=== PATIENT | female | born 1950 | race Caucasian/White ===

== ENCOUNTER 2023-10-25 20:12 | Inpatient (IN) | payer MEDICARE, OTHER ==
[2023-10-25 21:14] LABS: Basophils % (A) 1 %; Eosinophils # (A) 0.1 k/uL (0-0.7); Eosinophils % (A) 2 %; HCT 35.3 % (34.0-46.0); HGB 11.1 gm/dL (11.4-16.0); Hypochromasia Moderate; Lymphocytes # (A) 1.2 k/uL (1.0-4.8); Lymphocytes % (A) 17 %; MCH 28.4 pg (25.0-35.0); MCHC 31.5 g/dL (31.0-37.0); MCV 90.2 fL (80.0-100.0); Mean Platelet Volume 11.3; Monocytes # (A) 0.2 k/uL (0-1.0); Monocytes % (A) 3 %; Neutrophils # (A) 5.3 k/uL (1.3-7.7); Neutrophils % (A) 76 %; Platelet Count 153 k/uL (150-450); RBC 3.92 m/uL (3.80-5.40); RDW 15.1 % (11.5-15.5)
--- NOTE | 2023-10-25 21:14 | ED ---
Fall HPI - General Chief Complaint: Fall Stated Complaint: AMS, fall Time Seen by Provider: 10/25/23 20:18 Source: patient, EMS Mode of arrival: EMS - History of Present Illness Initial Comments: This patient is 73-year-old woman who is here to have evaluation after she had parent fall at home. The patient then reportedly disoriented. She is brought by ambulance to have evaluation. When I evaluate the patient, she initially is sleeping but after tactile stimulation she is awake and she is able to answer questions appropriately, though she is not able to elaborate on answers. MD Complaint: fall -: hour(s) When Fall Occurred: unsure Fall Witnessed: no Place Fall Occurred: home Loss of Consciousness: unsure - Related Data Home Medications Medication Instructions Recorded Confirmed Albuterol Sulfate [Albuterol 2 puff PO RT-Q4H PRN 10/26/23 10/26/23 Sulfate Hfa] Ergocalciferol (Vitamin D2) 1,250 mcg PO Q7D 10/26/23 10/26/23 [Drisdol (50,000 Iu)] Fluticasone/Umeclidin/Vilanter 1 puff INHALATION RT-DAILY 10/26/23 10/26/23 [Trelegy Ellipta 100-62.5-25] Metoprolol Succinate (ER) [Toprol 25 mg PO DAILY 10/26/23 10/26/23 XL] Montelukast [Singulair] 10 mg PO DAILY 10/26/23 10/26/23 Potassium Chloride ER [K-Dur 10] 10 meq PO DAILY 10/26/23 10/26/23 Pregabalin [Lyrica] 150 mg PO TID 10/26/23 10/26/23 oxyBUTYnin chloride [Ditropan] 5 mg PO BID 10/26/23 10/26/23 oxyCODONE-APAP 10-325MG [Percocet 1 tab PO Q6H PRN 10/26/23 10/26/23 10-325 mg] Previous Rx's Medication Instructions Recorded Aspirin 81 mg PO DAILY tab 10/29/23 Atorvastatin [Lipitor] 40 mg PO HS tab 10/29/23 Dapagliflozin Propanediol [Farxiga] 5 mg PO DAILY tab 10/29/23 Ipratropium-Albuterol Nebulize 3 ml INHALATION QID PRN each 10/29/23 [Duoneb 0.5 mg-3 mg/3 ml Soln] Sacubitril/Valsartan [Entresto 24 1 each PO BID tab 10/29/23 mg-26 mg Tablet] Ticagrelor [Brilinta] 90 mg PO BID #0 tab 10/29/23 cefUROXime axetiL [Ceftin] 500 mg PO BID 3 Days #6 tab 10/29/23 predniSONE 50 mg PO DAILY 5 Days #5 tablet 10/29/23 Allergies Allergy/AdvReac Type Severity Reaction Status Date / Time No Known Allergies Allergy Verified 10/26/23 10:57 Review of Systems ROS Statement: Those systems with pertinent positive or pertinent negative responses have been documented in the HPI. ROS Other: All systems not noted in ROS Statement are negative. Constitutional: Reports: weakness. Denies: fever Eyes: Denies: vision change Respiratory: Denies: cough, dyspnea Cardiovascular: Denies: chest pain, palpitations, edema, syncope Gastrointestinal: Denies: abdominal pain, vomiting Genitourinary: Denies: dysuria, hematuria Musculoskeletal: Denies: back pain Skin: Denies: rash Neurological: Reports: weakness. Denies: headache, numbness Past Medical History Past Medical History: Unable to Obtain History of Any Multi-Drug Resistant Organisms: None Reported Past Surgical History: Unable to Obtain Past Psychological History: Unable to Obtain Smoking Status: Unknown if ever smoked Past Alcohol Use History: Unable to Obtain Past Drug Use History: Unable to Obtain General Exam Limitations: altered mental status General appearance: other (Somnolent but aroused to tactile stimulus) Head exam: Present: atraumatic, normocephalic Eye exam: Present: normal appearance, PERRL, EOMI. Absent: scleral icterus, conjunctival injection Pupils: Present: miosis ENT exam: Present: normal oropharynx Neck exam: Present: normal inspection, full ROM. Absent: tenderness Respiratory exam: Present: normal lung sounds bilaterally. Absent: respiratory distress, wheezes, rales, rhonchi, stridor, accessory muscle use Cardiovascular Exam: Present: regular rate, normal rhythm, normal heart sounds. Absent: systolic murmur, diastolic murmur, rubs, gallop GI/Abdominal exam: Present: soft. Absent: distended, tenderness, guarding, rebound, rigid, mass Extremities exam: Present: normal inspection, normal capillary refill. Absent: pedal edema, calf tenderness Back exam: Present: normal inspection. Absent: CVA tenderness (R), CVA tenderness (L) Neurological exam: Present: oriented X3. Absent: CN II-XII intact, motor sensory deficit Skin exam: Present: warm, dry, intact, normal color. Absent: rash Course Vital Signs 10/25/23 10/25/23 10/25/23 20:14 21:26 22:26 Temperature 99.2 F Pulse Rate 90 83 84 Respiratory 20 20 20 Rate Blood Pressure 124/84 126/87 128/80 O2 Sat by Pulse 94 L 94 L 93 L Oximetry 10/26/23 00:58 Temperature Pulse Rate 86 Respiratory 18 Rate Blood Pressure 121/86 O2 Sat by Pulse 94 L Oximetry Medical Decision Making - Medical Decision Making Patient is 73-year-old woman here with altered mental status and fall yesterday. The patient's workup does reveal an ECG that is concerning for myocardial ischemia. The case discussed with Dr. Funes, covering cardiology. The patient is started on heparin. In addition the patient appears to have probably aspirated and will be started on antibiotics and admitted. The patient had CT scan of the brain that I interpreted as negative for acute bony injury, negative for acute intracranial hemorrhage, negative for mass effect The patient had chest x-ray that I interpreted as showing right lower lobe density consistent with pneumonia Was pt. sent in by a medical professional or institution ([facility], [employer] SUPERVIS[employer], urgent care, hospital, or longterm...) When possible be specific @ -[No] Did you speak to anyone other than the patient for history (EMS, parent, family, police, friend...)? What history was obtained from this source @ -[No] Did you review nursing and triage notes (agree or disagree)? Why? @ -[I reviewed and agree with nursing and triage notes] Were old charts reviewed (outside hosp., previous admission, EMS record, old EKG, old radiological studies, urgent care reports/EKG's, longterm records)? Report findings @ -[No old charts were reviewed] Differential Diagnosis (chest pain, altered mental status, abdominal pain women, abdominal pain men, vaginal bleeding, weakness, fever, dyspnea, syncope, headache, dizziness, GI bleed, back pain, seizure, CVA, palpatations, mental health, musculoskeletal)? @ -[Differential Altered Mental Status: Hypoglycemia, DKA, hypercapnia, ETOH, overdose, CO poisoning, trauma, myxedema coma, HTN encephalopathy, infection, encephalitis, psychosis, intercranial hemorrhage, hepatic encephalopathy, meningitis, CVA, this is not meant to be an all-inclusive list EKG interpreted by me (3pts min.). @ -[I interpreted as above] X-rays interpreted by me (1pt min.). @ -[I interpreted as above CT interpreted by me (1pt min.). @ -[I interpreted as above U/S interpreted by me (1pt. min.). @ -[None done] What testing was considered but not performed or refused? (CT, X-rays, U/S, labs)? Why? @ -[None] What meds were considered but not given or refused? Why? @ -[None] Did you discuss the management of the patient with other professionals (professionals i.e. , PA, [employer] YE[employer] SUPERVISOR, lab, RT, psych nurse, medical social worker, drag seiner, teacher, chief business development officer, bottle caser)? Give summary @ -[Case discussed with admitting physician and also with cardiology on-call and treatment recommendations are incorporated Was smoking cessation discussed for >3mins.? @ -[No] Was critical care preformed (if so, how long)? @ -[Yes, 35 minutes Were there social determinants of health that impacted care today? How? (Homelessness, low income, unemployed, alcoholism, drug addiction, transportatio n, low edu. Level, literacy, decrease access to med. care, detention, rehab)? @ -[No] Was there de-escalation of care discussed even if they declined (Discuss DNR or withdrawal of care, Hospice)? DNR status @ -[No] What co-morbidities impacted this encounter? (DM, HTN, Smoking, COPD, CAD, Cancer, CVA, ARF, Chemo, Hep., AIDS, mental health diagnosis, sleep apnea, morbid obesity)? @ -[None] Was patient admitted / discharged? Hospital course, mention meds given and route, prescriptions, significant lab abnormalities, going to OR and other pertinent info. @ -[Admitted, see above Undiagnosed new problem with uncertain prognosis? @ -[No] Drug Therapy requiring intensive monitoring for toxicity (Heparin, Nitro, Insulin, Cardizem)? @ -[Heparin Were any procedures done? @ -[No] Diagnosis/symptom? @ -[Acute altered mental status Recent fall Acute pneumonia NSTEMI Acute, or Chronic, or Acute on Chronic? @ -[Acute Uncomplicated (without systemic symptoms) or Complicated (systemic symptoms)? @ -Complicated by mental status change Side effects of treatment? @ -[No] Exacerbation, Progression, or Severe Exacerbation? @ -[No] Poses a threat to life or bodily function? How? (Chest pain, [place], GA, pneumonia, PE, COPD, DKA, ARF, appy, cholecystitis, CVA, Diverticulitis, Homicidal, Suicidal, threat to staff... and all critical care pts) @ -[Yes - Lab Data Result diagrams: 10/29/23 07:36 10/29/23 07:36 Lab Results 10/25/23 10/25/23 10/25/23 Range/Units 21:03 21:03 21:50 WBC 7.0 (3.8-10.6) k/uL RBC 3.92 (3.80-5.40) m/uL Hgb 11.1 L (11.4-16.0) gm/dL Hct 35.3 (34.0-46.0) % MCV 90.2 (80.0-100.0) fL MCH 28.4 (25.0-35.0) pg MCHC 31.5 (31.0-37.0) g/dL RDW 15.1 (11.5-15.5) % Plt Count 153 (150-450) k/uL MPV 11.3 Neutrophils % 76 % Lymphocytes % 17 % Monocytes % 3 % Eosinophils % 2 % Basophils % 1 % Neutrophils # 5.3 (1.3-7.7) k/uL Lymphocytes # 1.2 (1.0-4.8) k/uL Monocytes # 0.2 (0-1.0) k/uL Eosinophils # 0.1 (0-0.7) k/uL Basophils # 0.0 (0-0.2) k/uL Hypochromasia Moderate Sodium 141 (137-145) mmol/L Potassium 4.9 (3.5-5.1) mmol/L Chloride 113 H (98-107) mmol/L Carbon Dioxide 22 (22-30) mmol/L Anion Gap 6 mmol/L BUN 20 H (7-17) mg/dL Creatinine 0.90 (0.52-1.04) mg/dL Est GFR (CKD-EPI)AfAm 75 (>60 ml/min/1.73 sqM) Est GFR (CKD-EPI)NonAf 65 (>60 ml/min/1.73 sqM) Glucose 89 (74-99) mg/dL Plasma Lactic Acid Timur (0.7-2.0) mmol/L Calcium 8.2 L (8.4-10.2) mg/dL Magnesium 2.0 (1.6-2.3) mg/dL Total Bilirubin 0.7 (0.2-1.3) mg/dL AST 44 H (14-36) U/L ALT 15 (4-34) U/L Alkaline Phosphatase 61 (38-126) U/L Troponin I 0.370 H* (0.000-0.034) ng/mL Total Protein 6.3 (6.3-8.2) g/dL Albumin 3.3 L (3.5-5.0) g/dL Serum Alcohol <10 mg/dL 10/25/23 Range/Units 21:50 WBC (3.8-10.6) k/uL RBC (3.80-5.40) m/uL Hgb (11.4-16.0) gm/dL Hct (34.0-46.0) % MCV (80.0-100.0) fL MCH (25.0-35.0) pg MCHC (31.0-37.0) g/dL RDW (11.5-15.5) % Plt Count (150-450) k/uL MPV Neutrophils % % Lymphocytes % % Monocytes % % Eosinophils % % Basophils % % Neutrophils # (1.3-7.7) k/uL Lymphocytes # (1.0-4.8) k/uL Monocytes # (0-1.0) k/uL Eosinophils # (0-0.7) k/uL Basophils # (0-0.2) k/uL Hypochromasia Sodium (137-145) mmol/L Potassium (3.5-5.1) mmol/L Chloride (98-107) mmol/L Carbon Dioxide (22-30) mmol/L Anion Gap mmol/L BUN (7-17) mg/dL Creatinine (0.52-1.04) mg/dL Est GFR (CKD-EPI)AfAm (>60 ml/min/1.73 sqM) Est GFR (CKD-EPI)NonAf (>60 ml/min/1.73 sqM) Glucose (74-99) mg/dL Plasma Lactic Acid Timur 1.3 (0.7-2.0) mmol/L Calcium (8.4-10.2) mg/dL Magnesium (1.6-2.3) mg/dL Total Bilirubin (0.2-1.3) mg/dL AST (14-36) U/L ALT (4-34) U/L Alkaline Phosphatase (38-126) U/L Troponin I (0.000-0.034) ng/mL Total Protein (6.3-8.2) g/dL Albumin (3.5-5.0) g/dL Serum Alcohol mg/dL - EKG Data -: EKG Interpreted by [facility] EKG shows normal: sinus rhythm, axis (Normal), intervals (Normal), QRS complexes (Inferior Q waves), ST-T waves (The patient does appear to have less than [address] elevations in leads III and aVF as well as Q waves in these leads.) Rate: normal (Rate 87 bpm) Disposition Clinical Impression: Fall, NSTEMI (non-ST elevated myocardial infarction), Pneumonia Disposition: ADMITTED IP TO THIS HOSP Condition: Fair Is patient prescribed a controlled substance at d/c from ED?: No
--- NOTE | 2023-10-25 21:30 | CT ---
EXAMINATION TYPE: CT brain wo con CT DLP: 1070.7 mGycm, Automated exposure control for dose reduction was used. DATE OF EXAM: 10/25/2023 9:22 PM COMPARISON: None. CLINICAL INDICATION: Female, 73 years old with history of altered mental status. fall injury, Patient in by EMS. Patient brought from home after a fall yesterday, does not take anti-coagulant medicatio ns, patient slept until 1300 today, found with vomit near her, lives at home with daughter, baseline LOC is x4 per EMS. At time of arrival to ER, patient is lethargic, alert to person, able to answer so me yes/no questions, denies complaints of pain, falls asleep quickly and wakes to mild tactile stimul ation. TECHNIQUE: Brain: Axial CT images of the brain were obtained with coronal and sagittal reformats created and rev iewed. Contrast used: None. Oral contrast used: None. FINDINGS: Brain: Extra-axial spaces: No abnormal extra-axial fluid collections. Ventricular system: Within normal limits Cerebral parenchyma: No acute intraparenchymal hemorrhage or mass effect. The villalta-white junction is well differentiated. Cerebellum: Unremarkable. Mass effect: No evidence of midline shift. Intracranial vasculature: unremarkable Soft tissues: Normal. Calvarium/osseous structures: No depressed skull fracture. Paranasal sinuses and mastoid air cells: Mild scattered paranasal sinus disease. Visualized orbits: Orbital contents are intact. IMPRESSION: No acute intracranial process. [facility], , 10/25/2023 9:27 PM
[2023-10-25 22:21] LABS: ALT 15 U/L (4-34); African American GFR (CKD) 75 (>60 ml/min/1.73 sqM); Albumin 3.3 g/dL (3.5-5.0); Alcohol <10 mg/dL; Anion Gap 6 mmol/L; Blood Urea Nitrogen 20 mg/dL (7-17); Calcium 8.2 mg/dL (8.4-10.2); Carbon Dioxide 22 mmol/L (22-30); Chloride 113 mmol/L (98-107); Glucose 89 mg/dL (74-99); Non-African American GFR(CKD) 65 (>60 ml/min/1.73 sqM); Sodium 141 mmol/L (137-145); Total Bilirubin 0.7 mg/dL (0.2-1.3); Total Protein 6.3 g/dL (6.3-8.2)
[2023-10-25 22:31] LABS: Potassium 4.9 mmol/L (3.5-5.1)
[2023-10-25 22:32] LABS: AST 44 U/L (14-36); Alkaline Phosphatase 61 U/L (38-126)
[2023-10-25] MEDS: HEPARIN SODIUM 1,000 UN/ML (10ML VL) IV ONE (23:01)
[2023-10-25] MEDS: HEPARIN SOD,PORK IN 0.45% NACL 25,000 UNIT in 0.45% NACL 1 250ML.BAG IV SCH (23:08)
[2023-10-25] MEDS: ASPIRIN 81 MG PO STA (23:11)
[2023-10-25] MEDS ORDERED: ONDANSETRON 4 MG/2 ML VIAL IVP PRN (23:42)
[2023-10-25] MEDS ORDERED: NALOXONE 0.4 MG/ML 1 ML VIAL IV PRN (23:42)
[2023-10-26] MEDS: AZITHROMYCIN 500 MG in SODIUM CHLORIDE 0.9% 250 ML IVPB STA ×2 (00:36→00:39)
[2023-10-26] MEDS: SODIUM CHLORIDE 0.9% 1,000 ML IV SCH (00:38)
--- NOTE | 2023-10-26 01:01 | XR ---
EXAM: XR Chest, 1 View CLINICAL HISTORY: ITS.REASON XR Reason: Altered mental status TECHNIQUE: Frontal view of the chest. COMPARISON: No relevant prior studies available. FINDINGS: Lungs: Airspace consolidation in the RIGHT lower lobe, consistent with pneumonia. Pleural space: Unremarkable. No pneumothorax. Heart: Cardiomegaly. Mediastinum: Unremarkable. Normal mediastinal contour. Bones/joints: Unremarkable. No acute fracture. IMPRESSION: Airspace consolidation in the RIGHT lower lobe, consistent with pneumonia.
--- NOTE | 2023-10-26 01:03 | P.HPIM ---
History of Present Illness H&P Date: 10/26/23 Chief Complaint: AMS Patient is a 73-year-old female with an unknown medical history presents to the ED with apparent fall at home. When evaluated patient somnolent, limited h istory was obtained. Was informed by ED that she fell at home 1 day ago. The family noticed that she was not acting like her usual self, so they decided to bring her to the emergency department. When I saw her, she was arousable with tactile stimuli and was barely able to follow vocal commands. Review of systems: Pertinent positives and negatives as discussed in HPI, a complete review of systems was performed and all other systems are negative. Physical examination: Vitals: T 99.2 F, [place] 84, RR 20, BP 128/80, O2 sat 93% on room air General: Somnolentaroused by tactile and vocal stimuli, non toxic, no distress, appears at stated age, normal weight Derm: no unusual rashes/lesions, warm Head: atraumatic, normocephalic, symmetric Eyes: EOMI, anicteric sclera, pupils equal round reactive to light ENT: Nose and ears atraumatic Mouth: no lip lesion, mucus membranes moist Cardiovascular: S1S2 reg, no murmur, positive dorsalis pedis pulse bilateral, no edema Lungs: CTA bilateral, no rhonchi, no rales, no accessory muscle use Abdominal: soft, nontender to palpation, no guarding Ext: no gross muscle atrophy Neuro: CN II-XI not intact, no gross focal neuro deficits Psych: sleepy arousable Assessment/Plan: Patient is a 73-year-old female with an unknown medical history presents to the ED with altered mental status. ED documentation reviewed and case discussed with ED provider. The patient is admitted with an anticipated greater than 2 midnight stay for evaluation of altered mental status. #. NSTEMI Ischemic versus nonischemic Troponin elevated at 0.370 => 0.383, continue to trend Lactic acid 1.3 wnl EKG independently interpreted shows abnormal EKG, sinus rhythm, with ST abnormality in lead II, III, aVF, rate 87 bpm, QTc 408 ms Repeat EKG independent interpreted shows sinus rhythm with no ST elevations or depressions present, rate 78 bpm, QTc 420 ms Keep patient NPO Order coagulation panel Order lipid profile and TSH Aspirin 81 mg p.o. daily Atorvastatin Cardiac monitoring Cardiology consulted heparin gtt per ACS protocol #. Acute encephalopathy #. Community-acquired pneumonia Patient afebrile, WBC within normal limits, [place] wnl, elevated RR of 20 Altered mental status could possibly be due to pneumonia, rule out other etiology CXR independently interpreted shows consolidation in the right lower lobe Patient on ceftriaxone 2 g IVPB Patient on azithromycin 500 mg IVPB Ordered blood cultures urine legionella antigen WBC 7 check blood culture #. Fall secondary to debility/failure to thrive vs. mechanical fall vs. AMS Patient currently unable to give full detail history of fall Brain CT showed no acute intracranial process Serum alcohol <10 Order UA Monitor glucose levels for hypoglycemia Fall precautions #. Normocytic anemia Hgb 11.1, MCV 90.2 No active bleeding seen Order iron profile Order B12, folate F: NS @ 130 cc/hr E: Replete as needed N: NPO A: Fall precaution DVT prophylaxis: SCDs, IV heparin GI prophylaxis: Protonix 40 mg IV daily CODE STATUS: Full code Past Medical History Past Medical History: Unable to Obtain History of Any Multi-Drug Resistant Organisms: None Reported Past Surgical History: Unable to Obtain Past Psychological History: Unable to Obtain Smoking Status: Unknown if ever smoked Past Alcohol Use History: Unable to Obtain Past Drug Use History: Unable to Obtain Medications and Allergies Allergies Allergy/AdvReac Type Severity Reaction Status Date / Time No Known Allergies Allergy Verified 10/25/23 21:04 Physical Exam Vitals: Vital Signs Temp Pulse Resp BP Pulse Ox 10/25/23 22:26 84 20 128/80 93 L 10/25/23 21:26 83 20 126/87 94 L 10/25/23 20:14 99.2 F 90 20 124/84 94 L Intake and Output 10/25/23 10/25/23 10/26/23 14:59 22:59 06:59 Other: Weight 68.492 kg Results CBC & Chem 7: 10/26/23 04:05 10/26/23 04:05 Labs: Abnormal Lab Results - Last 24 Hours (Table) 10/25/23 10/25/23 10/25/23 Range/Units 21:03 21:03 21:50 Hgb 11.1 L (11.4-16.0) gm/dL Chloride 113 H (98-107) mmol/L BUN 20 H (7-17) mg/dL Calcium 8.2 L (8.4-10.2) mg/dL AST 44 H (14-36) U/L Troponin I 0.370 H* (0.000-0.034) ng/mL Albumin 3.3 L (3.5-5.0) g/dL Assessment and Plan Assessment: I have seen and evaluated the patient today. I Discussed the case with the resident and agree with the resident's findings I edited the assessment and plan as necessary as documented in the resident's note.
[2023-10-26 02:58] LABS: Appearance,Urine Cloudy (Clear); Bacteria,Urine Moderate /hpf; Bilirubin,Urine Negative (Negative); Blood,Urine Small (Negative); Budding Yeast,Urine Rare /hpf; Color,Urine Light Yellow; Glucose,Urine (UA) Negative (Negative); Ketones,Urine Trace (Negative); Leukocyte Esterase,Urine Trace (Negative); Nitrite,Urine Positive (Negative); Protein,Urine Negative (Negative); RBC,Urine 1 /hpf (0-5); Specific Gravity,Urine 1.017 (1.001-1.035); Squamous Epithelial Cell,Urine 2 /hpf (0-4); Urobilinogen,Urine <2.0 mg/dL (<2.0); WBC,Urine 12 /hpf (0-5)
[2023-10-26 04:48] LABS: Partial Thromboplastin Time 34.2 sec (22.0-30.0); Prothrombin Time 10.8 sec (10.0-12.5)
[2023-10-26 04:51] LABS: ALT 15 U/L (4-34); AST 52 U/L (14-36); African American GFR (CKD) >90 (>60 ml/min/1.73 sqM); Albumin 3.2 g/dL (3.5-5.0); Alkaline Phosphatase 75 U/L (38-126); Anion Gap 8 mmol/L; Blood Urea Nitrogen 18 mg/dL (7-17); Calcium 8.4 mg/dL (8.4-10.2); Carbon Dioxide 19 mmol/L (22-30); Chloride 114 mmol/L (98-107); Glucose 91 mg/dL (74-99); Non-African American GFR(CKD) 87 (>60 ml/min/1.73 sqM); Potassium 4.1 mmol/L (3.5-5.1); Sodium 141 mmol/L (137-145); Total Bilirubin 0.7 mg/dL (0.2-1.3); Total Protein 5.9 g/dL (6.3-8.2)
[2023-10-26 04:57] LABS: Basophils % (A) 0 %; Eosinophils # (A) 0.1 k/uL (0-0.7); Eosinophils % (A) 2 %; HCT 35.4 % (34.0-46.0); HGB 11.6 gm/dL (11.4-16.0); Lymphocytes # (A) 1.5 k/uL (1.0-4.8); Lymphocytes % (A) 20 %; MCH 29.4 pg (25.0-35.0); MCHC 32.8 g/dL (31.0-37.0); MCV 89.5 fL (80.0-100.0); Mean Platelet Volume 11.4; Monocytes # (A) 0.3 k/uL (0-1.0); Monocytes % (A) 4 %; Neutrophils # (A) 5.4 k/uL (1.3-7.7); Neutrophils % (A) 72 %; Platelet Count 153 k/uL (150-450); RBC 3.95 m/uL (3.80-5.40); RDW 15.3 % (11.5-15.5); WBC 7.4 k/uL (3.8-10.6)
[2023-10-26] MEDS: ASPIRIN 81 MG PO SCH (08:37)
[2023-10-26] MEDS: PANTOPRAZOLE 40 MG/10 ML VIAL IV SCH (08:37)
[2023-10-26 09:16] LABS: % Iron Saturation 13.93 (12.00-45.00); Chol/HDL Ratio 4.17 Ratio; Ferritin 67.3 ng/mL (10.0-291.0); Iron 34 UG/DL (50-170); LDL Cholesterol,Calculated 76.4 mg/dL (0.0-131.0); Total Iron Binding Capacity 244 UG/DL (228-460)
--- NOTE | 2023-10-26 10:50 | P.PN ---
Progress Note - Text Progress Note Date: 10/26/23 Hospital course Patient is a 73-year-old female with past medical history of tobacco use and COPD who presents to the ED after a fall. Per family patient was not acting like her usual self. So they have brought her in. In the ED patient was found to have right lower lobe pneumonia on the chest x-ray. UA was also consistent with UTI. Patient's troponins were elevated. Patient was started on IV Rocephin and azithromycin and then referred for admission. Patient's mental status has not improved. Patient was seen this morning. She was AOx3. She was somnolent however easily arousable. Her main complaint is her chronic back pain. 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 Patient's troponin peaked at 0.383. Check echocardiogram Cardiology consult Heparin drip Patient started on aspirin and statin DVT prophylaxis: Heparin drip non-ST elevation DC
[2023-10-26] MEDS ORDERED: IPRATROPIUM-ALBUTEROL 3 ML NEB INHALATION PRN (10:54)
[2023-10-26] MEDS: IPRATROPIUM-ALBUTEROL 3 ML NEB INHALATION SCH (11:59)
[2023-10-26] MEDS: methylPREDNISolone SOD SUCCI 40 MG/ML 1 ML VIAL IV SCH (12:19)
[2023-10-26] MEDS: ACETAMINOPHEN TAB 325 MG TAB PO PRN (12:20)
[2023-10-26] MEDS: HEPARIN SODIUM 1,000 UN/ML (10ML VL) IV PRN (12:25)
--- NOTE | 2023-10-26 13:12 | P.CRDCN ---
History of Present Illness History of present illness: HISTORY OF PRESENT ILLNESS: This is a 73-year-old female with a past medical history significant for hypertension. Patient does not follow with a ip architect. We have been asked to see the patient in consultation for non-STEMI. Patient examined at the bedside. Patient is confused at the time of examination. Apparently, the patient was at home when she used the restroom and her family came to check on her afterwards and she was laying on the ground. It is unknown for how long the patient was laying on the ground. The patient denies any chest pain or pressure. She denies shortness of breath. She does report having a cough. She does report generalized discomfort. DIAGNOSTICS: - EKG reveals sinus mechanism with Q waves inferiorly - Chest xray airspace consolidation in right lower lobe. Consistent with pneumonia. - Laboratory data: WBC 7.4. Hemoglobin 11.6. Platelet count 153. Sodium 141. Potassium 4.1. BUN 18. Creatinine 0.70. Troponin 0.370. 0.383. 0.304. - Current home cardiac medications include metoprolol succinate 25 mg daily - No previous echocardiogram, cardiac catheterization or stress test available in EMR for review REVIEW OF SYSTEMS: At the time of my exam: CONSTITUTIONAL: Denies fever or chills. HEENT: Denies blurred vision, vision changes, or eye pain. Denies hemoptysis CARDIOVASCULAR: Denies chest pain. Denies orthopnea. Denies PND. Denies palpitations RESPIRATORY: Denies shortness of breath. GASTROINTESTINAL: Denies abdominal pain. Denies nausea or vomiting. HEMATOLOGIC: Denies bleeding disorders. GENITOURINARY: Denies any blood in urine. SKIN: Denies pruitis. Denies rash. PHYSICAL EXAM: VITAL SIGNS: Reviewed. GENERAL: Well-developed in no acute distress. HEENT: Head is normocephalic. Pupils are equal, round. Sclerae anicteric. Mucous membranes of the mouth are moist. Neck supple. No JVD or thyromegaly LUNGS: Respirations even and unlabored. Lungs essentially clear to auscultation bilaterally. HEART: Regular rate and rhythm. S1 and S2 heard. ABDOMEN: Soft. Nondistended. Nontender. EXTREMITIES: Normal range of motion. No clubbing or cyanosis. Peripheral pulses intact. No lower extremity edema NEUROLOGIC: Awake and alert. Oriented x 2 ASSESSMENT: Unresponsive episode after using bathroom, etiology unknown Urinary tract infection Right lower lobe pneumonia Elevated troponins, flat, suspect type II [place], cannot rule out underlying CAD Abnormal EKG with Q waves inferiorly History of hypertension PLAN: Continue aspirin and atorvastatin Resume home dose of metoprolol Continue IV heparin for an additional 24 hours Check creatinine kinase Obtain 2D echo to assess cardiac structure and function Continue with conservative management at this time. No plans for cardiac catheterization. Consult neurology for evaluation Further recommendations pending patient course Nurse practitioner note has been reviewed by physician. Signing provider agrees with the documented findings, assessment, and plan of care documented by CUTTER OPERATOR HELPER as a scribe. Past Medical History Past Medical History: Unable to Obtain History of Any Multi-Drug Resistant Organisms: None Reported Past Surgical History: Unable to Obtain Past Psychological History: Unable to Obtain Smoking Status: Unknown if ever smoked Past Alcohol Use History: Unable to Obtain Past Drug Use History: Unable to Obtain Medications and Allergies Home Medications Medication Instructions Recorded Confirmed Type Albuterol Sulfate [Albuterol 2 puff PO RT-Q4H PRN 10/26/23 10/26/23 History Sulfate Hfa] Bacitracin 500 Unit/Gram Topical 1 applic TOPICAL BID 10/26/23 10/26/23 History Ointment Ergocalciferol (Vitamin D2) 1,250 mcg PO Q7D 10/26/23 10/26/23 History [Drisdol (50,000 Iu)] Fluticasone/Umeclidin/Vilanter 1 puff INHALATION RT-DAILY 10/26/23 10/26/23 History [Trelegy Ellipta 100-62.5-25] Ibuprofen [Motrin] 800 mg PO TID 10/26/23 10/26/23 History Metoprolol Succinate (ER) [Toprol 25 mg PO DAILY 10/26/23 10/26/23 History Xl] Montelukast [Singulair] 10 mg PO DAILY 10/26/23 10/26/23 History Ondansetron [Zofran] 8 mg PO Q12HR PRN 10/26/23 10/26/23 History Potassium Chloride ER [K-Dur 10] 10 meq PO DAILY 10/26/23 10/26/23 History Pregabalin [Lyrica] 150 mg PO TID 10/26/23 10/26/23 History oxyBUTYnin chloride [Ditropan] 5 mg PO BID 10/26/23 10/26/23 History oxyCODONE-APAP 10-325MG [Percocet 1 tab PO Q6H PRN 10/26/23 10/26/23 History 10-325 mg] Allergies Allergy/AdvReac Type Severity Reaction Status Date / Time No Known Allergies Allergy Verified 10/26/23 10:57 Physical Exam Vitals: Vital Signs Temp Pulse Pulse Resp BP BP Pulse Ox 10/26/23 08:00 99.2 F 98 18 170/98 96 10/26/23 04:00 98.7 F 89 18 143/84 95 10/26/23 01:51 98.7 F 83 18 118/79 94 L 10/26/23 00:58 86 18 121/86 94 L 10/25/23 22:26 84 20 128/80 93 L 10/25/23 21:26 83 20 126/87 94 L 10/25/23 20:14 99.2 F 90 20 124/84 94 L Intake and Output 10/25/23 10/26/23 10/26/23 22:59 06:59 14:59 Intake Total 47.396 Balance 47.396 Intake: Intake, IV Titration 47.396 Amount Heparin Sod,Pork in 0.45% 47.396 NaCl 25,000 unit In 0.45 % NaCl 1 250ml.bag @ 12 UNITS/KG/HR 8.219 mls/hr IV .Q24H [facility] Rx#: [id number] Other: Voiding Method External Catheter # Voids 2 Weight 68.492 kg 57 kg Results 10/26/23 04:05 10/26/23 04:05 Cardiac Enzymes 10/25/23 10/25/23 10/26/23 Range/Units 21:03 21:50 00:06 AST 44 H (14-36) U/L Troponin I 0.370 H* 0.383 H* (0.000-0.034) ng/mL 10/26/23 10/26/23 Range/Units 04:05 04:05 AST 52 H (14-36) U/L Troponin I 0.304 H* (0.000-0.034) ng/mL Coagulation 10/26/23 Range/Units 04:05 PT 10.8 (10.0-12.5) sec APTT 34.2 H (22.0-30.0) sec Lipids 10/26/23 Range/Units 04:05 Triglycerides 112.00 (0.00-149.00) mg/dL Cholesterol 130.00 (0.00-200.00) mg/dL HDL Cholesterol 31.20 L (40.00-60.00) mg/dL Cholesterol/HDL Ratio 4.17 Ratio CBC 10/25/23 10/26/23 Range/Units 21:03 04:05 WBC 7.0 7.4 (3.8-10.6) k/uL RBC 3.92 3.95 (3.80-5.40) m/uL Hgb 11.1 L 11.6 (11.4-16.0) gm/dL Hct 35.3 35.4 (34.0-46.0) % Plt Count 153 153 (150-450) k/uL Comprehensive Metabolic Panel 10/25/23 10/26/23 Range/Units 21:50 04:05 Sodium 141 141 (137-145) mmol/L Potassium 4.9 4.1 (3.5-5.1) mmol/L Chloride 113 H 114 H (98-107) mmol/L Carbon Dioxide 22 19 L (22-30) mmol/L BUN 20 H 18 H (7-17) mg/dL Creatinine 0.90 0.70 (0.52-1.04) mg/dL Glucose 89 91 (74-99) mg/dL Calcium 8.2 L 8.4 (8.4-10.2) mg/dL AST 44 H 52 H (14-36) U/L ALT 15 15 (4-34) U/L Alkaline Phosphatase 61 75 (38-126) U/L Total Protein 6.3 5.9 L (6.3-8.2) g/dL Albumin 3.3 L 3.2 L (3.5-5.0) g/dL Current Medications Generic Name Dose Route Start Last Admin Trade Name Freq PRN Reason Stop Dose Admin Acetaminophen 650 mg 10/25/23 23:42 Acetaminophen Tab 325 Mg Tab PO Q6HR PRN Mild Pain or Fever > 100.5 Aspirin 81 mg 10/26/23 09:00 10/26/23 08:37 Aspirin 81 Mg PO 81 mg DAILY [facility] Administration Atorvastatin Calcium 40 mg 10/26/23 21:00 Atorvastatin 40 Mg Tab PO HS [facility] Heparin Sodium (Porcine) 0 unit 10/25/23 22:37 Heparin Sodium 1,000 Un/Ml (10ml Vl) IV PER PROTOCOL PRN Low PTT Protocol Heparin Sodium/Sodium Chloride 250 mls @ 8.219 mls/hr 10/25/23 22:45 10/26/23 04:54 25,000 unit/ Sodium Chloride IV 15 units/kg/hr .Q24H [facility] 10.274 mls/hr Titration Protocol 12 UNITS/KG/HR Sodium Chloride 1,000 mls @ 130 mls/hr 10/25/23 23:45 10/26/23 05:54 Saline 0.9% IV Not Given .Q7H42M [facility] Ceftriaxone Sodium 2 gm/ 50 mls @ 100 mls/hr 10/26/23 09:00 10/26/23 08:37 Sodium Chloride IVPB 100 mls/hr DAILY [facility] Administration Protocol Azithromycin 500 mg/ Sodium 250 mls @ 250 mls/hr 10/26/23 21:00 Chloride IVPB 10/28/23 21:59 HS [facility] Protocol Naloxone HCl 0.2 mg 10/25/23 23:42 Naloxone 0.4 Mg/Ml 1 Ml Vial IV Q2M PRN Opioid Reversal Ondansetron HCl 4 mg 10/25/23 23:42 Ondansetron 4 Mg/2 Ml Vial IVP Q8HR PRN Nausea And Vomiting Pantoprazole Sodium 40 mg 10/26/23 09:00 10/26/23 08:37 Pantoprazole 40 Mg/10 Ml Vial IV 40 mg DAILY [facility] Administration Intake and Output 10/25/23 10/26/23 10/26/23 22:59 06:59 14:59 Intake Total 47.396 Balance 47.396 Intake: Intake, IV Titration 47.396 Amount Heparin Sod,Pork in 0.45% 47.396 NaCl 25,000 unit In 0.45 % NaCl 1 250ml.bag @ 12 UNITS/KG/HR 8.219 mls/hr IV .Q24H [facility] Rx#: [id number] Other: Voiding Method External Catheter # Voids 2 Weight 68.492 kg 57 kg 10/26/23 04:05 10/26/23 04:05
[2023-10-26] MEDS: PREGABALIN 75 MG CAP PO SCH (15:48)
[2023-10-26] MEDS: IBUPROFEN 800 MG TAB PO SCH (15:56)
[2023-10-26 16:32] LABS: Glucose,Whole Blood 144 mg/dL (70-110)
--- NOTE | 2023-10-26 17:42 | CA ---
Transthoracic Echo Report Name: Cary Poole Age: 73 Gender: F : 1950 Exam Date: 10/26/2023 10:42 Exam Location: [facility] Ht (in): 64 Wt (lb): 125 Ordering Physician: Tata Theodore Attending/Referring Phys: [id number], Ewelina Sexologist Karyn Dyer RDCS Procedure CPT: Indications: LV function Cardiac Hx: Technical Quality: Good Contrast 1: Total Dose (mL): Contrast 2: Total Dose (mL): MEASUREMENTS (Male / Female) Normal Values 2D ECHO LV Diastolic Diameter PLAX 5.1 cm 4.2 - 5.9 / 3.9 - 5.3 cm LV Systolic Diameter PLAX 4.4 cm IVS Diastolic Thickness 1.1 cm 0.6 - 1.0 / 0.6 - 0.9 cm LVPW Diastolic Thickness 1.2 cm 0.6 - 1.0 / 0.6 - 0.9 cm LV Relative Wall Thickness 0.5 RV Internal Dim ED PLAX 2.4 cm LV Diastolic Volume MOD BP 118.4 cm??? 67 - 155 / 56 - 104 cm??? LV Systolic Volume MOD BP 75.7 cm??? 22 - 58 / 19 - 49 cm??? LV Ejection Fraction MOD BP 36.1 % >= 55 % LV Cardiac Index MOD BP 2242.2 cm???/min???m??? LV Diastolic Volume MOD 4C 109.4 cm??? LV Systolic Volume MOD 4C 70.1 cm??? LV Ejection Fraction MOD 4C 35.9 % LV Cardiac Index MOD 4C 2062.9 cm???/min???m??? LV Diastolic Length 4C 7.7 cm LV Systolic Length 4C 7.0 cm LV Diastolic Volume MOD 2C 121.4 cm??? LV Systolic Volume MOD 2C 84.5 cm??? LV Ejection Fraction MOD 2C 30.4 % LV Cardiac Index MOD 2C 1937.4 cm???/min???m??? LV Diastolic Length 2C 8.2 cm LV Systolic Length 2C 7.5 cm M-MODE Aortic Root Diameter MM 3.4 cm LA Systolic Diameter MM 3.1 cm LA Ao Ratio MM 0.9 AV Cusp Separation MM 2.2 cm DOPPLER AV Peak Velocity 121.7 cm/s AV Peak Gradient 5.9 mmHg MV E' Velocity 3.5 cm/s TR Peak Velocity 248.9 cm/s TR Peak Gradient 24.8 mmHg Right Ventricular Systolic Press 30.0 mmHg FINDINGS Left Ventricle Left ventricular ejection fraction is estimated at 25-30%. Mildly increased septal wall thickness. Mildly increased posterior wall thickness. Moderately increased left ventricular diastolic volume. Severely increased left ventricular systolic volume. Moderately decreased left ventricular ejection fraction. Right Ventricle Normal right ventricular size and function. Right ventricular systolic pressure within normal limits. Right Atrium Mild right atrial dilatation. Left Atrium Moderate left atrial dilatation. Mitral Valve Structurally normal mitral valve. Mitral valve thickened. Mild mitral regurgitation. Aortic Valve Trileaflet aortic valve. Thickened aortic valve without stenosis. No aortic regurgitation. Tricuspid Valve Structurally normal tricuspid valve. Trace to mild tricuspid regurgitation. No tricuspid stenosis. Pulmonic Valve Structurally normal pulmonic valve. Mild pulmonic regurgitation. No pulmonic stenosis. Pericardium No pericardial effusion. No pleural effusion. Aorta Normal size aortic root and proximal ascending aorta. CONCLUSIONS Diagnosis Shortness of breath, congestive heart failure Dilated LV with reduced LV systolic function ejection fraction less than 30% Previewed by: Dr. Henrik Conway MD (Electronically Signed) Final Date: 26 October 2023 17:41
[2023-10-26] MEDS: oxyCODONE-APAP 10-325MG 1 EACH TAB PO PRN (17:49)
[2023-10-26] MEDS: AZITHROMYCIN 500 MG in SODIUM CHLORIDE 0.9% 250 ML IVPB SCH (20:06)
[2023-10-26] MEDS: ATORVASTATIN 40 MG TAB PO SCH (20:06)
[2023-10-26] MEDS: oxyBUTYnin chloride 5 MG TAB PO SCH (20:06)
[2023-10-26 20:12] LABS: Glucose,Whole Blood 152 mg/dL (70-110)
[2023-10-27 06:04] LABS: Glucose,Whole Blood 105 mg/dL (70-110)
[2023-10-27] MEDS: METOPROLOL SUCCINATE (ER) 25 MG TAB.ER.24H PO SCH (07:52)
[2023-10-27] MEDS: MONTELUKAST 10 MG TAB PO SCH (07:52)
--- NOTE | 2023-10-27 10:28 | P.PN ---
Subjective Progress Note Date: 10/27/23 Hospital course Patient is a 73-year-old female with past medical history of tobacco use and COPD who presents to the ED after a fall. Per family patient was not acting like her usual self. So they have brought her in. In the ED patient was found to have right lower lobe pneumonia on the chest x-ray. UA was also consistent with UTI. Patient's troponins were elevated. Patient was started on IV Rocephin and azithromycin and then referred for admission. Patient's mental st atus has now improved. Patient seen this morning. She is more awake and alert than yesterday. She is AOx3. Patient denies overdosing on her pain medications. I discussed with the nurse who said that patient yells out for her pain meds. Patient denies knowing about any history of heart failure. 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 I discussed with the nurse to avoid pain meds if patient is somnolent Cardiology service consulted neurology COPD exacerbation Will start the patient on IV Solu-Medrol and DuoNeb Improving Patient on room air Fall PT OT consult Rhabdomyolysis secondary to trauma from fall CK trending down Will avoid IV fluids due to heart failure Newly diagnosed cardiomyopathy Echocardiogram shows an EF of 30% Continue beta-scott Defer medication optimization to cardiology Defer LifeVest to cardiology. Doubt patient will be amenable to a LifeVest Awaiting further recommendations from cardiology Non-ST elevation DC could be due to rhabdomyolysis and demand ischemia Patient is denying any chest pain. Patient's troponin peaked at 0.383. Reviewed cardiology note who is recommending another 24 hours of heparin drip Cardiology following Patient started on aspirin and statin DVT prophylaxis: Heparin drip for non-ST elevation DC Objective - Vital Signs Vital signs: Vital Signs Temp 98.0 F 10/27/23 07:50 Pulse 96 10/27/23 09:07 Resp 18 10/27/23 07:50 BP 145/83 10/27/23 07:50 Pulse Ox 95 10/27/23 07:50 FiO2 Intake & Output 10/26/23 10/27/23 10/27/23 18:59 06:59 18:59 Intake Total 77.397 94.522 148.77 Output Total 1050 300 Balance -972.603 -205.478 148.77 Weight 49.5 kg Intake: Intake, IV Titration 77.397 94.522 148.77 Amount Heparin Sod,Pork in 0.45% 77.397 94.522 148.77 NaCl 25,000 unit In 0.45 % NaCl 1 250ml.bag @ 12 UNITS/KG/HR 8.219 mls/hr IV .Q24H [facility] Rx#: [id number] Output: Urine 1050 300 Other: Voiding Method External Catheter External Catheter External Catheter - Labs CBC & Chem 7: 10/26/23 04:05 10/26/23 04:05 Labs: Abnormal Lab Results - Last 24 Hours (Table) 10/26/23 10/26/23 10/26/23 Range/Units 10:39 16:28 19:10 APTT 43.4 H (22.0-30.0) sec POC Glucose (mg/dL) 144 H (70-110) mg/dL Creatine Kinase 2186 H* (30-135) U/L 10/26/23 10/27/23 10/27/23 Range/Units 20:11 06:24 06:44 APTT 36.9 H (22.0-30.0) sec POC Glucose (mg/dL) 152 H (70-110) mg/dL Creatine Kinase 1251 H* (30-135) U/L
[2023-10-27 11:35] LABS: Glucose,Whole Blood 103 mg/dL (70-110)
[2023-10-27] MEDS ORDERED: NITROGLYCERIN SL TABS 0.4 MG TAB SUBLINGUAL PRN (12:29)
[2023-10-27] MEDS ORDERED: ALPRAZolam 0.25 MG TAB PO PRN (12:29)
--- NOTE | 2023-10-27 12:53 | P.CNNES ---
History of Present Illness Consult date: 10/26/23 Requesting physician: Tata Theodore Reason for Consult: episode of unresponsiveness History of Present Illness: Patient is a 73-year-old female came to the hospital by ambulance yesterday at 8:12 PM for a possible fall, altered mental status. Patient at present is laying in the bed, not very cooperative with the history taking and examination. Patient states that she is not feeling good, she is hurting all over, admits to having a headache, but could not tell me how bad it is on a scale of 1-10. Pat rox would cooperate for a few minutes and then would get frustrated and stops cooperating. Patient states "I cannot see because of cataracts" she denies diabetes.. She admits to smoking 1 pack/day, but does not know for how long. Patient states that she has been smoking since her 50s. Patient could not tell me if she fell, or lost consciousness the other day. Patient very not cooperating with a history or examination. However as per nursing report, she is cooperating better now as compared to how she was earlier with the nurse. Patient denies any focal symptoms. As per EMS flowsheet, when they arrived, patient was in the bathroom. Patient was alert but slow to respond and answer to questions. Patient was oriented to person and time. Family mentioned that patient had a fall yesterday and unknown if she lost consciousness. Denies any blood thinners. Patient also slept until 1 PM and had vomit on her pillow. Patient was somnolent and hard to keep awake. Patient had audible wheezing and febrile. Patient has tenderness to the right foot. Vitals at the scene was blood pressure 136/86, pulse rate 97, respiration 22 saturation 90%. Blood test shows normal CBC, basic metabolic panel. AST is 44 but normal ALT 15. Troponins are elevated 0.370. B12 257, folate 7.9. UA shows positive nitrite and trace leukocyte esterase. Blood alcohol level is less than 10. TSH is low 0.444. CT head showed no acute intracranial process. I personally reviewed CT head, agree with the findings. EKG shows sinus rhythm. Chest x-ray showed airspace consolidation in the right lower lobe. Consistent with pneumonia. Home medications include potassium, oxycodone, Lyrica 150 mg 3 times daily, metoprolol, oxybutynin, vitamin D 2. Review of Systems As per HPI. Patient did not cooperate with review of systems. ROS unobtainable: due to mental status Past Medical History Past Medical History: Unable to Obtain History of Any Multi-Drug Resistant Organisms: None Reported Past Surgical History: Unable to Obtain Past Psychological History: Unable to Obtain Smoking Status: Unknown if ever smoked Past Alcohol Use History: Unable to Obtain Past Drug Use History: Unable to Obtain Medications and Allergies Home Medications Medication Instructions Recorded Confirmed Type Albuterol Sulfate [Albuterol 2 puff PO RT-Q4H PRN 10/26/23 10/26/23 History Sulfate Hfa] Bacitracin 500 Unit/Gram Topical 1 applic TOPICAL BID 10/26/23 10/26/23 History Ointment Ergocalciferol (Vitamin D2) 1,250 mcg PO Q7D 10/26/23 10/26/23 History [Drisdol (50,000 Iu)] Fluticasone/Umeclidin/Vilanter 1 puff INHALATION RT-DAILY 10/26/23 10/26/23 History [Trelegy Ellipta 100-62.5-25] Ibuprofen [Motrin] 800 mg PO TID 10/26/23 10/26/23 History Metoprolol Succinate (ER) [Toprol 25 mg PO DAILY 10/26/23 10/26/23 History Xl] Montelukast [Singulair] 10 mg PO DAILY 10/26/23 10/26/23 History Ondansetron [Zofran] 8 mg PO Q12HR PRN 10/26/23 10/26/23 History Potassium Chloride ER [K-Dur 10] 10 meq PO DAILY 10/26/23 10/26/23 History Pregabalin [Lyrica] 150 mg PO TID 10/26/23 10/26/23 History oxyBUTYnin chloride [Ditropan] 5 mg PO BID 10/26/23 10/26/23 History oxyCODONE-APAP 10-325MG [Percocet 1 tab PO Q6H PRN 10/26/23 10/26/23 History 10-325 mg] Allergies Allergy/AdvReac Type Severity Reaction Status Date / Time No Known Allergies Allergy Verified 10/26/23 10:57 Physical Examination - Vital Signs Vital Signs: Vital Signs Temp Pulse Pulse Resp BP BP Pulse Ox 10/26/23 15:50 108 H 10/26/23 15:42 80 16 140/93 97 10/26/23 15:39 112 H 10/26/23 12:09 88 10/26/23 12:00 98.3 F 87 16 155/84 96 10/26/23 11:59 84 10/26/23 08:00 99.2 F 98 18 170/98 96 10/26/23 04:00 98.7 F 89 18 143/84 95 10/26/23 01:51 98.7 F 83 18 118/79 94 L 10/26/23 00:58 86 18 121/86 94 L 10/25/23 22:26 84 20 128/80 93 L 10/25/23 21:26 83 20 126/87 94 L 10/25/23 20:14 99.2 F 90 20 124/84 94 L Intake and Output 10/26/23 10/26/23 10/26/23 06:59 14:59 22:59 Intake Total 47.396 77.397 Output Total 400 650 Balance 47.396 -322.603 -650 Intake: Intake, IV Titration 47.396 77.397 Amount Heparin Sod,Pork in 0.45% 47.396 77.397 NaCl 25,000 unit In 0.45 % NaCl 1 250ml.bag @ 12 UNITS/KG/HR 8.219 mls/hr IV .Q24H [facility] Rx#: [id number] Output: Urine 400 650 Other: Voiding Method External Catheter External Catheter # Voids 2 Weight 57 kg Patient is an elderly female, in no acute distress, but she does appears frustrated. Patient is not cooperating with examination. Patient is alert awake. Patient states it is the month of October and the year is 2023. She knows that she is in the hospital in [place] in [place]. She could not tell name of the current president. Speech and language functions are normal. Patient can name and repeat very well. No aphasia or dysarthria. Attention, concentration is diminished and fund of knowledge is difficult to assess because of noncooperation. On cranial nerve examination, pupils are equal, round and reacting to light, visual enrique are full on confrontation, with no neglect on double simultaneous stimulation. Extraocular muscles are intact with no nystagmus. Face is symmetric, tongue protrudes to the midline. Palatal elevation and sensation normal, hearing and shoulder shrug normal, facial sensation normal. On muscle strength testing, there is no pronator drift and the strength is normal in keypunch operator, biceps and triceps. She did not cooperate for testing of the deltoid. While checking for the legs, patient complains of severe pain in the left foot because of previous foot surgery. Patient states that she has broken multiple metatarsal bones of the left foot and has "rods" in it. It hurts a lot. She did not cooperate for testing for the hips. Deep tendon reflexes are symmetric 1+ and plantars downgoing. Sensory to touch is equal with no neglect on double simultaneous stimulation. Cerebellar function showed no ataxia for rjlhnb-[id number]-blil testing. Patient did not cooperate for testing in the lower limbs. Tone and bulk of muscles normal. Gait deferred.. On general examination, there is no carotid bruit or murmur, S1-S2 audible. Chest is clear on consultation. Abdomen is soft nontender. No organomegaly, bowel sounds present. Peripheral pulses are present. No peripheral edema. Results - Laboratory Findings CBC and BMP: 10/26/23 04:05 10/26/23 04:05 Abnormal Lab Findings: Abnormal Labs 10/25/23 10/25/23 10/25/23 21:03 21:03 21:50 Hgb 11.1 L APTT Chloride 113 H Carbon Dioxide BUN 20 H POC Glucose (mg/dL) Calcium 8.2 L Iron Transferrin AST 44 H Creatine Kinase Troponin I 0.370 H* Total Protein Albumin 3.3 L HDL Cholesterol TSH Urine Appearance Urine Ketones Urine Blood Urine Nitrite Ur Leukocyte Esterase Urine WBC Urine Bacteria Urine Yeast (Budding) 10/26/23 10/26/23 10/26/23 00:06 02:30 04:05 Hgb APTT 34.2 H Chloride Carbon Dioxide BUN POC Glucose (mg/dL) Calcium Iron Transferrin AST Creatine Kinase Troponin I 0.383 H* Total Protein Albumin HDL Cholesterol TSH Urine Appearance Cloudy H Urine Ketones Trace H Urine Blood Small H Urine Nitrite Positive H Ur Leukocyte Esterase Trace H Urine WBC 12 H Urine Bacteria Moderate H Urine Yeast (Budding) Rare H 10/26/23 10/26/23 10/26/23 04:05 04:05 04:05 Hgb APTT Chloride 114 H Carbon Dioxide 19 L BUN 18 H POC Glucose (mg/dL) Calcium Iron 34 L Transferrin 174.0 L 175.0 L AST 52 H Creatine Kinase Troponin I 0.304 H* Total Protein 5.9 L Albumin 3.2 L HDL Cholesterol 31.20 L TSH 0.444 L Urine Appearance Urine Ketones Urine Blood Urine Nitrite Ur Leukocyte Esterase Urine WBC Urine Bacteria Urine Yeast (Budding) 10/26/23 10/26/23 10:39 16:28 Hgb APTT Chloride Carbon Dioxide BUN POC Glucose (mg/dL) 144 H Calcium Iron Transferrin AST Creatine Kinase 2186 H* Troponin I Total Protein Albumin HDL Cholesterol TSH Urine Appearance Urine Ketones Urine Blood Urine Nitrite Ur Leukocyte Esterase Urine WBC Urine Bacteria Urine Yeast (Budding) Assessment and Plan Assessment: * 73-year-old female with fibromyalgia, admitted with questionable fall, generalized body pains and some altered mental status. Patient's examination is nonfocal. Patient's mentation appears normal, but patient is quite irritable/frustrated because of diffuse pain. * Acute UTI * Elevated cardiac enzymes, on heparin * Rhabdomyolysis * Tobacco use * Fibromyalgia Plan: * Patient has questionable syncopal spell, which could be related to arrhythmia related to elevated cardiac enzymes. Patient is on heparin drip. Cardiology on board. Also questionable syncope may be related to an acute UTI. Patient currently on azithromycin and ceftriaxone. * Check carotid Doppler, rule out stenosis. * 2D echo revealed LVEF 25 to 30%. Mildly increased septal wall thickness. Mildly increased posterior wall thickness. Severely increased left ventricular systolic volume. Mild right atrial dilation. Moderate left atrial dilation. * Telemetry monitoring, rule out arrhythmia. * Recommend complete tobacco cessation * Treatment of other medical conditions as per IM. * Neurology will follow clinically. Thank you for the consult.
--- NOTE | 2023-10-27 13:17 | P.PN ---
Subjective HISTORY OF PRESENT ILLNESS: This is a 73-year-old female with a past medical history significant for hypertension. Patient does not follow with a instrument calibrator. We have been asked to see the patient in consultation for non-STEMI. Patient examined at the bedside. Patient is confused at the time of examination. Apparently, the patient was at home when she used the restroom and her family came to check on her afterwards and she was laying on the ground. It is unknown for how long the patient was laying on the ground. The patient denies any chest pain or pressure. She denies shortness of breath. She does report having a cough. She does report generalized discomfort. DIAGNOSTICS: - EKG reveals sinus mechanism with Q waves inferiorly - Chest xray airspace consolidation in right lower lobe. Consistent with pneumonia. - Laboratory data: WBC 7.4. Hemoglobin 11.6. Platelet count 153. Sodium 141. Potassium 4.1. BUN 18. Creatinine 0.70. Troponin 0.370. 0.383. 0.304. - Current home cardiac medications include metoprolol succinate 25 mg daily - No previous echocardiogram, cardiac catheterization or stress test available in EMR for review 10/27/2023 Patient examined this morning. She is sitting up in the chair. Patient cu rrently denies chest pain or pressure. She denies shortness of breath. Patient's mentation appears to be improving although since she is still somewhat altered at the time of examination. Echocardiogram completed revealing ejection fraction 25 to 30% and mild mitral regurgitation. PHYSICAL EXAM: VITAL SIGNS: Reviewed. GENERAL: Well-developed in no acute distress. HEENT: Head is normocephalic. Pupils are equal, round. Sclerae anicteric. Mucous membranes of the mouth are moist. Neck supple. No JVD or thyromegaly LUNGS: Respirations even and unlabored. Lungs essentially clear to auscultation bilaterally. HEART: Regular rate and rhythm. S1 and S2 heard. ABDOMEN: Soft. Nondistended. Nontender. EXTREMITIES: Normal range of motion. No clubbing or cyanosis. Peripheral pulses intact. No lower extremity edema NEUROLOGIC: Awake and alert. Oriented x 2 ASSESSMENT: Unresponsive episode after using bathroom, etiology unknown Urinary tract infection Right lower lobe pneumonia Rhabdomyolysis Elevated troponins, flat, suspect type II WI, secondary to rhabdomyolysis Abnormal EKG with Q waves inferiorly History of hypertension New onset cardiomyopathy, 25 to 30%, ischemic versus nonischemic PLAN: Continue current cardiac medications Continue IV heparin Recommend cardiac catheterization to further evaluate cardiomyopathy. Patient is agreeable. Attempted to call patient's daughter, Juliet, to discuss procedure. However there was no answer. N.p.o. at midnight Patient to undergo cardiac catheterization tomorrow with Dr. Funes at noon Further recommendations pending patient course Nurse practitioner note has been reviewed by physician. Signing provider agrees with the documented findings, assessment, and plan of care documented by AUTO CLAIM REPRESENTATIVE as a scribe. Objective - Vital Signs Vital signs: Vital Signs Temp 98.0 F 10/27/23 07:50 Pulse 76 10/27/23 12:07 Resp 16 10/27/23 11:28 BP 125/82 10/27/23 11:28 Pulse Ox 94 L 10/27/23 11:28 FiO2 Intake & Output 10/26/23 10/27/23 10/27/23 18:59 06:59 18:59 Intake Total 77.397 94.522 148.77 Output Total 1050 300 Balance -972.603 -205.478 148.77 Weight 49.5 kg 49.5 kg Intake: Intake, IV Titration 77.397 94.522 148.77 Amount Heparin Sod,Pork in 0.45% 77.397 94.522 148.77 NaCl 25,000 unit In 0.45 % NaCl 1 250ml.bag @ 12 UNITS/KG/HR 8.219 mls/hr IV .Q24H [facility] Rx#: [id number] Output: Urine 1050 300 Other: Voiding Method External Catheter External Catheter External Catheter - Labs CBC & Chem 7: 10/26/23 04:05 10/26/23 04:05 Labs: Abnormal Lab Results - Last 24 Hours (Table) 10/26/23 10/26/23 10/26/23 Range/Units 16:28 19:10 20:11 APTT 43.4 H (22.0-30.0) sec POC Glucose (mg/dL) 144 H 152 H (70-110) mg/dL Creatine Kinase (30-135) U/L 10/27/23 10/27/23 Range/Units 06:24 06:44 APTT 36.9 H (22.0-30.0) sec POC Glucose (mg/dL) (70-110) mg/dL Creatine Kinase 1251 H* (30-135) U/L Microbiology - Last 24 Hours (Table) 10/26/23 00:35 Blood Culture - Preliminary Blood
--- NOTE | 2023-10-27 13:49 | US ---
EXAMINATION TYPE: US carotid duplex BILAT DATE OF EXAM: 10/27/2023 COMPARISON: NONE CLINICAL INDICATION: Female, 73 years old with history of Possible syncope; Possible syncope. TECHNIQUE: Carotid duplex ultrasound examination. Indirect Doppler criteria was utilized. FINDINGS: EXAM MEASUREMENTS: RIGHT: Peak Systolic Velocity (PSV) cm/sec ----- Right CCA: 68.0 ----- Right ICA: 82.0 ----- Right ECA: 87.8 ICA/CCA ratio: 1.2 RIGHT: End Diastole cm/sec ----- Right CCA: 17.5 ----- Right ICA: 14.9 ----- Right ECA: 9.8 LEFT: Peak Systolic Velocity (PSV) cm/sec ----- Left CCA: 63.6 ----- Left ICA: 82.3 ----- Left ECA: 62.5 ICA/CCA ratio: 1.3 LEFT: End Diastole cm/sec ----- Left CCA: 16.5 ----- Left ICA: 26.3 ----- Left ECA: 9.8 VERTEBRALS (direction of flow): Right Vertebral: Antegrade Left Vertebral: Antegrade Rhythm: Normal PHYSICAL THERAPY PROFESSOR NOTES: No elevated velocities. Plaque seen within bilateral bulbs. Some mild narrowing se en within right bulb. *Left ICA appears tortuous. IMPRESSION: Mild to moderate atherosclerotic change at the right carotid bulb. No hemodynamically significant int ernal carotid artery stenosis on either side. Criteria for Assigning % of Stenosis / Diameter reduction (Estimation based on the indirect measurements of the internal carotid artery velocities (ICA PSV). 1. Normal (no stenosis)=ICA PSV < 125 cm/s: ratio < 2.0: ICA EDV<40 cm/s. 2. Less than 50% stenosis=ICA PSV < 125 cm/s: ratio < 2.0: ICA EDV<40 cm/s. 3. 50 to 69% stenosis=ICA PSV of 125 to 230 cm/s: ration 2.0 ? 4.0: ICA EDV 40-100 cm/s. 4. Greater than 70% stenosis to near occlusion= ICA PSV > 230 cm/s: ratio > 4.0: ICA EDV > 100 cm/s. 5. Near occlusion= ICA PSV velocities may be low or undetectable: variable ratio and ICA EDV. 6. Total occlusion=unable to detect flow. [facility], , 10/27/2023 1:47 PM
[2023-10-27 17:02] LABS: Glucose,Whole Blood 151 mg/dL (70-110)
[2023-10-27 20:29] LABS: Glucose,Whole Blood 189 mg/dL (70-110)
[2023-10-28] MEDS: ATORVASTATIN 80 MG TAB PO ONE (05:49)
[2023-10-28] MEDS: ASPIRIN 325 MG TAB PO ONE (05:49)
[2023-10-28] MEDS: SODIUM CHLORIDE 0.9% 1,000 ML in EMPTY BAG 1 BAG IV SCH (05:50)
[2023-10-28 06:34] LABS: Glucose,Whole Blood 143 mg/dL (70-110)
[2023-10-28 07:06] LABS: Basophils % (A) 0 %; Eosinophils # (A) 0.1 k/uL (0-0.7); Eosinophils % (A) 1 %; HCT 34.8 % (34.0-46.0); Hypochromasia Moderate; Lymphocytes # (A) 0.6 k/uL (1.0-4.8); Lymphocytes % (A) 10 %; MCH 28.6 pg (25.0-35.0); MCHC 31.8 g/dL (31.0-37.0); Mean Platelet Volume 10.7; Monocytes # (A) 0.1 k/uL (0-1.0); Monocytes % (A) 2 %; Neutrophils # (A) 5.3 k/uL (1.3-7.7); Neutrophils % (A) 86 %; Platelet Count 161 k/uL (150-450); RBC 3.86 m/uL (3.80-5.40); WBC 6.2 k/uL (3.8-10.6)
[2023-10-28 07:45] LABS: African American GFR (CKD) >90 (>60 ml/min/1.73 sqM); Anion Gap 6 mmol/L; Blood Urea Nitrogen 21 mg/dL (7-17); Calcium 8.5 mg/dL (8.4-10.2); Carbon Dioxide 21 mmol/L (22-30); Chloride 112 mmol/L (98-107); Glucose 129 mg/dL (74-99); Non-African American GFR(CKD) 88 (>60 ml/min/1.73 sqM); Sodium 139 mmol/L (137-145)
--- NOTE | 2023-10-28 10:31 | P.PN ---
Subjective Progress Note Date: 10/28/23 Hospital course Patient is a 73-year-old female with past medical history of tobacco use and COPD who presents to the ED after a fall. Per family patient was not acting like her usual self. So they have brought her in. In the ED patient was found to have right lower lobe pneumonia on the chest x-ray. UA was also consistent with UTI. Patient's troponins were elevated. Patient was started on IV Rocephin and azithromycin and then referred for admission. Patient's mental st atus has now improved. Echocardiogram showed EF of 30%. Cardiology plans to do heart catheterization. Patient was seen this morning. She is answering questions appropriately. She is AO x 3. Patient is amenable for heart catheterization. Physical exam General examination - Alert and Oriented 3 in NAD Heart - + S1S2 no murmurs Lungs -bilateral wheezing Abdomen soft NT ND +ve BS Extremities - No edema SHELLFISH GROWER - Moving all 4 extremities spontaneously Psych - Calm and cooperative, somnolent Assessment and plan Acute toxic encephalopathy Community-acquired pneumonia UTI Suspect possible pain medication overdose Patient does not meet sepsis criteria Continue with IV Rocephin 2 g daily and azithromycin 5 mg IV daily Blood cultures negative to date Mentation has improved We will continue patient's Percocet and gabapentin. I discussed with the nurse to avoid pain meds if patient is somnolent Cardiology service consulted neurology who ordered carotid ultrasound which is negative for any significant stenosis COPD exacerbation Will start the patient on IV Solu-Medrol and DuoNeb Improving Patient on room air Fall PT OT consult -> recommending [facility] facility Rhabdomyolysis secondary to trauma from fall CK trending down. CK is pending from this morning Will avoid IV fluids due to heart failure Newly diagnosed cardiomyopathy Echocardiogram shows an EF of 30% Continue beta-scott Defer medication optimization to cardiology I discussed with cardiology about LifeVest. Cardiology will discuss with the patient however believe that she would not be a good candidate Non-ST elevation GA could be due to rhabdomyolysis and demand ischemia Patient is denying any chest pain. Patient's troponin peaked at 0.383. Patient currently on heparin drip Plan is for heart catheterization today Cardiology following Patient started on aspirin and statin Tobacco abuse Patient has no desire to quit smoking DVT prophylaxis: Heparin drip for non-ST elevation GA Objective - Vital Signs Vital signs: Vital Signs Temp 98.6 F 10/28/23 08:26 Pulse 84 10/28/23 08:32 Resp 16 10/28/23 08:26 BP 134/74 10/28/23 08:26 Pulse Ox 99 10/28/23 08:26 FiO2 Intake & Output 10/27/23 10/28/23 10/28/23 18:59 06:59 18:59 Intake Total 350.00 690 Output Total 500 1050 Balance -150.00 -360 Weight 49.5 kg 49.5 kg Intake: IV 100 30 Invasive Line 1 20 Invasive Line 3 10 cefTRIAXone 2 gm In 100 Sodium Chloride 0.9% 50 ml @ 100 mls/hr IVPB DAILY [facility] Rx#:[id number] Intake, IV Titration 250.00 Amount Heparin Sod,Pork in 0.45% 250.00 NaCl 25,000 unit In 0.45 % NaCl 1 250ml.bag @ 12 UNITS/KG/HR 8.219 mls/hr IV .Q24H [facility] Rx#: [id number] Oral 660 Output: Urine 500 1050 Straight 1050 Other: Voiding Method External Catheter External Catheter External Catheter - Labs CBC & Chem 7: 10/28/23 06:51 10/28/23 06:51 Labs: Abnormal Lab Results - Last 24 Hours (Table) 10/27/23 10/27/23 10/27/23 Range/Units 14:26 16:55 20:27 Hgb (11.4-16.0) gm/dL Lymphocytes # (1.0-4.8) k/uL APTT 70.4 H (22.0-30.0) sec Chloride (98-107) mmol/L Carbon Dioxide (22-30) mmol/L BUN (7-17) mg/dL Glucose (74-99) mg/dL POC Glucose (mg/dL) 151 H 189 H (70-110) mg/dL 10/28/23 10/28/23 10/28/23 Range/Units 06:33 06:51 06:51 Hgb 11.0 L (11.4-16.0) gm/dL Lymphocytes # 0.6 L (1.0-4.8) k/uL APTT 72.4 H (22.0-30.0) sec Chloride (98-107) mmol/L Carbon Dioxide (22-30) mmol/L BUN (7-17) mg/dL Glucose (74-99) mg/dL POC Glucose (mg/dL) 143 H (70-110) mg/dL 10/28/23 Range/Units 06:51 Hgb (11.4-16.0) gm/dL Lymphocytes # (1.0-4.8) k/uL APTT (22.0-30.0) sec Chloride 112 H (98-107) mmol/L Carbon Dioxide 21 L (22-30) mmol/L BUN 21 H (7-17) mg/dL Glucose 129 H (74-99) mg/dL POC Glucose (mg/dL) (70-110) mg/dL Microbiology - Last 24 Hours (Table) 10/26/23 00:35 Blood Culture - Preliminary Blood
[2023-10-28 11:48] LABS: Glucose,Whole Blood 129 mg/dL (70-110)
[2023-10-28] MEDS: HEPARIN SODIUM,PORCINE 10,000 UNIT in SODIUM CHLORIDE 0.9% 1,000 ML IRRIGATION PRN (12:10)
[2023-10-28] MEDS: IV FLUID CONTINUATION 1,000 ML IV ONE (12:10)
[2023-10-28] MEDS: HEPARIN SODIUM,PORCINE (1 ML) 2,500 UNIT in SODIUM CHLORIDE 0.9% 250 ML IRRIGATION PRN (12:10)
[2023-10-28] MEDS: fentaNYL (PF) 50 MCG/ML 2 ML AMP IVP ONE (12:21)
[2023-10-28] MEDS: MIDAZOLAM 2 MG/2 ML VIAL IVP ONE (12:21)
[2023-10-28] MEDS: LIDOCAINE 1% INJ 10MG/ML (20 ML MDV) SQ ONE (12:23)
[2023-10-28] MEDS: VERAPAMIL 2.5 MG/ML 2 ML AMP INTRAARTER ONE (12:26)
[2023-10-28] MEDS: HEPARIN SODIUM 1,000 UN/ML (10ML VL) IV ONE (12:34)
[2023-10-28] MEDS: IOPAMIDOL-370 100ML BTL INJ ONE ×2 (12:48→13:45)
[2023-10-28] MEDS: TICAGRELOR 90 MG TAB PO ONE (13:02)
[2023-10-28] MEDS: NITROGLYCERIN 1000MCG/10ML SYRINGE INTRACORON ONE (13:38)
[2023-10-28] MEDS ORDERED: ZOLPIDEM 5 MG TAB PO PRN (13:51)
[2023-10-28] MEDS ORDERED: ATROPINE SULFATE 0.1 MG/ML 10ML SYRINGE IV PRN (13:51)
[2023-10-28] MEDS ORDERED: RX INFO: IV CONTRAST WAS GIVEN 1 EACH MISC MISCELLANE PRN (13:51)
[2023-10-28] MEDS ORDERED: MAG HYDROX/AL HYDROX/SIMETH 30 ML CUP PO PRN (13:51)
[2023-10-28] MEDS: ALPRAZolam 0.5 MG TAB PO PRN (14:35)
[2023-10-28] MEDS: ERGOCALCIFEROL 1,250 MCG (50,000 IU) CAPSULE PO SCH (14:53)
--- NOTE | 2023-10-28 14:57 | P.PN ---
Subjective Progress Note Date: 10/27/23 Patient was seen for follow-up. Patient is sitting comfortably in the bed. Offers no complaints. Patient is more cooperative today. Objective - Vital Signs Vital signs: Vital Signs Temp 98.0 F 10/27/23 07:50 Pulse 74 10/27/23 16:14 Resp 16 10/27/23 16:00 BP 115/66 10/27/23 16:00 Pulse Ox 94 L 10/27/23 16:00 FiO2 Intake & Output 10/26/23 10/27/23 10/27/23 18:59 06:59 18:59 Intake Total 77.397 94.522 248.77 Output Total 1050 300 Balance -972.603 -205.478 248.77 Weight 49.5 kg 49.5 kg Intake: IV 100 cefTRIAXone 2 gm In 100 Sodium Chloride 0.9% 50 ml @ 100 mls/hr IVPB DAILY [facility] Rx#:[id number] Intake, IV Titration 77.397 94.522 148.77 Amount Heparin Sod,Pork in 0.45% 77.397 94.522 148.77 NaCl 25,000 unit In 0.45 % NaCl 1 250ml.bag @ 12 UNITS/KG/HR 8.219 mls/hr IV .Q24H [facility] Rx#: [id number] Output: Urine 1050 300 Other: Voiding Method External Catheter External Catheter External Catheter - Exam Patient is alert and awake, fully oriented. Speech and language functions are normal. Patient is in no distress. Strength appears normal. - Labs CBC & Chem 7: 10/28/23 06:51 10/28/23 06:51 Labs: Abnormal Lab Results - Last 24 Hours (Table) 10/26/23 10/26/23 10/27/23 Range/Units 19:10 20:11 06:24 APTT 43.4 H (22.0-30.0) sec POC Glucose (mg/dL) 152 H (70-110) mg/dL Creatine Kinase 1251 H* (30-135) U/L 10/27/23 10/27/23 10/27/23 Range/Units 06:44 14:26 16:55 APTT 36.9 H 70.4 H (22.0-30.0) sec POC Glucose (mg/dL) 151 H (70-110) mg/dL Creatine Kinase (30-135) U/L Microbiology - Last 24 Hours (Table) 10/26/23 00:35 Blood Culture - Preliminary Blood Assessment and Plan Assessment: * 73-year-old female with fibromyalgia, admitted with questionable fall, generalized body pains and some altered mental status. Patient's examination is nonfocal. Patient's mentation appears normal, but patient is quite irritable/frustrated because of diffuse pain. * Acute UTI * Elevated cardiac enzymes, on heparin * Rhabdomyolysis * Tobacco use * Fibromyalgia Plan: * Patient has questionable syncopal spell, which could be related to arrhythmia related to elevated cardiac enzymes. Patient is on heparin drip. Cardiology considering cardiac catheterization. Also questionable syncope may be related to an acute UTI. Patient currently on azithromycin and ceftriaxone. * Carotid Doppler revealed mild to moderate atherosclerotic change at the right carotid bulb. No hemodynamically significant stenosis of either internal carotid arteries. Antegrade flow in both vertebral arteries. * 2D echo revealed LVEF 25 to 30%. Mildly increased septal wall thickness. Mildly increased posterior wall thickness. Severely increased left ventricular systolic volume. Mild right atrial dilation. Moderate left atrial dilation. * Telemetry monitoring, rule out arrhythmia. * Recommend complete tobacco cessation * Treatment of other medical conditions as per IM. * Neurologically clear. No other neurological workup indicated. Further management as per cardiology.
--- NOTE | 2023-10-28 16:56 | P.CARDCATH ---
Date of Procedure: 10/28/23 Description of Procedure: DIAGNOSTIC CORONARY ANGIOGRAPHY and LEFT HEART CATH REPORT PROCEDURES PERFORMED: Left heart catheterization Selective coronary angiography Moderate conscious sedation 28 mins [Ultrasound assisted] Right radial access INDICATION: Generalized weakness, NSTEMI with elevated troponins, new worsening cardiomyopathy with EF of 20 to 25%. 73-year-old female got admitted with generalized weakness and a fall. On admission she had elevated troponins with a troponin of 0.3. Her ECG showed Q waves in inferior leads. Her echocardiogram showed an EF of 20 to 25%. Due to information, we will plan for a cardiac either transition procedure. CONSENT: I have explained the procedural steps of above-mentioned procedures in layman's terms to the patient. I discussed the risks (including but not limited to stroke, emergent vascular or cardiac surgery or ), benefits and alternative therapies for the above-mentioned procedure. I discussed the risks of sedation/analgesia and blood product administration (if indicated). The patient has indicated understanding and acceptance of these risks. Conscious Sedation: Patient's ECG, heart rate, blood pressure, pulse oximetry were monitored throughout the duration of procedure under my direct supervision. 1 mg Versed and 50 mcg Fentanyl were used for induction of moderate conscious sedation. Total duration of moderate concious sedation 28 minutes. PROCEDURE: After explaining the risks, benefits and alternatives of the above mentioned procedures in detail to the patient, informed consent was obtained. Patient was taken to the catheterization lab, prepped and draped in usual sterile fashion using universal precuations. Ultrasound was used to identify the radial artery. 1% lidocaine was infiltrated over the right radial artery. A 6-Tristanian sheath was placed and secured in the right radial artery using modified Seldinger technique. The sheath was flushed and 5 mg verapamil was administered intra-arterially. J tipped wire was advanced under fluoroscopic guidance. Once the wire tip reached aortic root 3000 units of IV heparin was given. Over the wire JR4 diagnostic catheter was advanced. The wire in place the catheter was manipulated to cross the aortic valve and entered into LV under fluoroscopy guidance. The wire was removed and the catheter was flushed. LV pressures were obtained and pullback was performed under fluoroscopy. Catheter was manipulated to selectively engage the right coronary ostium. Right coronary angiography was performed in different angiographic projections. The JR4 diagnostic catheter was exchanged for a JL 3.5 diagnostic catheter over the J-wire. The wire was removed, catheter was flushed and manipulated under fluoroscopy to selectively engaged the left coronary ostium. Left coronary angioplasty was performed in different angiographic projections. Catheter was removed over the wire. Radial sheath was flushed. The patient tolerated the procedure well. No complications encountered during her diagnostic cardiac cath procedure. HEMODYNAMICS: Aortic Pressure: 124/74 mmHg. LV pressure: 127/15 mmHg. LVEDP 27 mmHg. There was no significant gradient across the aortic valve. SELECTIVE CORONARY ARTERIOGRAPHY: LEFT MAIN: The left main is large caliber. It has 20 to 30% disease in mid segment. Distal left main has 30 to 40% disease. LEFT ANTERIOR DESCENDING CORONARY ARTERY: Large-caliber wraps around the apex. Proximal LAD has mild luminal irregularities. Mid LAD is short. It has a focal 90% stenosis at the bifurcation site of diagonal 2 branch involving the ostium of diagonal 2 and Mills 1, 1, 1 fashion. Ostium of diagonal 2 has 70% stenosis. Proximal portion of diagonal 2 has 60 to 70% diffuse disease. His primary to his overall 2.5 mm vessel. Diagonal 1 is a small caliber vessel. Distal LAD is patent with mild luminal irregularities. LEFT CIRCUMFLEX CORONARY ARTERY: It is nondominant vessel. This is patent. Gives rise to a small OM1 branch which is patent. Mid LCx gives a medium size OM 2 branch which has a 30% disease in mid segment. Distal LAD is patent. After giving OM 2 branch LCx becomes AV groove branch which is small and is patent. RIGHT CORONARY ARTERY: Dominant vessel. RCA is 100% occluded in the midsegment. There are no bleeding right to right collaterals. There are robust [id number] collaterals filling PDA and PL branches. PDA and PL branches are medium size vessels. IMPRESSION: 90% mid LAD stenosis with 70% ostial diagonal, bifurcation disease. LETTY-3 flow distally 100% occluded C.O.D. CLERK mid RCA, with [id number] collaterals filling robust PDA and PL branches Mild LCx CAD Elevated LVEDP PLAN: Plan for PCI of mid LAD with Dr. Amezquita. Performing Physician Khoa Funes MD, [facility], [place] Thank you for allowing [facility] to participate in this patient's care. Feel free to reach out in case of any followup questions.
[2023-10-28 17:03] LABS: Glucose,Whole Blood 292 mg/dL (70-110)
[2023-10-28] MEDS: DAPAGLIFLOZIN PROPANEDIOL 5 MG TABLET PO SCH (17:05)
[2023-10-28 20:52] LABS: Glucose,Whole Blood 163 mg/dL (70-110)
--- NOTE | 2023-10-28 21:36 | P.PCN ---
Date of Procedure: 10/28/23 Operative Findings: Percutaneous coronary intervention Performing physician Jimy Lewis MD Procedure performed 1. Successful stenting of the proximal to mid LAD using 3.5 x 15 mm Xience MELCHOR with an excellent angiographic results and reduction of stenosis from 90% to 0% 2. Successful balloon angioplasty of the first diagonal branch of the LAD 3. Adjunctive use of IVUS Indication Acute non-ST elevation myocardial infarction. Please refer to diagnostic heart catheterization was performed by Dr. Funes earlier today Complications None Level of sedation Moderate with sedation length of 45 minutes Procedure description Please refer to diagnostic heart catheterization was performed earlier by Dr. Turner frazier. Anticoagulation was initiated using heparin with continuous ACT monitoring. Subsequently I did engage the left main using JL 3.5 guiding catheter. Subsequently I wired the LAD and first diagonal branch of the LAD using a run- through wire and whisper wire. After that intravascular ultrasound was performed of the LAD and showed a diameter around 3.5 mm. I did initially balloon angioplasty of the first diagonal branch using 2.5 mm noncompliant balloon and he used the same balloon to do balloon angioplasty of the LAD and subsequently I did stent the LAD using 3.5 x 15 mm stent where the stent was positioned under fluoroscopy guidance and deployed under fluoroscopy guidance. Subsequently I rewired the diagonal branch after I trapped the initial wire in place. Then the trapped wire was pulled out. Then I did an angiogram which showed some pinching on the first diagonal branch which I decided to balloon angioplasty again using 2.5 mm noncompliant balloon then finally I did balloon angioplasty and postdilatation of the LAD using 4 mm noncompliant balloon was final angiogram showing excellent angiographic results and the procedure was completed with no complication Postprocedure management Aggressive cholesterol control Dual antiplatelet therapy Follow-up with the patient
[2023-10-28] MEDS: methylPREDNISolone SOD SUCCI 40 MG/ML 1 ML VIAL IV SCH (21:38)
[2023-10-28] MEDS: SACUBITRIL/VALSARTAN 24 MG-26 MG TABLET PO SCH (21:38)
[2023-10-28] MEDS: BACITRACIN ZINC 500 UNIT/GM OINT 28.4 GM TUBE TOPICAL SCH (21:38)
[2023-10-28] MEDS: TICAGRELOR 90 MG TAB PO SCH (21:40)
[2023-10-29 06:33] LABS: Glucose,Whole Blood 167 mg/dL (70-110)
[2023-10-29 08:09] LABS: Basophils % (A) 0 %; Eosinophils % (A) 0 %; HCT 33.4 % (34.0-46.0); HGB 10.6 gm/dL (11.4-16.0); Hypochromasia Moderate; Lymphocytes # (A) 0.6 k/uL (1.0-4.8); Lymphocytes % (A) 10 %; MCH 28.4 pg (25.0-35.0); MCHC 31.6 g/dL (31.0-37.0); Mean Platelet Volume 9.9; Monocytes # (A) 0.2 k/uL (0-1.0); Monocytes % (A) 3 %; Neutrophils # (A) 5.4 k/uL (1.3-7.7); Neutrophils % (A) 86 %; Platelet Count 146 k/uL (150-450); RBC 3.71 m/uL (3.80-5.40); RDW 15.4 % (11.5-15.5); WBC 6.3 k/uL (3.8-10.6)
[2023-10-29] MEDS: POTASSIUM CHLORIDE ER 10 MEQ TAB.ER.PRT PO SCH (08:25)
[2023-10-29 08:26] LABS: African American GFR (CKD) 77 (>60 ml/min/1.73 sqM); Anion Gap 6 mmol/L; Blood Urea Nitrogen 21 mg/dL (7-17); Calcium 8.2 mg/dL (8.4-10.2); Carbon Dioxide 19 mmol/L (22-30); Chloride 113 mmol/L (98-107); Glucose 131 mg/dL (74-99); Non-African American GFR(CKD) 67 (>60 ml/min/1.73 sqM); Potassium 4.1 mmol/L (3.5-5.1); Sodium 138 mmol/L (137-145)
[2023-10-29] MEDS: SACUBITRIL/VALSARTAN 24 MG-26 MG TABLET PO SCH (10:26)
[2023-10-29] MEDS: LIDOCAINE 4% PATCH TOPICAL SCH (10:27)
[2023-10-29] MEDS: SACUBITRIL/VALSARTAN 24 MG-26 MG TABLET PO STA (10:37)
--- NOTE | 2023-10-29 11:31 | P.PN ---
Subjective Progress Note Date: 10/28/23 Patient was seen for follow-up. Patient is sitting comfortably in the bed. Patient had undergone cardiac catheterization, underwent cardiac stenting. Patient states that she has been under a lot of stress, as she has been evicted out of her rental house, as the landlord was planning to sell the house. She therefore has been living in a motel with her daughter for the past 2 months. There is only 1 bed, and patient is staying in that motel with her daughter. She has been sleeping often in the chair, and is losing a lot of sleep. She feels that now she is catching up with her sleep and is feeling much better. Objective - Vital Signs Vital signs: Vital Signs Temp 98.4 F 10/28/23 11:23 Pulse 81 10/28/23 16:36 Resp 16 10/28/23 16:36 BP 115/65 10/28/23 16:36 Pulse Ox 97 10/28/23 16:36 FiO2 Intake & Output 10/27/23 10/28/23 10/28/23 18:59 06:59 18:59 Intake Total 350.00 690 751.5 Output Total 500 1050 Balance -150.00 -360 751.5 Weight 49.5 kg 49.5 kg Intake: IV 100 30 751.5 Invasive Line 1 20 Invasive Line 3 10 cefTRIAXone 2 gm In 100 Sodium Chloride 0.9% 50 ml @ 100 mls/hr IVPB DAILY [facility] Rx#:[id number] Intake, IV Titration 250.00 Amount Heparin Sod,Pork in 0.45% 250.00 NaCl 25,000 unit In 0.45 % NaCl 1 250ml.bag @ 12 UNITS/KG/HR 8.219 mls/hr IV .Q24H [facility], [facility] Rx#: [id number] Oral 660 Output: Urine 500 1050 Straight 1050 Other: Voiding Method External Catheter External Catheter External Catheter - Exam Patient is alert and awake, fully oriented. Speech and language functions are normal. Patient is in no distress. Strength appears normal. Patient is very hard of hearing. - Labs CBC & Chem 7: 10/29/23 07:36 10/29/23 07:36 Labs: Abnormal Lab Results - Last 24 Hours (Table) 10/27/23 10/28/23 10/28/23 Range/Units 20:27 06:33 06:51 Hgb (11.4-16.0) gm/dL Lymphocytes # (1.0-4.8) k/uL APTT 72.4 H (22.0-30.0) sec Chloride (98-107) mmol/L Carbon Dioxide (22-30) mmol/L BUN (7-17) mg/dL Glucose (74-99) mg/dL POC Glucose (mg/dL) 189 H 143 H (70-110) mg/dL 10/28/23 10/28/23 10/28/23 Range/Units 06:51 06:51 11:47 Hgb 11.0 L (11.4-16.0) gm/dL Lymphocytes # 0.6 L (1.0-4.8) k/uL APTT (22.0-30.0) sec Chloride 112 H (98-107) mmol/L Carbon Dioxide 21 L (22-30) mmol/L BUN 21 H (7-17) mg/dL Glucose 129 H (74-99) mg/dL POC Glucose (mg/dL) 129 H (70-110) mg/dL 10/28/23 Range/Units 17:02 Hgb (11.4-16.0) gm/dL Lymphocytes # (1.0-4.8) k/uL APTT (22.0-30.0) sec Chloride (98-107) mmol/L Carbon Dioxide (22-30) mmol/L BUN (7-17) mg/dL Glucose (74-99) mg/dL POC Glucose (mg/dL) 292 H (70-110) mg/dL Microbiology - Last 24 Hours (Table) 10/26/23 00:35 Blood Culture - Preliminary Blood Assessment and Plan Assessment: * 73-year-old female with fibromyalgia, admitted with questionable fall, generalized body pains and some altered mental status. Patient had also ques tionable syncopal spell. Syncope possibly from cardiac cause. Patient is status post cardiac stenting this morning. * Acute UTI * Elevated cardiac enzymes, on heparin * Status post successful stenting of the proximal to mid LAD. * Rhabdomyolysis * Tobacco use * Hard of hearing * Fibromyalgia Plan: * Patient has questionable syncopal spell, which could be related to arrhythmia related to elevated cardiac enzymes. Patient underwent cardiac catheterization and successful stenting of the LAD. Patient is off heparin. Now started on Brilinta and aspirin. * Carotid Doppler revealed mild to moderate atherosclerotic change at the right carotid bulb. No hemodynamically significant stenosis of either internal carotid arteries. Antegrade flow in both vertebral arteries. * 2D echo revealed LVEF 25 to 30%. Mildly increased septal wall thickness. Mildly increased posterior wall thickness. Severely increased left ventricular systolic volume. Mild right atrial dilation. Moderate left atrial dilation. * Telemetry monitoring, rule out arrhythmia. * Recommend complete tobacco cessation * Treatment of other medical conditions as per IM. * Neurologically clear. No other neurological workup indicated. Further management as per cardiology.
[2023-10-29 11:45] LABS: Glucose,Whole Blood 123 mg/dL (70-110)
[2023-10-29 12:12] VITALS: BMI 18.9
--- NOTE | 2023-10-29 13:00 | P.PN ---
Subjective HISTORY OF PRESENT ILLNESS: This is a 73-year-old female with a past medical history significant for hypertension. 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 We have been asked to see the patient in consultation for non-STEMI. Patient examined at the bedside. Patient is confused at the time of examination. Apparently, the patient was at home when she used the restroom and her family came to check on her afterwards and she was laying on the ground. It is unknown for how long the patient was laying on the ground. The patient denies any chest pain or pressure. She denies shortness of breath. She does report having a cough. She does report generalized discomfort. DIAGNOSTICS: - EKG reveals sinus mechanism with Q waves inferiorly - Chest xray airspace consolidation in right lower lobe. Consistent with pneumonia. - Laboratory data: WBC 7.4. Hemoglobin 11.6. Platelet count 153. Sodium 141. Potassium 4.1. BUN 18. Creatinine 0.70. Troponin 0.370. 0.383. 0.304. - Current home cardiac medications include metoprolol succinate 25 mg daily - No previous echocardiogram, cardiac catheterization or stress test available in EMR for review 10/27/2023 Patient examined this morning. She is sitting up in the chair. Patient cu rrently denies chest pain or pressure. She denies shortness of breath. Patient's mentation appears to be improving although since she is still somewhat altered at the time of examination. Echocardiogram completed revealing ejection fraction 25 to 30% and mild mitral regurgitation. 10/29/2023 Patient is status post cardiac catheterization yesterday with Dr. Funes revealing 90% mid LAD stenosis with 70% ostial diagonal, 100% occluded RN LIAISON mid RCA with [id number] collaterals, mild disease in the circumflex and elevated LVEDP. Patient underwent stenting of the proximal to mid LAD. Patient currently denies chest pain or pressure. She denies shortness of breath. Vital signs are stable. PHYSICAL EXAM: VITAL SIGNS: Reviewed. GENERAL: Well-developed in no acute distress. HEENT: Head is normocephalic. Pupils are equal, round. Sclerae anicteric. Mucous membranes of the mouth are moist. Neck supple. No JVD or thyromegaly LUNGS: Respirations even and unlabored. Lungs essentially clear to auscultation bilaterally. HEART: Regular rate and rhythm. S1 and S2 heard. ABDOMEN: Soft. Nondistended. Nontender. EXTREMITIES: Normal range of motion. No clubbing or cyanosis. Peripheral pulses intact. No lower extremity edema NEUROLOGIC: Awake and alert. ASSESSMENT: Unresponsive episode after using bathroom, etiology unknown Urinary tract infection Right lower lobe pneumonia Rhabdomyolysis Elevated troponins, flat, suspect type II OR, secondary to rhabdomyolysis Abnormal EKG with Q waves inferiorly History of hypertension New onset cardiomyopathy, 25 to 30%, ischemic Status post cardiac catheterization with stenting to the proximal to mid LAD PLAN: Continue dual antiplatelet therapy with aspirin and Brilinta for 12 months Continue statin therapy. Goal LDL less than 70. Continue additional cardiac medications Add lidocaine patch for back pain Increase Entresto to 24-24 mg twice a day No plans for lifevest at discharge. Due to patients mentation and difficulty hearing, not ideal candidate for comprehension and compliance Further recommendations pending patient course Nurse practitioner note has been reviewed by physician. Signing provider agrees with the documented findings, assessment, and plan of care documented by HEAD PUMPER as a scribe. Objective - Vital Signs Vital signs: Vital Signs Temp 97.6 F 10/29/23 04:08 Pulse 70 10/29/23 04:08 Resp 22 10/29/23 04:08 BP 124/74 10/29/23 04:08 Pulse Ox 97 10/29/23 04:08 FiO2 Intake & Output 10/28/23 10/29/23 10/29/23 18:59 06:59 18:59 Intake Total 1111.5 500 Output Total 925 Balance 1111.5 -425 Weight 50 kg Intake: IV 751.5 20 Invasive Line 3 20 Oral 360 480 Output: Urine 925 Straight 925 Other: Voiding Method External Catheter External Catheter # Voids 0 # Bowel Movements 1 - Labs CBC & Chem 7: 10/29/23 07:36 10/29/23 07:36 Labs: Abnormal Lab Results - Last 24 Hours (Table) 10/28/23 10/28/23 10/28/23 Range/Units 06:51 11:47 17:02 RBC (3.80-5.40) m/uL Hgb (11.4-16.0) gm/dL Hct (34.0-46.0) % Plt Count (150-450) k/uL Lymphocytes # 0.6 L (1.0-4.8) k/uL POC Glucose (mg/dL) 129 H 292 H (70-110) mg/dL 10/28/23 10/29/23 10/29/23 Range/Units 20:48 06:31 07:36 RBC 3.71 L (3.80-5.40) m/uL Hgb 10.6 L (11.4-16.0) gm/dL Hct 33.4 L (34.0-46.0) % Plt Count 146 L (150-450) k/uL Lymphocytes # 0.6 L (1.0-4.8) k/uL POC Glucose (mg/dL) 163 H 167 H (70-110) mg/dL Microbiology - Last 24 Hours (Table) 10/26/23 00:35 Blood Culture - Preliminary Blood
--- NOTE | 2023-10-29 13:15 | P.DS ---
Providers Date of admission: 10/25/23 23:44 Attending physician: Nixon Lewis MD Consults: 10/25/23 23:42 Consult Physician Routine Consulting Provider: Khoa Funes Consult Reason/Comments: NSTEMI Do you want consulting provider notified?: Already Contacted 10/26/23 09:59 Consult Physician Routine Consulting Provider: Hebert Gonzales Consult Reason/Comments: episode of unresponsiveness Do you want consulting provider notified?: Yes 10/28/23 13:51 Consult Physician Routine Consulting Provider: [facility] Consult Reason/Comments: Post Interventional patient Do you want consulting provider notified?: Already Contacted Primary care physician: Stated None Hospital Course: Discharge Diagnosis: Acute toxic encephalopathy: Resolved Community-acquired pneumonia UTI Suspect possible pain medication overdose COPD exacerbation Fall Rhabdomyolysis secondary to trauma from fall Newly diagnosed cardiomyopathy Non-ST elevation MS Coronary disease status post stent to mid LAD on this admission Tobacco use Hospital Course: Patient is a 73-year-old female with past medical history of tobacco use and COPD who presents to the ED after a fall. Per family patient was not acting like her usual self. So they brought her in. In the ED patient was found to have right lower lobe pneumonia on the chest x-ray. UA was also consistent with UTI. Patient's troponins were elevated. Patient was started on IV Rocephin and azithromycin and then referred for admission. Patient's mental status did improve. Patient was taking pain medications [id number]-gnv-[id number] while in the hospital. I suspect patient may have overdosed on pain meds at home that may have contributed to her altered mental status. Patient adamantly is denying overdosing on pain medications. Patient was seen by cardiology for the elevated troponin. Patient was started on heparin drip. Patient's echocardiogram showed EF of 30%. Patient then had a heart catheterization done and stent was placed in the mid LAD. Cardiology started the patient on Entresto, aspirin and Brilinta and Farxiga. Patient is already on a beta-scott. No diuretic was started as patient is euvolemic. Per cardiology patient is not a candidate for LifeVest. Patient was also treated for COPD exacerbation with steroids and breathing treatment. At the time of discharge patient was awake and alert and was on room air. Patient was cleared for discharge by cardiology. Patient will be discharged to a fdc facility. She was instructed to follow-up with cardiology. I also counseled the patient on smoking cessation. Patient at this time is not ready to quit smoking. Patient gets upset when you on awake counselor her on smoking. Patient will be discharged on 2 more days of Ceftin to complete her antibiotic course for UTI and pneumonia. 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 Patient Condition at Discharge: Fair Plan - Discharge Summary Discharge Rx Participant: No New Discharge Prescriptions: New Ticagrelor [Brilinta] 90 mg PO BID #0 tab Dapagliflozin Propanediol [Farxiga] 5 mg PO DAILY tab Atorvastatin [Lipitor] 40 mg PO HS tab Aspirin 81 mg PO DAILY tab Ipratropium-Albuterol Nebulize [Duoneb 0.5 mg-3 mg/3 ml Soln] 3 ml INHALATION QID PRN each PRN Reason: Shortness Of Breath Or Wheezing Sacubitril/Valsartan [Entresto 24 mg-26 mg Tablet] 1 each PO BID tab predniSONE 50 mg PO DAILY 5 Days #5 tablet cefUROXime axetiL [Ceftin] 500 mg PO BID 3 Days #6 tab Continue Potassium Chloride ER [K-Dur 10] 10 meq PO DAILY oxyCODONE-APAP 10-325MG [Percocet 10-325 mg] 1 tab PO Q6H PRN PRN Reason: Pain Pregabalin [Lyrica] 150 mg PO TID Montelukast [Singulair] 10 mg PO DAILY Metoprolol Succinate (ER) [Toprol XL] 25 mg PO DAILY Albuterol Sulfate [Albuterol Sulfate Hfa] 2 puff PO RT-Q4H PRN PRN Reason: Shortness Of Breath oxyBUTYnin chloride [Ditropan] 5 mg PO BID Ergocalciferol (Vitamin D2) [Drisdol (50,000 Iu)] 1,250 mcg PO Q7D Fluticasone/Umeclidin/Vilanter [Trelegy Ellipta 100-62.5-25] 1 puff INHALATION RT-DAILY Discontinued Bacitracin 500 Unit/Gram Topical Ointment 1 applic TOPICAL BID Ondansetron [Zofran] 8 mg PO Q12HR PRN PRN Reason: Nausea And Vomiting Ibuprofen [Motrin] 800 mg PO TID Discharge Medication List Albuterol Sulfate [Albuterol Sulfate Hfa] 2 puff PO RT-Q4H PRN 10/26/23 [History] Ergocalciferol (Vitamin D2) [Drisdol (50,000 Iu)] 1,250 mcg PO Q7D 10/26/23 [History] Fluticasone/Umeclidin/Vilanter [Trelegy Ellipta 100-62.5-25] 1 puff INHALATION RT-DAILY 10/26/23 [History] Metoprolol Succinate (ER) [Toprol XL] 25 mg PO DAILY 10/26/23 [History] Montelukast [Singulair] 10 mg PO DAILY 10/26/23 [History] Potassium Chloride ER [K-Dur 10] 10 meq PO DAILY 10/26/23 [History] Pregabalin [Lyrica] 150 mg PO TID 10/26/23 [History] oxyBUTYnin chloride [Ditropan] 5 mg PO BID 10/26/23 [History] oxyCODONE-APAP 10-325MG [Percocet 10-325 mg] 1 tab PO Q6H PRN 10/26/23 [History] Aspirin 81 mg PO DAILY tab 10/29/23 [Rx] Atorvastatin [Lipitor] 40 mg PO HS tab 10/29/23 [Rx] Dapagliflozin Propanediol [Farxiga] 5 mg PO DAILY tab 10/29/23 [Rx] Ipratropium-Albuterol Nebulize [Duoneb 0.5 mg-3 mg/3 ml Soln] 3 ml INHALATION QID PRN each 10/29/23 [Rx] Sacubitril/Valsartan [Entresto 24 mg-26 mg Tablet] 1 each PO BID tab 10/29/23 [Rx] Ticagrelor [Brilinta] 90 mg PO BID #0 tab 10/29/23 [Rx] cefUROXime axetiL [Ceftin] 500 mg PO BID 3 Days #6 tab 10/29/23 [Rx] predniSONE 50 mg PO DAILY 5 Days #5 tablet 10/29/23 [Rx] Follow up Appointment(s)/Referral(s): Tete Figueroa FNPBC [REFERRING] - 1-2 Days Jimy Lewis MD [STAFF PHYSICIAN] - 1 Week Discharge Disposition: TRANSFER TO SNF/ECF
[2023-10-29 15:20] VITALS: BP 111/64; PULSE 77; RESP 16; TEMP 97.8
[2023-10-29] MEDS ORDERED: SACUBITRIL/VALSARTAN 24 MG-26 MG TABLET PO SCH (21:00)
--- NOTE | 2023-11-13 17:02 | CDI ---
Documentation Clarification Form Date: 11/13/2023 04:48:18 PM From: Radha Anthony Phone: Admit Date: 10/25/2023 11:44:00 PM Patient Name: Cary Poole Visit Number: [id number] Discharge Date: 10/29/2023 04:23:00 PM ATTENTION: The Clinical Documentation Specialists (CDI) and [facility] Coding Staff appreciate your assistance in clarifying documentation. Please respond to the clarification below the line at the bottom and electronically sign. The CDI & [facility] Coding staff will review the response and follow-up if needed. Please note: Queries are made part of the Legal Health Record. If you have any questions, please contact the author of this message via ITS. Doctor/Provider: Nixon Lewis Non-ST elevated myocardial infarction (NSTEMI) is documented: Non-ST elevation NE could be due torhabdoanddemand ischemia per Progress Note 10/26 and 10/27 NSTEMIwithelevated troponins per Cath Note and Progress Notes Clarification regarding the etiology of the NSTEMI is requested. Patient History/Risk Factors: 73yo F, Acutetoxic encephalopathy, AECOPD, CAP, ICM, toxic enceph, FTT, UTI, fall Clinical Indicators: Troponin: 0.370 troponin peaked at 0.383 EKG Results: EKG shows normal: sinusrhythm, axis (Normal), intervals (Normal), QRS complexes (Inferior Q waves), ST-T waves (The patient does appear to have less than [address] elevations in leads III and aVF as well as Q waves in these leads.) Rate: normal (Rate 87 bpm) Treatment: [facility] w PCI to LAD and first diagonal branch Please clarify the etiology of the NSTEMI, if known: [ ] Type 2 NE due to rhabdoanddemand ischemia [ ] NSTEMI Type 1 [ ] Unable to determine [ ] Other Condition, please specify (Template Last Revised: April 2020) [ ] Unable to determine MTDD
--- NOTE | 2023-11-13 17:21 | CDI ---
Documentation Clarification Form Date: 11/13/2023 05:06:29 PM From: Radha Anthony Phone: Admit Date: 10/25/2023 11:44:00 PM Patient Name: Cary Poole Visit Number: [id number] Discharge Date: 10/29/2023 04:23:00 PM ATTENTION: The Clinical Documentation Specialists (CDI) and [facility] Coding Staff appreciate your assistance in clarifying documentation. Please respond to the clarification below the line at the bottom and electronically sign. The CDI & [facility] Coding staff will review the response and follow-up if needed. Please note: Queries are made part of the Legal Health Record. If you have any questions, please contact the author of this message via ITS. Doctor/Provider: Nixon Lewis Your patient has the documented diagnosis of unspecified CHF per Progress Note 10/26. Additional information regarding the type of CHF is requested. History/Risk Factors: 73yo F, Acute toxic encephalopathy, AECOPD, CAP, ICM, toxic enceph, FTT, UTI, fall, NSTEMI, HTN, suspect possiblepainmedicationoverdose Clinical Indicators: VS/Pulse OX: 93-94 Echo Results: LV EF is estimated at 25-30%. Mildly increased septal wall thickness. Mildly increased posterior wall thickness. Moderately increased LV diastolic volume. Severely increased LV systolic volume. Moderately decreased LV ejection fraction. Normal RV size and function. RV systolicpressure wnl. Mild right atrialdilatation. Moderate left atrialdilatation. Structurally normal MV, thickened. MildMR. Trileaflet aortic valve. Thickened AVwithoutstenosis. NoAR. Structurally normal tricuspid valve. Trace to mildTR. No TS. Structurally normal pulmonic valve. Mildpulmonic regurgitation. Nopulmonic stenosis. Nopericardial effusion. Nopleural effusion. Normal size aortic root and proximal ascending aorta. Chest X Ray: Pleural space: Unremarkable. Nopneumothorax. Heart:Cardiomegaly. Mediastinum: Unremarkable. Normal mediastinal contour. Treatment: CK trending down. Avoid IV fluids In your professional opinion, can you please clarify the type of CHF if known? [ ] Chronic Systolic Heart Failure (reduced EF) [ ] Chronic Diastolic Heart Failure (preserved EF) [ ] Chronic Systolic & Diastolic Heart Failure [ ] Other, please specify [ ] Unable to determine (Template Last Revised: March 2020) [ ] Chronic Systolic Heart Failure (reduced EF) MTDD
--- NOTE | 2023-11-13 17:54 | CDI ---
Documentation Clarification Form Date: 11/13/2023 05:06:29 PM From: Radha Anthony Phone: Admit Date: 10/25/2023 11:44:00 PM Patient Name: Cary Poole Visit Number: [id number] Discharge Date: 10/29/2023 04:23:00 PM ATTENTION: The Clinical Documentation Specialists (CDI) and [facility] Coding Staff appreciate your assistance in clarifying documentation. Please respond to the clarification below the line at the bottom and electronically sign. The CDI & [facility] Coding staff will review the response and follow-up if needed. Please note: Queries are made part of the Legal Health Record. If you have any questions, please contact the author of this message via ITS. Doctor/Provider: Nixon Lewis Acute TME is documented per Progress Note 10/25. Additional clarification regarding the cause of toxic encephalopathy is requested. History/Risk Factors: 73yo F, Acute toxic encephalopathy, AECOPD, CAP, ICM, toxic enceph, FTT, UTI, fall, NSTEMI, HTN w CHF, suspect possible pain medication overdose; Home Rx oxycodone-APAP 10-325MG [Percocet 1 tab PO Q6H 10- 325 mg] Clinical Indicators: Labs: glucose 89-131 NA 138-139 Potassium 4-4. 1 BUN 18-20 CO2 19-22 CT/MRI Brain: Extra-axial spaces:Noabnormalextra-axial fluid collections. Ventricular system: WNL. Cerebral parenchyma:No acuteIPHormasseffect. The villalta-white junction is well differentiated. Cerebellum: Unremarkable. Masseffect: No evidence of midline shift. Intracranial vasculature: unremarkable Soft tissues: Normal. Calvarium/osseous structures:Nodepressed skull fracture. Paranasal sinuses and mastoid air cells: Mild scattered paranasal sinus disease. Visualized orbits: Orbital contents are intact. Treatment: Continue with IV Rocephin 2 g daily and azithromycin 5 mg IV daily. Follow-upon blood culture. Mentation has improved. We will continue patient's Percocet and gabapentin. I discussed with the nurse to avoidpainmeds if patient is somnolent. Please clarify the type of encephalopathy, if known: [ ] Acute toxic encephalopathy due to medication overdose: (please specify the medication) [ ] Acute toxic encephalopathy due to UTI [ ] Other, please specify [ ] Unable to determine (Template Last Revised: April 2020) [ ] Unable to determine MTDD
== END 2023-10-29 16:23 | DRG 321 ==
LOC: EC 20:12 → 3SCARD 23:44
PROVIDERS: ADMIT Internal Medicine; ATTEND Internal Medicine
PROC: 027135Z Dilation of Coronary Artery, Two Arteries with Two Drug-eluting Intraluminal Devices, Percutaneous Approach (ICD-10-PCS; principal; 2023-10-28 12:00)
PROC: B240ZZ3 Ultrasonography of Single Coronary Artery, Intravascular (ICD-10-PCS; 2023-10-28 12:00)
PROC: 4A023N7 Measurement of Cardiac Sampling and Pressure, Left Heart, Percutaneous Approach (ICD-10-PCS; 2023-10-28 12:00)
PROC: B2111ZZ Fluoroscopy of Multiple Coronary Arteries using Low Osmolar Contrast (ICD-10-PCS; 2023-10-28 12:00)
DX: I21.4 Non-ST elevation (NSTEMI) myocardial infarction (principal); G92.9 Unspecified toxic encephalopathy; J18.9 Pneumonia, unspecified organism; J44.0 Chronic obstructive pulmonary disease with (acute) lower respiratory infection; J44.1 Chronic obstructive pulmonary disease with (acute) exacerbation; I50.22 Chronic systolic (congestive) heart failure; Z68.1 Body mass index [BMI] 19.9 or less, adult; N39.0 Urinary tract infection, site not specified; R62.7 Adult failure to thrive; I25.82 Chronic total occlusion of coronary artery; I11.0 Hypertensive heart disease with heart failure; T79.6XXA Traumatic ischemia of muscle, initial encounter; D64.9 Anemia, unspecified; I25.10 Atherosclerotic heart disease of native coronary artery without angina pectoris; F17.210 Nicotine dependence, cigarettes, uncomplicated; I25.5 Ischemic cardiomyopathy; G89.29 Other chronic pain; M54.9 Dorsalgia, unspecified; H91.90 Unspecified hearing loss, unspecified ear; M79.7 Fibromyalgia; T50.991A Poisoning by other drugs, medicaments and biological substances, accidental (unintentional), initial encounter; W19.XXXA Unspecified fall, initial encounter; Z79.02 Long term (current) use of antithrombotics/antiplatelets; Z79.1 Long term (current) use of non-steroidal anti-inflammatories (NSAID); Z79.51 Long term (current) use of inhaled steroids; Z79.82 Long term (current) use of aspirin; Z79.84 Long term (current) use of oral hypoglycemic drugs; Z79.899 Other long term (current) drug therapy; Y92.009 Unspecified place in unspecified non-institutional (private) residence as the place of occurrence of the external cause
CPT/HCPCS: 36415; 70450; 71045; 80048; 80053; 80061; 80320; 81001; 82550; 82552; 82607; 82728; 82746; 83036; 83540; 83550; 83605; 83735; 84443; 84466; 84484; 85025; 85610; 85730; 87040; 87449; 92921; 92978; 93005; 93306; 93458; 93880; 94640; 96365; 96368; 99291

== ENCOUNTER 2023-11-02 22:04 | Inpatient (IN) | payer MEDICARE, OTHER ==
[2023-11-02] MEDS ORDERED: HEPARIN SODIUM 1,000 UN/ML (10ML VL) IV PRN (22:19)
[2023-11-02] MEDS: HEPARIN SOD,PORK IN 0.45% NACL 25,000 UNIT in 0.45% NACL 1 250ML.BAG IV SCH (22:33)
[2023-11-02 22:45] LABS: Basophils % (A) 0 %; Eosinophils # (A) 0.1 k/uL (0-0.7); Eosinophils % (A) 1 %; HCT 37.3 % (34.0-46.0); HGB 11.7 gm/dL (11.4-16.0); Hypochromasia Slight; Lymphocytes # (A) 0.9 k/uL (1.0-4.8); Lymphocytes % (A) 9 %; MCH 28.3 pg (25.0-35.0); MCHC 31.4 g/dL (31.0-37.0); MCV 90.2 fL (80.0-100.0); Mean Platelet Volume 12.2; Monocytes # (A) 0.3 k/uL (0-1.0); Monocytes % (A) 3 %; Neutrophils # (A) 7.8 k/uL (1.3-7.7); Neutrophils % (A) 86 %; Platelet Count 128 k/uL (150-450); RBC 4.13 m/uL (3.80-5.40); RDW 15.5 % (11.5-15.5)
[2023-11-02] MEDS ORDERED: ACETAMINOPHEN TAB 325 MG TAB PO PRN (22:49)
[2023-11-02] MEDS ORDERED: NALOXONE 0.4 MG/ML 1 ML VIAL IV PRN (22:49)
[2023-11-02] MEDS ORDERED: ONDANSETRON 4 MG/2 ML VIAL IVP PRN (22:49)
--- NOTE | 2023-11-02 22:56 | ED ---
General Adult HPI - General Chief complaint: Extremity Injury, Lower Stated complaint: Right foot pain Time Seen by Provider: 11/02/23 22:06 Source: patient, EMS, RN notes reviewed, old records reviewed Mode of arrival: EMS - History of Present Illness Initial comments: 73 yo female presenting following for evaluation of right suspected arterial occlusion of the right lower extremity. Patient was sent from [facility] for vascular surgery consult. Patient had developed pain in the right foot over the past 24 hours. No specific injury. Patient had recent heart cathete rization through right radial artery approach with stenting in the LAD. Patient was started on heparin prior to transfer. Patient reports minimal pain at the time my evaluation. - Related Data Home Medications Medication Instructions Recorded Confirmed Albuterol Sulfate [Albuterol 2 puff PO RT-Q4H PRN 10/26/23 10/26/23 Sulfate Hfa] Ergocalciferol (Vitamin D2) 1,250 mcg PO Q7D 10/26/23 10/26/23 [Drisdol (50,000 Iu)] Fluticasone/Umeclidin/Vilanter 1 puff INHALATION RT-DAILY 10/26/23 10/26/23 [Trelegy Ellipta 100-62.5-25] Metoprolol Succinate (ER) [Toprol 25 mg PO DAILY 10/26/23 10/26/23 XL] Montelukast [Singulair] 10 mg PO DAILY 10/26/23 10/26/23 Potassium Chloride ER [K-Dur 10] 10 meq PO DAILY 10/26/23 10/26/23 Pregabalin [Lyrica] 150 mg PO TID 10/26/23 10/26/23 oxyBUTYnin chloride [Ditropan] 5 mg PO BID 10/26/23 10/26/23 oxyCODONE-APAP 10-325MG [Percocet 1 tab PO Q6H PRN 10/26/23 10/26/23 10-325 mg] Previous Rx's Medication Instructions Recorded Aspirin 81 mg PO DAILY tab 10/29/23 Atorvastatin [Lipitor] 40 mg PO HS tab 10/29/23 Dapagliflozin Propanediol [Farxiga] 5 mg PO DAILY tab 10/29/23 Ipratropium-Albuterol Nebulize 3 ml INHALATION QID PRN each 10/29/23 [Duoneb 0.5 mg-3 mg/3 ml Soln] Sacubitril/Valsartan [Entresto 24 1 each PO BID tab 10/29/23 mg-26 mg Tablet] Ticagrelor [Brilinta] 90 mg PO BID #0 tab 10/29/23 cefUROXime axetiL [Ceftin] 500 mg PO BID 3 Days #6 tab 10/29/23 predniSONE 50 mg PO DAILY 5 Days #5 tablet 10/29/23 Allergies Allergy/AdvReac Type Severity Reaction Status Date / Time No Known Allergies Allergy Verified 10/26/23 10:57 Review of Systems ROS Statement: Those systems with pertinent positive or pertinent negative responses have been documented in the HPI. ROS Other: All systems not noted in ROS Statement are negative. Past Medical History Past Medical History: Unable to Obtain, Asthma, COPD History of Any Multi-Drug Resistant Organisms: None Reported Past Surgical History: Heart Catheterization With Stent Past Psychological History: No Psychological Hx Reported Smoking Status: Current every day smoker Past Alcohol Use History: None Reported Past Drug Use History: None Reported General Exam General appearance: alert, in no apparent distress Head exam: Present: atraumatic, normocephalic Eye exam: Present: normal appearance, PERRL Respiratory exam: Present: normal lung sounds bilaterally. Absent: respiratory distress Cardiovascular Exam: Present: regular rate, normal rhythm GI/Abdominal exam: Present: soft. Absent: distended, tenderness, guarding Extremities exam: Present: other (Right lower extremity is cold from the mid calf down. There is no palpable pulses DP or PT in the right foot. Femoral pulses 2+.) Neurological exam: Present: alert, oriented X3 Psychiatric exam: Present: normal affect, normal mood Course Vital Signs 11/02/23 11/02/23 22:07 22:38 Temperature 97.6 F Pulse Rate 67 65 Respiratory 18 18 Rate Blood Pressure 137/77 137/77 O2 Sat by Pulse 91 L 98 Oximetry Medical Decision Making - Medical Decision Making Was pt. sent in by a medical professional or institution (LOLITA Moncada, OVEREDGE MACHINE OPERATOR, urgent care, hospital, or custodial...) When possible be specific @ -Sent from [facility] for vascular surgery evaluation Did you speak to anyone other than the patient for history (EMS, parent, family, police, friend...)? What history was obtained from this source @ -No Did you review nursing and triage notes (agree or disagree)? Why? @ -I reviewed and agree with nursing and triage notes Were old charts reviewed (outside hosp., previous admission, EMS record, old EKG, old radiological studies, urgent care reports/EKG's, custodial records)? Report findings @ -No old charts were reviewed Differential Diagnosis peripheral vascular disease, arterial occlusion EKG interpreted by me (3pts min.). @ -As above X-rays interpreted by me (1pt min.). @ -None done CT interpreted by me (1pt min.). @ -None done U/S interpreted by me (1pt. min.). @ -None done What testing was considered but not performed or refused? (CT, X-rays, U/S, labs)? Why? @ -None What meds were considered but not given or refused? Why? @ -None Did you discuss the management of the patient with other professionals (professionals i.e. , PA, OVEREDGE MACHINE OPERATOR, lab, RT, psych nurse, mental health social worker, urban planning professor, teacher, electrical engineering drafting officer, window caser)? Give summary @ -No Was smoking cessation discussed for >3mins.? @ -No Was critical care preformed (if so, how long)? @ -Yes 35 minutes arterial occlusion Were there social determinants of health that impacted care today? How? (Homelessness, low income, unemployed, alcoholism, drug addiction, transport ation, low edu. Level, literacy, decrease access to med. care, long-term, rehab)? @ -No Was there de-escalation of care discussed even if they declined (Discuss DNR or withdrawal of care, Hospice)? DNR status @ -No What co-morbidities impacted this encounter? (DM, HTN, Smoking, COPD, CAD, Cancer, CVA, ARF, Chemo, Hep., AIDS, mental health diagnosis, sleep apnea, morbid obesity)? @ -Hypertension, coronary artery disease, tobacco use Was patient admitted / discharged? Hospital course, mention meds given and route, prescriptions, significant lab abnormalities, going to OR and other pertinent info. @73-year-old female with suspected arterial occlusion in the right lower extremity. Patient has absent DP and PT pulses. The foot is cold. There is cap refill but it is delayed. I did continue heparin, repeat laboratory testing, I discussed case with Dr. Chowdhury who does recommend CT angiography this is pending. Patient is admitted to [facility], Dr. [place]. Undiagnosed new problem with uncertain prognosis? @ -No Drug Therapy requiring intensive monitoring for toxicity (Heparin, Nitro, Insulin, Cardizem)? @ -No Were any procedures done? @ -No Diagnosis/symptom? @ -Pulseless right foot, suspected arterial occlusion Acute, or Chronic, or Acute on Chronic? @Acute Uncomplicated (without systemic symptoms) or Complicated (systemic symptoms)? @ -Complicated Side effects of treatment? @ -No Exacerbation, Progression, or Severe Exacerbation? @ -No Poses a threat to life or bodily function? How? (Chest pain, USA, CA, pneumonia, PE, COPD, DKA, ARF, appy, cholecystitis, CVA, Diverticulitis, Homicidal, Suicidal, threat to staff... and all critical care pts) @Yes, risk of limb ischemia - Lab Data Lab Results 11/02/23 Range/Units 22:32 Plasma Lactic Acid Timur 0.9 (0.7-2.0) mmol/L Critical Care Time Critical Care Time: Yes Total Critical Care Time: 35 Disposition Clinical Impression: Arterial occlusion, Cold right foot Disposition: ADMITTED IP TO THIS HOSP Condition: Stable Is patient prescribed a controlled substance at d/c from ED?: No Time of Disposition: 23:03
[2023-11-02 23:03] LABS: ALT 21 U/L (4-34); AST 19 U/L (14-36); African American GFR (CKD) 77 (>60 ml/min/1.73 sqM); Albumin 2.9 g/dL (3.5-5.0); Alkaline Phosphatase 46 U/L (38-126); Anion Gap 5 mmol/L; Blood Urea Nitrogen 38 mg/dL (7-17); Calcium 8.1 mg/dL (8.4-10.2); Carbon Dioxide 20 mmol/L (22-30); Chloride 112 mmol/L (98-107); Glucose 109 mg/dL (74-99); Non-African American GFR(CKD) 67 (>60 ml/min/1.73 sqM); Potassium 4.4 mmol/L (3.5-5.1); Sodium 137 mmol/L (137-145); Total Bilirubin 0.3 mg/dL (0.2-1.3); Total Protein 5.6 g/dL (6.3-8.2)
[2023-11-02 23:13] LABS: INR 1.1 (<1.2)
[2023-11-02 23:26] LABS: Partial Thromboplastin Time >200.0 sec (22.0-30.0)
[2023-11-02] MEDS: SODIUM CHLORIDE 0.9% 1,000 ML IV SCH (23:49)
[2023-11-02] MEDS: HYDROmorphone 0.5 MG/0.5 ML SYRINGE IVP PRN (23:50)
[2023-11-03 00:25] LABS: Large Platelets Present
--- NOTE | 2023-11-03 00:50 | CT ---
EXAM: CT Angiography Abdomen and Pelvis With Runoff to the Lower Extremities Without and With Intravenous Contrast CLINICAL HISTORY: CT Reason: cold right foot TECHNIQUE: Axial computed tomographic angiography images of the abdomen, pelvis and lower extremities without and with intravenous contrast. CTDI is 64. 4 mGy and DLP is 3927.5 mGy-cm. This CT exam was performed using one or more of the following dose reduction techniques: automated exposure control, adjustment of the mA and/or kV according to patient size, and/or use of iterative reconstruction technique. MIP reconstructed images were created and reviewed. COMPARISON: No relevant prior studies available. FINDINGS: VASCULATURE: Aorta: Moderate atherosclerotic changes involving infrarenal abdominal aorta without aneurysm or dissection. Celiac trunk and mesenteric arteries: Severe stenosis of the origin of the inferior mesenteric artery which is patent. 30% stenosis of the origin of the celiac artery. There is 40% stenosis of the proximal superior mesenteric artery. Renal arteries: Severe, 90% stenosis of the proximal right renal artery. Right iliac arteries: 30% stenosis of the common iliac arteries bilaterally. Right femoral/popliteal arteries: The right superficial femoral artery is occluded at its origin. The right popliteal artery is also occluded throughout its length. 20% stenosis of the right common femoral artery. The right deep femoral artery is widely patent. Right calf/foot arteries: There is reconstitution of the distal anterior tibial, peroneal, and posterior tibial arteries in the right mid to distal calf. The proximal dorsalis pedis is small but patent. No occlusion or significant stenosis. Left iliac arteries: See above. Left femoral/popliteal arteries: 20% stenosis of the left common femoral artery. 40-50% stenosis of the distal left superficial femoral artery in the adductor canal. The left deep femoral artery is widely patent. Left calf/foot arteries: There is 2 vessel runoff in the left calf by way of the peroneal and posterior tibial arteries. The anterior tibial artery tapers to occlusion the mid calf. Lung bases: Unremarkable. No mass. No consolidation. ABDOMEN: Liver: Unremarkable. No mass. Gallbladder and bile ducts: Biliary duct prominence postcholecystectomy. No choledocholithiasis is identified. Pancreas: Unremarkable. No ductal dilation. No mass. Spleen: Unremarkable. No splenomegaly. Adrenals: Unremarkable. No mass. Kidneys and ureters: Small amount of scarring in the left kidney. There is a 3.6 cm simple cyst in the right kidney. No follow-up is required. No obstructing stones. No hydronephrosis. Stomach and bowel: Bowel loops are nondilated. The sigmoid colon demonstrates diverticulosis and mild wall thickening. No signs of acute diverticulitis or acute colitis. PELVIS: Appendix: No findings to suggest acute appendicitis. Bladder: The urinary bladder is decompressed by a Chowdhury catheter. No stones. Reproductive: Unremarkable as visualized. ABDOMEN, PELVIS and LOWER EXTREMITIES: Intraperitoneal space: Unremarkable. No significant fluid collection. No free air. Bones/joints: Moderate osteoarthritic changes in the right knee with small knee joint effusion. Mild osteoarthritic changes in the left knee. Moderate multilevel degenerative changes throughout the lumbar spine. No acute fracture or subluxation is seen. Metallic artifact from plate and screw fixation of old trimalleolar fracture of the left ankle. There are mild degenerative changes throughout the left mid foot. No acute fracture or dislocation is seen. Soft tissues: Unremarkable. Lymph nodes: Unremarkable. No enlarged lymph nodes. IMPRESSION: 1. Severe, 90% stenosis of the proximal right renal artery. 2. The right superficial femoral artery is occluded at its origin. The right popliteal artery is also occluded throughout its length. 3. There is reconstitution of the distal anterior tibial, peroneal, and posterior tibial arteries in the right mid to distal calf. The proximal dorsalis pedis is small but patent. 4. 40-50% stenosis of the distal left superficial femoral artery in the adductor canal. 5. There is 2 vessel runoff in the left calf by way of the peroneal and posterior tibial arteries. The anterior tibial artery tapers to occlusion the mid calf. EXAM: CT Angiography Chest Without and With Intravenous Contrast CLINICAL HISTORY: CT Reason: cold right foot TECHNIQUE: Axial computed tomographic angiography images of the chest without and with intravenous contrast. CTDI is 64.4 mGy and DLP is 3927.5 mGy-cm. This CT exam was performed using one or more of the following dose reduction techniques: automated exposure control, adjustment of the mA and/or kV according to patient size, and/or use of iterative reconstruction technique. MIP reconstructed images were created and reviewed. COMPARISON: No relevant prior studies available. FINDINGS: Pulmonary arteries: The pulmonary arterial tree is adequately opacified with contrast. No pulmonary embolism is identified. Aorta: The thoracic aorta is mildly calcified but nondilated. There is no aneurysm or dissection. Great vessels of aortic arch: 25% stenosis of the origin of the left subclavian artery. Lungs: Scattered linear scarring and/or subsegmental atelectasis in both lung bases. There is mild bronchiectasis in a small amount of bronchial plugging in the lower lobes suggesting emphysema. No mass. Pleural space: Unremarkable. No significant effusion. No pneumothorax. Heart: The heart is mildly enlarged. Moderate coronary calcification is present involving the LAD and right coronary artery. No pericardial effusion. Bones/joints: Mild multilevel degenerative changes throughout the thoracic spine. No acute fracture or destructive bone lesion is identified. There are several old healed left lower rib fractures. No acute rib fracture is identified. No dislocation. Soft tissues: Unremarkable. Lymph nodes: Unremarkable. No enlarged lymph nodes. IMPRESSION: 1. The thoracic aorta is mildly calcified but nondilated. There is no aneurysm or dissection. 2. Scattered linear scarring and/or subsegmental atelectasis in both lung bases. There is mild bronchiectasis in a small amount of bronchial plugging in the lower lobes suggesting emphysema. 3. The heart is mildly enlarged. Moderate coronary calcification is present involving the LAD and right coronary artery. No pericardial effusion.
--- NOTE | 2023-11-03 02:31 | P.HPIM ---
History of Present Illness H&P Date: 11/03/23 Chief Complaint: Cold right foot Patient is a 73-year-old female with past medical history of CAD s/p stent in the mid LAD 6 days ago, tobacco dependence presenting to the ED with cold right foot. She was evaluated at the [facility] and was then sent here for vascular surgery consult. States that pain in her right foot began yesterday which was a 15/10 severity, and Percocet didn't help with the pain. She mentions the foot and lower leg being ice cold and was unable to move it. Although right now the pain seems to have subsided and is able to make some movements. She was recently in the hospital after having a fall a week ago possibly secondary to pain med overdose and was admitted for UTI as well as NSTEMI secondary to rhabdomyolysis and subsequently underwent stenting of the LAD, but didn't have any pain on the foot at that time. She was found to have 25-30% EF and 100% RCA occlusion, 90% mid LAD stenosis and 70% ostial diagonal stenosis. Upon workup in the ED, CT angiogram showed occlusion of right superficial femoral and right popliteal artery. In the ED she was treated with Tylenol 650 mg, ondansetron 4 mg, Dilaudid 0.5 mg and placed on 0.9 normal saline at 75 mL/h along with heparin drip (heparin started at [facility]). Vitals: T 97.6F, P 70 bpm, RR 18, BP 148/85, O2 sat at 91% on room air CBC: WBC 9, hemoglobin 11.7, platelet 128 Coag: APTT more than 200 CMP: Chloride 112, bicarb 20, BUN 38, calcium 8.1, total protein 5.6, albumin 2.9 ED documentation reviewed. Review of systems: Pertinent positives and negatives as discussed in HPI, a complete review of systems was performed and all other systems are negative. PMH: CAD, COPD, UTI, pneumonia, scoliosis PSH: Heart catheterization with stent FMH: CAD Social history: Tobacco: Current smoker Alcohol: Denies use Recreational drugs: Denies use Travel: No recent travel history Sick contacts: None Occupation: Not obtained Physical examination: Vital signs reviewed General: non toxic, no distress, appears at stated age, obese Derm: no unusual rashes/lesions Head: atraumatic, normocephalic, symmetric Eyes: EOMI, no lid lag, anicteric sclera, pupils equal round reactive to light ENT: Nose and ears atraumatic Neck: No cervical lymphadenopathy, supple Mouth: no lip lesion, mucus membranes moist Cardiovascular: S1S2 reg, no murmur,positive dorsalis pedis pulse on the left, absent dorsalis pedis pulse on right, absent popliteal pulse on the right Lungs: wheezing, no rhonchi, no rales, no accessory muscle use Abdominal: soft, nontender to palpation, no guarding Ext: cold right foot and right lower leg, absent capillary refill on right foot, 1+ pitting edema b/l, no gross muscle atrophy, no contractures Neuro: tender right foot and distal 1/2 right lower leg, absent sensation to dull touch on right foot, decreased active range of motion of right ankle, passive ROM intact Psych: Alert, oriented, appropriate affect Assessment/Plan: Patient is a 73-year-old female with past medical history of CAD, tobacco dependence who presented to the ED with cold right foot and is admitted with telemetry for evaluation of suspected arterial occlusion of the right lower extremity. #. Acute RLE ischemia secondary to occlusion at the level of the superficial femoral artery - C/w pain control Dilaudid 0.5mg IVP Q3HR PRN - Vascular surgery consulted for right lower extremity arterial occlusion. Vascular surgery attending applications analyst recommended continuing with Heparin infusion. They will take the patient for emergent catheterisation. #. CAD s/p mid LAD stenting on 10/28/2023 - C/w home med aspirin 81 mg PO daily, atorvastatin 40 mg HS, and ticagrelor 90 mg PO BID #. Congestive Heart Failure, last known EF 25-30% - C/w home med Metoprolol succinate 20 mg p.o. daily, Entresto p.o. twice daily, Farxiga 5 mg p.o. daily #. COPD Initiate DuoNebs nebulized 4 times daily scheduled and as needed, C/w Singulair 10 mg p.o. daily #. Thrombocytopenia - Monitor CBC F: 0.9 normal saline at 75 mL/h E: Replete as required N: NPO diet A: Ambulatory DVT prophylaxis: IV Heparin The patient is admitted with an anticipated more than 2 midnight stay for evaluation of cold right foot CODE STATUS: Full Code Discussed with: Patient Anticipated discharge place: Home Past Medical History Past Medical History: Unable to Obtain, Asthma, COPD History of Any Multi-Drug Resistant Organisms: None Reported Past Surgical History: Heart Catheterization With Stent Past Psychological History: No Psychological Hx Reported Smoking Status: Current every day smoker Past Alcohol Use History: None Reported Past Drug Use History: None Reported Medications and Allergies Home Medications Medication Instructions Recorded Confirmed Type Albuterol Sulfate [Albuterol 2 puff PO RT-Q4H PRN 10/26/23 10/26/23 History Sulfate Hfa] Ergocalciferol (Vitamin D2) 1,250 mcg PO Q7D 10/26/23 10/26/23 History [Drisdol (50,000 Iu)] Fluticasone/Umeclidin/Vilanter 1 puff INHALATION RT-DAILY 10/26/23 10/26/23 History [Trelegy Ellipta 100-62.5-25] Metoprolol Succinate (ER) [Toprol 25 mg PO DAILY 10/26/23 10/26/23 History XL] Montelukast [Singulair] 10 mg PO DAILY 10/26/23 10/26/23 History Potassium Chloride ER [K-Dur 10] 10 meq PO DAILY 10/26/23 10/26/23 History Pregabalin [Lyrica] 150 mg PO TID 10/26/23 10/26/23 History oxyBUTYnin chloride [Ditropan] 5 mg PO BID 10/26/23 10/26/23 History oxyCODONE-APAP 10-325MG [Percocet 1 tab PO Q6H PRN 10/26/23 10/26/23 History 10-325 mg] Aspirin 81 mg PO DAILY tab 10/29/23 Rx Atorvastatin [Lipitor] 40 mg PO HS tab 10/29/23 Rx Dapagliflozin Propanediol [Farxiga] 5 mg PO DAILY tab 10/29/23 Rx Ipratropium-Albuterol Nebulize 3 ml INHALATION QID PRN each 10/29/23 Rx [Duoneb 0.5 mg-3 mg/3 ml Soln] Sacubitril/Valsartan [Entresto 24 1 each PO BID tab 10/29/23 Rx mg-26 mg Tablet] Ticagrelor [Brilinta] 90 mg PO BID #0 tab 10/29/23 Rx cefUROXime axetiL [Ceftin] 500 mg PO BID 3 Days #6 tab 10/29/23 Rx predniSONE 50 mg PO DAILY 5 Days #5 tablet 10/29/23 Rx Allergies Allergy/AdvReac Type Severity Reaction Status Date / Time No Known Allergies Allergy Verified 10/26/23 10:57 Physical Exam Vitals: Vital Signs Temp Pulse Resp BP Pulse Ox 11/03/23 00:15 70 18 148/85 91 L 11/02/23 23:24 61 18 108/81 97 11/02/23 22:38 65 18 137/77 98 11/02/23 22:07 97.6 F 67 18 137/77 91 L Intake and Output 11/02/23 11/02/23 11/03/23 14:59 22:59 06:59 Intake Total 15.291 Balance 15.291 Intake: Intake, IV Titration 15.291 Amount Heparin Sod,Pork in 0.45% 15.291 NaCl 25,000 unit In 0.45 % NaCl 1 250ml.bag @ 12 UNITS/KG/HR 8.655 mls/hr IV .Q24H [facility] Rx#: [id number] Other: Weight 72.121 kg Results CBC & Chem 7: 11/02/23 22:32 11/02/23 22:32 Labs: Abnormal Lab Results - Last 24 Hours (Table) 11/02/23 11/02/23 11/02/23 Range/Units 22:32 22:32 22:32 Plt Count 128 L (150-450) k/uL Neutrophils # 7.8 H (1.3-7.7) k/uL Lymphocytes # 0.9 L (1.0-4.8) k/uL APTT >200.0 H* (22.0-30.0) sec Chloride 112 H (98-107) mmol/L Carbon Dioxide 20 L (22-30) mmol/L BUN 38 H (7-17) mg/dL Glucose 109 H (74-99) mg/dL Calcium 8.1 L (8.4-10.2) mg/dL Total Protein 5.6 L (6.3-8.2) g/dL Albumin 2.9 L (3.5-5.0) g/dL
[2023-11-03] MEDS ORDERED: IPRATROPIUM-ALBUTEROL 3 ML NEB INHALATION PRN ×2 (02:59→08:21)
--- NOTE | 2023-11-03 03:50 | P.GSCN ---
History of Present Illness Consult date: 11/03/23 History of present illness: Patient is a 73-year-old female who presented to the ER late last evening at [facility] for complaints of right lower extremity pain. She recently had a heart catheterization on 10/28/2023 with placement of a stent to the LAD. Since then she had been doing fine without any significant issues in the past 24 hours began having pain in her right lower extremity. Initially it was severe and she was not able to move her foot, over the past few hours she has been able to have more motion into the ankle. She denies any pain in her calf. She denies any recent surgeries. She denies any history of brain bleed or active cancer. She denies any previous claudication type pain. Past Medical History Past Medical History: Unable to Obtain, Asthma, COPD History of Any Multi-Drug Resistant Organisms: None Reported Past Surgical History: Heart Catheterization With Stent Past Psychological History: No Psychological Hx Reported Smoking Status: Current every day smoker Past Alcohol Use History: None Reported Past Drug Use History: None Reported Medications and Allergies Home Medications Medication Instructions Recorded Confirmed Type Albuterol Sulfate [Albuterol 2 puff PO RT-Q4H PRN 10/26/23 10/26/23 History Sulfate Hfa] Ergocalciferol (Vitamin D2) 1,250 mcg PO Q7D 10/26/23 10/26/23 History [Drisdol (50,000 Iu)] Fluticasone/Umeclidin/Vilanter 1 puff INHALATION RT-DAILY 10/26/23 10/26/23 History [Trelegy Ellipta 100-62.5-25] Metoprolol Succinate (ER) [Toprol 25 mg PO DAILY 10/26/23 10/26/23 History XL] Montelukast [Singulair] 10 mg PO DAILY 10/26/23 10/26/23 History Potassium Chloride ER [K-Dur 10] 10 meq PO DAILY 10/26/23 10/26/23 History Pregabalin [Lyrica] 150 mg PO TID 10/26/23 10/26/23 History oxyBUTYnin chloride [Ditropan] 5 mg PO BID 10/26/23 10/26/23 History oxyCODONE-APAP 10-325MG [Percocet 1 tab PO Q6H PRN 10/26/23 10/26/23 History 10-325 mg] Aspirin 81 mg PO DAILY tab 10/29/23 Rx Atorvastatin [Lipitor] 40 mg PO HS tab 10/29/23 Rx Dapagliflozin Propanediol [Farxiga] 5 mg PO DAILY tab 10/29/23 Rx Ipratropium-Albuterol Nebulize 3 ml INHALATION QID PRN each 10/29/23 Rx [Duoneb 0.5 mg-3 mg/3 ml Soln] Sacubitril/Valsartan [Entresto 24 1 each PO BID tab 10/29/23 Rx mg-26 mg Tablet] Ticagrelor [Brilinta] 90 mg PO BID #0 tab 10/29/23 Rx cefUROXime axetiL [Ceftin] 500 mg PO BID 3 Days #6 tab 10/29/23 Rx predniSONE 50 mg PO DAILY 5 Days #5 tablet 10/29/23 Rx Allergies Allergy/AdvReac Type Severity Reaction Status Date / Time No Known Allergies Allergy Verified 10/26/23 10:57 Surgical - Exam Vital Signs Temp Pulse Resp BP Pulse Ox 97.6 F 67 18 137/77 91 L 11/02/23 22:07 11/02/23 22:07 11/02/23 22:07 11/02/23 22:07 11/02/23 22:07 General Is a pleasant cooperative female in no acute distress, relatively comfortable appearing. Normocephalic head. Extraocular motion intact. Wearing glasses. Heart appears regular at this time. Lungs are clear. Abdomen is soft. She has palpable left radial pulse, diminished with palpable right radial pulse. Palpable dorsalis pedis on the left. Palpable femoral pulse on the right, no palpable pedal pulses on the right. Grossly motor intact of the right lower extremity, unable to move toes well. Mildly diminished sensation. No evidence of mottling. Right lower extremity mildly cooler at the foot than the left. No calf tenderness to palpation Results I personally reviewed the CT angiogram which does show occlusion of the right lower extremity superficial femoral artery and popliteal artery with reconstitution of the tibial vessels. No obvious aortic thrombus. - Labs 11/02/23 22:32 11/02/23 22:32 Abnormal Lab Results - Last 24 Hours (Table) 11/02/23 11/02/23 11/02/23 Range/Units 22:32 22:32 22:32 Plt Count 128 L (150-450) k/uL Neutrophils # 7.8 H (1.3-7.7) k/uL Lymphocytes # 0.9 L (1.0-4.8) k/uL APTT >200.0 H* (22.0-30.0) sec Chloride 112 H (98-107) mmol/L Carbon Dioxide 20 L (22-30) mmol/L BUN 38 H (7-17) mg/dL Glucose 109 H (74-99) mg/dL Calcium 8.1 L (8.4-10.2) mg/dL Total Protein 5.6 L (6.3-8.2) g/dL Albumin 2.9 L (3.5-5.0) g/dL Diabetes panel 11/02/23 Range/Units 22:32 Sodium 137 (137-145) mmol/L Potassium 4.4 (3.5-5.1) mmol/L Chloride 112 H (98-107) mmol/L Carbon Dioxide 20 L (22-30) mmol/L BUN 38 H (7-17) mg/dL Creatinine 0.88 (0.52-1.04) mg/dL Glucose 109 H (74-99) mg/dL Calcium 8.1 L (8.4-10.2) mg/dL AST 19 (14-36) U/L ALT 21 (4-34) U/L Alkaline Phosphatase 46 (38-126) U/L Total Protein 5.6 L (6.3-8.2) g/dL Albumin 2.9 L (3.5-5.0) g/dL Calcium panel 11/02/23 Range/Units 22:32 Calcium 8.1 L (8.4-10.2) mg/dL Albumin 2.9 L (3.5-5.0) g/dL Pituitary panel 11/02/23 Range/Units 22:32 Sodium 137 (137-145) mmol/L Potassium 4.4 (3.5-5.1) mmol/L Chloride 112 H (98-107) mmol/L Carbon Dioxide 20 L (22-30) mmol/L BUN 38 H (7-17) mg/dL Creatinine 0.88 (0.52-1.04) mg/dL Glucose 109 H (74-99) mg/dL Calcium 8.1 L (8.4-10.2) mg/dL Adrenal panel 11/02/23 Range/Units 22:32 Sodium 137 (137-145) mmol/L Potassium 4.4 (3.5-5.1) mmol/L Chloride 112 H (98-107) mmol/L Carbon Dioxide 20 L (22-30) mmol/L BUN 38 H (7-17) mg/dL Creatinine 0.88 (0.52-1.04) mg/dL Glucose 109 H (74-99) mg/dL Calcium 8.1 L (8.4-10.2) mg/dL Total Bilirubin 0.3 (0.2-1.3) mg/dL AST 19 (14-36) U/L ALT 21 (4-34) U/L Alkaline Phosphatase 46 (38-126) U/L Total Protein 5.6 L (6.3-8.2) g/dL Albumin 2.9 L (3.5-5.0) g/dL Assessment and Plan Assessment: Acute right lower extremity ischemia, [place] 2A. Recent cardiac stent Tobacco abuse Plan: After full review of clinical note and imaging, patient does have what appears to be acute occlusion of her right superficial femoral-popliteal artery. At this time we will plan to go forward with tPA thrombolysis. Risks and benefits of the procedure as well as no intervention were discussed with the patient including but not limited to bleeding, infection, injury to the vessel, brain bleed and cardiopulmonary concerns. She seemingly understands and is willing to proceed. We also discussed that with this level of ischemia over this amount of time, potentially has risk of need for amputation versus further surgical intervention. Again she seemingly understands. A phone call was made to the patient's daughter
[2023-11-03] MEDS: MIDAZOLAM 2 MG/2 ML VIAL IVP ONE ×3 (03:52→11:12)
[2023-11-03] MEDS: fentaNYL (PF) 50 MCG/ML 2 ML AMP IVP ONE ×4 (03:52→11:13)
[2023-11-03] MEDS: LIDOCAINE 1% INJ 10MG/ML (20 ML MDV) SQ ONE (03:54)
[2023-11-03] MEDS: IV FLUID CONTINUATION 900 ML IV ONE (04:20)
--- NOTE | 2023-11-03 04:35 | P.OP ---
Date of Procedure: 11/03/23 Description of Procedure: Preoperative diagnosis: [place] 2A right lower extremity acute limb ischemia Postoperative diagnosis: Same Procedure: Ultrasound-guided left common femoral artery access Right femoral angiogram, selective, second order Moderate conscious sedation x 30 minutes with personal monitoring of certified RN administration with hemodynamic monitoring Surgeon: Iman Chowdhury D.O. EBL: Less than 5 cc IV fluids: See records Urine output: See records Drains: None Complications: None immediately apparent Condition: Stable to recovery Operative indication and findings: Patient is a 73-year-old female with acute limb ischemia, she is status post a cardiac stent on 10/28/2023 and presented with a cold leg on the right with evidence of SFA and popliteal artery occlusion. She was offered an angiogram with possible tPA thrombolysis at this time. Risk and benefits have been discussed. She seemingly understands and is willing to proceed. Procedure in detail: Patient was brought to the special suite and placed in supine position. The bilateral groins were prepped and draped in usual sterile fashion. A preprocedural timeout was performed, all parties were in agreement. Using ultrasound, the left common femoral artery was identified. It was found to be patent and free of significant calcific disease. Using ultrasound guidance, the artery was accessed and a 5 Spanish sheath was placed. A permanent image was stored. Catheters and wires were then used to select the contral ateral iliac system and the catheters and wires were then advanced over the common femoral artery. There was an exchanged out for a 5 Rabie sheath. A right lower extremity selective angiogram was performed showing abrupt occlusion of the superficial femoral artery without any obvious neck. The common femoral artery appeared widely patent. The profundus artery appeared widely patent and robust. Further angiogram down the leg did show collaterals with reconstitution at the distal tibial vessels. There was visualized portion of the AT, peroneal and PT at the mid calf however no visualization of the SFA, popliteal artery or TP trunk. Attempts were made at potential crossing of this lesion however was uncertain if there was luminal gain. Due to this and the fact the patient still has motor intact of her foot, the plan is a brief trial of tPA thrombolysis to evaluate if there is any proximal crown that is visualized and patent. The catheter was left at the very proximal point. Patient will come back for planned recheck later today.
[2023-11-03] MEDS ORDERED: MORPHINE SULFATE 2 MG/ML SYRINGE IVP PRN (04:43)
[2023-11-03] MEDS: HEPARIN SOD,PORK IN 0.45% NACL 25,000 UNIT in 0.45% NACL 1 250ML.BAG IV ONE (04:51)
[2023-11-03] MEDS: IOPAMIDOL-250 100ML BTL INTRAARTER ONE (05:00)
[2023-11-03 05:13] LABS: Glucose,Whole Blood 87 mg/dL (70-110)
[2023-11-03] MEDS: ALTEPLASE 10 MG in SODIUM CHLORIDE 0.9% 90 ML IA ONE ×2 (05:40→23:32)
[2023-11-03] MEDS: HEPARIN SOD,PORK IN 0.45% NACL 25,000 UNIT in 0.45% NACL 1 250ML.BAG IV SCH (05:41)
[2023-11-03 06:24] LABS: African American GFR (CKD) 81 (>60 ml/min/1.73 sqM); Anion Gap 4 mmol/L; Blood Urea Nitrogen 33 mg/dL (7-17); Calcium 7.9 mg/dL (8.4-10.2); Carbon Dioxide 21 mmol/L (22-30); Chloride 113 mmol/L (98-107); Glucose 75 mg/dL (74-99); Magnesium 1.9 mg/dL (1.6-2.3); Non-African American GFR(CKD) 70 (>60 ml/min/1.73 sqM); Potassium 3.9 mmol/L (3.5-5.1); Sodium 138 mmol/L (137-145)
[2023-11-03] MEDS ORDERED: Potassium Replacement Protocol 1 EACH MISC MISCELLANE PRN (06:49)
[2023-11-03] MEDS ORDERED: Magnesium Replacement Protocol 1 EACH MISC MISCELLANE PRN (06:49)
[2023-11-03 07:31] LABS: Basophils % (A) 0 %; Eosinophils % (A) 0 %; HCT 36.7 % (34.0-46.0); HGB 11.7 gm/dL (11.4-16.0); Hypochromasia Slight; Lymphocytes # (A) 1.2 k/uL (1.0-4.8); Lymphocytes % (A) 16 %; MCH 28.8 pg (25.0-35.0); MCHC 31.8 g/dL (31.0-37.0); MCV 90.4 fL (80.0-100.0); Mean Platelet Volume 14.9; Monocytes # (A) 0.4 k/uL (0-1.0); Monocytes % (A) 6 %; Neutrophils # (A) 5.8 k/uL (1.3-7.7); Neutrophils % (A) 77 %; Platelet Count 121 k/uL (150-450); RBC 4.06 m/uL (3.80-5.40); RDW 15.5 % (11.5-15.5); WBC 7.6 k/uL (3.8-10.6)
[2023-11-03] MEDS: IPRATROPIUM-ALBUTEROL 3 ML NEB INHALATION SCH (08:31)
[2023-11-03] MEDS: SYMBICORT 80-4.5 MCG INHALER INHALATION SCH (08:34)
[2023-11-03 08:41] LABS: INR 1.1 (<1.2); Partial Thromboplastin Time 28.6 sec (22.0-30.0); Prothrombin Time 11.5 sec (10.0-12.5)
[2023-11-03] MEDS: METOPROLOL SUCCINATE (ER) 25 MG TAB.ER.24H PO SCH (10:13)
[2023-11-03] MEDS: ASPIRIN 81 MG PO SCH (10:13)
[2023-11-03] MEDS: SODIUM CHLORIDE 0.9% 1,000 ML IV ONE (11:06)
[2023-11-03] MEDS: HEPARIN SODIUM,PORCINE 10,000 UNIT in SODIUM CHLORIDE 0.9% 1,000 ML IRRIGATION ONE (11:06)
--- NOTE | 2023-11-03 11:35 | P.OP ---
Date of Procedure: 11/03/23 Preoperative Diagnosis: Right lower extremity critical limb ischemia, occlusion of the SFA Postoperative Diagnosis: Same Procedure(s) Performed: Right lower extremity angiogram via existing sheath Conscious sedation x 10 minutes Surgeon: Darian Gill Pathology: none sent Condition: stable Disposition: ICU Description of Procedure: After written informed consent was obtained the patient all risks benefits competitions were described the patient is brought to the [facility] and laid in a supine position. The area of the existing sheath was prepped and draped in the usual sterile fashion. Angiogram was then obtained via the existing sheath at the groin and down to the foot. There was no filling of the SFA at the bifurc ation with increased collaterals noted from this morning and reconstitution appearing below the knee. Once completed all guidewires, catheters and sheaths were removed and pressure was placed for hemostasis. Patient tolerated procedure well was sent to ICU. We will recheck again in the morning. Discussed with patient that she may need bypass below the knee if no improvement of flow noted tomorrow.
--- NOTE | 2023-11-03 12:00 | IR ---
Intraoperative/procedural fluoroscopic services were provided. Total fluoroscopy time is 0.7 minutes with a total of 190 submitted images to PACS. Total DAP 13.8 Gycm2. Please see the operative note fo r further details. [facility], , 11/03/2023 11:58 AM
[2023-11-03] MEDS: TICAGRELOR 90 MG TAB PO SCH (13:25)
[2023-11-03] MEDS: HYDROcodone/APAP 5-325MG 1 EACH TAB PO PRN (13:25)
[2023-11-03] MEDS: SACUBITRIL/VALSARTAN 24 MG-26 MG TABLET PO SCH (13:25)
[2023-11-03] MEDS: ATORVASTATIN 40 MG TAB PO SCH (20:09)
[2023-11-03] MEDS: MONTELUKAST 10 MG TAB PO SCH (20:09)
[2023-11-03 20:42] LABS: Basophils % (A) 0 %; Eosinophils # (A) 0.2 k/uL (0-0.7); Eosinophils % (A) 2 %; HCT 35.8 % (34.0-46.0); HGB 11.7 gm/dL (11.4-16.0); Lymphocytes # (A) 1.8 k/uL (1.0-4.8); Lymphocytes % (A) 24 %; MCH 29.1 pg (25.0-35.0); MCHC 32.5 g/dL (31.0-37.0); MCV 89.4 fL (80.0-100.0); Mean Platelet Volume 12.3; Monocytes # (A) 0.3 k/uL (0-1.0); Monocytes % (A) 4 %; Neutrophils # (A) 5.4 k/uL (1.3-7.7); Neutrophils % (A) 70 %; Platelet Count 115 k/uL (150-450); RBC 4.01 m/uL (3.80-5.40); RDW 15.9 % (11.5-15.5); WBC 7.7 k/uL (3.8-10.6)
[2023-11-03 21:30] LABS: Large Platelets Present
[2023-11-04 06:40] LABS: Basophils % (A) 0 %; Eosinophils # (A) 0.2 k/uL (0-0.7); Eosinophils % (A) 2 %; HCT 39.6 % (34.0-46.0); HGB 12.3 gm/dL (11.4-16.0); Hypochromasia Moderate; Lymphocytes # (A) 1.6 k/uL (1.0-4.8); Lymphocytes % (A) 17 %; MCH 28.5 pg (25.0-35.0); MCHC 31.1 g/dL (31.0-37.0); MCV 91.7 fL (80.0-100.0); Mean Platelet Volume 11.8; Monocytes # (A) 0.3 k/uL (0-1.0); Monocytes % (A) 4 %; Neutrophils # (A) 6.8 k/uL (1.3-7.7); Neutrophils % (A) 76 %; Platelet Count 135 k/uL (150-450); RBC 4.31 m/uL (3.80-5.40); RDW 15.6 % (11.5-15.5)
[2023-11-04 06:43] LABS: Prothrombin Time 11.4 sec (10.0-12.5)
[2023-11-04 07:05] LABS: African American GFR (CKD) >90 (>60 ml/min/1.73 sqM); Anion Gap 5 mmol/L; Blood Urea Nitrogen 21 mg/dL (7-17); Calcium 7.9 mg/dL (8.4-10.2); Carbon Dioxide 17 mmol/L (22-30); Chloride 115 mmol/L (98-107); Glucose 72 mg/dL (74-99); Magnesium 1.8 mg/dL (1.6-2.3); Non-African American GFR(CKD) >90 (>60 ml/min/1.73 sqM); Potassium 3.9 mmol/L (3.5-5.1); Sodium 137 mmol/L (137-145)
[2023-11-04] MEDS: ALTEPLASE 2 MG in SODIUM CHLORIDE 0.9% 18 ML IA ONE (09:18)
[2023-11-04 09:59] LABS: Glucose,Whole Blood 82 mg/dL (70-110)
[2023-11-04] MEDS: PREGABALIN 75 MG CAP PO SCH (10:51)
[2023-11-04 11:30] LABS: Glucose,Whole Blood 100 mg/dL (70-110)
[2023-11-04] MEDS: MIDAZOLAM 2 MG/2 ML VIAL IVP ONE (12:01)
[2023-11-04] MEDS: fentaNYL (PF) 50 MCG/1 ML VIAL IVP ONE (12:02)
[2023-11-04] MEDS: LIDOCAINE 1% INJ 10MG/ML (30 ML VIAL-PF) SQ ONE (12:05)
[2023-11-04] MEDS: IOPAMIDOL-250 100ML BTL INTRAARTER ONE (12:26)
--- NOTE | 2023-11-04 12:40 | P.OP ---
Date of Procedure: 11/04/23 Description of Procedure: Preoperative diagnosis: Acute on chronic right lower extremity ischemia Postoperative diagnosis: Same Procedure: Repeat angiogram via existing catheter Percutaneous closure, left iliofemoral angiogram Moderate consultation with personal monitoring certified RN administration x 24 minutes with hemodynamic monitoring Surgeon: Iman Chowdhury D.O. EBL: Less than 10 cc IV fluids: See records Urine output: Not measured Drains: None Complications: None immediately apparent] Condition: Stable Operative indication and findings: Patient is a 73-year-old female who had initiation of tPA thrombolysis for questionable acute limb ischemia. She returns today for angiogram. Procedure in detail: Patient was brought to the special suite and placed in supine position. The previously placed catheter and left groin were prepped and draped in usual sterile fashion. A preprocedural timeout was performed, all parties were in agreement. The wire was placed through the catheter and the catheter was removed. An angiogram was performed showing no significant improvement. There did not appear to be any proximal patency noted even after 24 hours of thrombolysis. Further imaging down the leg was performed, there was evidence of multiple collateral flow through the profunda itself without any patent vessel. Attempts were made to pass the wire and were met with a dissection at the level of the popliteal artery but no luminal gain. At this point the distal flow was reconfirmed there is an AT visualized but shortly occludes after its takeoff with reconstitution distally via a collateral. The peroneal artery is patent at the distal calf. The posterior tibial is patent in the distal calf and beyond. The likelihood is the patient will need a femoral to distal bypass if she continues to have significant limb ischemia. Again the most likely scenario is that she is with some degree of chronic occlusive disease given all her rich collateral flow.
--- NOTE | 2023-11-04 14:40 | P.PN ---
Subjective Progress Note Date: 11/04/23 Patient is a 73-year-old female with past medical history of CAD s/p stent in the mid LAD 6 days ago, tobacco dependence presenting to the ED with cold right foot. She was evaluated at the [facility] and was then sent here for vascular surgery consult. States that pain in her right foot began yesterday which was a 15/10 severity, and Percocet didn't help with the pain. She mentions the foot and lower leg being ice cold and was unable to move it. Although right now the pain seems to have subsided and is able to make some movements. She was recently in the hospital after having a fall a week ago possibly secondary to pain med overdose and was admitted for UTI as well as NSTEMI secondary to rhabdomyolysis and subsequently underwent stenting of the LAD, but didn't have any pain on the foot at that time. She was found to have 25-30% EF and 100% RCA occlusion, 90% mid LAD stenosis and 70% ostial diagonal stenosis. Upon workup in the ED, CT angiogram showed occlusion of right superficial femoral and right popliteal artery. In the ED she was treated with Tylenol 650 mg, ondansetron 4 mg, Dilaudid 0.5 mg and placed on 0.9 normal saline at 75 mL/h along with heparin drip (heparin started at [facility]). -Vitals: T 97.6F, P 70 bpm, RR 18, BP 148/85, O2 sat at 91% on room air -CBC: WBC 9, hemoglobin 11.7, platelet 128 -Coag: APTT more than 200 -CMP: Chloride 112, bicarb 20, BUN 38, calcium 8.1, total protein 5.6, albumin 2.9 -ED documentation reviewed. -Review of systems: Pertinent positives and negatives as discussed in HPI, a complete review of systems was performed and all other systems are negative. Progress note 4patient seen and examined at bedside. Patient states she is uncomfortable from ongoing back pain. She has no pain in her right lower leg. She was awaiting repeat angiogram of right lower limb. No other co mplaints. Physical examination: Vital signs reviewed General: non toxic, no distress, appears at stated age, obese Derm: Multiple bruises on left and right arm Head: atraumatic, normocephalic, symmetric Eyes: EOMI, no lid lag, anicteric sclera, pupils equal round reactive to light ENT: Nose and ears atraumatic Neck: No cervical lymphadenopathy, supple Mouth: no lip lesion, mucus membranes moist Cardiovascular: S1S2 reg, no murmur,positive dorsalis pedis pulse on the left, present dorsalis pedis pulse on right, present popliteal pulse on the right Lungs: wheezing, no rhonchi, no rales, no accessory muscle use Abdominal: soft, nontender to palpation, no guarding Ext: Right foot warm to touch with cap refill less than 2 seconds, no gross muscle atrophy, no contractures Neuro: Normal range of motion found throughout upper and lower extremities Psych: Alert, oriented, appropriate affect Daily labs reviewed 11/04/2023WBC 9.0 hemoglobin 12.3, platelets 135, PT 11.4, INR 1.0, sodium 137, potassium 3.9, chloride 115, carbon dioxide 17, anion gap 5, BUN 21, glucose 72, calcium 7.9 Assessment/Plan: Patient is a 73-year-old female with past medical history of CAD, tobacco dependence who presented to the ED with cold right foot and is admitted with telemetry for evaluation of suspected arterial occlusion of the right lower extremity. #. Acute RLE ischemia secondary to occlusion at the level of the superficial femoral artery - C/w pain control Dilaudid 0.5mg IVP Q3HR PRN, Roy 5 every 4 hours as needed, monitor for sedation - Vascular surgery operative note reviewed, highlighted as below Left iliofemoral angiogram with no appearance of proximal patency after 24 hours of thrombolysis with tPA and heparin, likely with chronic occlusive disease given rich collateral flow Vascular surgery attending compensation and hris analyst recommended continuing with Heparin infusion. #. CAD s/p mid LAD stenting on 10/28/2023 - C/w home med aspirin 81 mg PO daily, atorvastatin 40 mg HS, and ticagrelor 90 mg PO BID Holding Farxiga until increased oral dietary intake #. Congestive Heart Failure, last known EF 25-30% - C/w home med Metoprolol succinate 20 mg p.o. daily, Entresto p.o. twice daily, Farxiga 5 mg p.o. daily #Chronic back pain Continue home Lyrica 150 mg Pain control as above #. COPD Initiate DuoNebs nebulized 4 times daily scheduled and as needed, C/w S ingulair 10 mg p.o. daily #. Thrombocytopenia - Monitor CBC Non-anion gap metabolic acidosis -Discontinued normal saline -Repeat BMP tomorrow F: Half normal saline with heparin infusion E: Replete as required N: NPO diet A: Ambulatory DVT prophylaxis: IV Heparin CODE STATUS: Full Code Discussed with: Patient Anticipated discharge place: Home I have seen and evaluated the patient today. Discussed with the resident and agree with the residents finding and plan as documented in the resident's note. Changes highlighted in blue font. Objective - Vital Signs Vital signs: Vital Signs Temp 98.8 F 11/04/23 13:00 Pulse 56 L 11/04/23 13:15 Resp 18 11/04/23 13:15 BP 98/67 11/04/23 13:15 Pulse Ox 96 11/04/23 13:15 FiO2 Intake & Output 11/03/23 11/04/23 11/04/23 18:59 06:59 18:59 Intake Total 825 900 245 Output Total 700 1175 375 Balance 125 -275 -130 Weight 78.5 kg Intake: IV 825 245 Sodium Chloride 0.9% 1, 825 245 000 ml @ 75 mls/hr IV . [id number] [facility] Rx#:[id number] Intake, IV Titration 825 75 Amount Sodium Chloride 0.9% 1, 825 75 000 ml @ 75 mls/hr IV . [id number] [facility] Rx#:[id number] Output: Urine 700 1175 375 Other: Voiding Method Indwelling Catheter Indwelling Catheter Indwelling Catheter - Labs CBC & Chem 7: 11/04/23 05:53 11/04/23 05:53 Labs: Abnormal Lab Results - Last 24 Hours (Table) 11/03/23 11/04/23 11/04/23 Range/Units 20:03 05:53 05:53 RDW 15.9 H 15.6 H (11.5-15.5) % Plt Count 115 L 135 L (150-450) k/uL Chloride 115 H (98-107) mmol/L Carbon Dioxide 17 L (22-30) mmol/L BUN 21 H (7-17) mg/dL Glucose 72 L (74-99) mg/dL Calcium 7.9 L (8.4-10.2) mg/dL
[2023-11-04] MEDS: HEPARIN SOD,PORK IN 0.45% NACL 25,000 UNIT in 0.45% NACL 1 250ML.BAG IV SCH (14:46)
[2023-11-04 17:28] LABS: Glucose,Whole Blood 108 mg/dL (70-110)
[2023-11-04 17:46] LABS: Basophils % (A) 0 %; Eosinophils # (A) 0.2 k/uL (0-0.7); Eosinophils % (A) 2 %; HCT 39.4 % (34.0-46.0); HGB 12.6 gm/dL (11.4-16.0); Hypochromasia Slight; Lymphocytes # (A) 1.5 k/uL (1.0-4.8); Lymphocytes % (A) 14 %; MCH 28.6 pg (25.0-35.0); MCHC 32.1 g/dL (31.0-37.0); MCV 89.1 fL (80.0-100.0); Mean Platelet Volume 12.1; Monocytes # (A) 0.6 k/uL (0-1.0); Monocytes % (A) 5 %; Neutrophils # (A) 8.1 k/uL (1.3-7.7); Neutrophils % (A) 78 %; Platelet Count 135 k/uL (150-450); RBC 4.42 m/uL (3.80-5.40); RDW 15.3 % (11.5-15.5); WBC 10.5 k/uL (3.8-10.6)
[2023-11-04] MEDS: SODIUM CHLORIDE 0.9% 500 ML 500 ML IV ONE (20:30)
[2023-11-04] MEDS: HYDROcodone/APAP 5-325MG 1 EACH TAB PO PRN (20:39)
[2023-11-04 21:48] LABS: INR 1.3 (<1.2); Prothrombin Time 13.2 sec (10.0-12.5)
[2023-11-04 21:56] LABS: Partial Thromboplastin Time 116.3 sec (22.0-30.0)
[2023-11-05] MEDS: SODIUM CHLORIDE 0.9% 1,000 ML IV ONE (00:44)
[2023-11-05] MEDS: SODIUM CHLORIDE 0.9% 1,000 ML IV STA (00:45)
[2023-11-05 03:57] LABS: African American GFR (CKD) >90 (>60 ml/min/1.73 sqM); Anion Gap 2 mmol/L; Blood Urea Nitrogen 15 mg/dL (7-17); Calcium 6.5 mg/dL (8.4-10.2); Carbon Dioxide 16 mmol/L (22-30); Chloride 119 mmol/L (98-107); Glucose 73 mg/dL (74-99); Non-African American GFR(CKD) 88 (>60 ml/min/1.73 sqM); Potassium 3.2 mmol/L (3.5-5.1); Sodium 137 mmol/L (137-145)
[2023-11-05] MEDS: NOREPINEPHRINE 4 MG in SODIUM CHLORIDE 0.9% 250 ML IV SCH (04:30)
[2023-11-05 04:32] LABS: HCT 31.3 % (34.0-46.0); HGB 10.2 gm/dL (11.4-16.0); Hypochromasia Moderate; MCH 29.6 pg (25.0-35.0); MCHC 32.5 g/dL (31.0-37.0); Mean Platelet Volume 13.4; Platelet Count 116 k/uL (150-450); RBC 3.44 m/uL (3.80-5.40); RDW 15.6 % (11.5-15.5); WBC 8.9 k/uL (3.8-10.6)
[2023-11-05] MEDS: POTASSIUM CHLORIDE ER 20 MEQ TAB.ER PO SCH (05:00)
[2023-11-05 06:25] LABS: Glucose,Whole Blood 90 mg/dL (70-110)
[2023-11-05 06:38] LABS: Basophils % (A) 0 %; Eosinophils # (A) 0.2 k/uL (0-0.7); Eosinophils % (A) 2 %; HCT 29.7 % (34.0-46.0); HGB 9.5 gm/dL (11.4-16.0); Hypochromasia Slight; Lymphocytes # (A) 1.8 k/uL (1.0-4.8); Lymphocytes % (A) 18 %; MCH 28.9 pg (25.0-35.0); MCHC 32.1 g/dL (31.0-37.0); MCV 90.1 fL (80.0-100.0); Monocytes # (A) 0.4 k/uL (0-1.0); Monocytes % (A) 4 %; Neutrophils # (A) 7.6 k/uL (1.3-7.7); Neutrophils % (A) 75 %; Platelet Count 118 k/uL (150-450); RBC 3.29 m/uL (3.80-5.40); RDW 15.6 % (11.5-15.5); WBC 10.2 k/uL (3.8-10.6)
--- NOTE | 2023-11-05 09:56 | US ---
EXAMINATION TYPE: US vein mapping BILAT DATE OF EXAM: 11/04/2023 12:47 PM Exam done portable in ICU COMPARISON: NONE CLINICAL INDICATION: Female, 73 years old with history of possible bypass; SIDE PERFORMED: Bilateral TECHNIQUE: Lower extremity saphenous vein is examined and measured utilizing real time linear array sonography. DUPLEX FINDINGS: Greater Saphenous: Color flow seen Lesser Saphenous: Color flow seen Measurements in mm: Right Greater Saphenous: Groin: 7.6 x 8.5 mm High Thigh: 6.8 x 7.5 mm Mid Thigh: 4.9 x 5.5 mm Above Knee: 2.0 x 2.5 mm Knee: 1.7 x 1.8 mm Below Knee: 2.1 x 2.4 mm Mid Calf: 2.6 x 2.5 mm At Ankle: 2.4 x 2.7 mm Left Greater Saphenous: Groin: 9.6 x 8.6 mm High Thigh: 7.6 x 8.1 mm Mid Thigh: 4.4 x 5.2 mm Above Knee: 3.2 x 3.2 mm Knee: 2.4 x 2.9 mm Below Knee: 2.0 x 2.0 mm Mid Calf: 2.2 x 2.6 mm At Ankle: 1.5 x 1.6 mm IMPRESSION: 1. Bilateral GSV measurements listed above. 2. Performing surgeon to determine viability as conduit. [facility], , 11/05/2023 9:03 AM
--- NOTE | 2023-11-05 12:20 | P.PN ---
Subjective Progress Note Date: 11/05/23 Principal diagnosis: Acute on chronic right lower extremity ischemia Patient seen and examined today as a follow-up. She remains in the ICU. Apparently patient became hypotensive yesterday and required Levophed and was given a couple liters of IV boluses. She is complaining of back pain but also states that her right foot is painful as well. Heparin drip is currently on ho ld due to elevated PTT. She denies any shortness of breath, chest pain, abdominal pain, nausea or vomiting. No bleeding from the left groin access site. Hemoglobin 9.5, however no signs of bleeding. Objective - Vital Signs Vital signs: Vital Signs Temp 98.2 F 11/04/23 17:00 Pulse 64 11/05/23 07:00 Resp 12 11/05/23 07:00 BP 122/70 11/05/23 07:00 Pulse Ox 98 11/05/23 06:15 FiO2 Intake & Output 11/04/23 11/05/23 11/05/23 18:59 06:59 18:59 Intake Total 295 2431.265 232.443 Output Total 825 1020 75 Balance -530 1411.265 157.443 Weight 79.1 kg Intake: IV 295 50 Sodium Chloride 0.9% 1, 295 50 000 ml @ 75 mls/hr IV . [id number] [facility] Rx#:[id number] Intake, IV Titration 2381.265 232.443 Amount Heparin Sod,Pork in 0.45% 101.265 102.443 NaCl 25,000 unit In 0.45 % NaCl 1 250ml.bag @ 18 UNITS/KG/HR 14.13 mls/hr IV .[id number] [facility] Rx#: [id number] Sodium Chloride 0.9% 1, 780 130 000 ml @ 130 mls/hr IV . Q7H42M [facility] Rx#:[id number] Sodium Chloride 0.9% 1, 1000 000 ml @ 999 mls/hr IV . Q1H1M [facility] Rx#:[id number] Sodium Chloride 0.9% 500 500 ml 500 ml @ 999 mls/hr IV .Q31M [facility] Rx#:[id number] Output: Urine 825 1020 75 Other: Voiding Method Indwelling Catheter Indwelling Catheter - Exam General appearance: The patient is alert, oriented, appears in no acute distress. HET: Head is normocephalic and atraumatic. Pupils are equal and reactive. Neck: Supple. Heart: Regular. Lungs: Equal expansion, normal respiratory effort. Abdomen: Soft, nontender, nondistended. Extremities: Left groin with ecchymosis, soft, no hematoma noted. Palpable femoral pulse bilaterally. Right foot cool to the touch, nonpalpable DP or PT pulses. PT Doppler signal present. She is able to flex and gas pedal at the ankle and move the top of her foot however unable to wiggle her toes independently. Neurological: No focal deficits. - Labs CBC & Chem 7: 11/05/23 05:52 11/05/23 02:35 Labs: Abnormal Lab Results - Last 24 Hours (Table) 11/04/23 11/04/23 11/05/23 Range/Units 17:29 21:00 02:35 RBC 3.44 L (3.80-5.40) m/uL Hgb 10.2 L (11.4-16.0) gm/dL Hct 31.3 L (34.0-46.0) % RDW 15.6 H (11.5-15.5) % Plt Count 135 L 116 L (150-450) k/uL Neutrophils # 8.1 H (1.3-7.7) k/uL PT 13.2 H (10.0-12.5) sec INR 1.3 H (<1.2) APTT 116.3 H* (22.0-30.0) sec Potassium (3.5-5.1) mmol/L Chloride (98-107) mmol/L Carbon Dioxide (22-30) mmol/L Glucose (74-99) mg/dL Calcium (8.4-10.2) mg/dL 11/05/23 11/05/23 11/05/23 Range/Units 02:35 05:52 05:52 RBC 3.29 L (3.80-5.40) m/uL Hgb 9.5 L (11.4-16.0) gm/dL Hct 29.7 L (34.0-46.0) % RDW 15.6 H (11.5-15.5) % Plt Count 118 L (150-450) k/uL Neutrophils # (1.3-7.7) k/uL PT (10.0-12.5) sec INR (<1.2) APTT >200.0 H* (22.0-30.0) sec Potassium 3.2 L (3.5-5.1) mmol/L Chloride 119 H (98-107) mmol/L Carbon Dioxide 16 L (22-30) mmol/L Glucose 73 L (74-99) mg/dL Calcium 6.5 L (8.4-10.2) mg/dL Assessment and Plan Assessment: 1. Acute right lower extremity ischemia, [place] 2A. 2. SFA occlusion status post tPA thrombolysis without improvement 3. Hypotension 4. Recent cardiac stent 5. Tobacco abuse Plan: 1. Vein mapping ordered 2. Continue with recommendations from ICU management 3. Continue heparin drip per protocol 4. Daily CBC, CMP 5. Patient will likely need right lower extremity fem-tib bypass. Further recommendations forthcoming from vascular surgeon based on clinical course. Thank you for this consultation, we will continue to follow. The impression and plan of care has been dictated as directed. I performed a history and examination of this patient, discussed the same with the dictator. I agree with the dictator's note ,documented as a scribe. Any additional findings or plans will be noted.
--- NOTE | 2023-11-05 12:35 | P.PN ---
Subjective Progress Note Date: 11/05/23 Patient is a 73-year-old female with past medical history of CAD s/p stent in the mid LAD 6 days ago, tobacco dependence presenting to the ED with cold right foot. She was evaluated at the [facility] and was then sent here for vascular surgery consult. States that pain in her right foot began yesterday which was a 15/10 severity, and Percocet didn't help with the pain. She mentions the foot and lower leg being ice cold and was unable to move it. Although right now the pain seems to have subsided and is able to make some movements. She was recently in the hospital after having a fall a week ago possibly secondary to pain med overdose and was admitted for UTI as well as NSTEMI secondary to rhabdomyolysis and subsequently underwent stenting of the LAD, but didn't have any pain on the foot at that time. She was found to have 25-30% EF and 100% RCA occlusion, 90% mid LAD stenosis and 70% ostial diagonal stenosis. Upon workup in the ED, CT angiogram showed occlusion of right superficial femoral and right popliteal artery. In the ED she was treated with Tylenol 650 mg, ondansetron 4 mg, Dilaudid 0.5 mg and placed on 0.9 normal saline at 75 mL/h along with heparin drip (heparin started at [facility]). -Vitals: T 97.6F, P 70 bpm, RR 18, BP 148/85, O2 sat at 91% on room air -CBC: WBC 9, hemoglobin 11.7, platelet 128 -Coag: APTT more than 200 -CMP: Chloride 112, bicarb 20, BUN 38, calcium 8.1, total protein 5.6, albumin 2.9 -ED documentation reviewed. -Review of systems: Pertinent positives and negatives as discussed in HPI, a complete review of systems was performed and all other systems are negative. Progress note 11/04/2023 Patient seen and examined at bedside. Patient states she is uncomfortable from ongoing back pain. She has no pain in her right lower leg. She was awaiting repeat angiogram of right lower limb. No other c omplaints. Progress note 11/05/2023 - Patient seen and examined at bedside. Overnight, patient went into shock and was given 2.5L and started on levophed. She has stablized since, and levophed continues to be titrated down. Patient states she is uncomfortable from ongoing back pain and progressively worsening leg pain. She denies chest pain, palpitations, weakness, shortness of breath. No other complaints at this time. Physical examination: Vital signs reviewed General: non toxic, no distress, appears at stated age, obese Derm: Multiple bruises on left and right arm Head: atraumatic, normocephalic, symmetric Eyes: EOMI, no lid lag, anicteric sclera, pupils equal round reactive to light ENT: Nose and ears atraumatic Neck: No cervical lymphadenopathy, supple Mouth: no lip lesion, mucus membranes moist Cardiovascular: S1S2 reg, no murmur,positive dorsalis pedis pulse on the left, present dorsalis pedis pulse on right, present popliteal pulse on the right Lungs: wheezing, no rhonchi, no rales, no accessory muscle use Abdominal: soft, nontender to palpation, no guarding Ext: Right foot warm to touch with cap refill less than 2 seconds, no gross muscle atrophy, no contractures Neuro: Normal range of motion found throughout upper and lower extremities Psych: Alert, oriented, appropriate affect Daily labs reviewed 11/05/2023 vitals unremarkable, hemoglobin 9.5, MCV 90.1, platelets 119, potassium 3.2 chloride 119, bicarb 16, anion gap 2, BUN 15, creatinine 0.69, glucose 73 Assessment/Plan: Patient is a 73-year-old female with past medical history of CAD, tobacco dependence who presented to the ED with cold right foot and is admitted with telemetry for evaluation of suspected arterial occlusion of the right lower extremity. #Shock, septic vs cardiogenic vs hypovolemic Acute normocytic anemia - started on levophed 0.03 mcg/kg/min - given 2.5 L NS, with some improvement of blood pressure Repeat CBC Ordered Blood cultures - Ordered echocardiogram Ordered EKG, if abnormal order troponins -ICU note reviewed, continue to wean pressors -Hold Entresto #. Acute RLE ischemia secondary to occlusion at the level of the superficial femoral artery - C/w pain control Dilaudid 0.5mg IVP Q3HR PRN, Elrosa 5 every 4 hours as needed, monitor for sedation - Vascular surgery note reviewed, will likely need right lower extremity femoral to tibial bypass, continue heparin drip, monitor APTT Left iliofemoral angiogram with no appearance of proximal patency after 24 hours of thrombolysis with tPA and heparin, likely with chronic occlusive disease given rich collateral flow #Hypokalemia Potassium 3.2 Monitor BMP Continue with potassium replacement per protocol #. CAD s/p mid LAD stenting on 10/28/2023 - C/w home med aspirin 81 mg PO daily, atorvastatin 40 mg HS, and ticagrelor 90 mg PO BID Holding Farxiga until increased oral dietary intake #. Congestive Heart Failure, last known EF 25-30% - C/w home med Metoprolol succinate 20 mg p.o. daily, Farxiga 5 mg p.o. daily #Chronic back pain Continue home Lyrica 150 mg Pain control as above #. COPD Initiate DuoNebs nebulized 4 times daily scheduled and as needed, C/w Singulair 10 mg p.o. daily #. Thrombocytopenia Initially 128 => 121 => 135 => 116 => 118 - Monitor CBC Non-anion gap metabolic acidosis -Discontinued normal saline -Repeat BMP tomorrow F: Half normal saline with heparin infusion E: Replete as required N: NPO diet A: Ambulatory DVT prophylaxis: IV Heparin CODE STATUS: Full Code Discussed with: Patient Anticipated discharge place: Home I have seen and evaluated the patient today. Discussed with the resident and agree with the residents finding and plan as documented in the resident's note. Changes highlighted in blue font. Objective - Vital Signs Vital signs: Vital Signs Temp 98.2 F 11/04/23 17:00 Pulse 64 11/05/23 07:00 Resp 12 11/05/23 07:00 BP 122/70 11/05/23 07:00 Pulse Ox 98 11/05/23 06:15 FiO2 Intake & Output 11/04/23 11/05/23 11/05/23 18:59 06:59 18:59 Intake Total 295 2431.265 130 Output Total 825 1020 75 Balance -530 1411.265 55 Weight 79.1 kg Intake: IV 295 50 Sodium Chloride 0.9% 1, 295 50 000 ml @ 75 mls/hr IV . [id number] [facility] Rx#:[id number] Intake, IV Titration 2381.265 130 Amount Heparin Sod,Pork in 0.45% 101.265 NaCl 25,000 unit In 0.45 % NaCl 1 250ml.bag @ 18 UNITS/KG/HR 14.13 mls/hr IV .[id number] [facility] Rx#: [id number] Sodium Chloride 0.9% 1, 780 130 000 ml @ 130 mls/hr IV . Q7H42M [facility] Rx#:[id number] Sodium Chloride 0.9% 1, 1000 000 ml @ 999 mls/hr IV . Q1H1M [facility] Rx#:[id number] Sodium Chloride 0.9% 500 500 ml 500 ml @ 999 mls/hr IV .Q31M [facility] Rx#:[id number] Output: Urine 825 1020 75 Other: Voiding Method Indwelling Catheter Indwelling Catheter - Labs CBC & Chem 7: 11/05/23 05:52 11/05/23 02:35 Labs: Abnormal Lab Results - Last 24 Hours (Table) 11/04/23 11/04/23 11/04/23 Range/Units 05:53 17:29 21:00 RBC (3.80-5.40) m/uL Hgb (11.4-16.0) gm/dL Hct (34.0-46.0) % RDW (11.5-15.5) % Plt Count 135 L (150-450) k/uL Neutrophils # 8.1 H (1.3-7.7) k/uL PT 13.2 H (10.0-12.5) sec INR 1.3 H (<1.2) APTT 116.3 H* (22.0-30.0) sec Potassium (3.5-5.1) mmol/L Chloride 115 H (98-107) mmol/L Carbon Dioxide 17 L (22-30) mmol/L BUN 21 H (7-17) mg/dL Glucose 72 L (74-99) mg/dL Calcium 7.9 L (8.4-10.2) mg/dL 11/05/23 11/05/23 11/05/23 Range/Units 02:35 02:35 05:52 RBC 3.44 L 3.29 L (3.80-5.40) m/uL Hgb 10.2 L 9.5 L (11.4-16.0) gm/dL Hct 31.3 L 29.7 L (34.0-46.0) % RDW 15.6 H 15.6 H (11.5-15.5) % Plt Count 116 L 118 L (150-450) k/uL Neutrophils # (1.3-7.7) k/uL PT (10.0-12.5) sec INR (<1.2) APTT (22.0-30.0) sec Potassium 3.2 L (3.5-5.1) mmol/L Chloride 119 H (98-107) mmol/L Carbon Dioxide 16 L (22-30) mmol/L BUN (7-17) mg/dL Glucose 73 L (74-99) mg/dL Calcium 6.5 L (8.4-10.2) mg/dL
--- NOTE | 2023-11-05 13:10 | P.CNPUL ---
History of Present Illness Consult date: 11/05/23 Chief complaint: hypotension History of present illness: 73-year-old female patient, presented to the hospital because of an acute ischemic right lower extremity. The patient is known to have coronary disease and the patient has undergone a cardiac catheterization and stenting of the LAD on 10/28/2023. The procedure was uncomplicated. The patient was discharged home. Admitted for the above-mentioned ischemic changes in the right foot. The patient was seen by vascular surgery and the patient was taken to the lab and she underwent an ultrasound-guided left common femoral artery access with right femoral angiography and the patient was found to have no filling of the SFA at the bifurcation and there was increased collateral. The patient was given thrombolytic therapy. Subsequently, the catheter was removed and the patient underwent repeat angiography and there was no clear patency achieved in the involved vessel and attempts were made to pass the wire and this was met with the dissection at the level of the popliteal artery but no luminal gain. The peroneal artery was patent at the distal calf. The posterior tibial artery was patent. The patient is currently being considered for a femoral to distal bypass surgery., The patient became hypotensive. The patient was transferred to the intensive care unit. The patient was given IV fluids and the patient received a total of 1.5 L of IV fluid. Currently Levophed is running at 0.03 mcg/kg/min. The patient remains on IV heparin. Vascular surgery is on the case. She denies having any chest pain. No cough sputum production or chest tightness or wheezing. The hemoglobin has dropped from 12.6 down to 9.5 and this is obviously a concern. Hemoglobin is at 10.2 with a platelet count of 118. The patient serum bicarb is at 16 with a gap of 2 and a sodium levels at 137. BUN is 15 with a creatinine of 0.69. Calcium levels at 6.5. The patient is calm and comfortable on room air oxygen with a pulse ox of 95%. No nausea. No emesis. No other new complaints otherwise for now. Review of Systems Constitutional: Reports fatigue Eyes: denies as per HPI, denies blurred vision, denies bulging eye, denies decreased vision, denies diplopia, denies discharge, denies dry eye, denies irritation, denies itching, denies pain, denies photophobia, denies loss of peripheral vision, denies loss of vision, denies tunnel vision/blind spots Ears: deny: decreased hearing, ear discharge, earache, tinnitus Ears, nose, mouth and throat: Reports as per HPI Breasts: absent: as per HPI, change in shape, gynecomastia, masses, nipple dis charge, pain, skin changes, swelling Cardiovascular: Reports claudication Respiratory: Reports as per HPI Gastrointestinal: Reports as per HPI Genitourinary: Reports as per HPI Menstruation: Reports as per HPI Musculoskeletal: Reports as per HPI Musculoskeletal: absent: ankle pain, ankle stiffness, ankle swelling, as per HP I, elbow pain, elbow stiffness, elbow swelling, foot pain, foot stiffness, foot swelling, hand pain, hand stiffness, hand swelling, hip pain, hip stiffness, hip swelling, knee pain, knee stiffness, knee swelling, shoulder pain, shoulder stiffness, shoulder swelling, wrist pain, wrist stiffness, wrist swelling Integumentary: Reports as per HPI Neurological: Reports as per HPI Psychiatric: Reports as per HPI Endocrine: Reports as per HPI Hematologic/Lymphatic: Reports as per HPI Allergic/Immunologic: Reports as per HPI Past Medical History Past Medical History: Asthma, Coronary Artery Disease (CAD) (NSTEMI stnet to the LAD), Heart Failure (SYstolic heart failure, EF is 25%-30 %), COPD, Myocardial Infarction (RI), Vascular Disorder Last Myocardial Infarction Date:: 10/28/2023 History of Any Multi-Drug Resistant Organisms: None Reported Past Surgical History: Heart Catheterization With Stent Date of Last Stent Placement:: 10/28/23 Past Psychological History: No Psychological Hx Reported Smoking Status: Current every day smoker Past Alcohol Use History: None Reported Past Drug Use History: None Reported Medications and Allergies Home Medications Medication Instructions Recorded Confirmed Type Albuterol Sulfate [Albuterol 2 puff PO RT-Q4H PRN 10/26/23 11/03/23 History Sulfate Hfa] Ergocalciferol (Vitamin D2) 1,250 mcg PO Q7D 10/26/23 11/03/23 History [Drisdol (50,000 Iu)] Fluticasone/Umeclidin/Vilanter 1 puff INHALATION RT-DAILY 10/26/23 11/03/23 History [Trelegy Ellipta 100-62.5-25] Metoprolol Succinate (ER) [Toprol 25 mg PO DAILY 10/26/23 11/03/23 History XL] Montelukast [Singulair] 10 mg PO HS 10/26/23 11/03/23 History Potassium Chloride ER [K-Dur 10] 10 meq PO DAILY 10/26/23 11/03/23 History Pregabalin [Lyrica] 150 mg PO TID 10/26/23 11/03/23 History oxyCODONE-APAP 10-325MG [Percocet 1 tab PO Q6H PRN 10/26/23 11/03/23 History 10-325 mg] Aspirin 81 mg PO DAILY tab 10/29/23 11/03/23 Rx Atorvastatin [Lipitor] 40 mg PO HS tab 10/29/23 11/03/23 Rx Dapagliflozin Propanediol [Farxiga] 5 mg PO DAILY tab 10/29/23 11/03/23 Rx Ipratropium-Albuterol Nebulize 3 ml INHALATION QID PRN each 10/29/23 11/03/23 Rx [Duoneb 0.5 mg-3 mg/3 ml Soln] Ticagrelor [Brilinta] 90 mg PO BID #0 tab 10/29/23 11/03/23 Rx predniSONE 50 mg PO DAILY 5 Days #5 tablet 10/29/23 11/03/23 Rx Acetaminophen Tab [Tylenol] 650 mg PO Q6H PRN 11/03/23 11/03/23 History Ondansetron [Zofran] 8 mg PO Q12HR PRN 11/03/23 11/03/23 History Sacubitril/Valsartan [Entresto 24 1 tab PO BID 11/03/23 11/03/23 History mg-26 mg Tablet] oxyBUTYnin chloride [oxyBUTYnin 5 mg PO BID 11/03/23 11/03/23 History chloride ER] Allergies Allergy/AdvReac Type Severity Reaction Status Date / Time No Known Allergies Allergy Verified 11/03/23 08:36 Physical Exam Vitals: Vital Signs Temp Pulse Resp BP Pulse Ox 11/05/23 07:00 64 12 122/70 11/05/23 06:45 67 21 128/88 11/05/23 06:30 64 24 118/86 11/05/23 06:15 65 18 119/56 98 11/05/23 06:00 59 L 12 104/60 96 11/05/23 05:45 55 L 16 116/62 95 11/05/23 05:30 58 L 18 94/65 95 11/05/23 05:15 56 L 13 110/65 94 L 11/05/23 05:00 56 L 19 108/58 96 11/05/23 04:45 55 L 19 94/68 98 11/05/23 04:30 49 L 18 86/49 96 11/05/23 04:15 52 L 18 90/51 97 11/05/23 04:00 61 21 78/50 96 11/05/23 03:45 60 19 80/49 97 11/05/23 03:30 60 18 84/58 94 L 11/05/23 03:15 58 L 19 95/52 96 11/05/23 03:00 60 21 91/62 93 L 11/05/23 02:45 58 L 22 101/64 95 11/05/23 02:30 64 15 89/61 96 11/05/23 02:15 61 22 82/60 95 11/05/23 02:00 61 22 92/52 95 11/05/23 01:45 61 22 85/60 95 11/05/23 01:30 63 22 80/53 95 11/05/23 01:15 62 19 79/59 96 11/05/23 01:00 65 16 79/52 96 11/05/23 00:45 64 18 97 11/05/23 00:30 68 20 73/52 93 L 11/05/23 00:15 64 21 11/05/23 00:00 62 18 86/59 97 11/04/23 23:45 58 L 18 69/48 94 L 11/04/23 23:00 66 8 L 97/67 11/04/23 22:00 73 24 102/71 11/04/23 21:00 67 24 103/70 11/04/23 20:15 70 25 H 98/86 93 L 11/04/23 20:00 73 15 83/57 90 L 11/04/23 19:45 61 11 L 83/57 11/04/23 19:30 62 22 89/53 94 L 11/04/23 19:15 61 10 L 89/53 100 11/04/23 19:00 66 22 86/50 97 11/04/23 18:45 67 23 86/50 93 L 11/04/23 18:30 64 23 87/67 97 11/04/23 18:15 65 19 87/67 98 11/04/23 18:00 64 9 L 86/51 97 11/04/23 17:45 67 9 L 99/78 95 11/04/23 17:30 72 23 120/78 97 11/04/23 17:15 67 15 115/63 97 11/04/23 17:00 98.2 F 62 23 110/74 95 11/04/23 16:45 55 L 21 110/74 97 11/04/23 16:30 57 L 24 125/81 97 11/04/23 16:15 59 L 8 L 114/82 96 11/04/23 16:00 59 L 20 136/79 93 L 11/04/23 15:45 98.3 F 60 21 128/86 98 11/04/23 15:30 56 L 12 118/85 97 11/04/23 15:15 54 L 17 111/63 93 L 11/04/23 15:00 55 L 15 112/73 96 11/04/23 14:45 57 L 20 113/78 98 11/04/23 14:30 58 L 21 101/69 99 11/04/23 14:15 57 L 18 107/65 96 11/04/23 14:00 55 L 18 98/60 97 11/04/23 13:45 56 L 16 100/72 97 11/04/23 13:30 51 L 18 94/72 98 11/04/23 13:15 56 L 18 98/67 96 11/04/23 13:00 98.8 F 54 L 9 L 109/78 92 L 11/04/23 11:00 72 9 L 125/81 98 11/04/23 10:00 72 5 L 133/103 97 11/04/23 09:00 73 13 149/90 96 Intake and Output 11/04/23 11/05/23 11/05/23 22:59 06:59 14:59 Intake Total 397.893 6237 232.443 Output Total 605 710 75 Balance 66.265 1080 157.443 Intake: IV 70 10 Sodium Chloride 0.9% 1, 70 10 000 ml @ 75 mls/hr IV . [id number] [facility] Rx#:[id number] Intake, IV Titration 710.156 9182 232.443 Amount Heparin Sod,Pork in 0.45% 101.265 0 102.443 NaCl 25,000 unit In 0.45 % NaCl 1 250ml.bag @ 18 UNITS/KG/HR 14.13 mls/hr IV .[id number] [facility] Rx#: [id number] Sodium Chloride 0.9% 1, 780 130 000 ml @ 130 mls/hr IV . Q7H42M [facility] Rx#:[id number] Sodium Chloride 0.9% 1, 1000 000 ml @ 999 mls/hr IV . Q1H1M [facility] Rx#:[id number] Sodium Chloride 0.9% 500 500 ml 500 ml @ 999 mls/hr IV .Q31M [facility] Rx#:[id number] Output: Urine 605 710 75 Other: Voiding Method Indwelling Catheter Indwelling Catheter Weight 79.1 kg General: non toxic, no distress, appears at stated age, obese,, comfortable on room air oxygen Derm: Multiple bruises on left and right arm Head: atraumatic, normocephalic, symmetric Eyes: EOMI, no lid lag, anicteric sclera, pupils equal round reactive to light ENT: Nose and ears atraumatic Neck: No cervical lymphadenopathy, supple Mouth: no lip lesion, mucus membranes moist Cardiovascular: S1S2 reg, no murmur,positive dorsalis pedis pulse on the left, present dorsalis pedis pulse on right, present popliteal pulse on the right and the right foot has no palpible pulse Lungs: wheezing, no rhonchi, no rales, no accessory muscle use Abdominal: soft, nontender to palpation, no guarding Ext: Right foot warm to touch with cap refill less than 2 seconds, no gross muscle atrophy, no contractures Neuro: Normal range of motion found throughout upper and lower extremities Psych: Alert, oriented, appropriate affect Results - Laboratory Findings CBC and BMP: 11/05/23 05:52 11/05/23 02:35 PT/INR, D-dimer PT 13.2 sec (10.0-12.5) H 11/04/23 21:00 INR 1.3 (<1.2) H 11/04/23 21:00 Abnormal lab findings: Abnormal Labs 11/02/23 11/02/23 11/02/23 22:32 22:32 22:32 RBC Hgb Hct RDW Plt Count 128 L Neutrophils # 7.8 H Lymphocytes # 0.9 L PT INR APTT >200.0 H* Potassium Chloride 112 H Carbon Dioxide 20 L BUN 38 H Glucose 109 H Calcium 8.1 L Total Protein 5.6 L Albumin 2.9 L 11/03/23 11/03/23 11/03/23 05:23 05:30 20:03 RBC Hgb Hct RDW 15.9 H Plt Count 121 L 115 L Neutrophils # Lymphocytes # PT INR APTT Potassium Chloride 113 H Carbon Dioxide 21 L BUN 33 H Glucose Calcium 7.9 L Total Protein Albumin 11/04/23 11/04/23 11/04/23 05:53 05:53 17:29 RBC Hgb Hct RDW 15.6 H Plt Count 135 L 135 L Neutrophils # 8.1 H Lymphocytes # PT INR APTT Potassium Chloride 115 H Carbon Dioxide 17 L BUN 21 H Glucose 72 L Calcium 7.9 L Total Protein Albumin 11/04/23 11/05/23 11/05/23 21:00 02:35 02:35 RBC 3.44 L Hgb 10.2 L Hct 31.3 L RDW 15.6 H Plt Count 116 L Neutrophils # Lymphocytes # PT 13.2 H INR 1.3 H APTT 116.3 H* Potassium 3.2 L Chloride 119 H Carbon Dioxide 16 L BUN Glucose 73 L Calcium 6.5 L Total Protein Albumin 11/05/23 11/05/23 05:52 05:52 RBC 3.29 L Hgb 9.5 L Hct 29.7 L RDW 15.6 H Plt Count 118 L Neutrophils # Lymphocytes # PT INR APTT >200.0 H* Potassium Chloride Carbon Dioxide BUN Glucose Calcium Total Protein Albumin Assessment and Plan Plan: Acute right lower extremity ischemia, Nikunj 2A. The patient is status post angiography and findings are consistent with SFA occlusion and the patient unde rwent tPA thrombolysis with limited improvement. The patient currently has no pulse in the right lower extremity and the patient is ischemic and the patient is being considered for alternative treatment including the possibility of a vascular bypass surgery to the right lower extremity. Right foot pain secondary to above Coronary disease with previous stenting of the LAD Acute hypotension, responded to IV fluids and the patient is currently on low- dose pressors History of smoking Cardiomyopathy with impaired ejection fraction of 25 to 30%. Please refer to the echocardiogram that was done on 10/26/2023. The patient has severe reduced left ventricular function with ejection fraction of less than 30%. No other significant valvular abnormalities noted Acute on top of chronic anemia, currently on IV heparin. No clear indication for any postoperative blood loss. No hematoma formation. Will continue to monitor the hemoglobin. Patient remains on IV heparin and the PTT is supratherapeutic and the infusion rate is being adjusted Non-anion gap metabolic acidosis Plan Patient is currently on room air oxygen Cardiac rhythm is sinus Monitor hemoglobin, as the patient has had a drop in the hemoglobin level during this current admission IV fluids are currently at KVO Wean off pressors and discontinue Continue IV heparin Vascular surgery is on the case regarding right lower extremity ischemia, consider possible bypass surgery to the right lower extremity. Will continue to follow.
[2023-11-05 13:37] LABS: HCT 32.2 % (34.0-46.0); HGB 10.2 gm/dL (11.4-16.0); Hypochromasia Moderate; MCHC 31.7 g/dL (31.0-37.0); MCV 91.6 fL (80.0-100.0); Mean Platelet Volume 11.8; Platelet Count 134 k/uL (150-450); RBC 3.52 m/uL (3.80-5.40); RDW 15.8 % (11.5-15.5); WBC 9.8 k/uL (3.8-10.6)
--- NOTE | 2023-11-05 14:51 | P.CRDCN ---
History of Present Illness Consult date: 11/05/23 History of present illness: History of Present Illness: The patient is a 73-year-old female who presented with right lower extremity acute ischemic limb, was evaluated by Dr. Chowdhury, underwent thrombolytic infusion but with persistent obstructive disease and she is scheduled to undergo surgical intervention. The patient was admitted to the hospital recently, and was found to have evidence of non-STEMI. She underwent cardiac catheterization was found to have chronically occluded RCA with significant disease in the proximal LAD, underwent stenting of the LAD using a 3.5 x [address] Lewis. Her echocardiogram preprocedure showed an ejection fraction of less than 30%. The patient has a history of smoking. She denies any chest discomfort at this time, she denies any dizziness or palpitation. She has no PND, orthopnea or peripheral edema. She has no prior documented history of PAD according to her. She relates the lower extremities discomfort to a fall. Her blood pressure was on the lower side earlier. She has a history of hyperlipidemia and smoking. She had no evidence of malignant arrhythmia during this admission. She is off vasopressors at this time. Her angiography is consistent with SFA occlusion with no significant improvement after tPA infusions. Medications: As an outpatient she was on aspirin once a day, Brilinta 90 mg twice a day, Lipitor 40 mg daily, metoprolol succinate 25 mg daily, Entresto 24- 26 mg daily, Lyrica, Singulair. Her beta-scott has continued but her Entresto is on hold. She continues to be on her aspirin and her Brilinta. Review of Systems: Respiratory: She has dyspnea exertion and a history of chronic tobacco use GI: No nausea or vomiting . No history of peptic ulcer disease. No recent GI bleed. : No hematuria or dysuria. Nervous System: No stroke or seizure. Physical Examination: 73-year-old female, alert oriented no apparent distress,Blood pressure 96/60, Heart rate 60 Head: Normocephalic. Eyes: Sclerae nonicteric. Neck: Good carotid upstroke, no bruit, no jugular venous distention. Lungs: Decreased breath sounds anteriorly Heart: Regular rate and rhythm, S1-S2, no S3, no rub. Systolic ejection murmur. Abdomen: Soft nontender, positive bowel sounds no organomegaly. Extremities: Absent right dorsalis pedis with trace edema on the right side Labs: Hemoglobin 10.2, BUN and creatinine 15 and 0.069, potassium 3.2. EKG: EKG shows sinus mechanism with evidence of inferolateral and anteroseptal myocardial infarction with low ventricle hypertrophy Impression: 1. Acute right lower extremity ischemic event with obstruction of the SFA 2. Status post recent stenting of the LAD 3. Ischemic cardiomyopathy 4. History of chronic tobacco use 5. Anemia, stable Plan: 1. Continue aspirin and Brilinta 2. Patient is a high risk for surgical intervention because of recent intervent ion and stenting of the LAD with ischemic cardiomyopathy 3. Continue low-dose beta-scott 4. Continue statin 5. Depending on her progress further recommendations will be made, thank you for this consult we will follow with you. Past Medical History Past Medical History: Asthma, Coronary Artery Disease (CAD) (NSTEMI stnet to the LAD), Heart Failure (SYstolic heart failure, EF is 25%-30 %), COPD, Myocardial Infarction (MS), Vascular Disorder Last Myocardial Infarction Date:: 10/28/2023 History of Any Multi-Drug Resistant Organisms: None Reported Past Surgical History: Heart Catheterization With Stent Date of Last Stent Placement:: 10/28/23 Past Psychological History: No Psychological Hx Reported Smoking Status: Current every day smoker Past Alcohol Use History: None Reported Past Drug Use History: None Reported Medications and Allergies Home Medications Medication Instructions Recorded Confirmed Type Albuterol Sulfate [Albuterol 2 puff PO RT-Q4H PRN 10/26/23 11/03/23 History Sulfate Hfa] Ergocalciferol (Vitamin D2) 1,250 mcg PO Q7D 10/26/23 11/03/23 History [Drisdol (50,000 Iu)] Fluticasone/Umeclidin/Vilanter 1 puff INHALATION RT-DAILY 10/26/23 11/03/23 History [Trelegy Ellipta 100-62.5-25] Metoprolol Succinate (ER) [Toprol 25 mg PO DAILY 10/26/23 11/03/23 History XL] Montelukast [Singulair] 10 mg PO HS 10/26/23 11/03/23 History Potassium Chloride ER [K-Dur 10] 10 meq PO DAILY 10/26/23 11/03/23 History Pregabalin [Lyrica] 150 mg PO TID 10/26/23 11/03/23 History oxyCODONE-APAP 10-325MG [Percocet 1 tab PO Q6H PRN 10/26/23 11/03/23 History 10-325 mg] Aspirin 81 mg PO DAILY tab 10/29/23 11/03/23 Rx Atorvastatin [Lipitor] 40 mg PO HS tab 10/29/23 11/03/23 Rx Dapagliflozin Propanediol [Farxiga] 5 mg PO DAILY tab 10/29/23 11/03/23 Rx Ipratropium-Albuterol Nebulize 3 ml INHALATION QID PRN each 10/29/23 11/03/23 Rx [Duoneb 0.5 mg-3 mg/3 ml Soln] Ticagrelor [Brilinta] 90 mg PO BID #0 tab 10/29/23 11/03/23 Rx predniSONE 50 mg PO DAILY 5 Days #5 tablet 10/29/23 11/03/23 Rx Acetaminophen Tab [Tylenol] 650 mg PO Q6H PRN 11/03/23 11/03/23 History Ondansetron [Zofran] 8 mg PO Q12HR PRN 11/03/23 11/03/23 History Sacubitril/Valsartan [Entresto 24 1 tab PO BID 11/03/23 11/03/23 History mg-26 mg Tablet] oxyBUTYnin chloride [oxyBUTYnin 5 mg PO BID 11/03/23 11/03/23 History chloride ER] Allergies Allergy/AdvReac Type Severity Reaction Status Date / Time No Known Allergies Allergy Verified 11/03/23 08:36 Physical Exam Vitals: Vital Signs Temp Pulse Resp BP Pulse Ox 11/05/23 13:00 67 21 96/62 96 11/05/23 12:45 66 23 95/77 97 11/05/23 12:30 70 16 114/99 95 11/05/23 12:15 74 22 90/56 97 11/05/23 12:00 97.8 F 60 22 103/67 94 L 11/05/23 11:45 64 24 108/83 97 11/05/23 11:30 64 12 109/76 96 11/05/23 11:15 70 21 111/67 97 11/05/23 11:00 65 25 H 109/60 97 11/05/23 10:45 66 24 115/86 11/05/23 10:30 64 21 120/68 96 11/05/23 10:15 61 23 120/68 96 11/05/23 10:00 70 16 117/68 97 11/05/23 09:45 69 25 H 117/68 11/05/23 09:30 60 23 110/65 11/05/23 09:15 70 25 H 121/70 11/05/23 09:00 67 14 113/67 95 11/05/23 08:45 69 24 108/68 11/05/23 08:30 68 21 117/68 11/05/23 08:15 65 22 126/74 11/05/23 08:00 98.2 F 66 20 113/66 11/05/23 07:45 64 22 108/63 11/05/23 07:30 67 23 120/78 11/05/23 07:15 68 16 120/92 11/05/23 07:00 64 12 122/70 11/05/23 06:45 67 21 128/88 11/05/23 06:30 64 24 118/86 11/05/23 06:15 65 18 119/56 98 11/05/23 06:00 59 L 12 104/60 96 11/05/23 05:45 55 L 16 116/62 95 11/05/23 05:30 58 L 18 94/65 95 11/05/23 05:15 56 L 13 110/65 94 L 11/05/23 05:00 56 L 19 108/58 96 11/05/23 04:45 55 L 19 94/68 98 11/05/23 04:30 49 L 18 86/49 96 11/05/23 04:15 52 L 18 90/51 97 11/05/23 04:00 61 21 78/50 96 11/05/23 03:45 60 19 80/49 97 11/05/23 03:30 60 18 84/58 94 L 11/05/23 03:15 58 L 19 95/52 96 11/05/23 03:00 60 21 91/62 93 L 11/05/23 02:45 58 L 22 101/64 95 11/05/23 02:30 64 15 89/61 96 11/05/23 02:15 61 22 82/60 95 11/05/23 02:00 61 22 92/52 95 11/05/23 01:45 61 22 85/60 95 11/05/23 01:30 63 22 80/53 95 11/05/23 01:15 62 19 79/59 96 11/05/23 01:00 65 16 79/52 96 11/05/23 00:45 64 18 97 11/05/23 00:30 68 20 73/52 93 L 11/05/23 00:15 64 21 11/05/23 00:00 62 18 86/59 97 11/04/23 23:45 58 L 18 69/48 94 L 11/04/23 23:00 66 8 L 97/67 11/04/23 22:00 73 24 102/71 11/04/23 21:00 67 24 103/70 11/04/23 20:15 70 25 H 98/86 93 L 11/04/23 20:00 73 15 83/57 90 L 11/04/23 19:45 61 11 L 83/57 11/04/23 19:30 62 22 89/53 94 L 11/04/23 19:15 61 10 L 89/53 100 11/04/23 19:00 66 22 86/50 97 11/04/23 18:45 67 23 86/50 93 L 11/04/23 18:30 64 23 87/67 97 11/04/23 18:15 65 19 87/67 98 11/04/23 18:00 64 9 L 86/51 97 11/04/23 17:45 67 9 L 99/78 95 11/04/23 17:30 72 23 120/78 97 11/04/23 17:15 67 15 115/63 97 11/04/23 17:00 98.2 F 62 23 110/74 95 11/04/23 16:45 55 L 21 110/74 97 11/04/23 16:30 57 L 24 125/81 97 11/04/23 16:15 59 L 8 L 114/82 96 11/04/23 16:00 59 L 20 136/79 93 L 11/04/23 15:45 98.3 F 60 21 128/86 98 11/04/23 15:30 56 L 12 118/85 97 11/04/23 15:15 54 L 17 111/63 93 L 11/04/23 15:00 55 L 15 112/73 96 11/04/23 14:45 57 L 20 113/78 98 Intake and Output 11/04/23 11/05/23 11/05/23 22:59 06:59 14:59 Intake Total 954.611 8823 467.990 Output Total 605 710 650 Balance 66.265 1080 -182.010 Intake: IV 70 10 170 0.9 @ 10 40 Sodium Chloride 0.9% 1, 130 000 ml @ 130 mls/hr IV . Q7H42M [facility] Rx#:[id number] Sodium Chloride 0.9% 1, 70 10 000 ml @ 75 mls/hr IV . [id number] [facility] Rx#:[id number] Intake, IV Titration 111.794 0398 297.990 Amount Heparin Sod,Pork in 0.45% 101.265 0 102.443 NaCl 25,000 unit In 0.45 % NaCl 1 250ml.bag @ 18 UNITS/KG/HR 14.13 mls/hr IV .[id number] [facility] Rx#: [id number] Norepinephrine 4 mg In 65.547 Sodium Chloride 0.9% 250 ml @ 0.03 MCG/KG/MIN 9. 041 mls/hr IV .Q24H [facility] Rx#:[id number] Sodium Chloride 0.9% 1, 780 130 000 ml @ 130 mls/hr IV . Q7H42M [facility] Rx#:[id number] Sodium Chloride 0.9% 1, 1000 000 ml @ 999 mls/hr IV . Q1H1M ONE Rx#:[id number] Sodium Chloride 0.9% 500 500 ml 500 ml @ 999 mls/hr IV .Q31M ONE Rx#:[id number] Output: Urine 605 710 650 Other: Voiding Method Indwelling Catheter Indwelling Catheter Indwelling Catheter Weight 79.1 kg Results 11/05/23 13:25 11/05/23 02:35 Coagulation 11/04/23 11/05/23 11/05/23 Range/Units 21:00 05:52 13:25 PT 13.2 H (10.0-12.5) sec APTT 116.3 H* >200.0 H* 43.2 H (22.0-30.0) sec CBC 11/04/23 11/05/23 11/05/23 Range/Units 17:29 02:35 05:52 WBC 10.5 8.9 10.2 (3.8-10.6) k/uL RBC 4.42 3.44 L 3.29 L (3.80-5.40) m/uL Hgb 12.6 10.2 L 9.5 L (11.4-16.0) gm/dL Hct 39.4 31.3 L 29.7 L (34.0-46.0) % Plt Count 135 L 116 L 118 L (150-450) k/uL 11/05/23 Range/Units 13:25 WBC 9.8 (3.8-10.6) k/uL RBC 3.52 L (3.80-5.40) m/uL Hgb 10.2 L (11.4-16.0) gm/dL Hct 32.2 L (34.0-46.0) % Plt Count 134 L (150-450) k/uL Comprehensive Metabolic Panel 11/05/23 Range/Units 02:35 Sodium 137 (137-145) mmol/L Potassium 3.2 L (3.5-5.1) mmol/L Chloride 119 H (98-107) mmol/L Carbon Dioxide 16 L (22-30) mmol/L BUN 15 (7-17) mg/dL Creatinine 0.69 (0.52-1.04) mg/dL Glucose 73 L (74-99) mg/dL Calcium 6.5 L (8.4-10.2) mg/dL Current Medications Generic Name Dose Route Start Last Admin Trade Name Freq PRN Reason Stop Dose Admin Acetaminophen 650 mg 11/02/23 22:49 Acetaminophen Tab 325 Mg Tab PO Q6HR PRN Mild Pain or Fever > 100.5 Hydrocodone Bitart/Acetaminophen 2 each 11/04/23 10:58 11/05/23 09:34 Hydrocodone/Apap 5-325mg 1 Each Tab PO 2 each Q4HR PRN Administration Pain Albuterol/Ipratropium 3 ml 11/03/23 02:59 Ipratropium-Albuterol 3 Ml Neb INHALATION RT-QID PRN Shortness Of Breath Or Wheezing Albuterol/Ipratropium 3 ml 11/03/23 08:00 11/05/23 11:28 Ipratropium-Albuterol 3 Ml Neb INHALATION Not Given RT-QID [facility] Atorvastatin Calcium 40 mg 11/03/23 21:00 11/04/23 20:31 Atorvastatin 40 Mg Tab PO 40 mg HS [facility] Administration Budesonide/Formoterol Fumarate 2 puff 11/03/23 09:00 11/05/23 07:51 Symbicort 80-4.5 Mcg Inhaler INHALATION Not Given RT-BID [facility] Heparin Sodium (Porcine) 0 unit 11/04/23 13:22 Heparin Sodium 1,000 Un/Ml (10ml Vl) IV PER PROTOCOL PRN Low PTT Protocol Hydromorphone HCl 0.5 mg 11/02/23 22:49 11/04/23 16:20 Hydromorphone 0.5 Mg/0.5 Ml Syringe IVP 0.5 mg Q3HR PRN Administration Moderate Pain (Scale 4 to 6) Heparin Sodium/Sodium Chloride 250 mls @ 14.13 mls/hr 11/04/23 13:30 11/05/23 09:56 25,000 unit/ Sodium Chloride IV 11 units/kg/hr .[id number] [facility] 8.635 mls/hr Administration Protocol 18 UNITS/KG/HR Norepinephrine Bitartrate 4 mg 254 mls @ 9.041 mls/hr 11/05/23 04:00 11/05/23 12:30 / Sodium Chloride IV 0.01 mcg/kg/min .Q24H [facility] 3.014 mls/hr Titration Protocol 0.03 MCG/KG/MIN Metoprolol Succinate 25 mg 11/03/23 09:00 11/05/23 09:31 Metoprolol Succinate (Er) 25 Mg Tab.Er.24h PO Not Given DAILY [facility] Miscellaneous Information 1 each 11/03/23 06:49 Potassium Replacement Protocol 1 Each Misc MISCELLANE DAILY PRN Per Protocol Protocol Miscellaneous Information 1 each 11/03/23 06:49 Magnesium Replacement Protocol 1 Each Misc MISCELLANE DAILY PRN Per Protocol Protocol Montelukast Sodium 10 mg 11/03/23 21:00 11/04/23 20:31 Montelukast 10 Mg Tab PO 10 mg HS [facility] Administration Naloxone HCl 0.2 mg 11/02/23 22:49 Naloxone 0.4 Mg/Ml 1 Ml Vial IV Q2M PRN Opioid Reversal Ondansetron HCl 4 mg 11/02/23 22:49 Ondansetron 4 Mg/2 Ml Vial IVP Q8HR PRN Nausea And Vomiting Pregabalin 150 mg 11/04/23 09:45 11/05/23 09:34 Pregabalin 75 Mg Cap PO 150 mg TID [facility] Administration Ticagrelor 90 mg 11/03/23 10:45 11/05/23 09:34 Ticagrelor 90 Mg Tab PO 90 mg BID [facility] Administration Intake and Output 11/04/23 11/05/23 11/05/23 22:59 06:59 14:59 Intake Total 740.973 8664 467.990 Output Total 605 710 650 Balance 66.265 1080 -182.010 Intake: IV 70 10 170 0.9 @ 10 40 Sodium Chloride 0.9% 1, 130 000 ml @ 130 mls/hr IV . Q7H42M STA Rx#:[id number] Sodium Chloride 0.9% 1, 70 10 000 ml @ 75 mls/hr IV . [id number] [facility] Rx#:[id number] Intake, IV Titration 270.826 6531 297.990 Amount Heparin Sod,Pork in 0.45% 101.265 0 102.443 NaCl 25,000 unit In 0.45 % NaCl 1 250ml.bag @ 18 UNITS/KG/HR 14.13 mls/hr IV .[id number] [facility] Rx#: [id number] Norepinephrine 4 mg In 65.547 Sodium Chloride 0.9% 250 ml @ 0.03 MCG/KG/MIN 9. 041 mls/hr IV .Q24H [facility] Rx#:[id number] Sodium Chloride 0.9% 1, 780 130 000 ml @ 130 mls/hr IV . Q7H42M [facility] Rx#:[id number] Sodium Chloride 0.9% 1, 1000 000 ml @ 999 mls/hr IV . Q1H1M ONE Rx#:[id number] Sodium Chloride 0.9% 500 500 ml 500 ml @ 999 mls/hr IV .Q31M ONE Rx#:[id number] Output: Urine 605 710 650 Other: Voiding Method Indwelling Catheter Indwelling Catheter Indwelling Catheter Weight 79.1 kg 11/05/23 13:25 11/05/23 02:35
[2023-11-05] MEDS: HEPARIN SODIUM 1,000 UN/ML (10ML VL) IV PRN (22:12)
[2023-11-06 05:15] LABS: HCT 29.4 % (34.0-46.0); HGB 9.3 gm/dL (11.4-16.0); Hypochromasia Moderate; MCH 28.8 pg (25.0-35.0); MCHC 31.6 g/dL (31.0-37.0); MCV 90.9 fL (80.0-100.0); Mean Platelet Volume 11.3; Platelet Count 112 k/uL (150-450); RBC 3.24 m/uL (3.80-5.40); RDW 15.8 % (11.5-15.5)
[2023-11-06 05:27] LABS: African American GFR (CKD) >90 (>60 ml/min/1.73 sqM); Anion Gap 1 mmol/L; Blood Urea Nitrogen 16 mg/dL (7-17); Calcium 8.1 mg/dL (8.4-10.2); Carbon Dioxide 21 mmol/L (22-30); Chloride 115 mmol/L (98-107); Glucose 81 mg/dL (74-99); Non-African American GFR(CKD) 86 (>60 ml/min/1.73 sqM); Potassium 3.4 mmol/L (3.5-5.1); Sodium 137 mmol/L (137-145)
[2023-11-06] MEDS: POTASSIUM BICARBONATE/CIT AC 20 MEQ TABLET.EFF NG-TUBE SCH (05:35)
[2023-11-06] MEDS: ASPIRIN 81 MG PO SCH (09:58)
--- NOTE | 2023-11-06 11:15 | P.PN ---
Subjective Progress Note Date: 11/06/23 Patient is a 73-year-old female with past medical history of CAD s/p stent in the mid LAD 6 days ago, tobacco dependence presenting to the ED with cold right foot. She was evaluated at the [facility] and was then sent here for vascular surgery consult. States that pain in her right foot began yesterday which was a 15/10 severity, and Percocet didn't help with the pain. She mentions the foot and lower leg being ice cold and was unable to move it. Although right now the pain seems to have subsided and is able to make some movements. She was recently in the hospital after having a fall a week ago possibly secondary to pain med overdose and was admitted for UTI as well as NSTEMI secondary to rhabdomyolysis and subsequently underwent stenting of the LAD, but didn't have any pain on the foot at that time. She was found to have 25-30% EF and 100% RCA occlusion, 90% mid LAD stenosis and 70% ostial diagonal stenosis. Upon workup in the ED, CT angiogram showed occlusion of right superficial femoral and right popliteal artery. In the ED she was treated with Tylenol 650 mg, ondansetron 4 mg, Dilaudid 0.5 mg and placed on 0.9 normal saline at 75 mL/h along with heparin drip (heparin started at [facility]). -Vitals: T 97.6F, P 70 bpm, RR 18, BP 148/85, O2 sat at 91% on room air -CBC: WBC 9, hemoglobin 11.7, platelet 128 -Coag: APTT more than 200 -CMP: Chloride 112, bicarb 20, BUN 38, calcium 8.1, total protein 5.6, albumin 2.9 -ED documentation reviewed. -Review of systems: Pertinent positives and negatives as discussed in HPI, a complete review of systems was performed and all other systems are negative. Progress note 11/04/2023 Patient seen and examined at bedside. Patient states she is uncomfortable from ongoing back pain. She has no pain in her right lower leg. She was awaiting repeat angiogram of right lower limb. No other c omplaints. Progress note 11/05/2023 - Patient seen and examined at bedside. Overnight, patient went into shock and was given 2.5L and started on levophed. She has stablized since, and levophed continues to be titrated down. Patient states she is uncomfortable from ongoing back pain and progressively worsening leg pain. She denies chest pain, palpitations, weakness, shortness of breath. No other complaints at this time. Progress note 11/06/2023 -patient seen and examined at bedside. No events overnight. Patient states back pain and leg pain are still present, but have improved since yesterday. Vascular surgery to decide if she will proceed with bypass. Otherwise, she has no complaints at this time. She will be [facility] to [facility]. Physical examination: Vital signs reviewed General: non toxic, no distress, appears at stated age, obese Derm: Multiple bruises on left and right arm Head: atraumatic, normocephalic, symmetric Eyes: EOMI, no lid lag, anicteric sclera, pupils equal round reactive to light ENT: Nose and ears atraumatic Neck: No cervical lymphadenopathy, supple Mouth: no lip lesion, mucus membranes moist Cardiovascular: S1S2 reg, no murmur,positive dorsalis pedis pulse on the left, present dorsalis pedis pulse on right, present popliteal pulse on the right Lungs: no rhonchi, no wheezing, no rales, no accessory muscle use Abdominal: soft, nontender to palpation, no guarding Ext: Right foot warm to touch with cap refill less than 2 seconds, no gross muscle atrophy, no contractures Neuro: Normal range of motion found throughout upper and lower extremities Psych: Alert, oriented, appropriate affect Daily labs reviewed 11/06/2023 vitals unremarkable, WBC 6.0, hemoglobin 9.3, platelets 112, APTT 70.5, sodium 137, potassium 4.1, chloride 115, bicarb 21, anion gap 1, BUN 16, creatinine 0.71, glucose 81, calcium 8.1. Assessment/Plan: Patient is a 73-year-old female with past medical history of CAD, tobacco dependence who presented to the ED with cold right foot and is admitted with telemetry for evaluation of suspected arterial occlusion of the right lower extremity. #Shock,, resolved Acute normocytic anemia -Was somewhat fluid responsive -Hemoglobin has been slowly downtrending but overall stable, no active evidence of bleeding -Cardiology following, continue current therapy -Echocardiogram report pending -ICU note reviewed, transfer out of the ICU #. Acute RLE ischemia secondary to occlusion at the level of the superficial femoral artery - C/w pain control Dilaudid 0.5mg IVP Q3HR PRN, [place] 5 every 4 hours as needed, monitor for sedation - Vascular surgery following, will likely need right lower extremity femoral to tibial bypass, continue heparin drip, monitor APTT Left iliofemoral angiogram with no appearance of proximal patency after 24 hours of thrombolysis with tPA and heparin, likely with chronic occlusive disease given rich collateral flow #Hypokalemia Potassium 3.4 Monitor BMP Continue with potassium replacement per protocol -Received 40 mill equivalent dose of oral potassium today #. CAD s/p mid LAD stenting on 10/28/2023 - C/w home med aspirin 81 mg PO daily, atorvastatin 40 mg HS, and ticagrelor 90 mg PO BID Holding Farxiga until increased oral dietary intake #. Congestive Heart Failure, last known EF 25-30% - C/w home med Metoprolol succinate 20 mg p.o. daily, Holding Farxiga 5 mg #Chronic back pain Continue home Lyrica 150 mg Pain control as above #. COPD Initiate DuoNebs nebulized 4 times daily scheduled and as needed, C/w Singulair 10 mg p.o. daily #. Thrombocytopenia Initially 128 => 121 => 135 => 116 => 118 => 134 => 112 - Monitor CBC Non-anion gap metabolic acidosis -Discontinued normal saline -Repeat BMP tomorrow F: Half normal saline with heparin infusion E: Replete as required N: Heart Healthy A: Ambulatory DVT prophylaxis: IV Heparin CODE STATUS: Full Code Discussed with: Patient Anticipated discharge place: Home I have seen and evaluated the patient today. Discussed with the resident and agree with the residents finding and plan as documented in the resident's note. Changes highlighted in blue font. Objective - Vital Signs Vital signs: Vital Signs Temp 98.1 F 11/06/23 04:00 Pulse 55 L 11/06/23 07:00 Resp 17 11/06/23 07:00 BP 109/57 11/06/23 07:00 Pulse Ox 98 11/06/23 07:00 FiO2 Intake & Output 11/05/23 11/06/23 11/06/23 18:59 06:59 18:59 Intake Total 533.265 226.067 10 Output Total 975 1350 170 Balance -441.735 -1123.933 -160 Weight 79.2 kg Intake: IV 230 120 10 0.9 @ 10 100 120 10 Sodium Chloride 0.9% 1, 130 000 ml @ 130 mls/hr IV . Q7H42M [facility] Rx#:[id number] Intake, IV Titration 303.265 106.067 Amount Heparin Sod,Pork in 0.45% 102.443 106.067 NaCl 25,000 unit In 0.45 % NaCl 1 250ml.bag @ 18 UNITS/KG/HR 14.13 mls/hr IV .[id number] [facility] Rx#: [id number] Norepinephrine 4 mg In 70.822 Sodium Chloride 0.9% 250 ml @ 0.03 MCG/KG/MIN 9. 041 mls/hr IV .Q24H [facility] Rx#:[id number] Sodium Chloride 0.9% 1, 130 000 ml @ 130 mls/hr IV . Q7H42M [facility] Rx#:[id number] Output: Urine 975 1350 170 Other: Voiding Method Indwelling Catheter Indwelling Catheter - Labs CBC & Chem 7: 11/06/23 14:11 11/06/23 09:51 Labs: Abnormal Lab Results - Last 24 Hours (Table) 11/05/23 11/05/23 11/05/23 Range/Units 13:25 13:25 20:13 RBC 3.52 L (3.80-5.40) m/uL Hgb 10.2 L (11.4-16.0) gm/dL Hct 32.2 L (34.0-46.0) % RDW 15.8 H (11.5-15.5) % Plt Count 134 L (150-450) k/uL APTT 43.2 H 40.1 H (22.0-30.0) sec Potassium (3.5-5.1) mmol/L Chloride (98-107) mmol/L Carbon Dioxide (22-30) mmol/L Calcium (8.4-10.2) mg/dL 11/06/23 11/06/23 11/06/23 Range/Units 04:32 04:32 04:32 RBC 3.24 L (3.80-5.40) m/uL Hgb 9.3 L (11.4-16.0) gm/dL Hct 29.4 L (34.0-46.0) % RDW 15.8 H (11.5-15.5) % Plt Count 112 L (150-450) k/uL APTT 70.5 H (22.0-30.0) sec Potassium 3.4 L (3.5-5.1) mmol/L Chloride 115 H (98-107) mmol/L Carbon Dioxide 21 L (22-30) mmol/L Calcium 8.1 L (8.4-10.2) mg/dL
--- NOTE | 2023-11-06 12:48 | P.PN ---
Subjective Progress Note Date: 11/06/23 73-year-old female patient, presented to the hospital because of an acute ischemic right lower extremity. The patient is known to have coronary disease and the patient has undergone a cardiac catheterization and stenting of the LAD on 10/28/2023. The procedure was uncomplicated. The patient was discharged home. Admitted for the above-mentioned ischemic changes in the right foot. The patient was seen by vascular surgery and the patient was taken to the lab and she underwent an ultrasound-guided left common femoral artery access with right femoral angiography and the patient was found to have no filling of the SFA at the bifurcation and there was increased collateral. The patient was given thr ombolytic therapy. Subsequently, the catheter was removed and the patient underwent repeat angiography and there was no clear patency achieved in the involved vessel and attempts were made to pass the wire and this was met with the dissection at the level of the popliteal artery but no luminal gain. The peroneal artery was patent at the distal calf. The posterior tibial artery was patent. The patient is currently being considered for a femoral to distal bypass surgery., The patient became hypotensive. The patient was transferred to the intensive care unit. The patient was given IV fluids and the patient received a total of 1.5 L of IV fluid. Currently Levophed is running at 0.03 mcg/kg/min. The patient remains on IV heparin. Vascular surgery is on the case. She denies having any chest pain. No cough sputum production or chest tightness or wheezing. The hemoglobin has dropped from 12.6 down to 9.5 and this is obviously a concern. Hemoglobin is at 10.2 with a platelet count of 118. The patient serum bicarb is at 16 with a gap of 2 and a sodium levels at 137. BUN is 15 with a creatinine of 0.69. Calcium levels at 6.5. The patient is calm and comfortable on room air oxygen with a pulse ox of 95%. No nausea. No emesis. No other new complaints otherwise for now. 11/06/2023, the patient is doing well. There is Doppler signal in the right foot involving the dorsalis pedis. The right lower extremity is more warm. No significant pain. The patient remains on IV heparin. The patient remains on Brilinta and aspirin. Hemodynamically stable. No other complaints otherwise. The white cell count is at 6 with a hemoglobin 9.3 and a platelet count of 112. BUN is 16 with a creatinine 0.7 and a sodium levels at 137. Free of any chest pain. She is currently calm and comfortable with a pulse ox of 98% on room air oxygen. Vascular surgery and cardiology are both on the case. No significant hypotension. No other significant events overnight. Objective - Vital Signs Vital signs: Vital Signs Temp 98.1 F 11/06/23 04:00 Pulse 55 L 11/06/23 07:00 Resp 17 11/06/23 07:00 BP 109/57 11/06/23 07:00 Pulse Ox 98 11/06/23 07:00 FiO2 Intake & Output 11/05/23 11/06/23 11/06/23 18:59 06:59 18:59 Intake Total 533.265 226.067 153.933 Output Total 975 1350 170 Balance -441.735 -1123.933 -16.067 Weight 79.2 kg Intake: IV 230 120 10 0.9 @ 10 100 120 10 Sodium Chloride 0.9% 1, 130 000 ml @ 130 mls/hr IV . Q7H42M [facility] Rx#:[id number] Intake, IV Titration 303.265 106.067 143.933 Amount Heparin Sod,Pork in 0.45% 102.443 106.067 143.933 NaCl 25,000 unit In 0.45 % NaCl 1 250ml.bag @ 18 UNITS/KG/HR 14.13 mls/hr IV .[id number] [facility] Rx#: [id number] Norepinephrine 4 mg In 70.822 Sodium Chloride 0.9% 250 ml @ 0.03 MCG/KG/MIN 9. 041 mls/hr IV .Q24H [facility] Rx#:[id number] Sodium Chloride 0.9% 1, 130 000 ml @ 130 mls/hr IV . Q7H42M [facility] Rx#:[id number] Output: Urine 975 1350 170 Other: Voiding Method Indwelling Catheter Indwelling Catheter - Exam General: non toxic, no distress, appears at stated age, obese,, comfortable on room air oxygen Derm: Multiple bruises on left and right arm Head: atraumatic, normocephalic, symmetric Eyes: EOMI, no lid lag, anicteric sclera, pupils equal round reactive to light ENT: Nose and ears atraumatic Neck: No cervical lymphadenopathy, supple Mouth: no lip lesion, mucus membranes moist Cardiovascular: S1S2 reg, no murmur,positive dorsalis pedis pulse on the left, present dorsalis pedis pulse on right, present popliteal pulse on the right and the right foot has no palpible pulse Lungs: wheezing, no rhonchi, no rales, no accessory muscle use Abdominal: soft, nontender to palpation, no guarding Ext: Right foot warm to touch with cap refill less than 2 seconds, no gross muscle atrophy, no contractures Neuro: Normal range of motion found throughout upper and lower extremities Psych: Alert, oriented, appropriate affect - Labs CBC & Chem 7: 11/06/23 04:32 11/06/23 09:51 Labs: Abnormal Lab Results - Last 24 Hours (Table) 11/05/23 11/05/23 11/05/23 Range/Units 13:25 13:25 20:13 RBC 3.52 L (3.80-5.40) m/uL Hgb 10.2 L (11.4-16.0) gm/dL Hct 32.2 L (34.0-46.0) % RDW 15.8 H (11.5-15.5) % Plt Count 134 L (150-450) k/uL APTT 43.2 H 40.1 H (22.0-30.0) sec Potassium (3.5-5.1) mmol/L Chloride (98-107) mmol/L Carbon Dioxide (22-30) mmol/L Calcium (8.4-10.2) mg/dL 11/06/23 11/06/23 11/06/23 Range/Units 04:32 04:32 04:32 RBC 3.24 L (3.80-5.40) m/uL Hgb 9.3 L (11.4-16.0) gm/dL Hct 29.4 L (34.0-46.0) % RDW 15.8 H (11.5-15.5) % Plt Count 112 L (150-450) k/uL APTT 70.5 H (22.0-30.0) sec Potassium 3.4 L (3.5-5.1) mmol/L Chloride 115 H (98-107) mmol/L Carbon Dioxide 21 L (22-30) mmol/L Calcium 8.1 L (8.4-10.2) mg/dL Assessment and Plan Plan: Acute right lower extremity ischemia, [place] 2A. The patient is status post angiography and findings are consistent with SFA occlusion and the patient underwent tPA thrombolysis with limited improvement. The patient currently has no pulse in the right lower extremity and the patient is ischemic and the patient is being considered for alternative treatment including the possibility of a vascular bypass surgery to the right lower extremity. Meanwhile, on today's evaluation, the right foot seems to be much more warmer compared to yesterday and there is positive Doppler signals on the dorsalis pedis. Pain is subsided. Right foot pain secondary to above, improved Coronary disease with previous stenting of the LAD Acute hypotension, responded to IV fluids and the patient is currently on low- dose pressors History of smoking Cardiomyopathy with impaired ejection fraction of 25 to 30%. Please refer to the echocardiogram that was done on 10/26/2023. The patient has severe reduced left ventricular function with ejection fraction of less than 30%. No other significant valvular abnormalities noted Acute on top of chronic anemia, currently on IV heparin. No clear indication for any postoperative blood loss. No hematoma formation. Will continue to monitor the hemoglobin. Patient remains on IV heparin and the PTT is supratherapeutic and the infusion rate is being adjusted Non-anion gap metabolic acidosis Plan Patient is currently on room air oxygen Cardiac rhythm is sinus Monitor hemoglobin, as the patient has developed some drop in hemoglobin compared to yesterday. IV fluids are currently at KVO No pressors for now Continue aspirin and Brilinta Continue IV heparin Vascular surgery is on the case regarding right lower extremity ischemia, consider possible bypass surgery to the right lower extremity. Will continue to follow.
--- NOTE | 2023-11-06 13:11 | P.PN ---
Subjective Progress Note Date: 11/06/23 PROGRESS NOTE The patient is a 73-year-old female who presented with right lower extremity acute ischemic limb, was evaluated by Dr. Chowdhury, underwent thrombolytic infusion but with persistent obstructive disease and she is scheduled to undergo surgical intervention. The patient was admitted to the hospital recently, and was found to have evidence of non-STEMI. She underwent cardiac catheterization was found to have chronically occluded RCA with significant disease in the proximal LAD, underwent stenting of the LAD using a 3.5 x [address] Lewis. Her echocardiogram preprocedure showed an ejection fraction of less than 30%. The patient has a history of smoking. She denies any chest discomfort at this time, she denies any dizziness or palpitation. She has no PND, orthopnea or periphera l edema. She has no prior documented history of PAD according to her. She relates the lower extremities discomfort to a fall. Her blood pressure was on the lower side earlier. She has a history of hyperlipidemia and smoking. She had no evidence of malignant arrhythmia during this admission. She is off vasopressors at this time. Her angiography is consistent with SFA occlusion with no significant improvement after tPA infusions. November 05 The patient is feeling well this morning, her discomfort in the right lower extremity is stable. She denies any chest discomfort, dizziness or palp itations. She is hemodynamically stable off vasopressors and continues to be in sinus mechanism. Her urinary output has been stable. Medications: Aspirin, Lipitor 40 mg daily, IV heparin, metoprolol succinate 25 mg daily, Singulair, Lyrica, Brilinta 90 mg twice a day PHYSICAL EXAMINATION: Blood pressure 109/50 heart rate 50 LUNGS: Clear to auscultation HEART: Regular rate and rhythm, S1, S2. No S3. Systolic ejection murmur ABDOMEN: Soft, nontender, no organomegaly EXTREMETIES: No edema, decreased pulse on the right side LAB: Hemoglobin 9.3, potassium 4.1, BUN 16, creatinine 0.71 IMPRESSION: 1. Severe PAD with occlusive disease on the right 2. Status post recent stenting of the LAD 3. Ischemic cardiomyopathy 4. Hyperlipidemia 5. History of chronic tobacco use PLAN: 1. Continue present therapy 2. Continue to monitor blood pressure and adjust beta-scott as tolerated 3. Awaiting final decision by the surgical team 4. Patient is a high risk for surgical intervention but has been stable cardiac malik since her admission Objective - Vital Signs Vital signs: Vital Signs Temp 98.1 F 11/06/23 04:00 Pulse 55 L 11/06/23 07:00 Resp 17 11/06/23 07:00 BP 109/57 11/06/23 07:00 Pulse Ox 98 11/06/23 07:00 FiO2 Intake & Output 11/05/23 11/06/23 11/06/23 18:59 06:59 18:59 Intake Total 533.265 226.067 153.933 Output Total 975 1350 170 Balance -441.735 -1123.933 -16.067 Weight 79.2 kg Intake: IV 230 120 10 0.9 @ 10 100 120 10 Sodium Chloride 0.9% 1, 130 000 ml @ 130 mls/hr IV . Q7H42M [facility] Rx#:[id number] Intake, IV Titration 303.265 106.067 143.933 Amount Heparin Sod,Pork in 0.45% 102.443 106.067 143.933 NaCl 25,000 unit In 0.45 % NaCl 1 250ml.bag @ 18 UNITS/KG/HR 14.13 mls/hr IV .[id number] [facility] Rx#: [id number] Norepinephrine 4 mg In 70.822 Sodium Chloride 0.9% 250 ml @ 0.03 MCG/KG/MIN 9. 041 mls/hr IV .Q24H [facility] Rx#:[id number] Sodium Chloride 0.9% 1, 130 000 ml @ 130 mls/hr IV . Q7H42M [facility] Rx#:[id number] Output: Urine 975 1350 170 Other: Voiding Method Indwelling Catheter Indwelling Catheter - Labs CBC & Chem 7: 11/06/23 04:32 11/06/23 09:51 Labs: Abnormal Lab Results - Last 24 Hours (Table) 11/05/23 11/05/23 11/05/23 Range/Units 13:25 13:25 20:13 RBC 3.52 L (3.80-5.40) m/uL Hgb 10.2 L (11.4-16.0) gm/dL Hct 32.2 L (34.0-46.0) % RDW 15.8 H (11.5-15.5) % Plt Count 134 L (150-450) k/uL APTT 43.2 H 40.1 H (22.0-30.0) sec Potassium (3.5-5.1) mmol/L Chloride (98-107) mmol/L Carbon Dioxide (22-30) mmol/L Calcium (8.4-10.2) mg/dL 11/06/23 11/06/23 11/06/23 Range/Units 04:32 04:32 04:32 RBC 3.24 L (3.80-5.40) m/uL Hgb 9.3 L (11.4-16.0) gm/dL Hct 29.4 L (34.0-46.0) % RDW 15.8 H (11.5-15.5) % Plt Count 112 L (150-450) k/uL APTT 70.5 H (22.0-30.0) sec Potassium 3.4 L (3.5-5.1) mmol/L Chloride 115 H (98-107) mmol/L Carbon Dioxide 21 L (22-30) mmol/L Calcium 8.1 L (8.4-10.2) mg/dL
[2023-11-06 14:20] LABS: Anisocytosis Slight; HCT 27.2 % (34.0-46.0); MCH 29.2 pg (25.0-35.0); MCHC 33.1 g/dL (31.0-37.0); MCV 88.3 fL (80.0-100.0); Mean Platelet Volume 11.6; Platelet Count 118 k/uL (150-450); RBC 3.08 m/uL (3.80-5.40); RDW 16.1 % (11.5-15.5); WBC 6.7 k/uL (3.8-10.6)
[2023-11-07 08:52] LABS: African American GFR (CKD) >90 (>60 ml/min/1.73 sqM); Anion Gap 5 mmol/L; Blood Urea Nitrogen 17 mg/dL (7-17); Calcium 8.5 mg/dL (8.4-10.2); Carbon Dioxide 24 mmol/L (22-30); Chloride 110 mmol/L (98-107); Glucose 76 mg/dL (74-99); Non-African American GFR(CKD) 82 (>60 ml/min/1.73 sqM); Potassium 4.1 mmol/L (3.5-5.1); Sodium 139 mmol/L (137-145)
[2023-11-07 09:04] LABS: Anisocytosis Slight; HCT 26.8 % (34.0-46.0); HGB 8.6 gm/dL (11.4-16.0); Hypochromasia Slight; MCH 29.1 pg (25.0-35.0); MCHC 32.1 g/dL (31.0-37.0); MCV 90.7 fL (80.0-100.0); Mean Platelet Volume 11.3; Platelet Count 147 k/uL (150-450); RBC 2.96 m/uL (3.80-5.40); RDW 16.1 % (11.5-15.5); WBC 6.8 k/uL (3.8-10.6)
--- NOTE | 2023-11-07 11:18 | P.PN ---
Subjective Progress Note Date: 11/07/23 Subjective: Patient seen and examined at bedside. No acute events overnight. Has not been getting out of the bed. Still complaining of right lower extremity pain. Pertinent positives and negatives as discussed above, a complete review of systems was performed and all other systems are negative. Vitals Signs Reviewed. General: Nontoxic, no distress, appears at stated age, obese Derm: Warm, dry, bilateral upper extremity ecchymosis Head: Atraumatic, normocephalic, symmetric Eyes: EOMI, no lid lag, anicteric sclera Mouth: No lip lesion, mucus membranes moist Cardiovascular: S1S2 reg, no murmur, faint DP and TP pulses on the right Lungs: CTA bilateral, no rhonchi, no rales, no accessory muscle use Abdominal: Soft, nontender to palpation, no guarding, no appreciable organomegaly Ext: No gross muscle atrophy, no edema, no contractures, warm extremities Neuro: CN II-XI grossly intact, no focal neuro deficits Psych: Alert, oriented, appropriate affect Data Reviewed Today: Pertinent Labs: WBC 6.8, hemoglobin 8.6, platelet 147, creatinine 0.74, potassium 4.1 Imaging: No new imaging Assessment and Plan: #. Acute RLE ischemia secondary to occlusion at the level of the superficial femoral artery - C/w pain control Dilaudid 0.5mg IVP Q3HR PRN, [place] 5 every 4 hours as needed, monitor for sedation - Vascular surgery following, will likely need right lower extremity femoral to tibial bypass, continue heparin drip, monitor APTT -Needs further recommendations whether she will be getting further intervention inpatient or not if not, heparin drip should be discontinued and plan for discharge Left iliofemoral angiogram with no appearance of proximal patency after 24 hours of thrombolysis with tPA and heparin, likely with chronic occlusive disease given rich collateral flow -Physical therapy consulted #Shock, resolved Acute normocytic anemia, slightly worsened -Cardiology and ICU following -Echocardiogram report pending -Continue to monitor for bleeding, hemoglobin relatively stable-continue to hold Entresto #Hypokalemia, resolved #. CAD s/p mid LAD stenting on 10/28/2023 - C/w home med aspirin 81 mg PO daily, atorvastatin 40 mg HS, and ticagrelor 90 mg PO BID Holding Farxiga until increased oral dietary intake #. Congestive Heart Failure, last known EF 25-30% - C/w home med Metoprolol succinate 20 mg p.o. daily, Holding Farxiga 5 mg, holding Entresto #Chronic back pain Continue home Lyrica 150 mg Pain control as above #. COPD Continue DuoNebs nebulized 4 times daily scheduled and as needed, C/w Singulair 10 mg p.o. daily #. Thrombocytopenia No active bleeding, continue to monitor Non-anion gap metabolic acidosis, resolved F: Half normal saline with heparin infusion E: Replete as required N: Heart Healthy A: Ambulatory DVT prophylaxis: IV Heparin CODE STATUS: Full Code Discussed with: Patient Anticipated discharge place: Home Anticipated discharge time: Pending clinical course Objective - Vital Signs Vital signs: Vital Signs Temp 98.2 F 11/07/23 07:25 Pulse 68 11/07/23 07:25 Resp 20 11/07/23 07:25 BP 113/71 11/07/23 07:25 Pulse Ox 97 11/07/23 07:25 FiO2 Intake & Output 11/06/23 11/07/23 11/07/23 18:59 06:59 18:59 Intake Total 263.933 222 Output Total 1095 1125 Balance -831.067 -1125 222 Intake: IV 120 0.9 @ 10 120 Intake, IV Titration 143.933 Amount Heparin Sod,Pork in 0.45% 143.933 NaCl 25,000 unit In 0.45 % NaCl 1 250ml.bag @ 18 UNITS/KG/HR 14.13 mls/hr IV .[id number] [facility] Rx#: [id number] Oral 222 Output: Urine 1095 1125 Other: Voiding Method Indwelling Catheter Indwelling Catheter Indwelling Catheter - Labs CBC & Chem 7: 11/07/23 07:28 11/07/23 07:28 Labs: Abnormal Lab Results - Last 24 Hours (Table) 11/06/23 11/07/23 11/07/23 Range/Units 14:11 07:28 07:28 RBC 3.08 L 2.96 L (3.80-5.40) m/uL Hgb 9.0 L 8.6 L (11.4-16.0) gm/dL Hct 27.2 L 26.8 L (34.0-46.0) % RDW 16.1 H 16.1 H (11.5-15.5) % Plt Count 118 L 147 L (150-450) k/uL APTT 49.0 H (22.0-30.0) sec Chloride (98-107) mmol/L 11/07/23 Range/Units 07:28 RBC (3.80-5.40) m/uL Hgb (11.4-16.0) gm/dL Hct (34.0-46.0) % RDW (11.5-15.5) % Plt Count (150-450) k/uL APTT (22.0-30.0) sec Chloride 110 H (98-107) mmol/L Microbiology - Last 24 Hours (Table) 11/05/23 13:25 Blood Culture - Preliminary Blood
--- NOTE | 2023-11-07 11:44 | P.PN ---
Subjective Progress Note Date: 11/07/23 The patient is a 73-year-old female who presented with right lower extremity acute ischemic limb, was evaluated by Dr. Chowdhury, underwent thrombolytic infusion but with persistent obstructive disease and she is scheduled to undergo surgical intervention. The patient was admitted to the hospital recently, and was found to have evidence of non-STEMI. She underwent cardiac catheterization was found to have chronically occluded RCA with significant disease in the proximal LAD, underwent stenting of the LAD using a 3.5 x [address] Lewis. Her echocardiogram preprocedure showed an ejection fraction of less than 30%. The patient has a history of smoking. She denies any chest discomfort at this time, she denies any dizziness or palpitation. She has no PND, orthopnea or peripheral edema. She has no prior documented history of PAD according to her. She relates the lower extremities discomfort to a fall. Her blood pressure was on the lower side earlier. She has a history of hyperlipidemia and smoking. She had no evidence of malignant arrhythmia during this admission. She is off vasopressors at this time. Her angiography is consistent with SFA occlusion with no significant improvement after tPA infusions. November 05 The patient is feeling well this morning, her discomfort in the right lower extremity is stable. She denies any chest discomfort, dizziness or palpitations. She is hemodynamically stable off vasopressors and continues to be in sinus mechanism. Her urinary output has been stable. 11/07/2023 The patient has been transferred to cardiac stepdown unit. She is overall feeling okay except for some worsening pain in her right lower extremity. Extremity appears warmer today. Vital signs are stable. Labs are stable with a hemoglobin of 8.6. Objective - Vital Signs Vital signs: Vital Signs Temp 98.2 F 11/07/23 07:25 Pulse 68 11/07/23 07:25 Resp 20 11/07/23 07:25 BP 113/71 11/07/23 07:25 Pulse Ox 97 11/07/23 07:25 FiO2 Intake & Output 11/06/23 11/07/23 11/07/23 18:59 06:59 18:59 Intake Total 263.933 222 Output Total 1095 1125 Balance -831.067 -1125 222 Intake: IV 120 0.9 @ 10 120 Intake, IV Titration 143.933 Amount Heparin Sod,Pork in 0.45% 143.933 NaCl 25,000 unit In 0.45 % NaCl 1 250ml.bag @ 18 UNITS/KG/HR 14.13 mls/hr IV .[id number] [facility] Rx#: [id number] Oral 222 Output: Urine 1095 1125 Other: Voiding Method Indwelling Catheter Indwelling Catheter Indwelling Catheter - Exam PHYSICAL EXAMINATION: LUNGS: Clear to auscultation HEART: Regular rate and rhythm, S1, S2. No S3. Systolic ejection murmur ABDOMEN: Soft, nontender, no organomegaly EXTREMETIES: No edema, decreased pulse on the right side - Labs CBC & Chem 7: 11/07/23 07:28 11/07/23 07:28 Labs: Abnormal Lab Results - Last 24 Hours (Table) 11/06/23 11/07/23 11/07/23 Range/Units 14:11 07:28 07:28 RBC 3.08 L 2.96 L (3.80-5.40) m/uL Hgb 9.0 L 8.6 L (11.4-16.0) gm/dL Hct 27.2 L 26.8 L (34.0-46.0) % RDW 16.1 H 16.1 H (11.5-15.5) % Plt Count 118 L 147 L (150-450) k/uL APTT 49.0 H (22.0-30.0) sec Chloride (98-107) mmol/L 11/07/23 Range/Units 07:28 RBC (3.80-5.40) m/uL Hgb (11.4-16.0) gm/dL Hct (34.0-46.0) % RDW (11.5-15.5) % Plt Count (150-450) k/uL APTT (22.0-30.0) sec Chloride 110 H (98-107) mmol/L Microbiology - Last 24 Hours (Table) 11/05/23 13:25 Blood Culture - Preliminary Blood Assessment and Plan Assessment: 1. Severe PAD with occlusive disease on the right 2. Status post recent stenting of the LAD 3. Ischemic cardiomyopathy 4. Hyperlipidemia 5. History of chronic tobacco use Plan: From cardiology's perspective we will continue the same. Awaiting final decision by the surgical team. Patient is a high risk for surgical intervention but has been stable cardiac malik since her admission. We will continue to follow the patient and provide further recommendations accordingly. EQUINE INTERN note has been reviewed, I agree with a documented findings and plan of care. Patient was seen and examined.
--- NOTE | 2023-11-07 13:56 | P.PN ---
Subjective Progress Note Date: 11/07/23 73-year-old female patient, presented to the hospital because of an acute ischemic right lower extremity. The patient is known to have coronary disease and the patient has undergone a cardiac catheterization and stenting of the LAD on 10/28/2023. The procedure was uncomplicated. The patient was discharged home. Admitted for the above-mentioned ischemic changes in the right foot. The patient was seen by vascular surgery and the patient was taken to the lab and she underwent an ultrasound-guided left common femoral artery access with right femoral angiography and the patient was found to have no filling of the SFA at the bifurcation and there was increased collateral. The patient was given thr ombolytic therapy. Subsequently, the catheter was removed and the patient underwent repeat angiography and there was no clear patency achieved in the involved vessel and attempts were made to pass the wire and this was met with the dissection at the level of the popliteal artery but no luminal gain. The peroneal artery was patent at the distal calf. The posterior tibial artery was patent. The patient is currently being considered for a femoral to distal bypass surgery., The patient became hypotensive. The patient was transferred to the intensive care unit. The patient was given IV fluids and the patient received a total of 1.5 L of IV fluid. Currently Levophed is running at 0.03 mcg/kg/min. The patient remains on IV heparin. Vascular surgery is on the case. She denies having any chest pain. No cough sputum production or chest tightness or wheezing. The hemoglobin has dropped from 12.6 down to 9.5 and this is obviously a concern. Hemoglobin is at 10.2 with a platelet count of 118. The patient serum bicarb is at 16 with a gap of 2 and a sodium levels at 137. BUN is 15 with a creatinine of 0.69. Calcium levels at 6.5. The patient is calm and comfortable on room air oxygen with a pulse ox of 95%. No nausea. No emesis. No other new complaints otherwise for now. 11/06/2023, the patient is doing well. There is Doppler signal in the right foot involving the dorsalis pedis. The right lower extremity is more warm. No significant pain. The patient remains on IV heparin. The patient remains on Brilinta and aspirin. Hemodynamically stable. No other complaints otherwise. The white cell count is at 6 with a hemoglobin 9.3 and a platelet count of 112. BUN is 16 with a creatinine 0.7 and a sodium levels at 137. Free of any chest pain. She is currently calm and comfortable with a pulse ox of 98% on room air oxygen. Vascular surgery and cardiology are both on the case. No significant hypotension. No other significant events overnight. On 11/07/2023, patient is being seen for a follow-up. Doing well with no specific complaints. Right leg is warm and there are no immediate plans for intervention by vascular surgery at this point in time. The patient is resting comfortably in bed. WBC count 6.8 with a hemoglobin of 8.6 and a platelet count of 147. Electrolytes are all within normal limits. Noted the patient got transferred out of the intensive care unit yesterday. Currently the patient is on a cardiac telemetry unit floor. The patient denies having any chest pain. The patient remains on a combination of aspirin and Brilinta. The patient on metoprolol 25 mg p.o. twice daily and Lipitor 40 mg p.o. daily. [place] for pain control. Objective - Vital Signs Vital signs: Vital Signs Temp 98.2 F 11/07/23 07:25 Pulse 68 11/07/23 07:25 Resp 20 11/07/23 07:25 BP 113/71 11/07/23 07:25 Pulse Ox 97 11/07/23 07:25 FiO2 Intake & Output 11/06/23 11/07/23 11/07/23 18:59 06:59 18:59 Intake Total 263.933 222 Output Total 1095 1125 Balance -831.067 -1125 222 Intake: IV 120 0.9 @ 10 120 Intake, IV Titration 143.933 Amount Heparin Sod,Pork in 0.45% 143.933 NaCl 25,000 unit In 0.45 % NaCl 1 250ml.bag @ 18 UNITS/KG/HR 14.13 mls/hr IV .[id number] [facility] Rx#: [id number] Oral 222 Output: Urine 1095 1125 Other: Voiding Method Indwelling Catheter Indwelling Catheter Indwelling Catheter - Exam General: non toxic, no distress, appears at stated age, obese,, comfortable on room air oxygen Derm: Multiple bruises on left and right arm Head: atraumatic, normocephalic, symmetric Eyes: EOMI, no lid lag, anicteric sclera, pupils equal round reactive to light ENT: Nose and ears atraumatic Neck: No cervical lymphadenopathy, supple Mouth: no lip lesion, mucus membranes moist Cardiovascular: S1S2 reg, no murmur,positive dorsalis pedis pulse on the left, present dorsalis pedis pulse on right, present popliteal pulse on the right and the right foot has no palpible pulse Lungs: wheezing, no rhonchi, no rales, no accessory muscle use Abdominal: soft, nontender to palpation, no guarding Ext: Right foot warm to touch with cap refill less than 2 seconds, no gross muscle atrophy, no contractures Neuro: Normal range of motion found throughout upper and lower extremities Psych: Alert, oriented, appropriate affect - Labs CBC & Chem 7: 11/07/23 07:28 11/07/23 07:28 Labs: Abnormal Lab Results - Last 24 Hours (Table) 11/06/23 11/07/23 11/07/23 Range/Units 14:11 07:28 07:28 RBC 3.08 L 2.96 L (3.80-5.40) m/uL Hgb 9.0 L 8.6 L (11.4-16.0) gm/dL Hct 27.2 L 26.8 L (34.0-46.0) % RDW 16.1 H 16.1 H (11.5-15.5) % Plt Count 118 L 147 L (150-450) k/uL APTT 49.0 H (22.0-30.0) sec Chloride (98-107) mmol/L 11/07/23 Range/Units 07:28 RBC (3.80-5.40) m/uL Hgb (11.4-16.0) gm/dL Hct (34.0-46.0) % RDW (11.5-15.5) % Plt Count (150-450) k/uL APTT (22.0-30.0) sec Chloride 110 H (98-107) mmol/L Microbiology - Last 24 Hours (Table) 11/05/23 13:25 Blood Culture - Preliminary Blood Assessment and Plan Plan: Acute right lower extremity ischemia, [place] 2A. The patient is status post angiography and findings are consistent with SFA occlusion and the patient unde rwent tPA thrombolysis with limited improvement. The patient currently has no pulse in the right lower extremity and the patient is ischemic and the patient is being considered for alternative treatment including the possibility of a vascular bypass surgery to the right lower extremity. The leg was subsequently found to be warm and there is a Doppler dorsalis pedis and there is no acute pain. Vascular surgery remains on the case. Right foot pain secondary to above, improved Coronary disease with previous stenting of the LAD Acute hypotension, responded to IV fluids and the patient is currently on low- dose pressors History of smoking Cardiomyopathy with impaired ejection fraction of 25 to 30%. Please refer to the echocardiogram that was done on 10/26/2023. The patient has severe reduced left ventricular function with ejection fraction of less than 30%. No other significant valvular abnormalities noted Acute on top of chronic anemia, currently on IV heparin. No clear indication for any postoperative blood loss. No hematoma formation. Will continue to monitor the hemoglobin. Patient remains on IV heparin and the PTT is supratherapeutic and the infusion rate is being adjusted Non-anion gap metabolic acidosis Plan Patient is currently on room air oxygen Cardiac rhythm is sinus Monitor hemoglobin, as the patient has developed some drop in hemoglobin compared to yesterday. IV fluids are currently at KVO No pressors for now Continue aspirin and Brilinta Continue IV heparin Vascular surgery is on the case regarding right lower extremity ischemia, consider possible bypass surgery to the right lower extremity.
[2023-11-08] MEDS: HYDROmorphone 1 MG/ML 1 ML SYRINGE IVP PRN (02:07)
[2023-11-08 08:18] LABS: Anisocytosis Slight; Basophils % (A) 0 %; Eosinophils # (A) 0.3 k/uL (0-0.7); Eosinophils % (A) 6 %; HCT 25.5 % (34.0-46.0); HGB 8.3 gm/dL (11.4-16.0); Lymphocytes # (A) 1.6 k/uL (1.0-4.8); Lymphocytes % (A) 26 %; MCH 29.2 pg (25.0-35.0); MCHC 32.4 g/dL (31.0-37.0); Mean Platelet Volume 11.4; Monocytes # (A) 0.2 k/uL (0-1.0); Monocytes % (A) 4 %; Neutrophils # (A) 3.8 k/uL (1.3-7.7); Neutrophils % (A) 63 %; Platelet Count 136 k/uL (150-450); RBC 2.84 m/uL (3.80-5.40); RDW 16.4 % (11.5-15.5)
[2023-11-08 08:45] LABS: African American GFR (CKD) 76 (>60 ml/min/1.73 sqM); Anion Gap 7 mmol/L; Blood Urea Nitrogen 19 mg/dL (7-17); Calcium 8.5 mg/dL (8.4-10.2); Carbon Dioxide 24 mmol/L (22-30); Chloride 107 mmol/L (98-107); Glucose 78 mg/dL (74-99); Non-African American GFR(CKD) 66 (>60 ml/min/1.73 sqM); Potassium 4.4 mmol/L (3.5-5.1); Sodium 138 mmol/L (137-145)
[2023-11-08 10:20] LABS: Reticulocyte % 2.1 % (0.5-2.0)
[2023-11-08 10:47] LABS: Bilirubin, Delta 0.3 mg/dL (0.0-0.2); Bilirubin,Unconjugated 0.6 mg/dL (0.0-1.1); Total Bilirubin 0.9 mg/dL (0.2-1.3)
--- NOTE | 2023-11-08 13:01 | P.PN ---
Subjective Progress Note Date: 11/08/23 Principal diagnosis: right lower extremity pain Patient seen and examined. Doing well this morning. States last night significant pain in her legs but today her pain is improved and she has been walking with her walker. She states she would like to see if she can go home without a big surgery at this time. Objective - Vital Signs Vital signs: Vital Signs Temp 98 F 11/08/23 08:00 Pulse 61 11/08/23 10:48 Resp 16 11/08/23 10:48 BP 95/60 11/08/23 10:48 Pulse Ox 98 11/08/23 10:48 FiO2 Intake & Output 11/07/23 11/08/23 11/08/23 18:59 06:59 18:59 Intake Total 1162.457 Output Total 750 2225 Balance 412.457 -2225 Weight 72.7 kg Intake: Intake, IV Titration 238.457 Amount Heparin Sod,Pork in 0.45% 238.457 NaCl 25,000 unit In 0.45 % NaCl 1 250ml.bag @ 18 UNITS/KG/HR 14.13 mls/hr IV .[id number] [facility] Rx#: [id number] Oral 924 Output: Urine 750 2225 Other: Voiding Method Indwelling Catheter Indwelling Catheter Indwelling Catheter # Bowel Movements 1 - Exam palpable femoral pulse bilaterally Right foot cooler than the left. Non palpable DP or PT pulse. PT signal noted. She is able to move foot without significant pain - Constitutional General appearance: Present: average body habitus, cooperative, no acute distress - EENT Eyes: Present: PERRLA - Respiratory Respiratory: bilateral: CTA - Cardiovascular Rhythm: regular - Gastrointestinal General gastrointestinal: Present: soft. Absent: distended - Psychiatric Psychiatric: Present: appropriate affect, intact judgment & insight - Labs CBC & Chem 7: 11/08/23 07:26 11/08/23 07:26 Labs: Abnormal Lab Results - Last 24 Hours (Table) 11/08/23 11/08/23 11/08/23 Range/Units 07:26 07:26 07:26 RBC 2.84 L (3.80-5.40) m/uL Hgb 8.3 L (11.4-16.0) gm/dL Hct 25.5 L (34.0-46.0) % RDW 16.4 H (11.5-15.5) % Plt Count 136 L (150-450) k/uL Retic Count (0.5-2.0) % APTT 52.0 H (22.0-30.0) sec BUN 19 H (7-17) mg/dL Delta Bilirubin (0.0-0.2) mg/dL Lactate Dehydrogenase (120-246) U/L 11/08/23 11/08/23 Range/Units 10:00 10:00 RBC (3.80-5.40) m/uL Hgb (11.4-16.0) gm/dL Hct (34.0-46.0) % RDW (11.5-15.5) % Plt Count (150-450) k/uL Retic Count 2.1 H (0.5-2.0) % APTT (22.0-30.0) sec BUN (7-17) mg/dL Delta Bilirubin 0.3 H (0.0-0.2) mg/dL Lactate Dehydrogenase 267 H (120-246) U/L Microbiology - Last 24 Hours (Table) 11/05/23 13:25 Blood Culture - Preliminary Blood Assessment and Plan Assessment: acute right lower extremity ischemia s/p thrombolysis right SFA and popliteal artery occlusive disease Tobacco abuse Plan: Discussed options which she would require femoral to posterior tibial artery bypass to the ankle. Reviewed vein mapping and would require Cryovein due to midportion of existing greater saphenous vein size at the knee Patient would like to be discharged and see if she can deal with the leg instead of doing a bypass at this stay. Follow up in [address] Chowdhury and if at that time she is unable to deal with the pain then will schedule femoral tibial bypass
--- NOTE | 2023-11-08 14:11 | P.PN ---
Subjective Progress Note Date: 11/08/23 The patient is a 73-year-old female who presented with right lower extremity acute ischemic limb, was evaluated by Dr. Chowdhury, underwent thrombolytic infusion but with persistent obstructive disease and she is scheduled to undergo surgical intervention. The patient was admitted to the hospital recently, and was found to have evidence of non-STEMI. She underwent cardiac catheterization was found to have chronically occluded RCA with significant disease in the proximal LAD, underwent stenting of the LAD using a 3.5 x [address] Lewis. Her echocardiogram preprocedure showed an ejection fraction of less than 30%. The patient has a history of smoking. She denies any chest discomfort at this time, she denies any dizziness or palpitation. She has no PND, orthopnea or peripheral edema. She has no prior documented history of PAD according to her. She relates the lower extremities discomfort to a fall. Her blood pressure was on the lower side earlier. She has a history of hyperlipidemia and smoking. She had no evidence of malignant arrhythmia during this admission. She is off vasopressors at this time. Her angiography is consistent with SFA occlusion with no significant improvement after tPA infusions. November 05 The patient is feeling well this morning, her discomfort in the right lower extremity is stable. She denies any chest discomfort, dizziness or palpitations. She is hemodynamically stable off vasopressors and continues to be in sinus mechanism. Her urinary output has been stable. 11/07/2023 The patient has been transferred to cardiac stepdown unit. She is overall feeling okay except for some worsening pain in her right lower extremity. Extremity appears warmer today. Vital signs are stable. Labs are stable with a hemoglobin of 8.6. 11/08/23 Patient reports that she did meet with the surgeon and would like to go home and see if she can handle the leg without major surgery. She denies any chest pain or pressure. No shortness of breath. Hemoglobin 8.3. PHYSICAL EXAMINATION: LUNGS: Clear to auscultation HEART: Regular rate and rhythm, S1, S2. No S3. Systolic ejection murmur ABDOMEN: Soft, nontender, EXTREMETIES: No edema, decreased pulse on the right side Neuro: A and O x 3 Assessment: 1. Severe PAD with occlusive disease on the right 2. Status post recent stenting of the LAD 3. Ischemic cardiomyopathy 4. Hyperlipidemia 5. History of chronic tobacco use Plan: Continue with dual antiplatelet therapy. She would like to avoid lower extremity bypass surgery if possible. Continue current cardiac medications. We will follow. [employer] note has been reviewed, I agree with a documented findings and plan of care. Patient was seen and examined. Objective - Vital Signs Vital signs: Vital Signs Temp 98 F 11/08/23 08:00 Pulse 61 11/08/23 10:48 Resp 16 11/08/23 10:48 BP 95/60 11/08/23 10:48 Pulse Ox 98 11/08/23 10:48 FiO2 Intake & Output 11/07/23 11/08/23 11/08/23 18:59 06:59 18:59 Intake Total 1162.457 120 Output Total 750 2225 Balance 412.457 -2225 120 Weight 72.7 kg Intake: Intake, IV Titration 238.457 Amount Heparin Sod,Pork in 0.45% 238.457 NaCl 25,000 unit In 0.45 % NaCl 1 250ml.bag @ 18 UNITS/KG/HR 14.13 mls/hr IV .[id number] [facility] Rx#: [id number] Oral 924 120 Output: Urine 750 2225 Other: Voiding Method Indwelling Catheter Indwelling Catheter Indwelling Catheter # Bowel Movements 1 1 - Labs CBC & Chem 7: 11/08/23 07:26 11/08/23 07:26 Labs: Abnormal Lab Results - Last 24 Hours (Table) 11/08/23 11/08/23 11/08/23 Range/Units 07:26 07:26 07:26 RBC 2.84 L (3.80-5.40) m/uL Hgb 8.3 L (11.4-16.0) gm/dL Hct 25.5 L (34.0-46.0) % RDW 16.4 H (11.5-15.5) % Plt Count 136 L (150-450) k/uL Retic Count (0.5-2.0) % Haptoglobin (31.2-198.0) mg/dL APTT 52.0 H (22.0-30.0) sec BUN 19 H (7-17) mg/dL Delta Bilirubin (0.0-0.2) mg/dL Lactate Dehydrogenase (120-246) U/L 11/08/23 11/08/23 11/08/23 Range/Units 10:00 10:00 10:00 RBC (3.80-5.40) m/uL Hgb (11.4-16.0) gm/dL Hct (34.0-46.0) % RDW (11.5-15.5) % Plt Count (150-450) k/uL Retic Count 2.1 H (0.5-2.0) % Haptoglobin 249.0 H (31.2-198.0) mg/dL APTT (22.0-30.0) sec BUN (7-17) mg/dL Delta Bilirubin 0.3 H (0.0-0.2) mg/dL Lactate Dehydrogenase 267 H (120-246) U/L Microbiology - Last 24 Hours (Table) 11/05/23 13:25 Blood Culture - Preliminary Blood
--- NOTE | 2023-11-08 14:36 | P.PN ---
Subjective Progress Note Date: 11/08/23 Subjective: Patient seen and examined at bedside. No acute events overnight. Has not been getting out of the bed. Still complaining of right lower extremity squeezing pain. Pertinent positives and negatives as discussed above, a complete review of systems was performed and all other systems are negative. Vitals Signs Reviewed. General: Nontoxic, no distress, appears at stated age, obese Derm: Warm, dry, bilateral upper extremity ecchymosis Head: Atraumatic, normocephalic, symmetric Eyes: EOMI, no lid lag, anicteric sclera Mouth: No lip lesion, mucus membranes moist Cardiovascular: S1S2 reg, no murmur, faint DP and TP pulses on the right Lungs: CTA bilateral, no rhonchi, no rales, no accessory muscle use Abdominal: Soft, nontender to palpation, no guarding, no appreciable organo megaly Ext: No gross muscle atrophy, no edema, no contractures, warm extremities Neuro: CN II-XI grossly intact, no focal neuro deficits Psych: Alert, oriented, appropriate affect Data Reviewed Today: Pertinent Labs: WBC 6.0, hemoglobin 8. 3, platelet 1 36, creatinine 0. 89, potassium 4. 4, Reticulocytes 2.1%, haptoglobin 249, LDH 267, bilirubin 0.3 Imaging: No new imaging Assessment and Plan: #. Acute RLE ischemia secondary to occlusion at the level of the superficial femoral artery - C/w pain control Dilaudid 0.5mg IVP Q3HR PRN, [place] 5 every 4 hours as needed, monitor for sedation -Discontinue heparin drip -Vascular surgery note reviewed, outpatient follow-up Left iliofemoral angiogram with no appearance of proximal patency after 24 hours of thrombolysis with tPA and heparin, likely with chronic occlusive disease given rich collateral flow -Physical therapy recommending rehab #Normocytic anemia Hemoglobin 12.6 on admission, now 8.3 Reticulocytes 2.1%, haptoglobin 249, LDH 267, bilirubin 0.3 Labs 10/26/2023 iron, TIBC 244, saturation 13.9, ferritin 67.3 Continue to monitor -Low absolute reticulocyte count, low reticulocyte index, suggestive of hypoproliferative state -High haptoglobin, no hemolysis #Shock, resolved -Cardiology note reviewed, continue current therapy -Echocardiogram report pending -Continue to monitor for bleeding, hemoglobin relatively stable-continue to hold Entresto #Hypokalemia, resolved #. CAD s/p mid LAD stenting on 10/28/2023 - C/w home med aspirin 81 mg PO daily, atorvastatin 40 mg HS, and ticagrelor 90 mg PO BID Holding Farxiga until increased oral dietary intake #. Congestive Heart Failure, last known EF 25-30% - C/w home med Metoprolol succinate 20 mg p.o. daily, Holding Farxiga 5 mg, holding Entresto #Chronic back pain Continue home Lyrica 150 mg Pain control as above #. COPD Continue DuoNebs nebulized 4 times daily scheduled and as needed, C/w Singulair 10 mg p.o. daily #. Thrombocytopenia No active bleeding, continue to monitor Non-anion gap metabolic acidosis, resolved F: P.o. E: Replete as required N: Heart Healthy A: Ambulatory DVT prophylaxis: subcu heparin CODE STATUS: Full Code Discussed with: Patient Anticipated discharge place: Subacute rehab Anticipated discharge time: Pending clinical course I have seen and evaluated the patient today. Discussed with the resident and agree with the residents finding and plan as documented in the resident's note. Changes highlighted in blue font. Personally discussed management with vascular surgery Objective - Vital Signs Vital signs: Vital Signs Temp 98 F 11/08/23 08:00 Pulse 61 11/08/23 10:48 Resp 16 11/08/23 10:48 BP 95/60 11/08/23 10:48 Pulse Ox 98 11/08/23 10:48 FiO2 Intake & Output 11/07/23 11/08/23 11/08/23 18:59 06:59 18:59 Intake Total 1162.457 120 Output Total 750 2225 Balance 412.457 -2225 120 Weight 72.7 kg Intake: Intake, IV Titration 238.457 Amount Heparin Sod,Pork in 0.45% 238.457 NaCl 25,000 unit In 0.45 % NaCl 1 250ml.bag @ 18 UNITS/KG/HR 14.13 mls/hr IV .[id number] [facility] Rx#: [id number] Oral 924 120 Output: Urine 750 2225 Other: Voiding Method Indwelling Catheter Indwelling Catheter Indwelling Catheter # Bowel Movements 1 1 - Labs CBC & Chem 7: 11/08/23 07:26 11/08/23 07:26 Labs: Abnormal Lab Results - Last 24 Hours (Table) 11/08/23 11/08/23 11/08/23 Range/Units 07:26 07:26 07:26 RBC 2.84 L (3.80-5.40) m/uL Hgb 8.3 L (11.4-16.0) gm/dL Hct 25.5 L (34.0-46.0) % RDW 16.4 H (11.5-15.5) % Plt Count 136 L (150-450) k/uL Retic Count (0.5-2.0) % Haptoglobin (31.2-198.0) mg/dL APTT 52.0 H (22.0-30.0) sec BUN 19 H (7-17) mg/dL Delta Bilirubin (0.0-0.2) mg/dL Lactate Dehydrogenase (120-246) U/L 11/08/23 11/08/23 11/08/23 Range/Units 10:00 10:00 10:00 RBC (3.80-5.40) m/uL Hgb (11.4-16.0) gm/dL Hct (34.0-46.0) % RDW (11.5-15.5) % Plt Count (150-450) k/uL Retic Count 2.1 H (0.5-2.0) % Haptoglobin 249.0 H (31.2-198.0) mg/dL APTT (22.0-30.0) sec BUN (7-17) mg/dL Delta Bilirubin 0.3 H (0.0-0.2) mg/dL Lactate Dehydrogenase 267 H (120-246) U/L Microbiology - Last 24 Hours (Table) 11/05/23 13:25 Blood Culture - Preliminary Blood
--- NOTE | 2023-11-08 15:09 | CDI ---
Documentation Clarification Form Date: 11/08/2023 From: Zunilda Hill RN CCDS Phone: [phone] Admit Date: 11/02/2023 10:49:00 PM Patient Name: Cary Poole Visit Number: [id number] Discharge Date: ATTENTION: The Clinical Documentation Specialists (CDI) and [facility] Coding Staff appreciate your assistance in clarifying documentation. Please respond to the clarification below the line at the bottom and electronically sign. The CDI & [facility] Coding staff will review the response and follow-up if needed. Please note: Queries are made part of the Legal Health Record. If you have any questions, please contact the author of this message via ITS. Doctor/Provider: Eloy Mccormack MD: Shock is documented in the IM progress note 11/04. Additional clarification regarding the type of shock is requested. Patient history/risk factors: 73-year-old female with a history of CAD, tobacco dependence, who presented with cold right foot and found to have occlusion of right superficial femoral and right popliteal artery Clinical Indicators: 11/01 Triage VS: 137/77, 97.6, 67, 18, 91% 11/03 BP low 69/48, and on 11/04 BP lows were reported 86/59 73/52, 79/52, 79/59. 80/53, 85/60 11/04 IM PN, Assessment/Plan: "#Shock, septic vs cardiogenic vs hypovolemic" 11/04 Pulmonary consult, Plan: "Acute hypotension, responded to IV fluids and the patient is currently on low- dose pressors" 11/01-11/07 WBC Range: 6.0(11/05)-10.5(11/03) Hemoglobin: 8.3(11/07)-12.6(11/03) Hematocrit: 25.5(11/07)-39.6(11/03) Treatment: Levophed titrated drip 11/04 Normal Saline IV 1000cc bolus once 11/04 then 130cc/hour 11/04 Please clarify the type of shock, if known: [ ] Septic Shock [ ] Hypovolemic Shock [ ] Cardiogenic Shock [ ] Other, please specify [ x] Unable to determine MTDD
--- NOTE | 2023-11-08 16:29 | P.PN ---
Subjective Progress Note Date: 11/08/23 73-year-old female patient, presented to the hospital because of an acute ischemic right lower extremity. The patient is known to have coronary disease and the patient has undergone a cardiac catheterization and stenting of the LAD on 10/28/2023. The procedure was uncomplicated. The patient was discharged home. Admitted for the above-mentioned ischemic changes in the right foot. The patient was seen by vascular surgery and the patient was taken to the lab and she underwent an ultrasound-guided left common femoral artery access with right femoral angiography and the patient was found to have no filling of the SFA at the bifurcation and there was increased collateral. The patient was given thro mbolytic therapy. Subsequently, the catheter was removed and the patient underwent repeat angiography and there was no clear patency achieved in the involved vessel and attempts were made to pass the wire and this was met with the dissection at the level of the popliteal artery but no luminal gain. The peroneal artery was patent at the distal calf. The posterior tibial artery was patent. The patient is currently being considered for a femoral to distal bypass surgery., The patient became hypotensive. The patient was transferred to the intensive care unit. The patient was given IV fluids and the patient received a total of 1.5 L of IV fluid. Currently Levophed is running at 0.03 mcg/kg/min. The patient remains on IV heparin. Vascular surgery is on the case. She denies having any chest pain. No cough sputum production or chest tightness or wheezing. The hemoglobin has dropped from 12.6 down to 9.5 and this is obviously a concern. Hemoglobin is at 10.2 with a platelet count of 118. The patient serum bicarb is at 16 with a gap of 2 and a sodium levels at 137. BUN is 15 with a creatinine of 0.69. Calcium levels at 6.5. The patient is calm and comfortable on room air oxygen with a pulse ox of 95%. No nausea. No emesis. No other new complaints otherwise for now. 11/06/2023, the patient is doing well. There is Doppler signal in the right foot involving the dorsalis pedis. The right lower extremity is more warm. No significant pain. The patient remains on IV heparin. The patient remains on Brilinta and aspirin. Hemodynamically stable. No other complaints otherwise. The white cell count is at 6 with a hemoglobin 9.3 and a platelet count of 112. BUN is 16 with a creatinine 0.7 and a sodium levels at 137. Free of any chest pain. She is currently calm and comfortable with a pulse ox of 98% on room air oxygen. Vascular surgery and cardiology are both on the case. No significant hypotension. No other significant events overnight. On 11/07/2023, patient is being seen for a follow-up. Doing well with no specific complaints. Right leg is warm and there are no immediate plans for intervention by vascular surgery at this point in time. The patient is resting comfortably in bed. WBC count 6.8 with a hemoglobin of 8.6 and a platelet count of 147. Electrolytes are all within normal limits. Noted the patient got transferred out of the intensive care unit yesterday. Currently the patient is on a cardiac telemetry unit floor. The patient denies having any chest pain. The patient remains on a combination of aspirin and Brilinta. The patient on metoprolol 25 mg p.o. twice daily and Lipitor 40 mg p.o. daily. Taylors for pain control. The patient is seen today November 08, 2023 in follow-up on the selective care unit. She is currently sitting up in bed. Awake and alert in no acute distress. She denies any shortness of breath, cough or congestion. She is maintaining good O2 saturations in the 90s on room air. No significant lower extremity pain. Has been up ambulating with her walker. Her right leg remains cooler than her left. She remains on a heparin drip. White count 6.0. Hemoglobin 8.3. Platelets 136. Sodium 138. Potassium 4.4. Bicarb 24. BUN 19. Creatinine 0.8. Glucose 78. She is continued on DuoNeb inhalations, Symbicort, Singulair. Objective - Vital Signs Vital signs: Vital Signs Temp 98 F 11/08/23 08:00 Pulse 61 11/08/23 10:48 Resp 16 11/08/23 10:48 BP 95/60 11/08/23 10:48 Pulse Ox 98 11/08/23 10:48 FiO2 Intake & Output 11/07/23 11/08/23 11/08/23 18:59 06:59 18:59 Intake Total 1162.457 120 Output Total 750 2225 Balance 412.457 -2225 120 Weight 72.7 kg Intake: Intake, IV Titration 238.457 Amount Heparin Sod,Pork in 0.45% 238.457 NaCl 25,000 unit In 0.45 % NaCl 1 250ml.bag @ 18 UNITS/KG/HR 14.13 mls/hr IV .[id number] [facility] Rx#: [id number] Oral 924 120 Output: Urine 750 2225 Other: Voiding Method Indwelling Catheter Indwelling Catheter Indwelling Catheter # Bowel Movements 1 1 - Exam GENERAL EXAM: Alert, active, pleasant 73-year-old female, on room air, fairly comfortable in no apparent distress. HEAD: Normocephalic. EYES: Normal reaction of pupils, equal size. NOSE: Clear with pink turbinates. THROAT: No erythema or exudates. NECK: No masses, no JVD. CHEST: No chest wall deformity. LUNGS: Equal air entry with no crackles, wheeze, rhonchi or dullness. CVS: S1 and S2 normal with no audible murmur, regular rhythm. ABDOMEN: No hepatosplenomegaly, normal bowel sounds, no guarding or rigidity. SPINE: No scoliosis or deformity SKIN: No rashes CENTRAL NERVOUS SYSTEM: No focal deficits, tone is normal in all 4 extremities. EXTREMITIES: Right foot cooler than the left. Doppler pulses. There is no peripheral edema. No clubbing, no cyanosis. Peripheral pulses are intact. - Labs CBC & Chem 7: 11/08/23 07:26 11/08/23 07:26 Labs: Abnormal Lab Results - Last 24 Hours (Table) 11/08/23 11/08/23 11/08/23 Range/Units 07:26 07:26 07:26 RBC 2.84 L (3.80-5.40) m/uL Hgb 8.3 L (11.4-16.0) gm/dL Hct 25.5 L (34.0-46.0) % RDW 16.4 H (11.5-15.5) % Plt Count 136 L (150-450) k/uL Retic Count (0.5-2.0) % Haptoglobin (31.2-198.0) mg/dL APTT 52.0 H (22.0-30.0) sec BUN 19 H (7-17) mg/dL Delta Bilirubin (0.0-0.2) mg/dL Lactate Dehydrogenase (120-246) U/L 11/08/23 11/08/23 11/08/23 Range/Units 10:00 10:00 10:00 RBC (3.80-5.40) m/uL Hgb (11.4-16.0) gm/dL Hct (34.0-46.0) % RDW (11.5-15.5) % Plt Count (150-450) k/uL Retic Count 2.1 H (0.5-2.0) % Haptoglobin 249.0 H (31.2-198.0) mg/dL APTT (22.0-30.0) sec BUN (7-17) mg/dL Delta Bilirubin 0.3 H (0.0-0.2) mg/dL Lactate Dehydrogenase 267 H (120-246) U/L Microbiology - Last 24 Hours (Table) 11/05/23 13:25 Blood Culture - Preliminary Blood Assessment and Plan Assessment: Acute right lower extremity ischemia Status post angiography and findings are consistent with SFA occlusion and the patient underwent tPA thrombolysis with limited improvement. The patient currently has no pulse in the right lower extremity and the patient is ischemic and the patient is being considered for alternative treatment including the possibility of a vascular bypass surgery to the right lower extremity. The leg was subsequently found to be warm and there is a Doppler dorsalis pedis and there is no acute pain. Vascular surgery remains on the case. Right foot pain secondary to above, improved Coronary disease with previous stenting of the LAD Acute hypotension, responded to IV fluids and the patient is currently on low- dose pressors History of smoking Cardiomyopathy with impaired ejection fraction of 25 to 30%. Please refer to the echocardiogram that was done on 10/26/2023. The patient has severe reduced left ventricular function with ejection fraction of less than 30%. No other significant valvular abnormalities noted Acute on top of chronic anemia, currently on IV heparin. No clear indication for any postoperative blood loss. No hematoma formation. Will continue to m onitor the hemoglobin. Patient remains on IV heparin and the PTT is supratherapeutic and the infusion rate is being adjusted Non-anion gap metabolic acidosis Plan: The patient was seen and evaluated Labs and medications reviewed Stable and on room air Continue bronchodilators Remains on a heparin drip Continued on Brilinta and aspirin Vascular following closely This patient was seen independently by the pulmonary nurse practitioner addressing pulmonary issues I have personally seen and examined the patient, performed the documentation and the assessment and plan as written. Number of minutes spent on the visit: 24.
--- NOTE | 2023-11-08 17:35 | CA ---
Transthoracic Echo Report Name: Cary Poole Age: 73 Gender: F : 1950 Exam Date: 11/05/2023 13:19 Exam Location: [facility] Ht (in): 63 Wt (lb): 174 Ordering Physician: Eloy Mccormack MD Attending/Referring Phys: [id number], [place] [facility] Exercise Specialist Karyn Dyer RDCS Procedure CPT: Indications: recent stent placement, now in shock Cardiac Hx: Cath Technical Quality: Fair Contrast 1: Definity Total Dose (mL): 2 Contrast 2: Total Dose (mL): MEASUREMENTS (Male / Female) Normal Values 2D ECHO LV Diastolic Diameter PLAX 4.5 cm 4.2 - 5.9 / 3.9 - 5.3 cm LV Systolic Diameter PLAX 3.6 cm IVS Diastolic Thickness 1.4 cm 0.6 - 1.0 / 0.6 - 0.9 cm LVPW Diastolic Thickness 1.3 cm 0.6 - 1.0 / 0.6 - 0.9 cm LV Relative Wall Thickness 0.6 RV Internal Dim ED PLAX 1.8 cm LA Systolic Diameter LX 3.5 cm 3.0 - 4.0 / 2.7 - 3.8 cm LV Diastolic Volume MOD BP 103.7 cm??? 67 - 155 / 56 - 104 cm??? LV Systolic Volume MOD BP 57.9 cm??? / 19 - 49 cm??? LV Ejection Fraction MOD BP 44.1 % >= 55 % LV Cardiac Index MOD BP 1541.3 cm???/min???m??? LV Diastolic Volume MOD 4C 103.9 cm??? LV Systolic Volume MOD 4C 51.6 cm??? LV Ejection Fraction MOD 4C 50.3 % LV Cardiac Index MOD 4C 1758.4 cm???/min???m??? LV Diastolic Length 4C 7.9 cm LV Systolic Length 4C 6.0 cm LV Diastolic Volume MOD 2C 90.4 cm??? LV Systolic Volume MOD 2C 66.3 cm??? LV Ejection Fraction MOD 2C 26.7 % LV Cardiac Index MOD 2C 811.7 cm???/min???m??? LV Diastolic Length 2C 6.8 cm LV Systolic Length 2C 6.1 cm LA Volume 54.6 cm??? 18 - 58 / 22 - 52 cm??? LA Volume Index 28.7 cm???/m??? 16 - 28 cm???/m??? M-MODE Aortic Root Diameter MM 3.6 cm LA Systolic Diameter MM 4.0 cm LA Ao Ratio MM 1.1 AV Cusp Separation MM 1.9 cm DOPPLER TR Peak Velocity 227.2 cm/s TR Peak Gradient 20.7 mmHg Right Ventricular Systolic Press 25.3 mmHg FINDINGS Left Ventricle Left ventricular ejection fraction is estimated at 40-%. Moderately increased septal wall thickness. Moderately increased posterior wall thickness. Mildly increased left ventricular systolic volume. Moderately decreased left ventricular ejection fraction. Akinetic inferior wall. Hypokinetic septum. Right Ventricle Mild right ventricular dilatation. Right ventricular systolic pressure within normal limits. Right Atrium Mild right atrial dilatation. Left Atrium Moderate left atrial dilatation. Mitral Valve Structurally normal mitral valve. Mild mitral annular calcification. Mild mitral regurgitation. Aortic Valve Trileaflet aortic valve.No aortic stenosis. No aortic regurgitation. Tricuspid Valve Structurally normal tricuspid valve. Mild tricuspid regurgitation. Pulmonic Valve Structurally normal pulmonic valve. Trace pulmonic regurgitation. No pulmonic stenosis. Pericardium No pericardial or pleural effusion. Aorta Normal size aortic root and proximal ascending aorta. CONCLUSIONS Moderate LV systolic dysfunction with an ejection fraction of 40% Inferior wall is akinetic Mild mitral regurgitation Previewed by: Dr. Frank De La Torre MD (Electronically Signed) Final Date: 08 November 2023 17:34
[2023-11-08] MEDS: HEPARIN SODIUM,PORCINE 5,000 UNIT/ML 1 ML VIAL SQ SCH (23:03)
--- NOTE | 2023-11-09 07:01 | CDI ---
Documentation Clarification Form Date: From: Zunilda Hill RN CCDS Phone: [phone] Admit Date: 11/02/2023 10:49:00 PM Patient Name: Cary Poole Visit Number: [id number] Discharge Date: ATTENTION: The Clinical Documentation Specialists (CDI) and [facility] Coding Staff appreciate your assistance in clarifying documentation. Please respond to the clarification below the line at the bottom and electronically sign. The CDI & [facility] Coding staff will review the response and follow-up if needed. Please note: Queries are made part of the Legal Health Record. If you have any questions, please contact the author of this message via ITS. Doctor/Provider: VARUN Acuna: Shock is documented in the IM progress note 11/04. Additional clarification regarding the type of shock is requested. Patient history/risk factors: 73-year-old female with a history of CAD, tobacco dependence, who presented with cold right foot and found to have occlusion of right superficial femoral and right popliteal artery Clinical Indicators: 11/01 Triage VS: 137/77, 97.6, 67, 18, 91% 11/03 BP low 69/48, and on 11/04 BP lows were reported 86/59 73/52, 79/52, 79/59. 80/53, 85/60 11/04 IM PN, Assessment/Plan: "#Shock, septic vs cardiogenic vs hypovolemic" 11/04 Pulmonary consult, Plan: "Acute hypotension, responded to IV fluids and the patient is currently on low- dose pressors" 11/01-11/07 WBC Range: 6.0(11/05)-10.5(11/03) Hemoglobin: 8.3(11/07)-12.6(11/03) Hematocrit: 25.5(11/07)-39.6(11/03) Treatment: Levophed titrated drip 11/04 Normal Saline IV 1000cc bolus once 11/04 then 130cc/hour 11/04 Please clarify the type of shock, if known: [ ] Septic Shock [ x ] Hypovolemic Shock [ ] Cardiogenic Shock [ ] Other, please specify [ ] Unable to determine MTDD
[2023-11-09 09:05] LABS: Anisocytosis Slight; HCT 29.7 % (34.0-46.0); HGB 9.7 gm/dL (11.4-16.0); MCH 29.6 pg (25.0-35.0); MCHC 32.6 g/dL (31.0-37.0); MCV 90.8 fL (80.0-100.0); Mean Platelet Volume 10.8; Platelet Count 151 k/uL (150-450); RBC 3.27 m/uL (3.80-5.40); RDW 16.4 % (11.5-15.5); WBC 7.9 k/uL (3.8-10.6)
[2023-11-09 09:16] LABS: African American GFR (CKD) 90 (>60 ml/min/1.73 sqM); Anion Gap 9 mmol/L; Blood Urea Nitrogen 17 mg/dL (7-17); Calcium 9.3 mg/dL (8.4-10.2); Carbon Dioxide 25 mmol/L (22-30); Chloride 105 mmol/L (98-107); Glucose 103 mg/dL (74-99); Non-African American GFR(CKD) 78 (>60 ml/min/1.73 sqM); Potassium 4.6 mmol/L (3.5-5.1); Sodium 139 mmol/L (137-145)
--- NOTE | 2023-11-09 10:39 | P.PN ---
Subjective Progress Note Date: 11/09/23 Principal diagnosis: Acute on chronic right lower extremity ischemia Seen and examined as a follow-up. She reports right leg pain improved. She had been up and ambulating yesterday. Heparin drip was discontinued yesterday. She denies any shortness of breath or chest pain. She is wanting to go home. Objective - Vital Signs Vital signs: Vital Signs Temp 98.1 F 11/09/23 04:00 Pulse 73 11/09/23 04:00 Resp 18 11/09/23 04:00 BP 128/88 11/09/23 04:00 Pulse Ox 94 L 11/09/23 04:00 FiO2 Intake & Output 11/08/23 11/09/23 11/09/23 18:59 06:59 18:59 Intake Total 438 Output Total 3500 Balance 438 -3500 Weight 71 kg Intake: Oral 438 Output: Urine 3500 Other: Voiding Method Indwelling Catheter Indwelling Catheter # Bowel Movements 1 - Exam General appearance: The patient is alert, oriented, appears in no acute distress. HET: Head is normocephalic and atraumatic. Neck: Supple. Heart: Regular. Lungs: Equal expansion, normal respiratory effort. Abdomen: Soft, nondistended. Extremities: Left groin with ecchymosis, soft, no hematoma noted. Palpable femoral pulse bilaterally. Right foot cooler than left. Able to move foot. Nonpalpable DP or PT pulses. PT signal present. Neurological: No focal deficits. - Labs CBC & Chem 7: 11/09/23 08:38 11/09/23 08:38 Labs: Abnormal Lab Results - Last 24 Hours (Table) 11/08/23 11/08/23 11/08/23 Range/Units 07:26 07:26 07:26 RBC 2.84 L (3.80-5.40) m/uL Hgb 8.3 L (11.4-16.0) gm/dL Hct 25.5 L (34.0-46.0) % RDW 16.4 H (11.5-15.5) % Plt Count 136 L (150-450) k/uL Retic Count (0.5-2.0) % Haptoglobin (31.2-198.0) mg/dL APTT 52.0 H (22.0-30.0) sec BUN 19 H (7-17) mg/dL Delta Bilirubin (0.0-0.2) mg/dL Lactate Dehydrogenase (120-246) U/L 11/08/23 11/08/23 11/08/23 Range/Units 10:00 10:00 10:00 RBC (3.80-5.40) m/uL Hgb (11.4-16.0) gm/dL Hct (34.0-46.0) % RDW (11.5-15.5) % Plt Count (150-450) k/uL Retic Count 2.1 H (0.5-2.0) % Haptoglobin 249.0 H (31.2-198.0) mg/dL APTT (22.0-30.0) sec BUN (7-17) mg/dL Delta Bilirubin 0.3 H (0.0-0.2) mg/dL Lactate Dehydrogenase 267 H (120-246) U/L Microbiology - Last 24 Hours (Table) 11/05/23 13:25 Blood Culture - Preliminary Blood Assessment and Plan Assessment: 1. Acute right lower extremity ischemia, this status post thrombolysis 2. Right SFA and popliteal occlusive disease 3. Hypotension 4. Recent cardiac stent 5. Tobacco abuse Plan: 1. Will start patient on low-dose of [place] 2.5 mg twice daily and discontinue low-dose aspirin 2. Continue Brilinta as ordered 3. Encourage ambulation 4. Recommend smoking cessation, continue patch 5. Plan for outpatient follow-up in 1 week to further discuss femoral to poste rior tibial artery bypass to the ankle 6. Patient is cleared from vascular surgery for discharge Thank you for this consultation, will follow as needed. The impression and plan of care has been dictated as directed. I performed a history and examination of this patient, discussed the same with the dictator. I agree with the dictator's note ,documented as a scribe. Any additional findings or plans will be noted.
[2023-11-09 11:23] VITALS: RESP 18
[2023-11-09] MEDS: DAPAGLIFLOZIN PROPANEDIOL 5 MG TABLET PO SCH (11:23)
[2023-11-09] MEDS: RIVAROXABAN 2.5 MG TABLET PO SCH (11:24)
--- NOTE | 2023-11-09 13:03 | P.PN ---
Subjective HISTORY OF PRESENT ILLNESS: The patient is a 73-year-old female who presented with right lower extremity acute ischemic limb, was evaluated by Dr. Chowdhury, underwent thrombolytic infusion but with persistent obstructive disease and she is scheduled to undergo surgical intervention. The patient was admitted to the hospital recently, and was found to have evidence of non-STEMI. She underwent cardiac catheterization was found to have chronically occluded RCA with significant disease in the proximal LAD, underwent stenting of the LAD using a 3.5 x [address] Lewis. Her echocardiogram preprocedure showed an ejection fraction of less than 30%. The patient has a history of smoking. She denies any chest discomfort at this time, she denies any dizziness or palpitation. She has no PND, orthopnea or peripheral edema. She has no prior documented history of PAD according to her. She relates the lower extremities discomfort to a fall. Her blood pressure was on the lower side earlier. She has a history of hyperlipidemia and smoking. She had no evidence of malignant arrhythmia during this admission. She is off vasopressors at this time. Her angiography is consistent with SFA occlusion with no significant improvement after tPA infusions. November 05 The patient is feeling well this morning, her discomfort in the right lower extremity is stable. She denies any chest discomfort, dizziness or palpitations. She is hemodynamically stable off vasopressors and continues to be in sinus mechanism. Her urinary output has been stable. 11/07/2023 The patient has been transferred to cardiac stepdown unit. She is overall feeli ng okay except for some worsening pain in her right lower extremity. Extremity appears warmer today. Vital signs are stable. Labs are stable with a hemoglobin of 8.6. 11/08/23 Patient reports that she did meet with the surgeon and would like to go home and see if she can handle the leg without major surgery. She denies any chest pain or pressure. No shortness of breath. Hemoglobin 8.3. 11/09/2023 Patient examined this morning the bedside. Patient currently denies chest pain or pressure. She denies shortness of breath. She continues to report discomfort to her right lower extremity. Vascular surgery has discontinued her aspirin. She is currently on Brilinta and Xarelto. PHYSICAL EXAM: VITAL SIGNS: Reviewed. GENERAL: Well-developed in no acute distress. NECK: Supple. No JVD or thyromegaly LUNGS: Respirations even and unlabored. Lungs essentially clear to auscultation bilaterally. HEART: Regular rate and rhythm. S1 and S2 heard. Systolic murmur noted. EXTREMITIES: Normal range of motion. No clubbing or cyanosis. Decreased pulses of right lower extremity. no lower extremity edema ASSESSMENT: 1. Severe PAD with occlusive disease on the right 2. Coronary artery disease status post recent stenting of the LAD 3. Ischemic cardiomyopathy, 30% 4. Hyperlipidemia 5. History of chronic tobacco use PLAN: Continue current cardiac medications Patient is currently stable from a cardiac standpoint Vascular surgery following. Patient to follow-up postdischarge. We will sign off. Please reconsult if needed. Nurse practitioner note has been reviewed by physician. Signing provider agrees with the documented findings, assessment, and plan of care documented by COUNSELING CASE MANAGER as a scribe. Objective - Vital Signs Vital signs: Vital Signs Temp 98.1 F 11/09/23 04:00 Pulse 73 11/09/23 04:00 Resp 18 11/09/23 04:00 BP 128/88 11/09/23 04:00 Pulse Ox 94 L 11/09/23 04:00 FiO2 Intake & Output 11/08/23 11/09/23 11/09/23 18:59 06:59 18:59 Intake Total 438 Output Total 3500 Balance 438 -3500 Weight 71 kg Intake: Oral 438 Output: Urine 3500 Other: Voiding Method Indwelling Catheter Indwelling Catheter # Bowel Movements 1 - Labs CBC & Chem 7: 11/09/23 08:38 11/09/23 08:38 Labs: Abnormal Lab Results - Last 24 Hours (Table) 11/08/23 11/08/23 11/08/23 Range/Units 10:00 10:00 10:00 Retic Count 2.1 H (0.5-2.0) % Haptoglobin 249.0 H (31.2-198.0) mg/dL Delta Bilirubin 0.3 H (0.0-0.2) mg/dL Lactate Dehydrogenase 267 H (120-246) U/L Microbiology - Last 24 Hours (Table) 11/05/23 13:25 Blood Culture - Preliminary Blood
--- NOTE | 2023-11-09 13:11 | P.PN ---
Subjective Progress Note Date: 11/09/23 73-year-old female patient, presented to the hospital because of an acute ischemic right lower extremity. The patient is known to have coronary disease and the patient has undergone a cardiac catheterization and stenting of the LAD on 10/28/2023. The procedure was uncomplicated. The patient was discharged home. Admitted for the above-mentioned ischemic changes in the right foot. The patient was seen by vascular surgery and the patient was taken to the lab and she underwent an ultrasound-guided left common femoral artery access with right femoral angiography and the patient was found to have no filling of the SFA at the bifurcation and there was increased collateral. The patient was given thro mbolytic therapy. Subsequently, the catheter was removed and the patient underwent repeat angiography and there was no clear patency achieved in the involved vessel and attempts were made to pass the wire and this was met with the dissection at the level of the popliteal artery but no luminal gain. The peroneal artery was patent at the distal calf. The posterior tibial artery was patent. The patient is currently being considered for a femoral to distal bypass surgery., The patient became hypotensive. The patient was transferred to the intensive care unit. The patient was given IV fluids and the patient received a total of 1.5 L of IV fluid. Currently Levophed is running at 0.03 mcg/kg/min. The patient remains on IV heparin. Vascular surgery is on the case. She denies having any chest pain. No cough sputum production or chest tightness or wheezing. The hemoglobin has dropped from 12.6 down to 9.5 and this is obviously a concern. Hemoglobin is at 10.2 with a platelet count of 118. The patient serum bicarb is at 16 with a gap of 2 and a sodium levels at 137. BUN is 15 with a creatinine of 0.69. Calcium levels at 6.5. The patient is calm and comfortable on room air oxygen with a pulse ox of 95%. No nausea. No emesis. No other new complaints otherwise for now. 11/06/2023, the patient is doing well. There is Doppler signal in the right foot involving the dorsalis pedis. The right lower extremity is more warm. No significant pain. The patient remains on IV heparin. The patient remains on Brilinta and aspirin. Hemodynamically stable. No other complaints otherwise. The white cell count is at 6 with a hemoglobin 9.3 and a platelet count of 112. BUN is 16 with a creatinine 0.7 and a sodium levels at 137. Free of any chest pain. She is currently calm and comfortable with a pulse ox of 98% on room air oxygen. Vascular surgery and cardiology are both on the case. No significant hypotension. No other significant events overnight. On 11/07/2023, patient is being seen for a follow-up. Doing well with no specific complaints. Right leg is warm and there are no immediate plans for intervention by vascular surgery at this point in time. The patient is resting comfortably in bed. WBC count 6.8 with a hemoglobin of 8.6 and a platelet count of 147. Electrolytes are all within normal limits. Noted the patient got transferred out of the intensive care unit yesterday. Currently the patient is on a cardiac telemetry unit floor. The patient denies having any chest pain. The patient remains on a combination of aspirin and Brilinta. The patient on metoprolol 25 mg p.o. twice daily and Lipitor 40 mg p.o. daily. [place] for pain control. The patient is seen today November 08, 2023 in follow-up on the selective care unit. She is currently sitting up in bed. Awake and alert in no acute distress. She denies any shortness of breath, cough or congestion. She is maintaining good O2 saturations in the 90s on room air. No significant lower extremity pain. Has been up ambulating with her walker. Her right leg remains cooler than her left. She remains on a heparin drip. White count 6.0. Hemoglobin 8.3. Platelets 136. Sodium 138. Potassium 4.4. Bicarb 24. BUN 19. Creatinine 0.8. Glucose 78. She is continued on DuoNeb inhalations, Symbicort, Singulair. The patient is seen today November 09, 2023 in follow-up on the selective care unit. She is awake and alert in no acute distress. She denies any worsening shortness of breath, cough or congestion. She is maintaining O2 saturations in the 90s on room air. She has been afebrile. Hemodynamically stable. She states her right leg pain is improving. She is up with assistance. She remains on DuoNeb inhalations, Singulair, Symbicort. Anticoagulated with Xarelto. Remains on Brilinta. White count 7.9. Hemoglobin 9.7. Platelets 151. Sodium 139. Potassium 4.6. Bicarb 25. BUN 17. Creatinine 0.77. Glucose 103. Objective - Vital Signs Vital signs: Vital Signs Temp 98.5 F 11/09/23 11:20 Pulse 68 11/09/23 11:20 Resp 18 11/09/23 11:20 BP 111/66 11/09/23 11:20 Pulse Ox 97 11/09/23 11:20 FiO2 Intake & Output 11/08/23 11/09/23 11/09/23 18:59 06:59 18:59 Intake Total 438 130 Output Total 3500 Balance 438 -3500 130 Weight 71 kg Intake: IV 10 Invasive Line 4 10 Oral 438 120 Output: Urine 3500 Other: Voiding Method Indwelling Catheter Indwelling Catheter Toilet # Voids 1 # Bowel Movements 1 1 - Exam GENERAL EXAM: Alert, 73-year-old female, on room air, comfortable in no apparent distress. HEAD: Normocephalic. EYES: Normal reaction of pupils, equal size. NOSE: Clear with pink turbinates. THROAT: No erythema or exudates. NECK: No masses, no JVD. CHEST: No chest wall deformity. LUNGS: Equal air entry with no crackles, wheeze, rhonchi or dullness. CVS: S1 and S2 normal with no audible murmur, regular rhythm. ABDOMEN: No hepatosplenomegaly, normal bowel sounds, no guarding or rigidity. SPINE: No scoliosis or deformity SKIN: No rashes CENTRAL NERVOUS SYSTEM: No focal deficits, tone is normal in all 4 extremities. EXTREMITIES: Right foot cooler than the left. Doppler pulses. There is no peripheral edema. No clubbing, no cyanosis. Peripheral pulses are intact. - Labs CBC & Chem 7: 11/09/23 08:38 11/09/23 08:38 Labs: Abnormal Lab Results - Last 24 Hours (Table) 11/08/23 11/09/23 11/09/23 Range/Units 10:00 08:38 08:38 RBC 3.27 L (3.80-5.40) m/uL Hgb 9.7 L (11.4-16.0) gm/dL Hct 29.7 L (34.0-46.0) % RDW 16.4 H (11.5-15.5) % Haptoglobin 249.0 H (31.2-198.0) mg/dL APTT 20.9 L (22.0-30.0) sec Glucose (74-99) mg/dL 11/09/23 Range/Units 08:38 RBC (3.80-5.40) m/uL Hgb (11.4-16.0) gm/dL Hct (34.0-46.0) % RDW (11.5-15.5) % Haptoglobin (31.2-198.0) mg/dL APTT (22.0-30.0) sec Glucose 103 H (74-99) mg/dL Microbiology - Last 24 Hours (Table) 11/05/23 13:25 Blood Culture - Preliminary Blood Assessment and Plan Assessment: Acute right lower extremity ischemia Status post angiography and findings are consistent with SFA occlusion and the patient underwent tPA thrombolysis with limited improvement. The patient currently has no pulse in the right lower extremity and the patient is ischemic and the patient is being considered for alternative treatment including the possibility of a vascular bypass surgery to the right lower extremity. The leg was subsequently found to be warm and there is a Doppler dorsalis pedis and there is no acute pain. Vascular surgery remains on the case. Right foot pain secondary to above, improved Coronary disease with previous stenting of the LAD Acute hypotension, suspect hypovolemic shock, responded to IV fluids and the patient is off pressors History of smoking Cardiomyopathy with impaired ejection fraction of 25 to 30%. Please refer to the echocardiogram that was done on 10/26/2023. The patient has severe reduced left ventricular function with ejection fraction of less than 30%. No other significant valvular abnormalities noted Acute on top of chronic anemia, currently on IV heparin. No clear indication for any postoperative blood loss. No hematoma formation. Will continue to monitor the hemoglobin. Patient remains on IV heparin and the PTT is supratherapeutic and the infusion rate is being adjusted Non-anion gap metabolic acidosis Plan: The patient was seen and evaluated Labs and medications reviewed Stable and on room air Continue bronchodilators Transitioned to Xarelto Continued on Brilinta Plan is for subacute rehab at [facility] at discharge This patient was seen independently by the pulmonary nurse practitioner addressing pulmonary issues I have personally seen and examined the patient, performed the documentation and the assessment and plan as written. Number of minutes spent on the visit: 23.
[2023-11-09 13:15] VITALS: BMI 27.7
--- NOTE | 2023-11-09 14:27 | P.DS ---
Providers Date of admission: 11/02/23 22:49 Expected date of discharge: 11/09/23 Attending physician: Stevan Washington MD Consults: 11/02/23 22:49 Consult Physician Urgent Consulting Provider: Iman Chowdhury Consult Reason/Comments: Right lower extremity arterial occlusion Do you want consulting provider notified?: Yes 11/05/23 03:48 Consult Physician Urgent Consulting Provider: Patricio Gonzalez Consult Reason/Comments: Shock Do you want consulting provider notified?: Yes 11/05/23 13:24 Consult Physician Routine Consulting Provider: Nicolás Jolly Consult Reason/Comments: Cardiac clearance for Right Femoral to ankle bypass surgery Do you want consulting provider notified?: Yes Primary care physician: Stated None Hospital Course: Discharge diagnoses; #Acute RLE ischemia secondary to occlusion at the level of the superficial femoral artery #Normocytic anemia #Shock, unknown etiology #Hypokalemia #CAD s/p mid LAD stenting # Congestive Heart Failure, systolic, not in exacerbation Ischemic cardiomyopathy #Chronic back pain #COPD #Thrombocytopenia Hospital course; Patient is a 73-year-old female with past medical history of CAD s/p stent in the mid LAD 6 days ago, tobacco dependence presenting to the ED with cold right foot. [facility] and was then sent here for vascular surgery consult. States that pain in her right foot began yesterday which was a 15/10 severity, and Percocet didn't help with the pain. She mentions the foot and lower leg being ice cold and was unable to move it. Although right now the pain seems to have subsided and is able to make some movements. She was recently in the hospital after having a fall a week ago possibly secondary to pain med overdose and was admitted for UTI as well as NSTEMI secondary to rhabdomyolysis and subsequently underwent stenting of the LAD, but didn't have any pain on the foot at that time. She was found to have 25-30% EF and 100% RCA occlusion, 90% mid LAD stenosis and 70% ostial diagonal stenosis. Upon workup in the ED, CT angiogram showed occlusion of right superficial femoral and right popliteal artery. In the ED she was treated with Tylenol 650 mg, ondansetron 4 mg, Dilaudid 0.5 mg and placed on 0.9 normal saline at 75 mL/h along with heparin drip (heparin started at [facility]). Vitals: T 97.6F, P 70 bpm, RR 18, BP 148/85, O2 sat at 91% on room air CBC: WBC 9, hemoglobin 11.7, platelet 128 Coag: APTT more than 200 CMP: Chloride 112, bicarb 20, BUN 38, calcium 8.1, total protein 5.6, albumin 2.9 During admission patient was treated for acute RLE ischemia secondary to occlusion of the superficial femoral artery, with heparin and tPA. Pain was treated with Dilaudid and [place]. Left iliofemoral angiogram with no appearance of proximal patency after tPA and heparin, likely from chronic occlusive disease given rich collateral flow. Vascular surgery was consulted and reviewed the ca se who chose to pursue outpatient follow-up. Also patient was later treated for single event of shock, unknown etiology. Subsequent echo showed improved LV systolic dysfunction with EF of 40%, akinetic inferior wall, mild mitral regurgitation. Patient was also found to have a normocytic anemia hemoglobin 12.6 => 8.3 => 9.7. Low absolute reticulate count, low reticulocyte index, suggestive of hypoproliferative state, high haptoglobin no hemolysis. Patient is discharged to subacute rehab facility in stable condition. New discharge medications are Xarelto 2.5 mg twice daily, lisinopril 2.5 mg daily. Discontinue prednisone 50 and Entresto 24-26 tablet. Patient is to follow-up with her PCP Dr. Meza, cardiology Dr. Davey, and vascular surgery Dr. Chowdhury. Vitals Signs Reviewed. General: Nontoxic, no distress, appears at stated age, obese Derm: Warm, dry, bilateral upper extremity ecchymosis Head: Atraumatic, normocephalic, symmetric Eyes: EOMI, no lid lag, anicteric sclera Mouth: No lip lesion, mucus membranes moist Cardiovascular: S1S2 reg, no murmur, faint DP and TP pulses on the right Lungs: CTA bilateral, no rhonchi, no rales, no accessory muscle use Abdominal: Soft, nontender to palpation, no guarding, no appreciable organomegaly Ext: No gross muscle atrophy, no edema, no contractures, warm extremities Neuro: CN II-XI grossly intact, no focal neuro deficits Psych: Alert, oriented, appropriate affect Dictation was produced using [employer] Messenger[employer] software. please excuse any grammatical, word or spelling errors. A total of 35 minutes of time were spent preparing this complex discharge summary. Patient was discharged on 11/09/2023 at 1121. I have seen and evaluated the patient today. Discussed with the resident and agree with the residents finding and plan as documented in the resident's note. Changes highlighted in blue font. Patient Condition at Discharge: Stable Plan - Discharge Summary New Discharge Prescriptions: New Rivaroxaban [Xarelto] 2.5 mg PO BID tab lisinopriL [Zestril] 2.5 mg PO DAILY tab Continue Potassium Chloride ER [K-Dur 10] 10 meq PO DAILY Montelukast [Singulair] 10 mg PO HS Metoprolol Succinate (ER) [Toprol XL] 25 mg PO DAILY Albuterol Sulfate [Albuterol Sulfate Hfa] 2 puff PO RT-Q4H PRN PRN Reason: Wheezing Ticagrelor [Brilinta] 90 mg PO BID #0 tab Dapagliflozin Propanediol [Farxiga] 5 mg PO DAILY tab Atorvastatin [Lipitor] 40 mg PO HS tab oxyBUTYnin chloride [oxyBUTYnin chloride ER] 5 mg PO BID Ondansetron [Zofran] 8 mg PO Q12HR PRN PRN Reason: Nausea And Vomiting Acetaminophen Tab [Tylenol] 650 mg PO Q6H PRN PRN Reason: Fever And/ Or Pain oxyCODONE-APAP 10-325MG [Percocet 10-325 mg] 1 tab PO Q6H PRN #10 tab PRN Reason: Severe Breakthrough Pain Pregabalin [Lyrica] 150 mg PO TID #7 cap Ergocalciferol (Vitamin D2) [Drisdol (50,000 Iu)] 1,250 mcg PO Q7D Fluticasone/Umeclidin/Vilanter [Trelegy Ellipta 100-62.5-25] 1 puff INHALATION RT-DAILY Aspirin 81 mg PO DAILY tab Ipratropium-Albuterol Nebulize [Duoneb 0.5 mg-3 mg/3 ml Soln] 3 ml INHALATION QID PRN each PRN Reason: Shortness Of Breath Or Wheezing Discontinued predniSONE 50 mg PO DAILY 5 Days #5 tablet Sacubitril/Valsartan [Entresto 24 mg-26 mg Tablet] 1 tab PO BID Discharge Medication List Albuterol Sulfate [Albuterol Sulfate Hfa] 2 puff PO RT-Q4H PRN 10/26/23 [History] Ergocalciferol (Vitamin D2) [Drisdol (50,000 Iu)] 1,250 mcg PO Q7D 10/26/23 [History] Fluticasone/Umeclidin/Vilanter [Trelegy Ellipta 100-62.5-25] 1 puff INHALATION RT-DAILY 10/26/23 [History] Metoprolol Succinate (ER) [Toprol XL] 25 mg PO DAILY 10/26/23 [History] Montelukast [Singulair] 10 mg PO HS 10/26/23 [History] Potassium Chloride ER [K-Dur 10] 10 meq PO DAILY 10/26/23 [History] Aspirin 81 mg PO DAILY tab 10/29/23 [Rx] Atorvastatin [Lipitor] 40 mg PO HS tab 10/29/23 [Rx] Dapagliflozin Propanediol [Farxiga] 5 mg PO DAILY tab 10/29/23 [Rx] Ipratropium-Albuterol Nebulize [Duoneb 0.5 mg-3 mg/3 ml Soln] 3 ml INHALATION QID PRN each 10/29/23 [Rx] Ticagrelor [Brilinta] 90 mg PO BID #0 tab 10/29/23 [Rx] Acetaminophen Tab [Tylenol] 650 mg PO Q6H PRN 11/03/23 [History] Ondansetron [Zofran] 8 mg PO Q12HR PRN 11/03/23 [History] oxyBUTYnin chloride [oxyBUTYnin chloride ER] 5 mg PO BID 11/03/23 [History] Pregabalin [Lyrica] 150 mg PO TID #7 cap 11/09/23 [Rx] Rivaroxaban [Xarelto] 2.5 mg PO BID tab 11/09/23 [Rx] lisinopriL [Zestril] 2.5 mg PO DAILY tab 11/09/23 [Rx] oxyCODONE-APAP 10-325MG [Percocet 10-325 mg] 1 tab PO Q6H PRN #10 tab 11/09/23 [Rx] Follow up Appointment(s)/Referral(s): Orlando Davey DO [STAFF PHYSICIAN] - 11/19/23 2:45 pm (if [facility] has issue with this date, please call and reschedule) Siva Meza MD [REFERRING] - 11/10/23 1:00 pm Iman Chowdhury DO [STAFF PHYSICIAN] - 11/17/23 9:00 am (vascular ) Patient Instructions/Handouts: Peripheral Artery Disease (DC) Activity/Diet/Wound Care/Special Instructions: Please see PCP at [facility] Address: [address] [place] [address] Appointment at 1PM on 11/10/[address] Meza. Also see vascular surgery in 1 week. Follow up with cardiology. Discharge Disposition: TRANSFER TO SNF/ECF
[2023-11-09 16:36] VITALS: BP 119/76; PULSE 61; TEMP 98.8
--- NOTE | 2023-11-15 16:25 | IR ---
EXAMINATION TYPE: IR angio lower extremity RT DATE OF EXAM: 11/04/2023 2:11 PM COMPARISON: Pre Operative Images if available both CT/MRI or plain film CLINICAL INDICATION: Female, 73 years old with history of Right leg pain, 4.4 min fluoro, 14.5Gycm2; TECHNIQUE: IR angio lower extremity RT, multiple fluoroscopic images provided for procedure. Total fluoroscopy time: 4.4 seconds Total submitted images to PACS: [id number] DAP: 14.5 mGym2 Gycm2 uGym2 cGycm2 or equivalent. FINDINGS: IMPRESSION: 1. Report was generated for administrative purposes only. 2. Please see the operative/procedural note for further details. [facility], , 11/15/2023 4:23 PM
== END 2023-11-09 17:42 | DRG 278 ==
LOC: EC 22:04 → 3SCARD 22:49 → 2SICU 11-03 04:47 → 3SCARD 11-06 18:26
PROVIDERS: ADMIT Internal Medicine; ATTEND Internal Medicine
PROC: 3E05317 Introduction of Other Thrombolytic into Peripheral Artery, Percutaneous Approach (ICD-10-PCS; 2023-11-03)
PROC: 04FK3Z0 Fragmentation of Right Femoral Artery, Percutaneous Approach, Ultrasonic (ICD-10-PCS; principal; 2023-11-03 03:16)
PROC: 04FM3Z0 Fragmentation of Right Popliteal Artery, Percutaneous Approach, Ultrasonic (ICD-10-PCS; 2023-11-03 03:16)
PROC: B41F1ZZ Fluoroscopy of Right Lower Extremity Arteries using Low Osmolar Contrast (ICD-10-PCS; 2023-11-03 03:16)
PROC: B41F1ZZ Fluoroscopy of Right Lower Extremity Arteries using Low Osmolar Contrast (ICD-10-PCS; 2023-11-04)
PROC: 3E033XZ Introduction of Vasopressor into Peripheral Vein, Percutaneous Approach (ICD-10-PCS; 2023-11-05)
DX: I70.221 Atherosclerosis of native arteries of extremities with rest pain, right leg (principal); R57.1 Hypovolemic shock; E87.20 Acidosis, unspecified; I50.22 Chronic systolic (congestive) heart failure; D69.6 Thrombocytopenia, unspecified; J44.89 Other specified chronic obstructive pulmonary disease; D64.9 Anemia, unspecified; G89.29 Other chronic pain; E78.5 Hyperlipidemia, unspecified; E87.6 Hypokalemia; I25.5 Ischemic cardiomyopathy; F17.200 Nicotine dependence, unspecified, uncomplicated; I25.10 Atherosclerotic heart disease of native coronary artery without angina pectoris; R79.1 Abnormal coagulation profile; I25.82 Chronic total occlusion of coronary artery; I25.2 Old myocardial infarction; Z79.02 Long term (current) use of antithrombotics/antiplatelets; Z79.82 Long term (current) use of aspirin; Z79.84 Long term (current) use of oral hypoglycemic drugs; Z79.51 Long term (current) use of inhaled steroids; Z79.899 Other long term (current) drug therapy; Z95.5 Presence of coronary angioplasty implant and graft
CPT/HCPCS: 36247; 36415; 37211; 37213; 37214; 75635; 75710; 76937; 80048; 80053; 82248; 83010; 83605; 83615; 83735; 84132; 85025; 85027; 85045; 85384; 85610; 85730; 86850; 86900; 86901; 87040; 93306; 93970; 96365; 96366; 96375; 99291

== ENCOUNTER 2024-01-09 12:37 | Inpatient (IN) | payer MEDICARE, OTHER ==
[2024-01-09] MEDS ORDERED: NALOXONE 0.4 MG/ML 1 ML VIAL IVP PRN ×2 (13:08→13:54)
--- NOTE | 2024-01-09 13:08 | ED ---
General Adult HPI - General Chief complaint: Shortness of Breath Stated complaint: aortic embolism Time Seen by Provider: 01/09/24 12:50 Source: patient, EMS, RN notes reviewed, old records reviewed Mode of arrival: EMS - History of Present Illness Initial comments: This is a 74-year-old female who is a transfer from [facility]. Patient was diagnosed with COPD exacerbation as well as a small subsegmental PE. Patient is on heparin. The patient did receive a breathing treatment the other facility. I did speak with the ER doc at that facility. Patient denies any chest pain or palpitations. Patient has any fever or chills. - Related Data Home Medications Medication Instructions Recorded Confirmed Albuterol Sulfate [Albuterol 2 puff PO RT-Q4H PRN 10/26/23 11/03/23 Sulfate Hfa] Ergocalciferol (Vitamin D2) 1,250 mcg PO Q7D 10/26/23 11/03/23 [Drisdol (50,000 Iu)] Fluticasone/Umeclidin/Vilanter 1 puff INHALATION RT-DAILY 10/26/23 11/03/23 [Trelealem Ellipta 100-62.5-25] Metoprolol Succinate (ER) [Toprol 25 mg PO DAILY 10/26/23 11/03/23 XL] Montelukast [Singulair] 10 mg PO HS 10/26/23 11/03/23 Potassium Chloride ER [K-Dur 10] 10 meq PO DAILY 10/26/23 11/03/23 Acetaminophen Tab [Tylenol] 650 mg PO Q6H PRN 11/03/23 11/03/23 Ondansetron [Zofran] 8 mg PO Q12HR PRN 11/03/23 11/03/23 oxyBUTYnin chloride [oxyBUTYnin 5 mg PO BID 11/03/23 11/03/23 chloride ER] Previous Rx's Medication Instructions Recorded Aspirin 81 mg PO DAILY tab 10/29/23 Atorvastatin [Lipitor] 40 mg PO HS tab 10/29/23 Dapagliflozin Propanediol [Farxiga] 5 mg PO DAILY tab 10/29/23 Ipratropium-Albuterol Nebulize 3 ml INHALATION QID PRN each 10/29/23 [Duoneb 0.5 mg-3 mg/3 ml Soln] Ticagrelor [Brilinta] 90 mg PO BID #0 tab 10/29/23 Pregabalin [Lyrica] 150 mg PO TID #7 cap 11/09/23 Rivaroxaban [Xarelto] 2.5 mg PO BID tab 11/09/23 lisinopriL [Zestril] 2.5 mg PO DAILY tab 11/09/23 oxyCODONE-APAP 10-325MG [Percocet 1 tab PO Q6H PRN #10 tab 11/09/23 10-325 mg] Allergies Allergy/AdvReac Type Severity Reaction Status Date / Time No Known Allergies Allergy Verified 01/09/24 12:54 Review of Systems ROS Statement: Those systems with pertinent positive or pertinent negative responses have been documented in the HPI. ROS Other: All systems not noted in ROS Statement are negative. Past Medical History Past Medical History: Asthma, Coronary Artery Disease (CAD), Heart Failure, COPD, Myocardial Infarction ([place]), Vascular Disorder Last Myocardial Infarction Date:: 10/28/2023 History of Any Multi-Drug Resistant Organisms: None Reported Past Surgical History: Heart Catheterization With Stent Date of Last Stent Placement:: 10/28/23 Past Psychological History: No Psychological Hx Reported Smoking Status: Current every day smoker Past Alcohol Use History: None Reported Past Drug Use History: None Reported General Exam - General Exam Comments Initial Comments: GENERAL: Patient is well-developed and well-nourished. Patient is nontoxic and well- hydrated and is in mild distress. ENT: Neck is soft and supple. No significant lymphadenopathy is noted. Oropharynx is clear. Moist mucous membranes. Neck has full range of motion without eliciting any pain. EYES: The sclera were anicteric and conjunctiva were pink and moist. Extraocular movements were intact and pupils were equal round and reactive to light. Eyelids were unremarkable. PULMONARY: Patient has expiratory wheezing CARDIOVASCULAR: There is a regular rate and rhythm without any murmurs gallops or rubs. ABDOMEN: Soft and nontender with normal bowel sounds. SKIN: Skin is clear with no lesions or rashes and otherwise unremarkable. NEUROLOGIC: Patient is alert and oriented x3. Cranial nerves II through XII are grossly intact. Motor and sensory are also intact. Normal speech, volume and content. Symmetrical smile. MUSCULOSKELETAL: Normal extremities with adequate strength and full range of motion. LYMPHATICS: No significant lymphadenopathy is noted PSYCHIATRIC: Normal psychiatric evaluation. Course Vital Signs 01/09/24 12:45 Temperature 97.3 F L Pulse Rate 80 Respiratory 20 Rate Blood Pressure 107/85 O2 Sat by Pulse 96 Oximetry Medical Decision Making - Medical Decision Making Was pt. sent in by a medical professional or institution (, [facility], [employer], urgent care, hospital, or group home...) When possible be specific @ -[facility] transfer the patient to us Did you speak to anyone other than the patient for history (EMS, parent, family, police, friend...)? What history was obtained from this source @ -I spoke with the ER physician at [facility] Did you review nursing and triage notes (agree or disagree)? Why? @ -I reviewed and agree with nursing and triage notes Were old charts reviewed (outside hosp., previous admission, EMS record, old EKG, old radiological studies, urgent care reports/EKG's, group home records)? Report findings @ -I have reviewed all the charting from Dr. Donaldo Singleton Differential Diagnosis? @ -Differential Dyspnea: Coronary syndrome, arrhythmia, tamponade, asthma, COPD, pulmonary embolism, pneumonia, pneumothorax, pulmonary effusion, anaphylaxis, diabetic ketoacidosis, flailed chest, pulmonary contusion, diaphragmatic rupture, anemia, neuromuscular, this is not meant to be an all-inclusive list. EKG interpreted by me (3pts min.). @ -As above X-rays interpreted by me (1pt min.). @ -None done CT interpreted by me (1pt min.). @ -None done U/S interpreted by me (1pt. min.). @ -None done What testing was considered but not performed or refused? (CT, X-rays, U/S, labs)? Why? @ -None What meds were considered but not given or refused? Why? @ -None Did you discuss the management of the patient with other professionals (professionals i.e. [employer] Moncada, [employer]AT [employer]ER, lab, RT, psych nurse, forensic social worker, president finance company, teacher, vessel traffic officer, special education case manager)? Give summary @ -I spoke with [facility] they agreed to admit the patient admit the patient Was smoking cessation discussed for >3mins.? @ -No Was critical care preformed (if so, how long)? @ -No Were there social determinants of health that impacted care today? How? (Homelessness, low income, unemployed, alcoholism, drug addiction, transportation, low edu. Level, literacy, decrease access to med. care, longterm, rehab)? @ -No Was there de-escalation of care discussed even if they declined (Discuss DNR or withdrawal of care, Hospice)? DNR status @ -No What co-morbidities impacted this encounter? (DM, HTN, Smoking, COPD, CAD, Cancer, CVA, ARF, Chemo, Hep., AIDS, mental health diagnosis, sleep apnea, morbid obesity)? @ -None Was patient admitted / discharged? Hospital course, mention meds given and route, prescriptions, significant lab abnormalities, going to OR and other pertinent info. @ -Patient received a breathing treatment steroids while in the emergency department as well as 2 g of Rocephin IV. Patient had his heparin continued as well and I admitted the patient to [facility] Undiagnosed new problem with uncertain prognosis? @ -No Drug Therapy requiring intensive monitoring for toxicity (Heparin, Nitro, Insulin, Cardizem)? @ -No Were any procedures done? @ -No Diagnosis/symptom? @ -COPD exacerbation Acute, or Chronic, or Acute on Chronic? @ -Acute Uncomplicated (without systemic symptoms) or Complicated (systemic symptoms)? @ -Comp Side effects of treatment? @ -No Exacerbation, Progression, or Severe Exacerbation? @ -No Poses a threat to life or bodily function? How? (Chest pain, [place], [place], pneumonia, PE, COPD, DKA, ARF, appy, cholecystitis, CVA, Diverticulitis, Homicidal, Suicidal, threat to staff... and all critical care pts) @ -Yes this can lead to hypoxia and endorgan dysfunction Diagnosis/symptom? @ -Pulmonary embolism Acute, or Chronic, or Acute on Chronic? @ -Acute Uncomplicated (without systemic symptoms) or Complicated (systemic symptoms)? @ -Complicated Side effects of treatment? @ -None Exacerbation, Progression, or Severe Exacerbation] @ -No Poses a threat to life or bodily function? @ -Yes this can lead to hypoxia and endorgan dysfunction Disposition Clinical Impression: Acute exacerbation of chronic obstructive pulmonary disease, Pulmonary embolism Disposition: ADMITTED IP TO THIS HOSP Referrals: None,Stated [Primary Care Provider] - 1-2 days Time of Disposition: 13:08
[2024-01-09] MEDS: IPRATROPIUM-ALBUTEROL 3 ML NEB INHALATION STA (13:15)
[2024-01-09] MEDS ORDERED: ACETAMINOPHEN TAB 325 MG TAB PO PRN ×2 (13:54→15:11)
[2024-01-09] MEDS ORDERED: MELATONIN 3 MG TABLET PO PRN (13:54)
[2024-01-09] MEDS ORDERED: BENZONATATE 100 MG CAP PO PRN (13:54)
--- NOTE | 2024-01-09 14:00 | P.HPIM ---
History of Present Illness H&P Date: 01/09/24 History of present illness; patient is a 74-year-old lady with past medical history significant for coronary artery disease, tobacco addiction, COPD who presented to the ER for shortness of breath. Patient initially presented to the [facility]. Patient had complaint of shortness of breath for the last few days. There was no complaint of fever or chills. There was no complaint of chest pain. There was no complaint of cough. There was no complaint of orthopnea or PND. Patient was worked up at [facility] with a CT PE protocol and was found to have a PE and was started on pharmacy dose heparin. Patient was transferred to [facility] for further evaluation and t reatment Patient admitted to medicine service REVIEW OF SYSTEMS: CONSTITUTIONAL: No fever, no malaise, no fatigue. HEENT: No recent visual problems or hearing problems. Denied any sore throat. CARDIOVASCULAR: As mentioned above PULMONARY: As mentioned above GASTROINTESTINAL: No diarrhea, no nausea, no vomiting, no abdominal pain. NEUROLOGICAL: No headaches, no weakness, no numbness. HEMATOLOGICAL: Denies any bleeding or petechiae. GENITOURINARY: Denies any burning micturition, frequency, or urgency. MUSCULOSKELETAL/RHEUMATOLOGICAL: Denies any joint pain, swelling, or any muscle pain. ENDOCRINE: Denies any polyuria or polydipsia. The rest of the 14-point review of systems is negative. PHYSICAL EXAMINATION: GENERAL: The patient is alert and oriented x3, not in any acute distress. Well developed, well nourished. HEENT: Pupils are round and equally reacting to light. EOMI. No scleral icterus. No conjunctival pallor. Normocephalic, atraumatic. No pharyngeal erythema. No thyromegaly. CARDIOVASCULAR: S1 and S2 present. No murmurs, rubs, or gallops. PULMONARY: Coarse breath sounds bilaterally, expiratory wheeze audible ABDOMEN: Soft, nontender, nondistended, normoactive bowel sounds. No palpable organomegaly. MUSCULOSKELETAL: No joint swelling or deformity. EXTREMITIES: No cyanosis, clubbing, or pedal edema. NEUROLOGICAL: Gross neurological examination did not reveal any focal deficits. SKIN: No rashes. Assessment and plan Acute respiratory distress Acute COPD exacerbation Acute PE History of coronary artery disease status post mid LAD stenting Chronic systolic CHF History of right lower extremity ischemia secondary to occlusion at the level of superficial femoral artery. Tobacco addiction Monitor vital signs Monitor CBC Monitor CMP Continue telemetry monitoring Ordered breathing treatments Ordered IV Solu-Medrol Ordered pharmacy dose heparin Ordered 2D echo Resume home meds Consult pulmonology Labs and medication were reviewed.. Continue same treatment. Continue with symptomatic treatment. Resume home medication. Monitor labs and vitals. DVT and GI prophylaxis. Further recommendations as per clinical course of the patient Dictation was produced using [employer] dictation software. please excuse any grammatical, word or spelling errors. Past Medical History Past Medical History: Asthma, Coronary Artery Disease (CAD), Heart Failure, COPD, Myocardial Infarction ([place]), Vascular Disorder Last Myocardial Infarction Date:: 10/28/2023 History of Any Multi-Drug Resistant Organisms: None Reported Past Surgical History: Heart Catheterization With Stent Date of Last Stent Placement:: 10/28/23 Past Psychological History: No Psychological Hx Reported Smoking Status: Current every day smoker Past Alcohol Use History: None Reported Past Drug Use History: None Reported Medications and Allergies Home Medications Medication Instructions Recorded Confirmed Type Albuterol Sulfate [Albuterol 2 puff PO RT-Q4H PRN 10/26/23 11/03/23 History Sulfate Hfa] Ergocalciferol (Vitamin D2) 1,250 mcg PO Q7D 10/26/23 11/03/23 History [Drisdol (50,000 Iu)] Fluticasone/Umeclidin/Vilanter 1 puff INHALATION RT-DAILY 10/26/23 11/03/23 History [Trelegy Ellipta 100-62.5-25] Metoprolol Succinate (ER) [Toprol 25 mg PO DAILY 10/26/23 11/03/23 History XL] Montelukast [Singulair] 10 mg PO HS 10/26/23 11/03/23 History Potassium Chloride ER [K-Dur 10] 10 meq PO DAILY 10/26/23 11/03/23 History Aspirin 81 mg PO DAILY tab 10/29/23 11/03/23 Rx Atorvastatin [Lipitor] 40 mg PO HS tab 10/29/23 11/03/23 Rx Dapagliflozin Propanediol [Farxiga] 5 mg PO DAILY tab 10/29/23 11/03/23 Rx Ipratropium-Albuterol Nebulize 3 ml INHALATION QID PRN each 10/29/23 11/03/23 Rx [Duoneb 0.5 mg-3 mg/3 ml Soln] Ticagrelor [Brilinta] 90 mg PO BID #0 tab 10/29/23 11/03/23 Rx Acetaminophen Tab [Tylenol] 650 mg PO Q6H PRN 11/03/23 11/03/23 History Ondansetron [Zofran] 8 mg PO Q12HR PRN 11/03/23 11/03/23 History oxyBUTYnin chloride [oxyBUTYnin 5 mg PO BID 11/03/23 11/03/23 History chloride ER] Pregabalin [Lyrica] 150 mg PO TID #7 cap 11/09/23 Rx Rivaroxaban [Xarelto] 2.5 mg PO BID tab 11/09/23 Rx lisinopriL [Zestril] 2.5 mg PO DAILY tab 11/09/23 Rx oxyCODONE-APAP 10-325MG [Percocet 1 tab PO Q6H PRN #10 tab 11/09/23 Rx 10-325 mg] Allergies Allergy/AdvReac Type Severity Reaction Status Date / Time No Known Allergies Allergy Verified 01/09/24 12:54 Physical Exam Vitals: Vital Signs Temp Pulse Resp BP Pulse Ox 01/09/24 13:22 90 01/09/24 13:15 88 01/09/24 12:45 97.3 F L 80 20 107/85 96 Intake and Output 01/08/24 01/09/24 01/09/24 22:59 06:59 14:59 Other: Weight 77.564 kg
[2024-01-09] MEDS: methylPREDNISolone SOD SUCCI 125 MG/2 ML VIAL IV STA (14:50)
[2024-01-09] MEDS: HEPARIN SOD,PORK IN 0.45% NACL 25,000 UNIT in 0.45% NACL 1 250ML.BAG IV SCH (14:53)
[2024-01-09] MEDS ORDERED: IPRATROPIUM-ALBUTEROL 3 ML NEB INHALATION PRN (15:11)
--- NOTE | 2024-01-09 15:11 | P.CNPUL ---
History of Present Illness Consult date: 01/09/24 Reason for consult: dyspnea History of present illness: This is a 75-year-old female patient was transferred to us from [facility] for shortness of breath. The patient has been having increased dyspnea for the past few days. No cough. No sputum production. No orthopnea. The patient was worked up at the hospital and she was given a CT angiogram of the chest that was reported to be abnormal and for that reason, the patient was s tarted on IV heparin and the patient was transferred to us for further care. She is currently on room air oxygen with a pulse ox of 96%. I reviewed the report of the CT angiogram that was forwarded from [facility]. This was a CT angiogram that was done on 01/09/2024. It was reported that the patient has a subsegmental filling defect in the right lower lobe pulmonary artery branch image 69 series 2. There was also mucous plugging within the tracheobronchial tree. Atelectatic changes in lung bases and some groundglass density in her lungs. Based on all this, the patient was given diagnosis of pulmonary embolism and the patient was transferred to us. Noted the patient has been receiving Xarelto as an anticoagulant on outpatient basis. The RV to LV ratio was 0.9. There was also lymphadenopathy in the paratracheal region and and supraclavicular region. No suspicious abnormality in the liver. Degenerative changes in her spine. Her D-dimer was at 1.7. Magnesium was at 1 .9. proBNP level was 639. Troponin was negative. Coagulation profile was normal. Lactic acid level was at 2.2. Sodium is at 146, potassium is at 3.2, bicarbonate 18, LFTs are normal, calcium is 11.8, bilirubin is at 0.3, white cell count 7.2 with a hemoglobin 10.4 and a platelet count of 131. Noted the patient has been still smoking around half pack of cigarettes on a daily basis. She is currently living with her daughter out of a motel in the [facility]. She is currently on room air oxygen. The patient is known to have coronary disease and the patient has undergone a cardiac catheterization and stenting of the LAD on 10/28/2023. The procedure was uncomplicated. The patient was discharged home. Admitted for the above- mentioned ischemic changes in the right foot. The patient was seen by vascular surgery and the patient was taken to the lab and she underwent an ultrasound- guided left common femoral artery access with right femoral angiography and the patient was found to have no filling of the SFA at the bifurcation and there was increased collateral. The patient was given thrombolytic therapy. Subsequently, the catheter was removed and the patient underwent repeat ang iography and there was no clear patency achieved in the involved vessel and attempts were made to pass the wire and this was met with the dissection at the level of the popliteal artery but no luminal gain. The peroneal artery was patent at the distal calf. This was treated conservatively and the patient was ultimately discharged home. Past Medical History Past Medical History: Asthma, Coronary Artery Disease (CAD), Heart Failure, COPD, Myocardial Infarction ([place]), Vascular Disorder Last Myocardial Infarction Date:: 10/28/2023 History of Any Multi-Drug Resistant Organisms: None Reported Past Surgical History: Heart Catheterization With Stent Date of Last Stent Placement:: 10/28/23 Past Psychological History: No Psychological Hx Reported Smoking Status: Current every day smoker Past Alcohol Use History: None Reported Past Drug Use History: None Reported Medications and Allergies Home Medications Medication Instructions Recorded Confirmed Type Albuterol Sulfate [Albuterol 2 puff PO RT-Q4H PRN 10/26/23 11/03/23 History Sulfate Hfa] Ergocalciferol (Vitamin D2) 1,250 mcg PO Q7D 10/26/23 11/03/23 History [Drisdol (50,000 Iu)] Fluticasone/Umeclidin/Vilanter 1 puff INHALATION RT-DAILY 10/26/23 11/03/23 History [Cassie Ellipta 100-62.5-25] Metoprolol Succinate (ER) [Toprol 25 mg PO DAILY 10/26/23 11/03/23 History XL] Montelukast [Singulair] 10 mg PO HS 10/26/23 11/03/23 History Potassium Chloride ER [K-Dur 10] 10 meq PO DAILY 10/26/23 11/03/23 History Aspirin 81 mg PO DAILY tab 10/29/23 11/03/23 Rx Atorvastatin [Lipitor] 40 mg PO HS tab 10/29/23 11/03/23 Rx Dapagliflozin Propanediol [Farxiga] 5 mg PO DAILY tab 10/29/23 11/03/23 Rx Ipratropium-Albuterol Nebulize 3 ml INHALATION QID PRN each 10/29/23 11/03/23 Rx [Duoneb 0.5 mg-3 mg/3 ml Soln] Ticagrelor [Brilinta] 90 mg PO BID #0 tab 10/29/23 11/03/23 Rx Acetaminophen Tab [Tylenol] 650 mg PO Q6H PRN 11/03/23 11/03/23 History Ondansetron [Zofran] 8 mg PO Q12HR PRN 11/03/23 11/03/23 History oxyBUTYnin chloride [oxyBUTYnin 5 mg PO BID 11/03/23 11/03/23 History chloride ER] Pregabalin [Lyrica] 150 mg PO TID #7 cap 11/09/23 Rx Rivaroxaban [Xarelto] 2.5 mg PO BID tab 11/09/23 Rx lisinopriL [Zestril] 2.5 mg PO DAILY tab 11/09/23 Rx oxyCODONE-APAP 10-325MG [Percocet 1 tab PO Q6H PRN #10 tab 11/09/23 Rx 10-325 mg] Allergies Allergy/AdvReac Type Severity Reaction Status Date / Time No Known Allergies Allergy Verified 01/09/24 12:54 Physical Exam Vitals: Vital Signs Temp Pulse Resp BP Pulse Ox 01/09/24 13:22 90 01/09/24 13:15 88 01/09/24 12:45 97.3 F L 80 20 107/85 96 Intake and Output 01/08/24 01/09/24 01/09/24 22:59 06:59 14:59 Other: Weight 77.564 kg General: non toxic, no distress, appears at stated age, obese,, comfortable on room air oxygen Derm: Multiple bruises on left and right arm Head: atraumatic, normocephalic, symmetric Eyes: EOMI, no lid lag, anicteric sclera, pupils equal round reactive to light ENT: Nose and ears atraumatic Neck: No cervical lymphadenopathy, supple Mouth: no lip lesion, mucus membranes moist Cardiovascular: Cardiac exam revealed the PMI to be normally situated and sized. The rhythm was regular and no extrasystoles were noted during several minutes of auscultation. The first and second heart sounds were normal and physiologic splitting of the second heart sound was noted. There were no murmurs, rubs, clicks, or gallops. Lungs: wheezing, no rhonchi, no rales, no accessory muscle use Abdominal: soft, nontender to palpation, no guarding Ext: Right foot warm to touch with cap refill less than 2 seconds, no gross muscle atrophy, no contractures Neuro: Normal range of motion found throughout upper and lower extremities Psych: Alert, oriented, appropriate affect Assessment and Plan Plan: Acute on chronic shortness of breath, the patient is bronchospastic and wheezy and her COPD is exacerbating. The possibility of pulmonary embolism is felt to be less likely specially the patient has been taking Xarelto on an outpatient basis. I do however question her compliancy with ongoing medication intake. I reviewed the CT scan of the chest and I was not able to appreciate a significant clot of concern in the right upper lobe. Nevertheless, this has been reported by the radiologist and it may still be a possibility. The clinical presentation is most consistent with COPD exacerbation. She also has underlying cardiomyopathy with impaired LV function. Coronary artery disease with previous stenting of the LAD Severe PAD with occlusive disease on the right. The patient has a history of a acute right lower extremity ischemia The patient is status post angiography and findings are consistent with SFA occlusion and the patient underwent tPA thrombolysis with limited improvement. COPD, maintained on Trelegy Ellipta on outpatient basis History of smoking CHF with systolic heart failure a impaired ejection fraction of 25 to 30%. Please refer to the echocardiogram that was done on 10/26/2023. The patient has severe reduced left ventricular function with ejection fraction of less than 30%. No other significant valvular abnormalities noted chronic anemia Hyperlipidemia Plan Start the patient on DuoNeb nebulized treatments [id number] Allow the patient to utilize Trelegy Ellipta from home supply IV Solu-Medrol 60 mg every 6 hours Stop the IV heparin and continue the patient on Xarelto 20 mg p.o. daily Obtain Doppler of the lower extremities Resume home medications And the patient has been taking Brilinta and aspirin combination in addition to metoprolol 25 mg p.o. daily and Farxiga 5 mg p.o. daily and Lipitor 40 mg p.o. daily. She is also on Zestril 2.5 mg p.o. daily and all this medication needs to be resumed.
[2024-01-09] MEDS: PREGABALIN 75 MG CAP PO SCH (17:34)
[2024-01-09] MEDS: RIVAROXABAN 20 MG TAB PO SCH (17:35)
[2024-01-09] MEDS: DAPAGLIFLOZIN PROPANEDIOL 5 MG TABLET PO SCH (17:36)
[2024-01-09] MEDS: AZITHROMYCIN 500 MG TAB PO SCH (17:36)
[2024-01-09] MEDS: METOPROLOL SUCCINATE (ER) 25 MG TAB.ER.24H PO SCH (17:36)
[2024-01-09] MEDS: cefTRIAXone IN SWFI 1,000 MG/10 ML SYRINGE IVP STA (17:37)
[2024-01-09] MEDS: oxyCODONE-APAP 10-325MG 1 EACH TAB PO PRN (17:48)
[2024-01-09] MEDS: IPRATROPIUM-ALBUTEROL 3 ML NEB INHALATION SCH (18:02)
[2024-01-09] MEDS: NICOTINE 7MG/24HR PATCH TRANSDERM SCH (19:05)
[2024-01-09] MEDS: methylPREDNISolone SOD SUCCI 125 MG/2 ML VIAL IV SCH (19:06)
[2024-01-09] MEDS: OXYBUTYNIN XL 5 MG TAB.ER.24 PO SCH (20:22)
[2024-01-09] MEDS: ATORVASTATIN 40 MG TAB PO SCH (20:22)
[2024-01-10] MEDS: HYDROcodone/APAP 5-325MG 1 EACH TAB PO PRN (03:40)
[2024-01-10 06:23] LABS: Glucose,Whole Blood 148 mg/dL (70-110)
[2024-01-10 11:19] LABS: Glucose,Whole Blood 301 mg/dL (70-110)
[2024-01-10] MEDS: ASPIRIN 81 MG PO SCH (12:28)
[2024-01-10 16:25] LABS: Glucose,Whole Blood 177 mg/dL (70-110)
--- NOTE | 2024-01-10 16:26 | P.PN ---
Subjective Progress Note Date: 01/10/24 This is a 75-year-old female patient was transferred to us from [facility] for shortness of breath. The patient has been having increased dyspnea for the past few days. No cough. No sputum production. No orthopnea. The patient was worked up at the hospital and she was given a CT angiogram of the chest that was reported to be abnormal and for that reason, the patient was started on IV heparin and the patient was transferred to us for further care. She is currently on room air oxygen with a pulse ox of 96%. I reviewed the report of the CT angiogram that was forwarded from [facility]. This was a CT angiogram that was done on 01/09/2024. It was reported that the patient has a subsegmental filling defect in the right lower lobe pulmonary artery branch image 69 series 2. There was also mucous plugging within the tracheobronchial tree. Atelectatic changes in lung bases and some groundglass density in her lungs. Based on all this, the patient was given diagnosis of pulmonary embolism and the patient was transferred to us. Noted the patient has been receiving Xarelto as an anticoagulant on outpatient basis. The RV to LV ratio was 0.9. There was also lymphadenopathy in the paratracheal region and and supraclavicular region. No suspicious abnormality in the liver. Degenerative changes in her spine. Her D-dimer was at 1.7. Magnesium was at 1.9. proBNP level was 639. Troponin was negative. Coagulation profile was normal. Lactic acid level was at 2.2. Sodium is at 146, potassium is at 3.2, bicarbonate 18, LFTs are normal, calcium is 11.8, bilirubin is at 0.3, white cell count 7.2 with a hemoglobin 10.4 and a platelet count of 131. Noted the patient has been still smoking around half pack of cigarettes on a daily basis. She is currently living with her daughter out of a [place] [facility] She is currently on room air oxygen. The patient is known to have coronary disease and the patient has undergone a cardiac catheterization and stenting of the LAD on 10/28/2023. The procedure was uncomplicated. The patient was discharged home. Admitted for the above- mentioned ischemic changes in the right foot. The patient was seen by vascular surgery and the patient was taken to the lab and she underwent an ultrasound- guided left common femoral artery access with right femoral angiography and the patient was found to have no filling of the SFA at the bifurcation and there was increased collateral. The patient was given thrombolytic therapy. Subsequently, the catheter was removed and the patient underwent repeat angiography and there was no clear patency achieved in the involved vessel and attempts were made to pass the wire and this was met with the dissection at the level of the popliteal artery but no luminal gain. The peroneal artery was patent at the distal calf. This was treated conservatively and the patient was ultimately discharged home. The patient is seen today January 10, 2024 in follow-up on the selective care unit. She is currently resting comfortably in bed. Awake and alert in no acute distress. She still has a loose congested cough. She is maintaining O2 saturations in the 90s on 2 L/min per nasal cannula. Glucose 301. She remains on DuoNeb inhalations, IV Solu-Medrol. NicoDerm patch in place. Antibiotics in the form of azithromycin. Tessalon Perles for cough. Anticoagulated with Xarelto. Objective - Vital Signs Vital signs: Vital Signs Temp 98.2 F 01/10/24 15:52 Pulse 70 01/10/24 16:08 Resp 16 01/10/24 15:52 BP 109/68 01/10/24 15:52 Pulse Ox 98 01/10/24 15:52 FiO2 Intake & Output 01/09/24 01/10/24 01/10/24 18:59 06:59 18:59 Intake Total 360 Output Total 200 300 Balance -200 60 Weight 77.564 kg 70.3 kg Intake: Oral 360 Output: Urine 200 300 Other: Voiding Method External Catheter External Catheter - Exam General: A pleasant 74-year-old female, on 2 L nasal cannula, non toxic, no distress, appears at stated age. Derm: Multiple bruises on left and right arm Head: atraumatic, normocephalic, symmetric Eyes: EOMI, no lid lag, anicteric sclera, pupils equal round reactive to light ENT: Nose and ears atraumatic Neck: No cervical lymphadenopathy, supple Mouth: no lip lesion, mucus membranes moist Cardiovascular: Cardiac exam revealed the PMI to be normally situated and sized. There were no murmurs, rubs, clicks, or gallops. Lungs: wheezing, no rhonchi, no rales, no accessory muscle use Abdominal: soft, nontender to palpation, no guarding Ext: Right foot warm to touch with cap refill less than 2 seconds, no gross muscle atrophy, no contractures Neuro: Normal range of motion found throughout upper and lower extremities Psych: Alert, oriented, appropriate affect - Labs Labs: Abnormal Lab Results - Last 24 Hours (Table) 01/10/24 01/10/24 Range/Units 06:22 11:17 POC Glucose (mg/dL) 148 H 301 H (70-110) mg/dL Assessment and Plan Assessment: Acute on chronic shortness of breath, the patient is bronchospastic and wheezy and her COPD is exacerbating. The possibility of pulmonary embolism is felt to be less likely specially the patient has been taking Xarelto on an outpatient basis. I do however question her compliancy with ongoing medication intake. I reviewed the CT scan of the chest and I was not able to appreciate a significant clot of concern in the right upper lobe. Nevertheless, this has been reported by the radiologist and it may still be a possibility. The clinical presentation is most consistent with COPD exacerbation. She also has underlying cardiomyopathy with impaired LV function. Coronary artery disease with previous stenting of the LAD Severe PAD with occlusive disease on the right. The patient has a history of a acute right lower extremity ischemia The patient is status post angiography and findings are consistent with SFA occlusion and the patient underwent tPA thrombolysis with limited improvement. COPD, maintained on Trelegy Ellipta on outpatient basis History of smoking CHF with systolic heart failure a impaired ejection fraction of 25 to 30%. Please refer to the echocardiogram that was done on 10/26/2023. The patient has severe reduced left ventricular function with ejection fraction of less than 30%. No other significant valvular abnormalities noted chronic anemia Hyperlipidemia Plan: The patient was seen and evaluated Labs and medications reviewed Continue bronchodilators, steroids Educated regarding smoking cessation NicoDerm patch in place Anticoagulated with Xarelto Remains on azithromycin Remains on Tessalon Perles Titrate down the FiO2 as tolerated We will continue to follow I have personally seen and examined the patient, performed the documentation and the assessment and plan as written. Number of minutes spent on the visit: 10 Dictation was produced using [employer] dictation software. Please excuse any grammatical, word or spelling errors.
[2024-01-10 19:55] LABS: Glucose,Whole Blood 167 mg/dL (70-110)
[2024-01-10] MEDS: oxyBUTYnin chloride 5 MG TAB PO SCH (21:41)
[2024-01-11] MEDS: IPRATROPIUM-ALBUTEROL 3 ML NEB INHALATION PRN (01:17)
[2024-01-11 06:15] LABS: Glucose,Whole Blood 254 mg/dL (70-110)
[2024-01-11] MEDS: INSULIN ASPART (NovoLOG) 100 UNIT/ML VIAL SQ SCH (07:04)
[2024-01-11 07:21] LABS: Basophils % (A) 0 %; Eosinophils % (A) 0 %; HCT 30.3 % (34.0-46.0); HGB 9.3 gm/dL (11.4-16.0); Hypochromasia Marked; Lymphocytes # (A) 0.6 k/uL (1.0-4.8); Lymphocytes % (A) 9 %; MCH 28.8 pg (25.0-35.0); MCHC 30.7 g/dL (31.0-37.0); MCV 93.9 fL (80.0-100.0); Mean Platelet Volume 11.4; Monocytes # (A) 0.2 k/uL (0-1.0); Monocytes % (A) 2 %; Neutrophils # (A) 6.2 k/uL (1.3-7.7); Neutrophils % (A) 88 %; Platelet Count 148 k/uL (150-450); RBC 3.23 m/uL (3.80-5.40); RDW 15.6 % (11.5-15.5)
[2024-01-11 07:56] LABS: African American GFR (CKD) 73 (>60 ml/min/1.73 sqM); Anion Gap 9 mmol/L; Blood Urea Nitrogen 28 mg/dL (7-17); Calcium 8.3 mg/dL (8.4-10.2); Carbon Dioxide 19 mmol/L (22-30); Chloride 114 mmol/L (98-107); Glucose 175 mg/dL (74-99); Non-African American GFR(CKD) 63 (>60 ml/min/1.73 sqM); Potassium 4.3 mmol/L (3.5-5.1); Sodium 142 mmol/L (137-145)
[2024-01-11] MEDS: DAPAGLIFLOZIN PROPANEDIOL 10 MG TABLET PO SCH (08:48)
--- NOTE | 2024-01-11 11:19 | P.PN ---
Subjective Progress Note Date: 01/10/24 History of present illness; patient is a 74-year-old lady with past medical history significant for coronary artery disease, tobacco addiction, COPD who presented to the ER for shortness of breath. Patient initially presented to the [facility]. Patient had complaint of shortness of breath for the last few days. There was no complaint of fever or chills. There was no complaint of chest pain. There was no complaint of cough. There was no complaint of orthopnea or PND. Patient was worked up at [facility] with a CT PE protocol and was found to have a PE and was started on pharmacy dose heparin. Patient was transferred to [facility] for further evaluation and treatm ent Patient admitted to medicine service 01/10/2024 Patient is sitting in the bed. Awake alert and oriented x 3. Anxious and upset. Requiring oxygen 2 L via nasal cannula as per home dose. Patient is also having cough but unable to bring out any sputum. Patient is on antibiotic been off azithromycin. Continued on IV Solu-Medrol DuoNebs and on anticoagulation with Xarelto. Laboratory data reviewed. PHYSICAL EXAMINATION: GENERAL: The patient is alert and oriented x3, not in any acute distress. Well developed, well nourished. HEENT: Pupils are round and equally reacting to light. EOMI. No scleral icterus. No conjunctival pallor. Normocephalic, atraumatic. No pharyngeal erythema. No t hyromegaly. CARDIOVASCULAR: S1 and S2 present. No murmurs, rubs, or gallops. PULMONARY: Coarse breath sounds bilaterally, expiratory wheeze audible ABDOMEN: Soft, nontender, nondistended, normoactive bowel sounds. No palpable organomegaly. MUSCULOSKELETAL: No joint swelling or deformity. EXTREMITIES: No cyanosis, clubbing, or pedal edema. NEUROLOGICAL: Gross neurological examination did not reveal any focal deficits. SKIN: No rashes. Assessment and plan Acute respiratory distress Acute COPD exacerbation Acute PE History of coronary artery disease status post mid LAD stenting Chronic systolic CHF History of right lower extremity ischemia secondary to occlusion at the level of superficial femoral artery. Tobacco addiction Monitor vital signs Monitor CBC Monitor CMP Continue telemetry monitoring Ordered breathing treatments Ordered IV Solu-Medrol Ordered pharmacy dose heparin. Changed to oral anticoagulation. Ordered 2D echo Resume home meds Pulmonary is on board. Labs and medication were reviewed... Monitor labs and vitals. DVT and GI prophylaxis. Further recommendations as per clinical course of the patient Dictation was produced using [employer] dictation software. please excuse any grammatical, word or spelling errors. Objective - Vital Signs Vital signs: Vital Signs Temp 98.2 F 01/10/24 12:20 Pulse 72 01/10/24 12:55 Resp 14 01/10/24 12:20 BP 128/86 01/10/24 12:20 Pulse Ox 91 L 01/10/24 12:20 FiO2 Intake & Output 01/09/24 01/10/24 01/10/24 18:59 06:59 18:59 Intake Total 180 Output Total 200 Balance -200 180 Weight 77.564 kg 70.3 kg Intake: Oral 180 Output: Urine 200 Other: Voiding Method External Catheter External Catheter - Labs CBC & Chem 7: 01/12/24 06:55 01/12/24 06:55 Labs: Abnormal Lab Results - Last 24 Hours (Table) 01/10/24 01/10/24 Range/Units 06:22 11:17 POC Glucose (mg/dL) 148 H 301 H (70-110) mg/dL
[2024-01-11 11:47] LABS: Glucose,Whole Blood 131 mg/dL (70-110)
--- NOTE | 2024-01-11 15:51 | P.PN ---
Subjective Progress Note Date: 01/11/24 Principal diagnosis: Acute on chronic hypoxic respiratory failure, multifactorial, secondary to severe COPD with acute exacerbation of COPD, possible pulmonary embolism, chronic systolic congestive heart failure with ejection fraction of 25 to 30% chronic anemia This is a 75-year-old female patient was transferred to us from [facility] for shortness of breath. The patient has been having increased dyspnea for the past few days. No cough. No sputum production. No orthopnea. The patient was worked up at the hospital and she was given a CT angiogram of the chest that was reported to be abnormal and for that reason, the patient was started on IV heparin and the patient was transferred to us for further care. She is currently on room air oxygen with a pulse ox of 96%. I reviewed the report of the CT angiogram that was forwarded from [facility]. This was a CT angiogram that was done on 01/09/2024. It was reported that the patient has a subsegmental filling defect in the right lower lobe pulmonary artery branch image 69 series 2. There was also mucous plugging within the tracheobronchial tree. Atelectatic changes in lung bases and some groundglass density in her lungs. Based on all this, the patient was given diagnosis of pulmonary embolism and the patient was transferred to us. Noted the patient has been receiving Xarelto as an anticoagulant on outpatient basis. The RV to LV ratio was 0.9. There was also lymphadenopathy in the paratracheal region and and supraclavicular region. No suspicious abnormality in the liver. Degen erative changes in her spine. Her D-dimer was at 1.7. Magnesium was at 1.9. proBNP level was 639. Troponin was negative. Coagulation profile was normal. Lactic acid level was at 2.2. Sodium is at 146, potassium is at 3.2, bicarbonate 18, LFTs are normal, calcium is 11.8, bilirubin is at 0.3, white cell count 7.2 with a hemoglobin 10.4 and a platelet count of 131. Noted the patient has been still smoking around half pack of cigarettes on a daily basis. She is currently living with her daughter out of a motel in the [facility]. She is currently on room air oxygen. The patient is known to have coronary disease and the patient has undergone a cardiac catheterization and stenting of the LAD on 10/28/2023. The procedure was uncomplicated. The patient was discharged home. Admitted for the above- mentioned ischemic changes in the right foot. The patient was seen by vascular surgery and the patient was taken to the lab and she underwent an ultrasound- guided left common femoral artery access with right femoral angiography and the patient was found to have no filling of the SFA at the bifurcation and there was increased collateral. The patient was given thrombolytic therapy. S ubsequently, the catheter was removed and the patient underwent repeat angiography and there was no clear patency achieved in the involved vessel and attempts were made to pass the wire and this was met with the dissection at the level of the popliteal artery but no luminal gain. The peroneal artery was patent at the distal calf. This was treated conservatively and the patient was ultimately discharged home. Patient was evaluated today on 01/11/24, continues to complain of shortness of breath, and is to complain of generalized aches and pains, patient is not happy with her pain management which is being addressed by her admitting physician. She is on Eunice she is also on oxycodone. Patient continues to cough and wheeze, she does have a nicotine patch in place, she seems to be a bit anxious, today I added Symbicort, reviewed all her bronchodilators, remains on methylprednisolone at 60 mg IV push every 6 hours she is on DuoNeb updrafts, hence I believe the treatment for her COPD is very much appropriate. Objective - Vital Signs Vital signs: Vital Signs Temp 99 F 01/11/24 15:31 Pulse 66 01/11/24 15:31 Resp 14 01/11/24 15:31 BP 123/78 01/11/24 15:31 Pulse Ox 99 01/11/24 15:31 FiO2 Intake & Output 01/10/24 01/11/24 01/11/24 18:59 06:59 18:59 Intake Total 540 240 120 Output Total 300 475 Balance 240 -235 120 Weight 72 kg Intake: Oral 540 240 120 Output: Urine 300 475 Other: Voiding Method External Catheter External Catheter External Catheter - Exam General: Revealed a 74-year-old female anxious in no distress Derm: Multiple bruises on left and right arm Head: atraumatic, normocephalic, symmetric Eyes: EOMI, no lid lag, anicteric sclera, pupils equal round reactive to light ENT: Nose and ears atraumatic Neck: No cervical lymphadenopathy, supple Mouth: no lip lesion, mucus membranes moist Cardiovascular: Normal S1-S2, no S3 gallop, no murmur. Lungs: Scattered rhonchi and wheezes noted bilaterally Abdominal: soft, nontender to palpation, no guarding Ext: Right foot warm to touch with cap refill less than 2 seconds, no gross muscle atrophy, no contractures Neuro: Alert and oriented x 3, no focal deficit Psychiatric: Normal mood affect and no mental status examination. - Labs CBC & Chem 7: 01/11/24 06:49 01/11/24 06:49 Labs: Abnormal Lab Results - Last 24 Hours (Table) 01/10/24 01/10/24 01/11/24 Range/Units 16:23 19:54 06:13 RBC (3.80-5.40) m/uL Hgb (11.4-16.0) gm/dL Hct (34.0-46.0) % MCHC (31.0-37.0) g/dL RDW (11.5-15.5) % Plt Count (150-450) k/uL Lymphocytes # (1.0-4.8) k/uL Chloride (98-107) mmol/L Carbon Dioxide (22-30) mmol/L BUN (7-17) mg/dL Glucose (74-99) mg/dL POC Glucose (mg/dL) 177 H 167 H 254 H (70-110) mg/dL Calcium (8.4-10.2) mg/dL 01/11/24 01/11/24 01/11/24 Range/Units 06:49 06:49 11:45 RBC 3.23 L (3.80-5.40) m/uL Hgb 9.3 L (11.4-16.0) gm/dL Hct 30.3 L (34.0-46.0) % MCHC 30.7 L (31.0-37.0) g/dL RDW 15.6 H (11.5-15.5) % Plt Count 148 L (150-450) k/uL Lymphocytes # 0.6 L (1.0-4.8) k/uL Chloride 114 H (98-107) mmol/L Carbon Dioxide 19 L (22-30) mmol/L BUN 28 H (7-17) mg/dL Glucose 175 H (74-99) mg/dL POC Glucose (mg/dL) 131 H (70-110) mg/dL Calcium 8.3 L (8.4-10.2) mg/dL Microbiology - Last 24 Hours (Table) 01/09/24 17:02 Blood Culture - Preliminary Blood Assessment and Plan Assessment: Impression Acute on chronic shortness of breath, Acute exacerbation of COPD Possible pulmonary embolism and questionable compliance with Xarelto Tobacco dependence syndrome patient has been smoking until recently History of underlying cardiomyopathy with impaired LV function, ejection fraction of 25 to 30% with significant valvular heart disease History of coronary artery disease and previous stenting of LAD Severe peripheral vessel occlusive disease Chronic anemia Dyslipidemia Recommendation: Reviewed and discussed with the patient her present course of bronchodilators including DuoNeb, Symbicort, Solu-Medrol, Reviewed her pain medication she is now on oxycodone which she normally takes at home she is also on Eunice that is being addressed by her primary care physician/admitting physician Continue her usual cardiac meds and blood pressure medications Continue nicotine patch Continue Tessalon Continue aristides Counseled regarding smoking cessation Will continue to follow Time with Patient: Less than 30
[2024-01-11 16:42] LABS: Glucose,Whole Blood 135 mg/dL (70-110)
[2024-01-11 18:02] LABS: African American GFR (CKD) 74 (>60 ml/min/1.73 sqM); Anion Gap 7 mmol/L; Blood Urea Nitrogen 30 mg/dL (7-17); Calcium 8.4 mg/dL (8.4-10.2); Carbon Dioxide 19 mmol/L (22-30); Chloride 116 mmol/L (98-107); Glucose 135 mg/dL (74-99); Magnesium 2.2 mg/dL (1.6-2.3); Non-African American GFR(CKD) 64 (>60 ml/min/1.73 sqM); Potassium 4.8 mmol/L (3.5-5.1); Sodium 142 mmol/L (137-145)
[2024-01-11 20:09] LABS: Glucose,Whole Blood 136 mg/dL (70-110)
[2024-01-11] MEDS: SYMBICORT 160-4.5 MCG INHALER INHALATION SCH (22:06)
[2024-01-12 06:10] LABS: Glucose,Whole Blood 146 mg/dL (70-110)
[2024-01-12 07:57] LABS: African American GFR (CKD) 70 (>60 ml/min/1.73 sqM); Anion Gap 8 mmol/L; Blood Urea Nitrogen 32 mg/dL (7-17); Calcium 8.3 mg/dL (8.4-10.2); Carbon Dioxide 19 mmol/L (22-30); Chloride 113 mmol/L (98-107); Glucose 137 mg/dL (74-99); Non-African American GFR(CKD) 61 (>60 ml/min/1.73 sqM); Potassium 4.5 mmol/L (3.5-5.1); Sodium 140 mmol/L (137-145)
[2024-01-12 08:06] LABS: Basophils % (A) 0 %; Eosinophils % (A) 0 %; HCT 32.6 % (34.0-46.0); HGB 9.7 gm/dL (11.4-16.0); Hypochromasia Marked; Lymphocytes # (A) 0.7 k/uL (1.0-4.8); Lymphocytes % (A) 10 %; MCH 27.6 pg (25.0-35.0); MCHC 29.7 g/dL (31.0-37.0); MCV 92.7 fL (80.0-100.0); Mean Platelet Volume 11.5; Monocytes # (A) 0.1 k/uL (0-1.0); Monocytes % (A) 1 %; Neutrophils # (A) 6.4 k/uL (1.3-7.7); Neutrophils % (A) 88 %; Platelet Count 145 k/uL (150-450); RBC 3.52 m/uL (3.80-5.40); RDW 15.5 % (11.5-15.5); WBC 7.3 k/uL (3.8-10.6)
[2024-01-12] MEDS: CYANOCOBALAMIN 500 MCG TAB PO SCH (08:41)
[2024-01-12 11:04] LABS: Large Platelets Present
--- NOTE | 2024-01-12 11:28 | P.PN ---
Subjective Progress Note Date: 01/11/24 History of present illness; patient is a 74-year-old lady with past medical history significant for coronary artery disease, tobacco addiction, COPD who presented to the ER for shortness of breath. Patient initially presented to the [facility]. Patient had complaint of shortness of breath for the last few days. There was no complaint of fever or chills. There was no complaint of chest pain. There was no complaint of cough. There was no complaint of orthopnea or PND. Patient was worked up at [facility] with a CT PE protocol and was found to have a PE and was started on pharmacy dose heparin. Patient was transferred to [facility] for further evaluation and treatm ent Patient admitted to medicine service 01/10/2024 Patient is sitting in the bed. Awake alert and oriented x 3. Anxious and upset. Requiring oxygen 2 L via nasal cannula as per home dose. Patient is also having cough but unable to bring out any sputum. Patient is on antibiotic been off azithromycin. Continued on IV Solu-Medrol DuoNebs and on anticoagulation with Xarelto. Laboratory data reviewed. 01/11/2024 Patient is sitting in the bed. Awake alert and oriented. But anxious and upset. Continued on IV steroids, DuoNebs and Symbicort was added. On oxygen at 2 L via nasal cannula. Patient otherwise continues to wheeze and also having diffuse rhonchi. Afebrile. On antibiotics of azithromycin. Laboratory data showed sodium 142 potassium 4.8 chloride 116 bicarb is 19 BUN 30 and creatinine 0.9 and blood sugar 135. WBC 7.0 hemoglobin 9.3 and platelets 448. Blood cultures negative so far. Pulmonary is on board. PHYSICAL EXAMINATION: GENERAL: The patient is alert and oriented x3, not in any acute distress. Well developed, well nourished. HEENT: Pupils are round and equally reacting to light. EOMI. No scleral icterus. No conjunctival pallor. Normocephalic, atraumatic. No pharyngeal erythema. No thyromegaly. CARDIOVASCULAR: S1 and S2 present. No murmurs, rubs, or gallops. PULMONARY: Coarse breath sounds bilaterally, expiratory wheeze audible ABDOMEN: Soft, nontender, nondistended, normoactive bowel sounds. No palpable organomegaly. MUSCULOSKELETAL: No joint swelling or deformity. EXTREMITIES: No cyanosis, clubbing, or pedal edema. NEUROLOGICAL: Gross neurological examination did not reveal any focal deficits. SKIN: No rashes. Assessment and plan Acute respiratory distress Acute COPD exacerbation Acute PE History of coronary artery disease status post mid LAD stenting Chronic systolic CHF History of right lower extremity ischemia secondary to occlusion at the level of superficial femoral artery. Tobacco addiction Monitor vital signs Monitor CBC Monitor CMP Continue telemetry monitoring Ordered breathing treatments Ordered IV Solu-Medrol Ordered pharmacy dose heparin. Changed to oral anticoagulation. Ordered 2D echo Resume home meds Pulmonary is on board. Labs and medication were reviewed... Monitor labs and vitals. DVT and GI prophylaxis. Further recommendations as per clinical course of the patient Dictation was produced using [employer] dictation software. please excuse any grammatical, word or spelling errors. Objective - Vital Signs Vital signs: Vital Signs Temp 99 F 01/11/24 15:31 Pulse 60 01/11/24 17:06 Resp 14 01/11/24 15:31 BP 123/78 01/11/24 15:31 Pulse Ox 99 01/11/24 15:31 FiO2 Intake & Output 01/11/24 01/11/24 01/12/24 06:59 18:59 06:59 Intake Total 240 240 Output Total 475 400 Balance -235 -160 Weight 72 kg Intake: Oral 240 240 Output: Urine 475 400 Other: Voiding Method External Catheter External Catheter - Labs CBC & Chem 7: 01/12/24 06:55 01/12/24 06:55 Labs: Abnormal Lab Results - Last 24 Hours (Table) 01/11/24 01/11/24 01/11/24 Range/Units 06:13 06:49 06:49 RBC 3.23 L (3.80-5.40) m/uL Hgb 9.3 L (11.4-16.0) gm/dL Hct 30.3 L (34.0-46.0) % MCHC 30.7 L (31.0-37.0) g/dL RDW 15.6 H (11.5-15.5) % Plt Count 148 L (150-450) k/uL Lymphocytes # 0.6 L (1.0-4.8) k/uL Chloride 114 H (98-107) mmol/L Carbon Dioxide 19 L (22-30) mmol/L BUN 28 H (7-17) mg/dL Glucose 175 H (74-99) mg/dL POC Glucose (mg/dL) 254 H (70-110) mg/dL Calcium 8.3 L (8.4-10.2) mg/dL 01/11/24 01/11/24 01/11/24 Range/Units 11:45 16:31 17:26 RBC (3.80-5.40) m/uL Hgb (11.4-16.0) gm/dL Hct (34.0-46.0) % MCHC (31.0-37.0) g/dL RDW (11.5-15.5) % Plt Count (150-450) k/uL Lymphocytes # (1.0-4.8) k/uL Chloride 116 H (98-107) mmol/L Carbon Dioxide 19 L (22-30) mmol/L BUN 30 H (7-17) mg/dL Glucose 135 H (74-99) mg/dL POC Glucose (mg/dL) 131 H 135 H (70-110) mg/dL Calcium (8.4-10.2) mg/dL 01/11/24 Range/Units 20:07 RBC (3.80-5.40) m/uL Hgb (11.4-16.0) gm/dL Hct (34.0-46.0) % MCHC (31.0-37.0) g/dL RDW (11.5-15.5) % Plt Count (150-450) k/uL Lymphocytes # (1.0-4.8) k/uL Chloride (98-107) mmol/L Carbon Dioxide (22-30) mmol/L BUN (7-17) mg/dL Glucose (74-99) mg/dL POC Glucose (mg/dL) 136 H (70-110) mg/dL Calcium (8.4-10.2) mg/dL Microbiology - Last 24 Hours (Table) 01/09/24 17:02 Blood Culture - Preliminary Blood
[2024-01-12 11:35] LABS: Glucose,Whole Blood 257 mg/dL (70-110)
--- NOTE | 2024-01-12 13:16 | P.CRDCN ---
History of Present Illness Consult date: 01/12/24 Reason for Consult (text): Abnormal EKG, shortness of breath with history of cardiac stent History of present illness: This is a 74-year-old female patient of Dr. Funes with past medical history of coronary artery disease status post PCI, ischemic cardiomyopathy with EF 2530 %, NYHA class III, tobacco use and dependence, history of right lower extremity ischemia with SFA occlusion status post tPA thrombolysis. We have been asked to evaluate the patient for abnormal EKG, shortness of breath with history of cardiac stent. Patient presented to the hospital on 01/08 with complaints of shortness of breath. Patient states that she could not catch her breath at all. She has been treated by pulmonary medicine for acute exacerbation of COPD. Patient denies having any chest pain. Patient has history of hospitalization in October of this year for generalized weakness and falls and was found to have elevated troponin, EF was 2530 % at that time. 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 She underwent PCI of the LAD with Dr. Lewis with MELCHOR. She apparently was offered a LifeVest at that time but she denied. -EKG: Current EKG was compared to 1 in October. EKG today showing sinus rhythm with LVH, PVCs -Laboratory studies: WBC 7.3, hemoglobin 9.7, platelet count 145. Sodium 140, potassium 4.5, BUN 32 creatinine 0.94. -Home cardiac medications: Aspirin 81 mg daily, atorvastatin 40 mg at bedtime, Farxiga 10 mg daily, losartan 12.5 mg daily, Toprol XL 25 mg daily, potassium chloride 10 mill equivalents daily, Xarelto 2.5 mg twice daily, Brilinta 90 mg twice daily. -Echocardiogram performed 11/05/2023 revealed EF of 40%, inferior wall akinetic, mild mitral regurgitation. Echocardiogram performed on 10/26/2023 revealed EF of 25 to 30% Review Of Systems: At the time of my exam: CONSTITUTIONAL: Denies fever or chills. HEENT: Denies blurred vision, vision changes, or eye pain. Denies hemoptysis CARDIOVASCULAR: Denies chest pain. Denies orthopnea. Denies PND. Denies palpitations RESPIRATORY: Reports shortness of breath. GASTROINTESTINAL: Denies abdominal pain. Denies nausea or vomiting. HEMATOLOGIC: Denies bleeding disorders. GENITOURINARY: Denies any blood in urine. SKIN: Denies puritis. Denies rash. Physical examination: Gen: This is a 74-year-old female in no acute distress VS: reviewed HEENT: Head is atraumatic, normocephalic. Pupils equal, round. Sclerae is anicteric. NECK: Supple. No JVD. LUNGS: Bilateral wheezing. No intercostal retractions. HEART: Regular rate and rhythm. No murmur. ABDOMEN: Soft No tenderness. EXTREMITIES: No pedal edema. No calf tenderness. NEUROLOGICAL: Patient is awake, alert and oriented x3. Assessment: COPD exacerbation PVCs History of coronary artery disease with PCI on 10/28/2023 Ischemic cardiomyopathy with most recent EF of 40% Tobacco use and dependence History of right lower extremity ischemia with SFA occlusion status post tPA thrombolysis Plan: Continue patient's home cardiac medications including Brilinta No need to repeat echocardiogram as this was done in October Further recommendations to follow based upon clinical course Thank you kindly for this consultation. Nurse practitioner note has been reviewed, I agree with documented findings and plan of care. Patient was seen and examined. Past Medical History Past Medical History: Asthma, Coronary Artery Disease (CAD), Heart Failure, COPD, Myocardial Infarction ([place]), Vascular Disorder Last Myocardial Infarction Date:: 10/28/2023 History of Any Multi-Drug Resistant Organisms: None Reported Past Surgical History: Heart Catheterization With Stent Date of Last Stent Placement:: 10/28/23 Past Psychological History: No Psychological Hx Reported Smoking Status: Current every day smoker Past Alcohol Use History: None Reported Past Drug Use History: None Reported Medications and Allergies Home Medications Medication Instructions Recorded Confirmed Type Albuterol Sulfate [Albuterol 2 puff PO RT-Q4H PRN 10/26/23 01/10/24 History Sulfate Hfa] Ergocalciferol (Vitamin D2) 1,250 mcg PO Q7D 10/26/23 01/10/24 History [Drisdol (50,000 Iu)] Fluticasone/Umeclidin/Vilanter 1 puff INHALATION RT-DAILY 10/26/23 01/10/24 History [Trelegy Ellipta 100-62.5-25] Metoprolol Succinate (ER) [Toprol 25 mg PO DAILY 10/26/23 01/10/24 History XL] Montelukast [Singulair] 10 mg PO HS 10/26/23 01/10/24 History Potassium Chloride ER [K-Dur 10] 10 meq PO DAILY 10/26/23 01/10/24 History Aspirin 81 mg PO DAILY tab 10/29/23 01/10/24 Rx Atorvastatin [Lipitor] 40 mg PO HS tab 10/29/23 01/10/24 Rx Ticagrelor [Brilinta] 90 mg PO BID #0 tab 10/29/23 01/10/24 Rx Ondansetron [Zofran] 8 mg PO Q12HR PRN 11/03/23 01/10/24 History Pregabalin [Lyrica] 150 mg PO TID #7 cap 11/09/23 01/10/24 Rx Rivaroxaban [Xarelto] 2.5 mg PO BID tab 11/09/23 01/10/24 Rx oxyCODONE-APAP 10-325MG [Percocet 1 tab PO Q6H PRN #10 tab 11/09/23 01/10/24 Rx 10-325 mg] Acetaminophen [Tylenol Arthritis] 1,300 mg PO Q12H PRN 01/10/24 01/10/24 History Dapagliflozin Propanediol [Farxiga] 10 mg PO DAILY 01/10/24 01/10/24 History Ipratropium-Albuterol Nebulize 3 ml INHALATION RT-QID PRN 01/10/24 01/10/24 Hist ory [Duoneb 0.5 mg-3 mg/3 ml Soln] Losartan [Cozaar] 12.5 mg PO DAILY 01/10/24 01/10/24 History oxyBUTYnin chloride [Ditropan] 5 mg PO BID 01/10/24 01/10/24 History Allergies Allergy/AdvReac Type Severity Reaction Status Date / Time No Known Allergies Allergy Verified 01/10/24 07:48 Physical Exam Vitals: Vital Signs Temp Pulse Pulse Resp BP Pulse Ox 01/12/24 09:06 64 01/12/24 08:54 64 01/12/24 08:34 98 F 46 L 14 89/49 98 01/12/24 04:43 97.9 F 72 24 104/52 98 01/12/24 00:05 98.9 F 70 22 99/51 94 L 01/11/24 22:18 64 01/11/24 22:07 62 01/11/24 19:42 97.8 F 86 22 149/120 96 01/11/24 17:06 60 01/11/24 16:57 59 L 01/11/24 15:31 99 F 66 14 123/78 99 01/11/24 12:11 98.9 F 80 14 138/74 93 L 01/11/24 12:04 60 01/11/24 11:54 56 L Intake and Output 01/11/24 01/12/24 01/12/24 22:59 06:59 14:59 Intake Total 120 118 Output Total 400 650 Balance -280 -650 118 Intake: Oral 120 118 Output: Urine 400 650 Other: Voiding Method External Catheter External Catheter External Catheter # Voids 1 Weight 72.7 kg Results 01/12/24 06:55 01/12/24 06:55 CBC 01/12/24 Range/Units 06:55 WBC 7.3 (3.8-10.6) k/uL RBC 3.52 L (3.80-5.40) m/uL Hgb 9.7 L (11.4-16.0) gm/dL Hct 32.6 L (34.0-46.0) % Plt Count 145 L (150-450) k/uL Comprehensive Metabolic Panel 01/11/24 01/12/24 Range/Units 17:26 06:55 Sodium 142 140 (137-145) mmol/L Potassium 4.8 4.5 (3.5-5.1) mmol/L Chloride 116 H 113 H (98-107) mmol/L Carbon Dioxide 19 L 19 L (22-30) mmol/L BUN 30 H 32 H (7-17) mg/dL Creatinine 0.90 0.94 (0.52-1.04) mg/dL Glucose 135 H 137 H (74-99) mg/dL Calcium 8.4 8.3 L (8.4-10.2) mg/dL Current Medications Generic Name Dose Route Start Last Admin Trade Name Freq PRN Reason Stop Dose Admin Acetaminophen 650 mg 01/09/24 13:54 Acetaminophen Tab 325 Mg Tab PO Q4HR PRN Mild Pain or Fever > 100.5 Hydrocodone Bitart/Acetaminophen 1 each 01/09/24 13:54 01/12/24 10:30 Hydrocodone/Apap 5-325mg 1 Each Tab PO 1 each Q6HR PRN Administration Moderate to Severe Pain (4-10) Albuterol/Ipratropium 3 ml 01/09/24 16:00 01/12/24 08:53 Ipratropium-Albuterol 3 Ml Neb INHALATION 3 ml RT-QID HANNAH Administration Albuterol/Ipratropium 3 ml 01/09/24 13:08 01/11/24 01:17 Ipratropium-Albuterol 3 Ml Neb INHALATION 3 ml RT-Q2H PRN Administration Shortness Of Breath Or Wheezing Aspirin 81 mg 01/10/24 09:00 01/12/24 08:41 Aspirin 81 Mg PO 81 mg DAILY HANNAH Administration Atorvastatin Calcium 40 mg 01/09/24 21:00 01/11/24 21:07 Atorvastatin 40 Mg Tab PO 40 mg HS HANNAH Administration Benzonatate 100 mg 01/09/24 13:54 Benzonatate 100 Mg Cap PO TID PRN Cough Budesonide/Formoterol Fumarate 2 puff 01/11/24 20:00 01/12/24 08:53 Symbicort 160-4.5 Mcg Inhaler INHALATION 2 puff RT-BID HANNAH Administration Cyanocobalamin 1,000 mcg 01/12/24 09:00 01/12/24 08:41 Cyanocobalamin 500 Mcg Tab PO 1,000 mcg DAILY HANNAH Administration Dapagliflozin 10 mg 01/11/24 09:00 01/12/24 08:41 Dapagliflozin Propanediol 10 Mg Tablet PO 10 mg DAILY HANNAH Administration Insulin Aspart 0 unit 01/11/24 07:30 01/12/24 06:13 Insulin Aspart (Novolog) 100 Unit/Ml Vial SQ Not Given ACHS [facility] Protocol Melatonin 3 mg 01/09/24 13:54 Melatonin 3 Mg Tablet PO HS PRN Insomnia Methylprednisolone Sodium Succinate 60 mg 01/09/24 18:00 01/12/24 06:17 Methylprednisolone Sod Succi 125 Mg/2 Ml Vial IV 60 mg Q6HR HANNAH Administration Metoprolol Succinate 25 mg 01/09/24 15:15 01/12/24 08:42 Metoprolol Succinate (Er) 25 Mg Tab.Er.24h PO 25 mg DAILY HANNAH Administration Naloxone HCl 0.2 mg 01/09/24 13:08 Naloxone 0.4 Mg/Ml 1 Ml Vial IVP Q2M PRN Opioid Reversal Nicotine 1 patch 01/09/24 14:30 01/12/24 10:31 Nicotine 7mg/24hr Patch TRANSDERM 1 patch DAILY HANNAH Administration Oxybutynin Chloride 5 mg 01/10/24 21:00 01/12/24 08:41 Oxybutynin Chloride 5 Mg Tab PO 5 mg BID HANNAH Administration Oxycodone/Acetaminophen 1 each 01/09/24 15:11 01/12/24 06:17 Oxycodone-Apap 10-325mg 1 Each Tab PO 1 each Q6H PRN Administration Severe Breakthrough Pain(7-10) Pregabalin 150 mg 01/09/24 16:00 01/12/24 08:41 Pregabalin 75 Mg Cap PO 150 mg TID HANNAH Administration Rivaroxaban 20 mg 01/09/24 17:30 01/11/24 17:03 Rivaroxaban 20 Mg Tab PO 20 mg W/SUPPER HANNAH Administration Protocol Intake and Output 01/11/24 01/12/24 01/12/24 22:59 06:59 14:59 Intake Total 120 118 Output Total 400 650 Balance -280 -650 118 Intake: Oral 120 118 Output: Urine 400 650 Other: Voiding Method External Catheter External Catheter External Catheter # Voids 1 Weight 72.7 kg 01/12/24 06:55 01/12/24 06:55
--- NOTE | 2024-01-12 13:45 | P.PN ---
Subjective Progress Note Date: 01/12/24 This is a 75-year-old female patient was transferred to us from [facility] for shortness of breath. The patient has been having increased dyspnea for the past few days. No cough. No sputum production. No orthopnea. The patient was worked up at the hospital and she was given a CT angiogram of the chest that was reported to be abnormal and for that reason, the patient was started on IV heparin and the patient was transferred to us for further care. She is currently on room air oxygen with a pulse ox of 96%. I reviewed the report of the CT angiogram that was forwarded from [facility]. This was a CT angiogram that was done on 01/09/2024. It was reported that the patient has a subsegmental filling defect in the right lower lobe pulmonary artery branch image 69 series 2. There was also mucous plugging within the tracheobronchial tree. Atelectatic changes in lung bases and some groundglass density in her lungs. Based on all this, the patient was given diagnosis of pul monary embolism and the patient was transferred to us. Noted the patient has been receiving Xarelto as an anticoagulant on outpatient basis. The RV to LV ratio was 0.9. There was also lymphadenopathy in the paratracheal region and and supraclavicular region. No suspicious abnormality in the liver. Degenerative changes in her spine. Her D-dimer was at 1.7. Magnesium was at 1.9. proBNP level was 639. Troponin was negative. Coagulation profile was normal. Lactic acid level was at 2.2. Sodium is at 146, potassium is at 3.2, bicarbonate 18, LFTs are normal, calcium is 11.8, bilirubin is at 0.3, white cell count 7.2 with a hemoglobin 10.4 and a platelet count of 131. Noted the patient has been still smoking around half pack of cigarettes on a daily basis. She is currently living with her daughter out of a motel in the [facility]. She is currently on room air oxygen. The patient is known to have coronary disease and the patient has undergone a cardiac catheterization and stenting of the LAD on 10/28/2023. The procedure was uncomplicated. The patient was discharged home. Admitted for the above- mentioned ischemic changes in the right foot. The patient was seen by vascular surgery and the patient was taken to the lab and she underwent an ultrasound- guided left common femoral artery access with right femoral angiography and the patient was found to have no filling of the SFA at the bifurcation and there was increased collateral. The patient was given thrombolytic therapy. Subsequently, the catheter was removed and the patient underwent repeat angiography and there was no clear patency achieved in the involved vessel and attempts were made to pass the wire and this was met with the dissection at the level of the popliteal artery but no luminal gain. The peroneal artery was patent at the distal calf. This was treated conservatively and the patient was ultimately discharged home. The patient is seen today January 10, 2024 in follow-up on the selective care unit. She is currently resting comfortably in bed. Awake and alert in no acute distress. She still has a loose congested cough. She is maintaining O2 saturations in the 90s on 2 L/min per nasal cannula. Glucose 301. She remains on DuoNeb inhalations, IV Solu-Medrol. NicoDerm patch in place. Antibiotics in the form of azithromycin. Tessalon Perles for cough. Anticoagulated with Xarelto. The patient is seen today January 12, 2024 in follow-up on the selective care unit. She is awake and alert in no acute distress. Breathing a bit easier today compared to yesterday. She is maintaining O2 saturations in the 90s on 2 L/min per nasal cannula. She remains on DuoNeb inhalations, Symbicort, Solu- Medrol. NicoDerm patch in place. Tessalon Perles for cough. Anticoagulated with Xarelto. White count 7.3. Hemoglobin 9.7. Platelets 145. Sodium 140. Potassium 4.5. Bicarb 19. BUN 32. Creatinine 0.94. Glucose 137. Objective - Vital Signs Vital signs: Vital Signs Temp 98.6 F 01/12/24 12:00 Pulse 72 01/12/24 12:47 Resp 14 01/12/24 12:00 BP 129/76 01/12/24 12:00 Pulse Ox 98 01/12/24 12:00 FiO2 Intake & Output 01/11/24 01/12/24 01/12/24 18:59 06:59 18:59 Intake Total 240 118 Output Total 400 650 Balance -160 -650 118 Weight 72.7 kg Intake: Oral 240 118 Output: Urine 400 650 Other: Voiding Method External Catheter External Catheter External Catheter # Voids 1 - Exam General: An alert 74-year-old female, on 2 L nasal cannula, no distress, appears at stated age. Derm: Multiple bruises on left and right arm Head: atraumatic, normocephalic, symmetric Eyes: EOMI, no lid lag, anicteric sclera, pupils equal round reactive to light ENT: Nose and ears atraumatic Neck: No cervical lymphadenopathy, supple Mouth: no lip lesion, mucus membranes moist Cardiovascular: Cardiac exam revealed the PMI to be normally situated and sized. There were no murmurs, rubs, clicks, or gallops. Lungs: End expiratory wheezing, no rhonchi, no rales, no accessory muscle use Abdominal: soft, nontender to palpation, no guarding Ext: Right foot warm to touch with cap refill less than 2 seconds, no gross m uscle atrophy, no contractures Neuro: Normal range of motion found throughout upper and lower extremities Psych: Alert, oriented, appropriate affect - Labs CBC & Chem 7: 01/12/24 06:55 01/12/24 06:55 Labs: Abnormal Lab Results - Last 24 Hours (Table) 01/11/24 01/11/24 01/11/24 Range/Units 16:31 17:26 20:07 RBC (3.80-5.40) m/uL Hgb (11.4-16.0) gm/dL Hct (34.0-46.0) % MCHC (31.0-37.0) g/dL Plt Count (150-450) k/uL Lymphocytes # (1.0-4.8) k/uL Chloride 116 H (98-107) mmol/L Carbon Dioxide 19 L (22-30) mmol/L BUN 30 H (7-17) mg/dL Glucose 135 H (74-99) mg/dL POC Glucose (mg/dL) 135 H 136 H (70-110) mg/dL Calcium (8.4-10.2) mg/dL 01/12/24 01/12/24 01/12/24 Range/Units 06:07 06:55 06:55 RBC 3.52 L (3.80-5.40) m/uL Hgb 9.7 L (11.4-16.0) gm/dL Hct 32.6 L (34.0-46.0) % MCHC 29.7 L (31.0-37.0) g/dL Plt Count 145 L (150-450) k/uL Lymphocytes # 0.7 L (1.0-4.8) k/uL Chloride 113 H (98-107) mmol/L Carbon Dioxide 19 L (22-30) mmol/L BUN 32 H (7-17) mg/dL Glucose 137 H (74-99) mg/dL POC Glucose (mg/dL) 146 H (70-110) mg/dL Calcium 8.3 L (8.4-10.2) mg/dL 01/12/24 Range/Units 11:34 RBC (3.80-5.40) m/uL Hgb (11.4-16.0) gm/dL Hct (34.0-46.0) % MCHC (31.0-37.0) g/dL Plt Count (150-450) k/uL Lymphocytes # (1.0-4.8) k/uL Chloride (98-107) mmol/L Carbon Dioxide (22-30) mmol/L BUN (7-17) mg/dL Glucose (74-99) mg/dL POC Glucose (mg/dL) 257 H (70-110) mg/dL Calcium (8.4-10.2) mg/dL Microbiology - Last 24 Hours (Table) 01/09/24 17:02 Blood Culture - Preliminary Blood Assessment and Plan Assessment: Acute on chronic shortness of breath, the patient is bronchospastic and wheezy and her COPD is exacerbating. The possibility of pulmonary embolism is felt to be less likely specially the patient has been taking Xarelto on an outpatient basis. I do however question her compliancy with ongoing medication intake. I reviewed the CT scan of the chest and I was not able to appreciate a significant clot of concern in the right upper lobe. Nevertheless, this has been reported by the radiologist and it may still be a possibility. The clinical presentation is most consistent with COPD exacerbation. She also has underlying cardiomyopathy with impaired LV function. Coronary artery disease with previous stenting of the LAD Severe PAD with occlusive disease on the right. The patient has a history of a acute right lower extremity ischemia The patient is status post angiography and findings are consistent with SFA occlusion and the patient underwent tPA thrombolysis with limited improvement. COPD, maintained on Trelegy Ellipta on outpatient basis History of smoking CHF with systolic heart failure a impaired ejection fraction of 25 to 30% on 10/26/2023 chronic anemia Hyperlipidemia Plan: The patient was seen and evaluated Labs and medications reviewed Continue the current treatment plan Titrate down the FiO2 as tolerated We will continue to follow I have personally seen and examined the patient, performed the documentation and the assessment and plan as written. Number of minutes spent on the visit: 10 Dictation was produced using [employer] dictation software. Please excuse any grammatical, word or spelling errors.
[2024-01-12 16:32] LABS: Glucose,Whole Blood 122 mg/dL (70-110)
[2024-01-12 20:06] LABS: Glucose,Whole Blood 350 mg/dL (70-110)
[2024-01-12] MEDS: TICAGRELOR 90 MG TAB PO SCH (20:28)
[2024-01-13 05:44] LABS: Glucose,Whole Blood 210 mg/dL (70-110)
[2024-01-13 07:35] LABS: African American GFR (CKD) 68 (>60 ml/min/1.73 sqM); Anion Gap 5 mmol/L; Blood Urea Nitrogen 35 mg/dL (7-17); Calcium 8.1 mg/dL (8.4-10.2); Carbon Dioxide 24 mmol/L (22-30); Chloride 112 mmol/L (98-107); Glucose 130 mg/dL (74-99); Non-African American GFR(CKD) 59 (>60 ml/min/1.73 sqM); Potassium 4.6 mmol/L (3.5-5.1); Sodium 141 mmol/L (137-145)
[2024-01-13 10:52] LABS: T4, Free (Free Thyroxine) 0.76 ng/dL (0.78-2.19)
[2024-01-13 11:29] LABS: Glucose,Whole Blood 144 mg/dL (70-110)
--- NOTE | 2024-01-13 14:30 | P.PN ---
Subjective Progress Note Date: 01/13/24 Reason for Consult (text): Abnormal EKG, shortness of breath with history of cardiac stent History of present illness: This is a 74-year-old female patient of Dr. Funes with past medical history of coronary artery disease status post PCI, ischemic cardiomyopathy with EF 2530 %, NYHA class III, tobacco use and dependence, history of right lower extremity ischemia with SFA occlusion status post tPA thrombolysis. We have been asked to evaluate the patient for abnormal EKG, shortness of breath with history of cardiac stent. Patient presented to the hospital on 01/08 with complaints of shortness of breath. Patient states that she could not catch her breath at all. She has been treated by pulmonary medicine for acute exacerbation of COPD. Patient denies having any chest pain. Patient has history of hospitalization in October of this year for generalized weakness and falls and was found to have elevated troponin, EF was 2530 % at that time. 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 She underwent PCI of the LAD with Dr. Lewis with MELCHOR. She apparently was offered a LifeVest at that time but she denied. -EKG: Current EKG was compared to 1 in October. EKG today showing sinus rhythm with LVH, PVCs -Laboratory studies: WBC 7.3, hemoglobin 9.7, platelet count 145. Sodium 140, potassium 4.5, BUN 32 creatinine 0.94. -Home cardiac medications: Aspirin 81 mg daily, atorvastatin 40 mg at bedtime, Farxiga 10 mg daily, losartan 12.5 mg daily, Toprol XL 25 mg daily, potassium chloride 10 mill equivalents daily, Xarelto 2.5 mg twice daily, Brilinta 90 mg twice daily. -Echocardiogram performed 11/05/2023 revealed EF of 40%, inferior wall akinetic, mild mitral regurgitation. Echocardiogram performed on 10/26/2023 revealed EF of 25 to 30% 01/13/24 Patient seen and examined. Patient is having more PVCs on telemetry and ST changes. Repeat EKG supports the same. Troponins ordered. Blood pressure 121/74, heart rate 75, pulse ox 97% on 2 L nasal cannula. Repeat blood work reveals TSH 0.115 and free T4 abnormal at 0.76. Troponin 0.044. BUN 35 c reatinine 0.96. Physical examination: Gen: This is a 74-year-old female in no acute distress VS: reviewed HEENT: Head is atraumatic, normocephalic. Pupils equal, round. Sclerae is anicteric. NECK: Supple. No JVD. LUNGS: Bilateral wheezing. No intercostal retractions. HEART: Regular rate and rhythm. No murmur. ABDOMEN: Soft No tenderness. EXTREMITIES: No pedal edema. No calf tenderness. NEUROLOGICAL: Patient is awake, alert and oriented x3. Assessment: COPD exacerbation PVCs Nonspecific ST changes on EKG History of coronary artery disease with PCI on 10/28/2023 Ischemic cardiomyopathy with most recent EF of 40% Tobacco use and dependence History of right lower extremity ischemia with SFA occlusion status post tPA thrombolysis Plan: Continue patient's home cardiac medications: Aspirin 81 mg daily, atorvastatin 40 mg at bedtime, Farxiga 10 mg daily, Toprol XL 25 mg daily, Xarelto 20 mg with supper and Brilinta 90 mg twice daily Repeat troponins Continue telemetry monitoring Further recommendations to follow based upon clinical course. Nurse practitioner note has been reviewed, I agree with documented findings and plan of care. Patient was seen and examined. Objective - Vital Signs Vital signs: Vital Signs Temp 98.1 F 01/13/24 08:00 Pulse 67 01/13/24 08:05 Resp 14 01/13/24 08:00 BP 121/74 01/13/24 08:00 Pulse Ox 97 01/13/24 08:00 FiO2 Intake & Output 01/12/24 01/13/24 01/13/24 18:59 06:59 18:59 Intake Total 476 420 150 Output Total 500 700 Balance -24 -280 150 Weight 72.5 kg Intake: Oral 476 420 150 Output: Urine 500 700 Other: Voiding Method External Catheter External Catheter - Labs CBC & Chem 7: 01/12/24 06:55 01/13/24 06:48 Labs: Abnormal Lab Results - Last 24 Hours (Table) 01/12/24 01/12/24 01/12/24 Range/Units 06:55 11:34 16:30 Plt Count 145 L (150-450) k/uL Lymphocytes # 0.7 L (1.0-4.8) k/uL Chloride (98-107) mmol/L BUN (7-17) mg/dL Glucose (74-99) mg/dL POC Glucose (mg/dL) 257 H 122 H (70-110) mg/dL Calcium (8.4-10.2) mg/dL TSH (0.465-4.680) mIU/L 01/12/24 01/13/24 01/13/24 Range/Units 20:04 05:40 06:48 Plt Count (150-450) k/uL Lymphocytes # (1.0-4.8) k/uL Chloride 112 H (98-107) mmol/L BUN 35 H (7-17) mg/dL Glucose 130 H (74-99) mg/dL POC Glucose (mg/dL) 350 H 210 H (70-110) mg/dL Calcium 8.1 L (8.4-10.2) mg/dL TSH 0.115 L (0.465-4.680) mIU/L Microbiology - Last 24 Hours (Table) 01/09/24 17:02 Blood Culture - Preliminary Blood
--- NOTE | 2024-01-13 16:48 | P.PN ---
Subjective Progress Note Date: 01/13/24 Principal diagnosis: Acute on chronic hypoxic respiratory failure, multifactorial, secondary to severe COPD with acute exacerbation of COPD, possible pulmonary embolism, chronic systolic congestive heart failure with ejection fraction of 25 to 30% chronic anemia This is a 75-year-old female patient was transferred to us from [facility] for shortness of breath. The patient has been having increased dyspnea for the past few days. No cough. No sputum production. No orthopnea. The patient was worked up at the hospital and she was given a CT angiogram of the chest that was reported to be abnormal and for that reason, the patient was started on IV heparin and the patient was transferred to us for further care. She is currently on room air oxygen with a pulse ox of 96%. I reviewed the report of the CT angiogram that was forwarded from [facility]. This was a CT angiogram that was done on 01/09/2024. It was reported that the patient has a subsegmental filling defect in the right lower lobe pulmonary artery branch image 69 series 2. There was also mucous plugging within the tracheobronchial tree. Atelectatic changes in lung bases and some groundglass density in her lungs. Based on all this, the patient was given diagnosis of pulmonary embolism and the patient was transferred to us. Noted the patient has been receiving Xarelto as an anticoagulant on outpatient basis. The RV to LV ratio was 0.9. There was also lymphadenopathy in the paratracheal region and and supraclavicular region. No suspicious abnormality in the liver. Degen erative changes in her spine. Her D-dimer was at 1.7. Magnesium was at 1.9. proBNP level was 639. Troponin was negative. Coagulation profile was normal. Lactic acid level was at 2.2. Sodium is at 146, potassium is at 3.2, bicarbonate 18, LFTs are normal, calcium is 11.8, bilirubin is at 0.3, white cell count 7.2 with a hemoglobin 10.4 and a platelet count of 131. Noted the patient has been still smoking around half pack of cigarettes on a daily basis. She is currently living with her daughter out of a motel in the [facility]. She is currently on room air oxygen. The patient is known to have coronary disease and the patient has undergone a cardiac catheterization and stenting of the LAD on 10/28/2023. The procedure was uncomplicated. The patient was discharged home. Admitted for the above- mentioned ischemic changes in the right foot. The patient was seen by vascular surgery and the patient was taken to the lab and she underwent an ultrasound- guided left common femoral artery access with right femoral angiography and the patient was found to have no filling of the SFA at the bifurcation and there was increased collateral. The patient was given thrombolytic therapy. S ubsequently, the catheter was removed and the patient underwent repeat angiography and there was no clear patency achieved in the involved vessel and attempts were made to pass the wire and this was met with the dissection at the level of the popliteal artery but no luminal gain. The peroneal artery was patent at the distal calf. This was treated conservatively and the patient was ultimately discharged home. Patient was evaluated today on 01/11/24, continues to complain of shortness of breath, and is to complain of generalized aches and pains, patient is not happy with her pain management which is being addressed by her admitting physician. She is on [place] she is also on oxycodone. Patient continues to cough and wheeze, she does have a nicotine patch in place, she seems to be a bit anxious, today I added Symbicort, reviewed all her bronchodilators, remains on methylprednisolone at 60 mg IV push every 6 hours she is on DuoNeb updrafts, hence I believe the treatment for her COPD is very much appropriate. The patient is seen today January 12, 2024 in follow-up on the selective care unit. She is awake and alert in no acute distress. Breathing a bit easier today compared to yesterday. She is maintaining O2 saturations in the 90s on 2 L/min per nasal cannula. She remains on DuoNeb inhalations, Symbicort, Solu- Medrol. NicoDerm patch in place. Tessalon Perles for cough. Anticoagulated with Xarelto. White count 7.3. Hemoglobin 9.7. Platelets 145. Sodium 140. Potassium 4.5. Bicarb 19. BUN 32. Creatinine 0.94. Glucose 137. Seen today on 01/13/2024, patient continues to have intermittent cough and wheezing, we are seeing her mostly for acute exacerbation of COPD. In addition to her COPD, patient has coronary artery disease and severe peripheral artery occlusive disease and she has chronic systolic congestive heart failure with a EF of 25 to 30%. Patient is improving but not back to baseline, continues to have intermittent cough wheezing and shortness of breath Objective - Vital Signs Vital signs: Vital Signs Temp 98.4 F 01/13/24 15:55 Pulse 68 01/13/24 15:59 Resp 18 01/13/24 15:55 BP 116/64 01/13/24 15:55 Pulse Ox 99 01/13/24 15:55 FiO2 Intake & Output 01/12/24 01/13/24 01/13/24 18:59 06:59 18:59 Intake Total 476 420 780 Output Total 500 700 Balance -24 280 780 Weight 72.5 kg Intake: Oral 476 420 780 Output: Urine 500 700 Other: Voiding Method External Catheter External Catheter External Catheter - Exam General: Revealed a 74-year-old female anxious in no distress Derm: Multiple bruises on left and right arm Head: atraumatic, normocephalic, symmetric Eyes: EOMI, no lid lag, anicteric sclera, pupils equal round reactive to light ENT: Nose and ears atraumatic Neck: No cervical lymphadenopathy, supple Mouth: no lip lesion, mucus membranes moist Cardiovascular: Normal S1-S2, no S3 gallop, no murmur. Lungs: Rhonchi and wheezes noted bilaterally Abdominal: soft, nontender to palpation, no guarding Ext: No clubbing edema or cyanosis Neuro: Alert and oriented x 3, no focal deficit Psychiatric: Normal mood affect and no mental status examination. - Labs CBC & Chem 7: 01/12/24 06:55 01/13/24 06:48 Labs: Abnormal Lab Results - Last 24 Hours (Table) 01/12/24 01/13/24 01/13/24 Range/Units 20:04 05:40 06:48 Chloride 112 H (98-107) mmol/L BUN 35 H (7-17) mg/dL Glucose 130 H (74-99) mg/dL POC Glucose (mg/dL) 350 H 210 H (70-110) mg/dL Calcium 8.1 L (8.4-10.2) mg/dL Troponin I (0.000-0.034) ng/mL TSH 0.115 L (0.465-4.680) mIU/L Free T4 0.76 L (0.78-2.19) ng/dL 01/13/24 01/13/24 01/13/24 Range/Units 11:28 11:52 14:13 Chloride (98-107) mmol/L BUN (7-17) mg/dL Glucose (74-99) mg/dL POC Glucose (mg/dL) 144 H (70-110) mg/dL Calcium (8.4-10.2) mg/dL Troponin I 0.044 H* 0.041 H* (0.000-0.034) ng/mL TSH (0.465-4.680) mIU/L Free T4 (0.78-2.19) ng/dL Microbiology - Last 24 Hours (Table) 01/09/24 17:02 Blood Culture - Preliminary Blood Assessment and Plan Assessment: Impression Acute on chronic shortness of breath, Acute exacerbation of COPD Possible pulmonary embolism and questionable compliance with Xarelto Tobacco dependence syndrome patient has been smoking until recently History of underlying cardiomyopathy with impaired LV function, ejection fraction of 25 to 30% with significant valvular heart disease History of coronary artery disease and previous stenting of LAD Severe peripheral vessel occlusive disease Chronic anemia Dyslipidemia Recommendation: Reviewed and discussed with the patient her present course of bronchodilators including DuoNeb, Symbicort, Solu-Medrol, Continue nicotine patch Continue cardiac meds as given at home Continue Tessalon Continue farxiga Counseled regarding smoking cessation Not quite ready for discharge plan Will continue to follow Time with Patient: Less than 30
[2024-01-13 16:55] LABS: Glucose,Whole Blood 183 mg/dL (70-110)
[2024-01-13 20:21] LABS: Glucose,Whole Blood 231 mg/dL (70-110)
--- NOTE | 2024-01-14 00:22 | P.PN ---
Subjective Progress Note Date: 01/12/24 History of present illness; patient is a 74-year-old lady with past medical history significant for coronary artery disease, tobacco addiction, COPD who presented to the ER for shortness of breath. Patient initially presented to the [facility]. Patient had complaint of shortness of breath for the last few days. There was no complaint of fever or chills. There was no complaint of chest pain. There was no complaint of cough. There was no complaint of orthopnea or PND. Patient was worked up at [facility] with a CT PE protocol and was found to have a PE and was started on pharmacy dose heparin. Patient was transferred to [facility] for further evaluation and treatm ent Patient admitted to medicine service 01/10/2024 Patient is sitting in the bed. Awake alert and oriented x 3. Anxious and upset. Requiring oxygen 2 L via nasal cannula as per home dose. Patient is also having cough but unable to bring out any sputum. Patient is on antibiotic been off azithromycin. Continued on IV Solu-Medrol DuoNebs and on anticoagulation with Xarelto. Laboratory data reviewed. 01/11/2024 Patient is sitting in the bed. Awake alert and oriented. But anxious and upset. Continued on IV steroids, DuoNebs and Symbicort was added. On oxygen at 2 L via nasal cannula. Patient otherwise continues to wheeze and also having diffuse rhonchi. Afebrile. On antibiotics of azithromycin. Laboratory data showed sodium 142 potassium 4.8 chloride 116 bicarb is 19 BUN 30 and creatinine 0.9 and blood sugar 135. WBC 7.0 hemoglobin 9.3 and platelets 448. Blood cultures negative so far. Pulmonary is on board. 01/12/2024 Patient is awake alert and oriented anxious. Breathing is better compared to yesterday. Currently on 2 L oxygen via nasal cannula. Telemonitoring showed bigeminy. Cardiology was consulted for evaluation. Otherwise patient has been current IV Solu-Medrol DuoNebs and Symbicort. Continued anticoagulation with Eliquis. Other laboratory data reviewed. Pulmonary is on board. PHYSICAL EXAMINATION: GENERAL: The patient is alert and oriented x3, not in any acute distress. Well developed, well nourished. HEENT: Pupils are round and equally reacting to light. EOMI. No scleral icterus. No conjunctival pallor. Normocephalic, atraumatic. No pharyngeal erythema. No thyromegaly. CARDIOVASCULAR: S1 and S2 present. No murmurs, rubs, or gallops. PULMONARY: Coarse breath sounds bilaterally, expiratory wheeze audible ABDOMEN: Soft, nontender, nondistended, normoactive bowel sounds. No palpable organomegaly. MUSCULOSKELETAL: No joint swelling or deformity. EXTREMITIES: No cyanosis, clubbing, or pedal edema. NEUROLOGICAL: Gross neurological examination did not reveal any focal deficits. SKIN: No rashes. Assessment and plan Acute respiratory distress Acute COPD exacerbation Acute PE History of coronary artery disease status post mid LAD stenting Chronic systolic CHF History of right lower extremity ischemia secondary to occlusion at the level of superficial femoral artery. Tobacco addiction Monitor vital signs Monitor CBC Monitor CMP Continue telemetry monitoring Ordered breathing treatments Ordered IV Solu-Medrol Ordered pharmacy dose heparin. Changed to oral anticoagulation. Ordered 2D echo Resume home meds Pulmonary is on board. Labs and medication were reviewed... Monitor labs and vitals. DVT and GI prophylaxis. Further recommendations as per clinical course of the patient Dictation was produced using [employer] dictation software. please excuse any grammatical, word or spelling errors. Objective - Vital Signs Vital signs: Vital Signs Temp 98.4 F 01/12/24 15:26 Pulse 60 01/12/24 16:29 Resp 14 01/12/24 15:26 BP 122/82 01/12/24 15:26 Pulse Ox 98 01/12/24 15:26 FiO2 Intake & Output 01/12/24 01/12/24 01/13/24 06:59 18:59 06:59 Intake Total 476 Output Total 650 500 Weight 72.7 kg Intake: Oral 476 Output: Urine 650 500 Other: Voiding Method External Catheter External Catheter # Voids 1 - Labs CBC & Chem 7: 01/12/24 06:55 01/13/24 06:48 Labs: Abnormal Lab Results - Last 24 Hours (Table) 01/11/24 01/12/24 01/12/24 Range/Units 20:07 06:07 06:55 RBC 3.52 L (3.80-5.40) m/uL Hgb 9.7 L (11.4-16.0) gm/dL Hct 32.6 L (34.0-46.0) % MCHC 29.7 L (31.0-37.0) g/dL Plt Count 145 L (150-450) k/uL Lymphocytes # 0.7 L (1.0-4.8) k/uL Chloride (98-107) mmol/L Carbon Dioxide (22-30) mmol/L BUN (7-17) mg/dL Glucose (74-99) mg/dL POC Glucose (mg/dL) 136 H 146 H (70-110) mg/dL Calcium (8.4-10.2) mg/dL 01/12/24 01/12/24 01/12/24 Range/Units 06:55 11:34 16:30 RBC (3.80-5.40) m/uL Hgb (11.4-16.0) gm/dL Hct (34.0-46.0) % MCHC (31.0-37.0) g/dL Plt Count (150-450) k/uL Lymphocytes # (1.0-4.8) k/uL Chloride 113 H (98-107) mmol/L Carbon Dioxide 19 L (22-30) mmol/L BUN 32 H (7-17) mg/dL Glucose 137 H (74-99) mg/dL POC Glucose (mg/dL) 257 H 122 H (70-110) mg/dL Calcium 8.3 L (8.4-10.2) mg/dL Microbiology - Last 24 Hours (Table) 01/09/24 17:02 Blood Culture - Preliminary Blood
--- NOTE | 2024-01-14 00:24 | P.PN ---
Subjective Progress Note Date: 01/13/24 History of present illness; patient is a 74-year-old lady with past medical history significant for coronary artery disease, tobacco addiction, COPD who presented to the ER for shortness of breath. Patient initially presented to the [facility]. Patient had complaint of shortness of breath for the last few days. There was no complaint of fever or chills. There was no complaint of chest pain. There was no complaint of cough. There was no complaint of orthopnea or PND. Patient was worked up at [facility] with a CT PE protocol and was found to have a PE and was started on pharmacy dose heparin. Patient was transferred to [facility] for further evaluation and treatm ent Patient admitted to medicine service 01/10/2024 Patient is sitting in the bed. Awake alert and oriented x 3. Anxious and upset. Requiring oxygen 2 L via nasal cannula as per home dose. Patient is also having cough but unable to bring out any sputum. Patient is on antibiotic been off azithromycin. Continued on IV Solu-Medrol DuoNebs and on anticoagulation with Xarelto. Laboratory data reviewed. 01/11/2024 Patient is sitting in the bed. Awake alert and oriented. But anxious and upset. Continued on IV steroids, DuoNebs and Symbicort was added. On oxygen at 2 L via nasal cannula. Patient otherwise continues to wheeze and also having diffuse rhonchi. Afebrile. On antibiotics of azithromycin. Laboratory data showed sodium 142 potassium 4.8 chloride 116 bicarb is 19 BUN 30 and creatinine 0.9 and blood sugar 135. WBC 7.0 hemoglobin 9.3 and platelets 448. Blood cultures negative so far. Pulmonary is on board. 01/12/2024 Patient is awake alert and oriented anxious. Breathing is better compared to yesterday. Currently on 2 L oxygen via nasal cannula. Telemonitoring showed bigeminy. Cardiology was consulted for evaluation. Otherwise patient has been current IV Solu-Medrol DuoNebs and Symbicort. Continued anticoagulation with Eliquis. Other laboratory data reviewed. Pulmonary is on board. 01/13/2024 Patient is sitting in the bed. Awake alert and oriented. Breathing is much improved compared to yesterday. No complaints of chest pain. No nausea vomiting abdominal pain or diarrhea. Otherwise patient was seen by cardiology and noted to have multiple PVCs. Troponin level 0.044 and 0.041. Patient is being continued on IV Solu-Medrol, DuoNebs and Symbicort. Laboratory data reviewed. TSH 0.115 and free T4 level is also low 0.76. Cardiology and pulmonary is on board. PHYSICAL EXAMINATION: GENERAL: The patient is alert and oriented x3, not in any acute distress. Well developed, well nourished. HEENT: Pupils are round and equally reacting to light. EOMI. No scleral icterus. No conjunctival pallor. Normocephalic, atraumatic. No pharyngeal erythema. No thyromegaly. CARDIOVASCULAR: S1 and S2 present. No murmurs, rubs, or gallops. PULMONARY: Coarse breath sounds bilaterally, expiratory wheeze audible ABDOMEN: Soft, nontender, nondistended, normoactive bowel sounds. No palpable organomegaly. MUSCULOSKELETAL: No joint swelling or deformity. EXTREMITIES: No cyanosis, clubbing, or pedal edema. NEUROLOGICAL: Gross neurological examination did not reveal any focal deficits. SKIN: No rashes. Assessment and plan Acute respiratory distress Acute COPD exacerbation Acute PE Multiple PVCs History of coronary artery disease status post mid LAD stenting Chronic systolic CHF with EF 40%/ischemic cardiomyopathy History of right lower extremity ischemia secondary to occlusion at the level of superficial femoral artery. Tobacco addiction Monitor vital signs Monitor CBC Monitor CMP Continue telemetry monitoring Continue with DuoNebs, Symbicort and IV Solu-Medrol. Ordered pharmacy dose heparin. Changed to oral anticoagulation. 2 days ago was ordered. Follow-up serial troponin Resume home meds Pulmonary and cardiology is on board. Labs and medication were reviewed... Monitor labs and vitals. DVT and GI prophylaxis. Further recommendations as per clinical course of the patient Dictation was produced using [employer] dictation software. please excuse any grammatical, word or spelling errors. Objective - Vital Signs Vital signs: Vital Signs Temp 97.7 F 01/13/24 20:20 Pulse 76 01/13/24 20:47 Resp 20 01/13/24 20:20 BP 116/71 01/13/24 20:20 Pulse Ox 98 01/13/24 20:20 FiO2 Intake & Output 01/13/24 01/13/24 01/14/24 06:59 18:59 06:59 Intake Total 420 920 Output Total 700 700 Balance -280 920 -700 Weight 72.5 kg Intake: Oral 420 920 Output: Urine 700 700 Other: Voiding Method External Catheter External Catheter Toilet External Catheter - Labs CBC & Chem 7: 01/12/24 06:55 01/13/24 06:48 Labs: Abnormal Lab Results - Last 24 Hours (Table) 01/13/24 01/13/24 01/13/24 Range/Units 05:40 06:48 11:28 Chloride 112 H (98-107) mmol/L BUN 35 H (7-17) mg/dL Glucose 130 H (74-99) mg/dL POC Glucose (mg/dL) 210 H 144 H (70-110) mg/dL Calcium 8.1 L (8.4-10.2) mg/dL Troponin I (0.000-0.034) ng/mL TSH 0.115 L (0.465-4.680) mIU/L Free T4 0.76 L (0.78-2.19) ng/dL 01/13/24 01/13/24 01/13/24 Range/Units 11:52 14:13 16:54 Chloride (98-107) mmol/L BUN (7-17) mg/dL Glucose (74-99) mg/dL POC Glucose (mg/dL) 183 H (70-110) mg/dL Calcium (8.4-10.2) mg/dL Troponin I 0.044 H* 0.041 H* (0.000-0.034) ng/mL TSH (0.465-4.680) mIU/L Free T4 (0.78-2.19) ng/dL 01/13/24 Range/Units 20:20 Chloride (98-107) mmol/L BUN (7-17) mg/dL Glucose (74-99) mg/dL POC Glucose (mg/dL) 231 H (70-110) mg/dL Calcium (8.4-10.2) mg/dL Troponin I (0.000-0.034) ng/mL TSH (0.465-4.680) mIU/L Free T4 (0.78-2.19) ng/dL Microbiology - Last 24 Hours (Table) 01/09/24 17:02 Blood Culture - Preliminary Blood
[2024-01-14 06:10] LABS: Glucose,Whole Blood 138 mg/dL (70-110)
[2024-01-14 08:23] LABS: Basophils % (A) 0 %; Eosinophils % (A) 0 %; HGB 10.7 gm/dL (11.4-16.0); Hypochromasia Marked; Lymphocytes # (A) 0.5 k/uL (1.0-4.8); Lymphocytes % (A) 6 %; MCH 28.3 pg (25.0-35.0); MCHC 30.6 g/dL (31.0-37.0); MCV 92.7 fL (80.0-100.0); Mean Platelet Volume 10.9; Monocytes # (A) 0.2 k/uL (0-1.0); Monocytes % (A) 2 %; Neutrophils # (A) 6.9 k/uL (1.3-7.7); Neutrophils % (A) 91 %; Platelet Count 157 k/uL (150-450); RBC 3.78 m/uL (3.80-5.40); RDW 15.5 % (11.5-15.5); WBC 7.6 k/uL (3.8-10.6)
[2024-01-14 08:40] LABS: African American GFR (CKD) 67 (>60 ml/min/1.73 sqM); Anion Gap 8 mmol/L; Blood Urea Nitrogen 41 mg/dL (7-17); Calcium 8.4 mg/dL (8.4-10.2); Carbon Dioxide 24 mmol/L (22-30); Chloride 111 mmol/L (98-107); Glucose 176 mg/dL (74-99); Non-African American GFR(CKD) 58 (>60 ml/min/1.73 sqM); Potassium 4.8 mmol/L (3.5-5.1); Sodium 143 mmol/L (137-145)
[2024-01-14 11:07] LABS: Glucose,Whole Blood 167 mg/dL (70-110)
[2024-01-14 11:14] VITALS: BMI 30.6
--- NOTE | 2024-01-14 13:14 | P.PN ---
Subjective Progress Note Date: 01/14/24 Reason for Consult (text): Abnormal EKG, shortness of breath with history of cardiac stent History of present illness: This is a 74-year-old female patient of Dr. Funes with past medical history of coronary artery disease status post PCI, ischemic cardiomyopathy with EF 2530 %, NYHA class III, tobacco use and dependence, history of right lower extremity ischemia with SFA occlusion status post tPA thrombolysis. We have been asked to evaluate the patient for abnormal EKG, shortness of breath with history of cardiac stent. Patient presented to the hospital on 01/08 with complaints of shortness of breath. Patient states that she could not catch her breath at all. She has been treated by pulmonary medicine for acute exacerbation of COPD. Patient denies having any chest pain. Patient has history of hospitalization in October of this year for generalized weakness and falls and was found to have elevated troponin, EF was 2530 % at that time. She underwent cardiac catheterization that showed a 90% mid LAD stenosis, 70% ostial diagonal stenosis and high percent SCALLOP SHUCKER of the RCA with [id number] collaterals filling PDA and PL branches, mild disease in the circumflex. She underwent PCI of the LAD with Dr. Lewis with MELCHOR. She apparently was offered a LifeVest at that time but she denied. -EKG: Current EKG was compared to 1 in October. EKG today showing sinus rhythm with LVH, PVCs -Laboratory studies: WBC 7.3, hemoglobin 9.7, platelet count 145. Sodium 140, potassium 4.5, BUN 32 creatinine 0.94. -Home cardiac medications: Aspirin 81 mg daily, atorvastatin 40 mg at bedtime, Farxiga 10 mg daily, losartan 12.5 mg daily, Toprol XL 25 mg daily, potassium chloride 10 mill equivalents daily, Xarelto 2.5 mg twice daily, Brilinta 90 mg twice daily. -Echocardiogram performed 11/05/2023 revealed EF of 40%, inferior wall akinetic, mild mitral regurgitation. Echocardiogram performed on 10/26/2023 revealed EF of 25 to 30% 01/13/24 Patient seen and examined. Patient is having more PVCs on telemetry and ST changes. Repeat EKG supports the same. Troponins ordered. Blood pressure 121/74, heart rate 75, pulse ox 97% on 2 L nasal cannula. Repeat blood work reveals TSH 0.115 and free T4 abnormal at 0.76. Troponin 0.044. BUN 35 c reatinine 0.96. 01/14/24 Patient seen and examined. Patient states her breathing is about the same. Her lung sounds however do sound improved. Blood pressure 116/68, heart rate in the 70s, pulse ox 98% on 2 L nasal cannula. Patient does have EKG changes and contemplating workup but will wait until respiratory status is more stable. Repeat blood work reveals hemoglobin 10.7, BUN 41 creatinine 0.98. Troponin 0.044 and 0.041. Physical examination: Gen: This is a 74-year-old female in no acute distress VS: reviewed HEENT: Head is atraumatic, normocephalic. Pupils equal, round. Sclerae is an icteric. NECK: Supple. No JVD. LUNGS: Bilateral wheezing. No intercostal retractions. HEART: Regular rate and rhythm. No murmur. ABDOMEN: Soft No tenderness. EXTREMITIES: No pedal edema. No calf tenderness. NEUROLOGICAL: Patient is awake, alert and oriented x3. Assessment: COPD exacerbation PVCs Nonspecific ST changes on EKG History of coronary artery disease with PCI on 10/28/2023 Ischemic cardiomyopathy with most recent EF of 40% Tobacco use and dependence History of right lower extremity ischemia with SFA occlusion status post tPA thrombolysis Plan: Continue patient's home cardiac medications: Aspirin 81 mg daily, atorvastatin 40 mg at bedtime, Farxiga 10 mg daily, Toprol XL 25 mg daily, Xarelto 20 mg with supper and Brilinta 90 mg twice daily Continue telemetry monitoring Repeat echocardiogram Repeat EKG in the morning Will continue to monitor over weekend and possible plan for cardiac catheterization on Wednesday if respiratory status is stable Further recommendations to follow based upon clinical course. Nurse practitioner note has been reviewed, I agree with documented findings and plan of care. Patient was seen and examined. Objective - Vital Signs Vital signs: Vital Signs Temp 98.2 F 01/14/24 08:00 Pulse 76 01/14/24 08:20 Resp 16 01/14/24 08:00 BP 116/68 01/14/24 08:00 Pulse Ox 98 01/14/24 08:10 FiO2 Intake & Output 01/13/24 01/14/24 01/14/24 18:59 06:59 18:59 Intake Total 920 200 Output Total 700 Balance 920 -700 200 Weight 81 kg Intake: Oral 920 200 Output: Urine 700 Other: Voiding Method External Catheter Toilet External Catheter # Voids 1 - Labs CBC & Chem 7: 01/14/24 08:03 01/14/24 08:03 Labs: Abnormal Lab Results - Last 24 Hours (Table) 01/13/24 01/13/24 01/13/24 Range/Units 06:48 11:28 11:52 RBC (3.80-5.40) m/uL Hgb (11.4-16.0) gm/dL MCHC (31.0-37.0) g/dL Lymphocytes # (1.0-4.8) k/uL Chloride (98-107) mmol/L BUN (7-17) mg/dL Glucose (74-99) mg/dL POC Glucose (mg/dL) 144 H (70-110) mg/dL Troponin I 0.044 H* (0.000-0.034) ng/mL Free T4 0.76 L (0.78-2.19) ng/dL 01/13/24 01/13/24 01/13/24 Range/Units 14:13 16:54 20:20 RBC (3.80-5.40) m/uL Hgb (11.4-16.0) gm/dL MCHC (31.0-37.0) g/dL Lymphocytes # (1.0-4.8) k/uL Chloride (98-107) mmol/L BUN (7-17) mg/dL Glucose (74-99) mg/dL POC Glucose (mg/dL) 183 H 231 H (70-110) mg/dL Troponin I 0.041 H* (0.000-0.034) ng/mL Free T4 (0.78-2.19) ng/dL 01/14/24 01/14/24 01/14/24 Range/Units 06:09 08:03 08:03 RBC 3.78 L (3.80-5.40) m/uL Hgb 10.7 L (11.4-16.0) gm/dL MCHC 30.6 L (31.0-37.0) g/dL Lymphocytes # 0.5 L (1.0-4.8) k/uL Chloride 111 H (98-107) mmol/L BUN 41 H (7-17) mg/dL Glucose 176 H (74-99) mg/dL POC Glucose (mg/dL) 138 H (70-110) mg/dL Troponin I (0.000-0.034) ng/mL Free T4 (0.78-2.19) ng/dL
[2024-01-14 16:11] LABS: Glucose,Whole Blood 186 mg/dL (70-110)
--- NOTE | 2024-01-14 16:40 | P.PN ---
Subjective Progress Note Date: 01/14/24 74-year-old lady with past medical history significant for coronary artery disease, tobacco addiction, COPD who presented to the ER for shortness of breath. Patient initially presented to the [facility]. Patient had complaint of shortness of breath for the last few days. There was no complaint of fever or chills. There was no complaint of chest pain. There was no complaint of cough. There was no complaint of orthopnea or PND. Patient was worked up at [facility] with a CT PE protocol and was found to have a PE and was started on pharmacy dose heparin. Patient was transferred to [facility] for further evaluation and treatment Patient admitted to medicine service Objective - Vital Signs Vital signs: Vital Signs Temp 98.2 F 01/14/24 08:00 Pulse 76 01/14/24 08:20 Resp 16 01/14/24 08:00 BP 116/68 01/14/24 08:00 Pulse Ox 98 01/14/24 08:10 FiO2 Intake & Output 01/13/24 01/14/24 01/14/24 18:59 06:59 18:59 Intake Total 920 200 Output Total 700 Balance 920 -700 200 Weight 81 kg Intake: Oral 920 200 Output: Urine 700 Other: Voiding Method External Catheter Toilet External Catheter # Voids 1 - Exam GENERAL: The patient is alert and oriented x3, not in any acute distress. Well developed, well nourished. HEENT: Pupils are round and equally reacting to light. EOMI. No scleral icterus. No conjunctival pallor. Normocephalic, atraumatic. No pharyngeal erythema. No thyromegaly. CARDIOVASCULAR: S1 and S2 present. No murmurs, rubs, or gallops. PULMONARY: Coarse breath sounds bilaterally, expiratory wheeze audible ABDOMEN: Soft, nontender, nondistended, normoactive bowel sounds. No palpable organomegaly. MUSCULOSKELETAL: No joint swelling or deformity. EXTREMITIES: No cyanosis, clubbing, or pedal edema. NEUROLOGICAL: Gross neurological examination did not reveal any focal deficits. SKIN: No rashes. - Labs CBC & Chem 7: 01/14/24 08:03 01/14/24 08:03 Labs: Abnormal Lab Results - Last 24 Hours (Table) 12/05/24 12/05/24 12/05/24 Range/Units 11:28 11:52 14:13 RBC (3.80-5.40) m/uL Hgb (11.4-16.0) gm/dL MCHC (31.0-37.0) g/dL Lymphocytes # (1.0-4.8) k/uL Chloride (98-107) mmol/L BUN (7-17) mg/dL Glucose (74-99) mg/dL POC Glucose (mg/dL) 144 H (70-110) mg/dL Troponin I 0.044 H* 0.041 H* (0.000-0.034) ng/mL 01/13/24 01/13/24 01/14/24 Range/Units 16:54 20:20 06:09 RBC (3.80-5.40) m/uL Hgb (11.4-16.0) gm/dL MCHC (31.0-37.0) g/dL Lymphocytes # (1.0-4.8) k/uL Chloride (98-107) mmol/L BUN (7-17) mg/dL Glucose (74-99) mg/dL POC Glucose (mg/dL) 183 H 231 H 138 H (70-110) mg/dL Troponin I (0.000-0.034) ng/mL 01/14/24 01/14/24 Range/Units 08:03 08:03 RBC 3.78 L (3.80-5.40) m/uL Hgb 10.7 L (11.4-16.0) gm/dL MCHC 30.6 L (31.0-37.0) g/dL Lymphocytes # 0.5 L (1.0-4.8) k/uL Chloride 111 H (98-107) mmol/L BUN 41 H (7-17) mg/dL Glucose 176 H (74-99) mg/dL POC Glucose (mg/dL) (70-110) mg/dL Troponin I (0.000-0.034) ng/mL Assessment and Plan Assessment: Acute respiratory distress Acute COPD exacerbation Acute PE Multiple PVCs History of coronary artery disease status post mid LAD stenting Chronic systolic CHF with EF 40%/ischemic cardiomyopathy History of right lower extremity ischemia secondary to occlusion at the level of superficial femoral artery. Tobacco addiction Monitor vital signs Monitor CBC Monitor CMP Continue telemetry monitoring Continue with DuoNebs, Symbicort and IV Solu-Medrol. Ordered pharmacy dose heparin. Changed to oral anticoagulation. 2 days ago was ordered. Follow-up serial troponin Resume home meds Pulmonary and cardiology is on board. Labs and medication were reviewed... Monitor labs and vitals. DVT and GI prophylaxis. Further recommendations as per clinical course of the patient
--- NOTE | 2024-01-14 17:38 | P.PN ---
Subjective Progress Note Date: 01/14/24 This is a 75-year-old female patient was transferred to us from [facility] for shortness of breath. The patient has been having increased dyspnea for the past few days. No cough. No sputum production. No orthopnea. The patient was worked up at the hospital and she was given a CT angiogram of the chest that was reported to be abnormal and for that reason, the patient was started on IV heparin and the patient was transferred to us for further care. She is currently on room air oxygen with a pulse ox of 96%. I reviewed the report of the CT angiogram that was forwarded from [facility]. This was a CT angiogram that was done on 01/09/2024. It was reported that the patient has a subsegmental filling defect in the right lower lobe pulmonary artery branch image 69 series 2. There was also mucous plugging within the tracheobronchial tree. Atelectatic changes in lung bases and some groundglass density in her lungs. Based on all this, the patient was given diagnosis of pul monary embolism and the patient was transferred to us. Noted the patient has been receiving Xarelto as an anticoagulant on outpatient basis. The RV to LV ratio was 0.9. There was also lymphadenopathy in the paratracheal region and and supraclavicular region. No suspicious abnormality in the liver. Degenerative changes in her spine. Her D-dimer was at 1.7. Magnesium was at 1.9. proBNP level was 639. Troponin was negative. Coagulation profile was normal. Lactic acid level was at 2.2. Sodium is at 146, potassium is at 3.2, bicarbonate 18, LFTs are normal, calcium is 11.8, bilirubin is at 0.3, white cell count 7.2 with a hemoglobin 10.4 and a platelet count of 131. Noted the patient has been still smoking around half pack of cigarettes on a daily basis. She is currently living with her daughter out of a motel in the [facility]. She is currently on room air oxygen. The patient is known to have coronary disease and the patient has undergone a cardiac catheterization and stenting of the LAD on 10/28/2023. The procedure was uncomplicated. The patient was discharged home. Admitted for the above- mentioned ischemic changes in the right foot. The patient was seen by vascular surgery and the patient was taken to the lab and she underwent an ultrasound- guided left common femoral artery access with right femoral angiography and the patient was found to have no filling of the SFA at the bifurcation and there was increased collateral. The patient was given thrombolytic therapy. Subsequently, the catheter was removed and the patient underwent repeat angiography and there was no clear patency achieved in the involved vessel and attempts were made to pass the wire and this was met with the dissection at the level of the popliteal artery but no luminal gain. The peroneal artery was patent at the distal calf. This was treated conservatively and the patient was ultimately discharged home. The patient is seen today January 10, 2024 in follow-up on the selective care unit. She is currently resting comfortably in bed. Awake and alert in no acute distress. She still has a loose congested cough. She is maintaining O2 saturations in the 90s on 2 L/min per nasal cannula. Glucose 301. She remains on DuoNeb inhalations, IV Solu-Medrol. NicoDerm patch in place. Antibiotics in the form of azithromycin. Tessalon Perles for cough. Anticoagulated with Xarelto. The patient is seen today January 12, 2024 in follow-up on the selective care unit. She is awake and alert in no acute distress. Breathing a bit easier today compared to yesterday. She is maintaining O2 saturations in the 90s on 2 L/min per nasal cannula. She remains on DuoNeb inhalations, Symbicort, Solu- Medrol. NicoDerm patch in place. Tessalon Perles for cough. Anticoagulated with Xarelto. White count 7.3. Hemoglobin 9.7. Platelets 145. Sodium 140. Potassium 4.5. Bicarb 19. BUN 32. Creatinine 0.94. Glucose 137. Seen today on 01/13/2024, patient continues to have intermittent cough and wheezing, we are seeing her mostly for acute exacerbation of COPD. In addition to her COPD, patient has coronary artery disease and severe peripheral artery occlusive disease and she has chronic systolic congestive heart failure with a EF of 25 to 30%. Patient is improving but not back to baseline, continues to have intermittent cough wheezing and shortness of breath The patient is seen today January 14, 2024 in follow-up on the selective care unit. She is awake and alert in no acute distress. She is maintaining good O2 saturations in the upper 90s on 2 L/min per nasal cannula. She has been afebrile. Hemodynamically stable. Breathing a bit easier today compared to yesterday. Blood culture revealed no growth. White count 7.6. Hemoglobin 10.7. Platelets 157. Sodium 143. Potassium 4.8. Bicarb 24. BUN 41. Creatinine 0.98. Glucose 176. She remains on DuoNeb inhalations, Symbicort, Solu-Medrol. NicoDerm patch in place. Anticoagulated with Xarelto. Objective - Vital Signs Vital signs: Vital Signs Temp 98.1 F 01/14/24 16:00 Pulse 74 01/14/24 16:00 Resp 22 01/14/24 16:00 BP 127/68 01/14/24 16:00 Pulse Ox 99 01/14/24 16:00 FiO2 Intake & Output 01/13/24 01/14/24 01/14/24 18:59 06:59 18:59 Intake Total 920 1760 Output Total 700 Balance 920 -700 1760 Weight 81 kg 81 kg Intake: Oral 920 1760 Output: Urine 700 Other: Voiding Method External Catheter Toilet Toilet External Catheter External Catheter # Voids 1 - Exam General: An alert, oriented 74-year-old female, on 2 L nasal cannula, appears at stated age. Derm: Multiple bruises on left and right arm Head: atraumatic, normocephalic, symmetric Eyes: EOMI, no lid lag, anicteric sclera, pupils equal round reactive to light ENT: Nose and ears atraumatic Neck: No cervical lymphadenopathy, supple Mouth: no lip lesion, mucus membranes moist Cardiovascular: Cardiac exam revealed the PMI to be normally situated and sized. There were no murmurs, rubs, clicks, or gallops. Lungs: End expiratory wheezing, no rhonchi, no rales, no accessory muscle use Abdominal: soft, nontender to palpation, no guarding Ext: Right foot warm to touch with cap refill less than 2 seconds, no gross muscle atrophy, no contractures Neuro: Normal range of motion found throughout upper and lower extremities Psych: Alert, oriented, appropriate affect - Labs CBC & Chem 7: 01/14/24 08:03 01/14/24 08:03 Labs: Abnormal Lab Results - Last 24 Hours (Table) 01/13/24 01/14/24 01/14/24 Range/Units 20:20 06:09 08:03 RBC 3.78 L (3.80-5.40) m/uL Hgb 10.7 L (11.4-16.0) gm/dL MCHC 30.6 L (31.0-37.0) g/dL Lymphocytes # 0.5 L (1.0-4.8) k/uL Chloride (98-107) mmol/L BUN (7-17) mg/dL Glucose (74-99) mg/dL POC Glucose (mg/dL) 231 H 138 H (70-110) mg/dL 01/14/24 01/14/24 01/14/24 Range/Units 08:03 11:04 16:10 RBC (3.80-5.40) m/uL Hgb (11.4-16.0) gm/dL MCHC (31.0-37.0) g/dL Lymphocytes # (1.0-4.8) k/uL Chloride 111 H (98-107) mmol/L BUN 41 H (7-17) mg/dL Glucose 176 H (74-99) mg/dL POC Glucose (mg/dL) 167 H 186 H (70-110) mg/dL Assessment and Plan Assessment: Acute on chronic shortness of breath, the patient is bronchospastic and wheezy and her COPD is exacerbating. The possibility of pulmonary embolism is felt to be less likely specially the patient has been taking Xarelto on an outpatient ba sis. Question her compliancy with ongoing medication intake. CT scan of the chest and not able to appreciate a significant clot of concern in the right upper lobe. Nevertheless, this has been reported by the radiologist and it may still be a possibility. The clinical presentation is most consistent with COPD exacerbation. She also has underlying cardiomyopathy with impaired LV function. Coronary artery disease with previous stenting of the LAD Severe PAD with occlusive disease on the right. The patient has a history of a acute right lower extremity ischemia The patient is status post angiography and findings are consistent with SFA occlusion and the patient underwent tPA thrombolysis with limited improvement. COPD, maintained on Trelegy Ellipta on outpatient basis History of smoking CHF with systolic heart failure a impaired ejection fraction of 25 to 30% on 10/26/2023 chronic anemia Hyperlipidemia Plan: The patient was seen and evaluated Labs and medications reviewed Continue the current treatment plan Titrate down the FiO2 as tolerated Cardiology may plan cardiac catheterization once stable I have personally seen and examined the patient, performed the documentation and the assessment and plan as written. Number of minutes spent on the visit: 10 Dictation was produced using [employer] dictation software. Please excuse any grammatical, word or spelling errors.
[2024-01-14 20:02] LABS: Glucose,Whole Blood 241 mg/dL (70-110)
[2024-01-15 06:12] LABS: Glucose,Whole Blood 166 mg/dL (70-110)
[2024-01-15 11:58] LABS: Glucose,Whole Blood 216 mg/dL (70-110)
--- NOTE | 2024-01-15 12:00 | P.PN ---
Subjective Progress Note Date: 01/15/24 Reason for Consult (text): Abnormal EKG, shortness of breath with history of cardiac stent History of present illness: This is a 74-year-old female patient of Dr. Funes with past medical history of coronary artery disease status post PCI, ischemic cardiomyopathy with EF 2530 %, NYHA class III, tobacco use and dependence, history of right lower extremity ischemia with SFA occlusion status post tPA thrombolysis. We have been asked to evaluate the patient for abnormal EKG, shortness of breath with history of cardiac stent. Patient presented to the hospital on 01/08 with complaints of shortness of breath. Patient states that she could not catch her breath at all. She has been treated by pulmonary medicine for acute exacerbation of COPD. Patient denies having any chest pain. Patient has history of hospitalization in October of this year for generalized weakness and falls and was found to have elevated troponin, EF was 2530 % at that time. She underwent cardiac catheterization that showed a 90% mid LAD stenosis, 70% ostial diagonal stenosis and high percent [employer] of the RCA with [id number] collaterals filling PDA and PL branches, mild disease in the circumflex. She underwent PCI of the LAD with Dr. Lewis with [facility]. She apparently was offered a LifeVest at that time but she denied. -EKG: Current EKG was compared to 1 in October. EKG today showing sinus rhythm with LVH, PVCs -Laboratory studies: WBC 7.3, hemoglobin 9.7, platelet count 145. Sodium 140, potassium 4.5, BUN 32 creatinine 0.94. -Home cardiac medications: Aspirin 81 mg daily, atorvastatin 40 mg at bedtime, Farxiga 10 mg daily, losartan 12.5 mg daily, Toprol XL 25 mg daily, potassium chloride 10 mill equivalents daily, Xarelto 2.5 mg twice daily, Brilinta 90 mg twice daily. -Echocardiogram performed 11/05/2023 revealed EF of 40%, inferior wall akinetic, mild mitral regurgitation. Echocardiogram performed on 10/26/2023 revealed EF of 25 to 30% 01/13/24 Patient seen and examined. Patient is having more PVCs on telemetry and ST changes. Repeat EKG supports the same. Troponins ordered. Blood pressure 121/74, heart rate 75, pulse ox 97% on 2 L nasal cannula. Repeat blood work reveals TSH 0.115 and free T4 abnormal at 0.76. Troponin 0.044. BUN 35 c reatinine 0.96. 01/14/24 Patient seen and examined. Patient states her breathing is about the same. Her lung sounds however do sound improved. Blood pressure 116/68, heart rate in the 70s, pulse ox 98% on 2 L nasal cannula. Patient does have EKG changes and contemplating workup but will wait until respiratory status is more stable. Repeat blood work reveals hemoglobin 10.7, BUN 41 creatinine 0.98. Troponin 0.044 and 0.041. 01/15/24 Patient seen and examined. Blood pressure 109/57, heart rate in the 60s, pulse ox 100% on 2 L nasal cannula. Patient states she is still having some shortness of breath. No chest pain. No palpitations. Repeat echocardiogram is pending. Physical examination: Gen: This is a 74-year-old female in no acute distress VS: reviewed HEENT: Head is atraumatic, normocephalic. Pupils equal, round. Sclerae is anicteric. NECK: Supple. No JVD. LUNGS: Bilateral wheezing. No intercostal retractions. HEART: Regular rate and rhythm. No murmur. ABDOMEN: Soft No tenderness. EXTREMITIES: No pedal edema. No calf tenderness. NEUROLOGICAL: Patient is awake, alert and oriented x3. Assessment: COPD exacerbation PVCs Nonspecific ST changes on EKG History of coronary artery disease with PCI on 10/28/2023 Ischemic cardiomyopathy with most recent EF of 40% Tobacco use and dependence History of right lower extremity ischemia with SFA occlusion status post tPA thr ombolysis Plan: Continue patient's home cardiac medications: Aspirin 81 mg daily, atorvastatin 40 mg at bedtime, Farxiga 10 mg daily, Toprol XL 25 mg daily, Xarelto 20 mg with supper and Brilinta 90 mg twice daily Continue telemetry monitoring Repeat echocardiogram Will continue to monitor over weekend and possible plan for cardiac catheterization on Wednesday if respiratory status is stable Further recommendations to follow based upon clinical course. Nurse practitioner note has been reviewed, I agree with documented findings and plan of care. Patient was seen and examined. Objective - Vital Signs Vital signs: Vital Signs Temp 97.5 F L 01/15/24 04:00 Pulse 64 01/15/24 08:47 Resp 22 01/15/24 04:00 BP 109/51 01/15/24 04:00 Pulse Ox 100 01/15/24 04:00 FiO2 Intake & Output 01/14/24 01/15/24 01/15/24 18:59 06:59 18:59 Intake Total 1760 240 Output Total 0 Balance 1760 0 240 Weight 81 kg 73 kg Intake: Oral 1760 240 Output: Urine 0 Other: Voiding Method Toilet Toilet External Catheter External Catheter - Labs CBC & Chem 7: 01/14/24 08:03 01/14/24 08:03 Labs: Abnormal Lab Results - Last 24 Hours (Table) 01/14/24 01/14/24 01/14/24 Range/Units 11:04 16:10 19:59 POC Glucose (mg/dL) 167 H 186 H 241 H (70-110) mg/dL 01/15/24 Range/Units 06:11 POC Glucose (mg/dL) 166 H (70-110) mg/dL Microbiology - Last 24 Hours (Table) 01/09/24 17:02 Blood Culture - Final Blood
--- NOTE | 2024-01-15 15:16 | P.PN ---
Subjective Progress Note Date: 01/15/24 This is a 75-year-old female patient was transferred to us from [facility] for shortness of breath. The patient has been having increased dyspnea for the past few days. No cough. No sputum production. No orthopnea. The patient was worked up at the hospital and she was given a CT angiogram of the chest that was reported to be abnormal and for that reason, the patient was started on IV heparin and the patient was transferred to us for further care. She is currently on room air oxygen with a pulse ox of 96%. I reviewed the report of the CT angiogram that was forwarded from [facility]. This was a CT angiogram that was done on 01/09/2024. It was reported that the patient has a subsegmental filling defect in the right lower lobe pulmonary artery branch image 69 series 2. There was also mucous plugging within the tracheobronchial tree. Atelectatic changes in lung bases and some groundglass density in her lungs. Based on all this, the patient was given diagnosis of pul monary embolism and the patient was transferred to us. Noted the patient has been receiving Xarelto as an anticoagulant on outpatient basis. The RV to LV ratio was 0.9. There was also lymphadenopathy in the paratracheal region and and supraclavicular region. No suspicious abnormality in the liver. Degenerative changes in her spine. Her D-dimer was at 1.7. Magnesium was at 1.9. proBNP level was 639. Troponin was negative. Coagulation profile was normal. Lactic acid level was at 2.2. Sodium is at 146, potassium is at 3.2, bicarbonate 18, LFTs are normal, calcium is 11.8, bilirubin is at 0.3, white cell count 7.2 with a hemoglobin 10.4 and a platelet count of 131. Noted the patient has been still smoking around half pack of cigarettes on a daily basis. She is currently living with her daughter out of a motel in the [facility]. She is currently on room air oxygen. The patient is known to have coronary disease and the patient has undergone a cardiac catheterization and stenting of the LAD on 10/28/2023. The procedure was uncomplicated. The patient was discharged home. Admitted for the above- mentioned ischemic changes in the right foot. The patient was seen by vascular surgery and the patient was taken to the lab and she underwent an ultrasound- guided left common femoral artery access with right femoral angiography and the patient was found to have no filling of the SFA at the bifurcation and there was increased collateral. The patient was given thrombolytic therapy. Subsequently, the catheter was removed and the patient underwent repeat angiography and there was no clear patency achieved in the involved vessel and attempts were made to pass the wire and this was met with the dissection at the level of the popliteal artery but no luminal gain. The peroneal artery was patent at the distal calf. This was treated conservatively and the patient was ultimately discharged home. The patient is seen today January 10, 2024 in follow-up on the selective care unit. She is currently resting comfortably in bed. Awake and alert in no acute distress. She still has a loose congested cough. She is maintaining O2 saturations in the 90s on 2 L/min per nasal cannula. Glucose 301. She remains on DuoNeb inhalations, IV Solu-Medrol. NicoDerm patch in place. Antibiotics in the form of azithromycin. Tessalon Perles for cough. Anticoagulated with Xarelto. The patient is seen today January 12, 2024 in follow-up on the selective care unit. She is awake and alert in no acute distress. Breathing a bit easier today compared to yesterday. She is maintaining O2 saturations in the 90s on 2 L/min per nasal cannula. She remains on DuoNeb inhalations, Symbicort, Solu- Medrol. NicoDerm patch in place. Tessalon Perles for cough. Anticoagulated with Xarelto. White count 7.3. Hemoglobin 9.7. Platelets 145. Sodium 140. Potassium 4.5. Bicarb 19. BUN 32. Creatinine 0.94. Glucose 137. Seen today on 01/13/2024, patient continues to have intermittent cough and wheezing, we are seeing her mostly for acute exacerbation of COPD. In addition to her COPD, patient has coronary artery disease and severe peripheral artery occlusive disease and she has chronic systolic congestive heart failure with a EF of 25 to 30%. Patient is improving but not back to baseline, continues to have intermittent cough wheezing and shortness of breath The patient is seen today January 14, 2024 in follow-up on the selective care unit. She is awake and alert in no acute distress. She is maintaining good O2 saturations in the upper 90s on 2 L/min per nasal cannula. She has been afebrile. Hemodynamically stable. Breathing a bit easier today compared to yesterday. Blood culture revealed no growth. White count 7.6. Hemoglobin 10.7. Platelets 157. Sodium 143. Potassium 4.8. Bicarb 24. BUN 41. Creatinine 0.98. Glucose 176. She remains on DuoNeb inhalations, Symbicort, Solu-Medrol. NicoDerm patch in place. Anticoagulated with Xarelto. The patient is seen today January 15, 2024 in follow-up on the selective care unit. She is currently resting in bed. Awake and alert in no acute distress. She denies any worsening shortness of breath, cough or congestion. She is maintaining O2 saturations in the mid 90s on 2 L/min per nasal cannula. She is afebrile. Hemodynamically stable. Blood culture revealed no growth. Glucose 216. She is continued on DuoNeb inhalations, Symbicort, Solu-Medrol. Anticoagulated with Xarelto. NicoDerm patch in place. Objective - Vital Signs Vital signs: Vital Signs Temp 97.7 F 01/15/24 15:08 Pulse 48 L 01/15/24 15:08 Resp 20 01/15/24 15:08 BP 109/64 01/15/24 15:08 Pulse Ox 96 01/15/24 15:08 FiO2 Intake & Output 01/14/24 01/15/24 01/15/24 18:59 06:59 18:59 Intake Total 1760 603 Output Total 0 Balance 1760 0 603 Weight 81 kg 73 kg Intake: IV 5 Invasive Line 2 5 Oral 1760 598 Output: Urine 0 Other: Voiding Method Toilet Toilet Toilet External Catheter External Catheter External Catheter - Exam General: An alert, 74-year-old female, resting in bed, on 2 L nasal cannula, appears at stated age. Derm: Multiple bruises on left and right arm Head: atraumatic, normocephalic, symmetric Eyes: EOMI, no lid lag, anicteric sclera, pupils equal round reactive to light ENT: Nose and ears atraumatic Neck: No cervical lymphadenopathy, supple Mouth: no lip lesion, mucus membranes moist Cardiovascular: Cardiac exam revealed the PMI to be normally situated and sized. There were no murmurs, rubs, clicks, or gallops. Lungs: End expiratory wheezing, no rhonchi, no rales, no accessory muscle use Abdominal: soft, nontender to palpation, no guarding Ext: Right foot warm to touch with cap refill less than 2 seconds, no gross muscle atrophy, no contractures Neuro: Normal range of motion found throughout upper and lower extremities Psych: Alert, oriented, appropriate affect - Labs CBC & Chem 7: 01/14/24 08:03 01/14/24 08:03 Labs: Abnormal Lab Results - Last 24 Hours (Table) 01/14/24 01/14/24 01/15/24 Range/Units 16:10 19:59 06:11 POC Glucose (mg/dL) 186 H 241 H 166 H (70-110) mg/dL 01/15/24 Range/Units 11:57 POC Glucose (mg/dL) 216 H (70-110) mg/dL Microbiology - Last 24 Hours (Table) 01/09/24 17:02 Blood Culture - Final Blood Assessment and Plan Assessment: Acute on chronic shortness of breath, secondary to an acute exacerbation of chronic obstructive pulmonary disease. The possibility of pulmonary embolism is felt to be less likely specially the patient has been taking Xarelto on an outpatient basis. Question her compliancy with ongoing medication intake. CT scan of the chest and not able to appreciate a significant clot of concern in the right upper lobe. Nevertheless, this has been reported by the radiologist and it may still be a possibility. The clinical presentation is most consistent with COPD exacerbation. She also has underlying cardiomyopathy with impaired LV function. Coronary artery disease with previous stenting of the LAD Severe PAD with occlusive disease on the right. The patient has a history of a acute right lower extremity ischemia The patient is status post angiography and findings are consistent with SFA occlusion and the patient underwent tPA thrombolysis with limited improvement. COPD, maintained on Trelegy Ellipta on outpatient basis History of smoking CHF with systolic heart failure a impaired ejection fraction of 25 to 30% on 10/26/2023 chronic anemia Hyperlipidemia Plan: The patient was seen and evaluated Labs and medications reviewed Continue the current treatment plan Titrate down the FiO2 as tolerated Plan is for possible cardiac catheterization on 01/17/2024 I have personally seen and examined the patient, performed the documentation and the assessment and plan as written. Number of minutes spent on the visit: 10 Dictation was produced using [employer] software. Please excuse any grammatical, word or spelling errors.
--- NOTE | 2024-01-15 16:11 | P.PN ---
Subjective Progress Note Date: 01/15/24 74-year-old lady with past medical history significant for coronary artery disease, tobacco addiction, COPD who presented to the ER for shortness of breath. Patient initially presented to the [facility]. Patient had complaint of shortness of breath for the last few days. There was no complaint of fever or chills. There was no complaint of chest pain. There was no complaint of cough. There was no complaint of orthopnea or PND. Patient was worked up at [facility] with a CT PE protocol and was found to have a PE and was started on pharmacy dose heparin. Patient was transferred to [facility] for further evaluation and treatment Patient admitted to medicine service 24-hour interval change 01/15/2024 Patient is seen and evaluated in follow-up on the selective care unit. She is currently resting in bed. Awake and alert in no acute distress. She denies any worsening shortness of breath, cough or congestion. -- Currently maintaining O2 saturations in the mid 90s on 2 L/min per nasal cannula. She is afebrile. Hemodynamically stable. Blood culture revealed no growth. Glucose 216. - She is continued on DuoNeb inhalations, Symbicort, Solu-Medrol. Anticoagulated with Xarelto. NicoDerm patch in place. Objective - Vital Signs Vital signs: Vital Signs Temp 97.8 F 01/15/24 12:14 Pulse 54 L 01/15/24 12:14 Resp 18 01/15/24 12:14 BP 123/65 01/15/24 12:14 Pulse Ox 98 01/15/24 12:14 FiO2 Intake & Output 01/14/24 01/15/24 01/15/24 18:59 06:59 18:59 Intake Total 1760 245 Output Total 0 Balance 1760 0 245 Weight 81 kg 73 kg Intake: IV 5 Invasive Line 2 5 Oral 1760 240 Output: Urine 0 Other: Voiding Method Toilet Toilet Toilet External Catheter External Catheter External Catheter - Exam GENERAL: The patient is alert and oriented x3, not in any acute distress. Well developed, well nourished. HEENT: Pupils are round and equally reacting to light. EOMI. No scleral icterus. No conjunctival pallor. Normocephalic, atraumatic. No pharyngeal erythema. No thyromegaly. CARDIOVASCULAR: S1 and S2 present. No murmurs, rubs, or gallops. PULMONARY: Coarse breath sounds bilaterally, expiratory wheeze audible ABDOMEN: Soft, nontender, nondistended, normoactive bowel sounds. No palpable organomegaly. MUSCULOSKELETAL: No joint swelling or deformity. EXTREMITIES: No cyanosis, clubbing, or pedal edema. NEUROLOGICAL: Gross neurological examination did not reveal any focal deficits. SKIN: No rashes. - Labs CBC & Chem 7: 01/14/24 08:03 01/14/24 08:03 Labs: Abnormal Lab Results - Last 24 Hours (Table) 01/14/24 01/14/24 01/15/24 Range/Units 16:10 19:59 06:11 POC Glucose (mg/dL) 186 H 241 H 166 H (70-110) mg/dL 01/15/24 Range/Units 11:57 POC Glucose (mg/dL) 216 H (70-110) mg/dL Microbiology - Last 24 Hours (Table) 01/09/24 17:02 Blood Culture - Final Blood Assessment and Plan Assessment: Acute respiratory distress Acute COPD exacerbation Acute PE Multiple PVCs History of coronary artery disease status post mid LAD stenting Chronic systolic CHF with EF 40%/ischemic cardiomyopathy History of right lower extremity ischemia secondary to occlusion at the level of superficial femoral artery. Tobacco addiction Monitor vital signs Monitor CBC Monitor CMP Continue telemetry monitoring Continue with DuoNebs, Symbicort and IV Solu-Medrol. Ordered pharmacy dose heparin. Changed to oral anticoagulation. 2 days ago was ordered. Follow-up serial troponin Resume home meds Pulmonary and cardiology is on board. Labs and medication were reviewed... Monitor labs and vitals. DVT and GI prophylaxis. Further recommendations as per clinical course of the patient
[2024-01-15 16:28] LABS: Glucose,Whole Blood 181 mg/dL (70-110)
[2024-01-15 20:26] LABS: Glucose,Whole Blood 141 mg/dL (70-110)
[2024-01-16 06:20] LABS: Glucose,Whole Blood 129 mg/dL (70-110)
--- NOTE | 2024-01-16 09:12 | CA ---
Transthoracic Echo Report Name: Cary Poole Age: 74 Gender: F : 1950 Exam Date: 01/15/2024 12:05 Exam Location: [facility] Ht (in): 64 Wt (lb): 178 Ordering Physician: Lalita Rodriguez Attending/Referring Phys: [id number], Jennifer [employer] Shift Supervisor Dominique Qureshi RDCS Procedure CPT: Indications: LVF Cardiac Hx: Technical Quality: Good Contrast 1: Total Dose (mL): Contrast 2: Total Dose (mL): MEASUREMENTS (Male / Female) Normal Values 2D ECHO RV Internal Dim ED PLAX 3.9 cm LV Diastolic Volume MOD BP 142.8 cm??? 67 - 155 / 56 - 104 cm??? LV Systolic Volume MOD BP 116.3 cm??? 22 - 58 / 19 - 49 cm??? LV Ejection Fraction MOD BP 18.6 % >= 55 % LV Cardiac Index MOD BP 1191.6 cm???/min???m??? LV Diastolic Volume MOD 4C 131.1 cm??? LV Systolic Volume MOD 4C 98.0 cm??? LV Ejection Fraction MOD 4C 25.2 % LV Cardiac Index MOD 4C 1483.1 cm???/min???m??? LV Diastolic Length 4C 7.8 cm LV Systolic Length 4C 7.2 cm LV Diastolic Volume MOD 2C 154.0 cm??? LV Systolic Volume MOD 2C 87.1 cm??? LV Ejection Fraction MOD 2C 43.5 % LV Cardiac Index MOD 2C 3008.0 cm???/min???m??? LV Diastolic Length 2C 8.0 cm LV Systolic Length 2C 6.6 cm DOPPLER MR Peak Velocity 319.5 cm/s MR Peak Gradient 40.8 mmHg TR Peak Velocity 275.9 cm/s TR Peak Gradient 30.5 mmHg Right Ventricular Systolic Press 45.2 mmHg FINDINGS Left Ventricle Left ventricular ejection fraction is estimated at 35-40 %. Moderately reduced global left ventricular systolic function. Flattening of ventricular septum Right Ventricle Moderate pulmonary hypertension. Right ventricular systolic pressure estimated at 45 mm hg. Right Atrium Left Atrium Mitral Valve Mitral valve thickened. Mild mitral annular calcification. [id number] mitral regurgitation. Aortic Valve Trileaflet aortic valve. No aortic valve stenosis or regurgitation. Tricuspid Valve [id number]-[id number] tricuspid regurgitation. Pulmonic Valve Pericardium No pericardial or pleural effusion. Aorta CONCLUSIONS Moderate to severe LV systolic dysfunction with an ejection fraction of 30-40% Moderate pulmonary hypertension Mild to moderate mitral regurgitation Moderate to severe tricuspid regurgitation Previewed by: Dr. Frank De La Torre MD (Electronically Signed) Final Date: 16 January 2024 09:11
[2024-01-16] MEDS ORDERED: NITROGLYCERIN SL TABS 0.4 MG TAB SUBLINGUAL PRN (11:25)
[2024-01-16] MEDS ORDERED: ALPRAZolam 0.5 MG TAB PO PRN (11:25)
[2024-01-16] MEDS ORDERED: ALPRAZolam 0.25 MG TAB PO PRN (11:25)
--- NOTE | 2024-01-16 11:46 | P.PN ---
Subjective Progress Note Date: 01/16/24 Reason for Consult (text): Abnormal EKG, shortness of breath with history of cardiac stent History of present illness: This is a 74-year-old female patient of Dr. Funes with past medical history of coronary artery disease status post PCI, ischemic cardiomyopathy with EF 2530 %, NYHA class III, tobacco use and dependence, history of right lower extremity ischemia with SFA occlusion status post tPA thrombolysis. We have been asked to evaluate the patient for abnormal EKG, shortness of breath with history of cardiac stent. Patient presented to the hospital on 01/08 with complaints of shortness of breath. Patient states that she could not catch her breath at all. She has been treated by pulmonary medicine for acute exacerbation of COPD. Patient denies having any chest pain. Patient has history of hospitalization in October of this year for generalized weakness and falls and was found to have elevated troponin, EF was 2530 % at that time. She underwent cardiac catheterization that showed a 90% mid LAD stenosis, 70% ostial diagonal stenosis and high percent NEONATAL CRITICAL CARE NURSE of the RCA with [id number] collaterals filling PDA and PL branches, mild disease in the circumflex. She underwent PCI of the LAD with Dr. Lewis with [facility]. She apparently was offered a LifeVest at that time but she denied. -EKG: Current EKG was compared to 1 in October. EKG today showing sinus rhythm with LVH, PVCs -Laboratory studies: WBC 7.3, hemoglobin 9.7, platelet count 145. Sodium 140, potassium 4.5, BUN 32 creatinine 0.94. -Home cardiac medications: Aspirin 81 mg daily, atorvastatin 40 mg at bedtime, Farxiga 10 mg daily, losartan 12.5 mg daily, Toprol XL 25 mg daily, potassium chloride 10 mill equivalents daily, Xarelto 2.5 mg twice daily, Brilinta 90 mg twice daily. -Echocardiogram performed 11/05/2023 revealed EF of 40%, inferior wall akinetic, mild mitral regurgitation. Echocardiogram performed on 10/26/2023 revealed EF of 25 to 30% 01/13/24 Patient seen and examined. Patient is having more PVCs on telemetry and ST changes. Repeat EKG supports the same. Troponins ordered. Blood pressure 121/74, heart rate 75, pulse ox 97% on 2 L nasal cannula. Repeat blood work reveals TSH 0.115 and free T4 abnormal at 0.76. Troponin 0.044. BUN 35 c reatinine 0.96. 01/14/24 Patient seen and examined. Patient states her breathing is about the same. Her lung sounds however do sound improved. Blood pressure 116/68, heart rate in the 70s, pulse ox 98% on 2 L nasal cannula. Patient does have EKG changes and contemplating workup but will wait until respiratory status is more stable. Repeat blood work reveals hemoglobin 10.7, BUN 41 creatinine 0.98. Troponin 0.044 and 0.041. 01/15/24 Patient seen and examined. Blood pressure 109/57, heart rate in the 60s, pulse ox 100% on 2 L nasal cannula. Patient states she is still having some shortness of breath. No chest pain. No palpitations. Repeat echocardiogram is pending. 01/16/24 Patient seen and examined. No complaints of chest pain. Breathing status is slowly improving. Echocardiogram reveals EF of 30 to 40%, moderate pulmonary hypertension, mild to moderate mitral regurgitation, moderate to severe tricuspid regurgitation. Blood pressure 114/68, heart rate in the 60s, pulse ox 98% on 3 L nasal cannula. Lab work today is pending at the time of this dictation. Physical examination: Gen: This is a 74-year-old female in no acute distress VS: reviewed HEENT: Head is atraumatic, normocephalic. Pupils equal, round. Sclerae is anicteric. NECK: Supple. No JVD. LUNGS: Bilateral wheezing. No intercostal retractions. HEART: Regular rate and rhythm. No murmur. ABDOMEN: Soft No tenderness. EXTREMITIES: No pedal edema. No calf tenderness. NEUROLOGICAL: Patient is awake, alert and oriented x3. Assessment: COPD exacerbation PVCs Nonspecific ST changes on EKG History of coronary artery disease with PCI on 10/28/2023 Ischemic cardiomyopathy with EF 3040% Tobacco use and dependence History of right lower extremity ischemia with SFA occlusion status post tPA thrombolysis Pulmonary embolism, patient on Xarelto Plan: Continue patient's home cardiac medications: Aspirin 81 mg daily, atorvastatin 40 mg at bedtime, Farxiga 10 mg daily, Toprol XL 25 mg daily, and Brilinta 90 mg twice daily Hold Xarelto for cardiac cath tomorrow Schedule patient for left heart catheterization with Dr. Funes tomorrow N.p.o. after midnight Smoking cessation. Patient is on a nicotine patch, patient will be provided [place] quit line information at discharge. Further recommendations to follow based upon clinical course. Nurse practitioner note has been reviewed, I agree with documented findings and plan of care. Patient was seen and examined. Objective - Vital Signs Vital signs: Vital Signs Temp 97.8 F 01/16/24 08:53 Pulse 61 01/16/24 08:53 Resp 22 01/16/24 08:53 BP 114/68 01/16/24 08:53 Pulse Ox 98 01/16/24 08:53 FiO2 Intake & Output 01/15/24 01/16/24 01/16/24 18:59 06:59 18:59 Intake Total 961 240 Output Total 0 Balance 961 0 240 Weight 73 kg Intake: IV 5 Invasive Line 2 5 Oral 956 240 Output: Urine 0 Other: Voiding Method Toilet Toilet Toilet External Catheter External Catheter External Catheter # Voids 1 # Bowel Movements 1 - Labs CBC & Chem 7: 01/14/24 08:03 01/14/24 08:03 Labs: Abnormal Lab Results - Last 24 Hours (Table) 01/15/24 01/15/24 01/15/24 Range/Units 11:57 16:26 20:25 POC Glucose (mg/dL) 216 H 181 H 141 H (70-110) mg/dL 01/16/24 Range/Units 06:19 POC Glucose (mg/dL) 129 H (70-110) mg/dL
[2024-01-16 11:47] LABS: Glucose,Whole Blood 171 mg/dL (70-110)
--- NOTE | 2024-01-16 15:20 | P.PN ---
Subjective Progress Note Date: 01/16/24 Principal diagnosis: Acute on chronic hypoxic respiratory failure, multifactorial, secondary to severe COPD with acute exacerbation of COPD, possible pulmonary embolism, chronic systolic congestive heart failure with ejection fraction of 25 to 30% chronic anemia This is a 75-year-old female patient was transferred to us from [facility] for shortness of breath. The patient has been having increased dyspnea for the past few days. No cough. No sputum production. No orthopnea. The patient was worked up at the hospital and she was given a CT angiogram of the chest that was reported to be abnormal and for that reason, the patient was started on IV heparin and the patient was transferred to us for further care. She is currently on room air oxygen with a pulse ox of 96%. I reviewed the report of the CT angiogram that was forwarded from [facility]. This was a CT angiogram that was done on 01/09/2024. It was reported that the patient has a subsegmental filling defect in the right lower lobe pulmonary artery branch image 69 series 2. There was also mucous plugging within the tracheobronchial tree. Atelectatic changes in lung bases and some groundglass density in her lungs. Based on all this, the patient was given diagnosis of pulmonary embolism and the patient was transferred to us. Noted the patient has been receiving Xarelto as an anticoagulant on outpatient basis. The RV to LV ratio was 0.9. There was also lymphadenopathy in the paratracheal region and and supraclavicular region. No suspicious abnormality in the liver. Degen erative changes in her spine. Her D-dimer was at 1.7. Magnesium was at 1.9. proBNP level was 639. Troponin was negative. Coagulation profile was normal. Lactic acid level was at 2.2. Sodium is at 146, potassium is at 3.2, bicarbonate 18, LFTs are normal, calcium is 11.8, bilirubin is at 0.3, white cell count 7.2 with a hemoglobin 10.4 and a platelet count of 131. Noted the patient has been still smoking around half pack of cigarettes on a daily basis. She is currently living with her daughter out of a motel in the [facility]. She is currently on room air oxygen. The patient is known to have coronary disease and the patient has undergone a cardiac catheterization and stenting of the LAD on 10/28/2023. The procedure was uncomplicated. The patient was discharged home. Admitted for the above- mentioned ischemic changes in the right foot. The patient was seen by vascular surgery and the patient was taken to the lab and she underwent an ultrasound- guided left common femoral artery access with right femoral angiography and the patient was found to have no filling of the SFA at the bifurcation and there was increased collateral. The patient was given thrombolytic therapy. S ubsequently, the catheter was removed and the patient underwent repeat angiography and there was no clear patency achieved in the involved vessel and attempts were made to pass the wire and this was met with the dissection at the level of the popliteal artery but no luminal gain. The peroneal artery was patent at the distal calf. This was treated conservatively and the patient was ultimately discharged home. Patient was evaluated today on 01/11/24, continues to complain of shortness of breath, and is to complain of generalized aches and pains, patient is not happy with her pain management which is being addressed by her admitting physician. She is on [facility] she is also on oxycodone. Patient continues to cough and wheeze, she does have a nicotine patch in place, she seems to be a bit anxious, today I added Symbicort, reviewed all her bronchodilators, remains on methylprednisolone at 60 mg IV push every 6 hours she is on DuoNeb updrafts, hence I believe the treatment for her COPD is very much appropriate. The patient is seen today January 12, 2024 in follow-up on the selective care unit. She is awake and alert in no acute distress. Breathing a bit easier today compared to yesterday. She is maintaining O2 saturations in the 90s on 2 L/min per nasal cannula. She remains on DuoNeb inhalations, Symbicort, Solu- Medrol. NicoDerm patch in place. Tessalon Perles for cough. Anticoagulated with Xarelto. White count 7.3. Hemoglobin 9.7. Platelets 145. Sodium 140. Potassium 4.5. Bicarb 19. BUN 32. Creatinine 0.94. Glucose 137. Seen today on 01/13/2024, patient continues to have intermittent cough and wheezing, we are seeing her mostly for acute exacerbation of COPD. In addition to her COPD, patient has coronary artery disease and severe peripheral artery occlusive disease and she has chronic systolic congestive heart failure with a EF of 25 to 30%. Patient is improving but not back to baseline, continues to have intermittent cough wheezing and shortness of breath The patient is seen today January 14, 2024 in follow-up on the selective care unit. She is awake and alert in no acute distress. She is maintaining good O2 saturations in the upper 90s on 2 L/min per nasal cannula. She has been afebrile. Hemodynamically stable. Breathing a bit easier today compared to yesterday. Blood culture revealed no growth. White count 7.6. Hemoglobin 10.7. Platelets 157. Sodium 143. Potassium 4.8. Bicarb 24. BUN 41. Creatinine 0.98. Glucose 176. She remains on DuoNeb inhalations, Symbicort, Solu-Medrol. NicoDerm patch in place. Anticoagulated with Xarelto. The patient is seen today January 15, 2024 in follow-up on the selective care unit. She is currently resting in bed. Awake and alert in no acute distress. She denies any worsening shortness of breath, cough or congestion. She is maintaining O2 saturations in the mid 90s on 2 L/min per nasal cannula. She is afebrile. Hemodynamically stable. Blood culture revealed no growth. Glucose 216. She is continued on DuoNeb inhalations, Symbicort, Solu-Medrol. Anticoagulated with Xarelto. NicoDerm patch in place. Seen today on 01/16/2024, patient is doing better less cough less wheezing shortness of breath, her echocardiogram showed LV dysfunction and moderate pulmonary hypertension as well as significant valvular heart disease patient is scheduled to have cardiac catheterization tomorrow by cardiology. Her Xarelto will be placed on hold. Objective - Vital Signs Vital signs: Vital Signs Temp 98.1 F 01/16/24 11:57 Pulse 64 01/16/24 14:00 Resp 20 01/16/24 14:00 BP 100/48 01/16/24 11:57 Pulse Ox 96 01/16/24 11:57 FiO2 Intake & Output 01/15/24 01/16/24 01/16/24 18:59 06:59 18:59 Intake Total 961 368 Output Total 0 Balance 961 0 368 Weight 73 kg Intake: IV 5 10 Invasive Line 2 5 10 Oral 956 358 Output: Urine 0 Other: Voiding Method Toilet Toilet Toilet External Catheter External Catheter External Catheter # Voids 1 # Bowel Movements 1 - Exam General: Revealed a 74-year-old female in no distress Derm: Multiple bruises on left and right arm Head: atraumatic, normocephalic, symmetric Eyes: EOMI, no lid lag, anicteric sclera, pupils equal round reactive to light ENT: Nose and ears atraumatic Neck: No cervical lymphadenopathy, supple Mouth: no lip lesion, mucus membranes moist Cardiovascular: Normal S1-S2, no S3 gallop, no murmur. Lungs: Minimal wheezing on forced expiratory maneuver Abdominal: soft, nontender to palpation, no guarding Ext: No clubbing edema or cyanosis Neuro: Alert and oriented x 3, no focal deficit Psychiatric: Normal mood affect and no mental status examination. - Labs CBC & Chem 7: 01/14/24 08:03 01/14/24 08:03 Labs: Abnormal Lab Results - Last 24 Hours (Table) 01/15/24 01/15/24 01/16/24 Range/Units 16:26 20:25 06:19 POC Glucose (mg/dL) 181 H 141 H 129 H (70-110) mg/dL 01/16/24 Range/Units 11:45 POC Glucose (mg/dL) 171 H (70-110) mg/dL Assessment and Plan Assessment: Impression Acute on chronic shortness of breath, Acute exacerbation of COPD Possible pulmonary embolism and questionable compliance with Xarelto Tobacco dependence syndrome patient has been smoking until recently History of underlying cardiomyopathy with impaired LV function, ejection fraction of 25 to 30% with significant valvular heart disease History of coronary artery disease and previous stenting of LAD Severe peripheral vessel occlusive disease Chronic anemia Dyslipidemia Recommendation: Continue bronchodilators and steroids Scheduled for cardiac catheterization tomorrow Continue nicotine patch Counseled regarding smoking cessation Will continue to follow Time with Patient: Less than 30
--- NOTE | 2024-01-16 16:07 | P.PN ---
Subjective Progress Note Date: 01/16/24 74-year-old lady with past medical history significant for coronary artery disease, tobacco addiction, COPD who presented to the ER for shortness of breath. Patient initially presented to the [facility]. Patient had complaint of shortness of breath for the last few days. There was no complaint of fever or chills. There was no complaint of chest pain. There was no complaint of cough. There was no complaint of orthopnea or PND. Patient was worked up at [facility] with a CT PE protocol and was found to have a PE and was started on pharmacy dose heparin. Patient was transferred to [facility] for further evaluation and treatment Patient admitted to medicine service 24-hour interval change 01/15/2024 Patient is seen and evaluated in follow-up on the selective care unit. She is currently resting in bed. Awake and alert in no acute distress. She denies any worsening shortness of breath, cough or congestion. -- Currently maintaining O2 saturations in the mid 90s on 2 L/min per nasal cannula. She is afebrile. Hemodynamically stable. Blood culture revealed no growth. Glucose 216. - She is continued on DuoNeb inhalations, Symbicort, Solu-Medrol. Anticoagulated with Xarelto. NicoDerm patch in place. 01/16/2024, --patient is doing better less cough less wheezing shortness of breath, her echocardiogram showed LV dysfunction and moderate pulmonary hypertension as well as significant valvular heart disease patient is scheduled to have cardiac catheterization tomorrow by cardiology. Her Xarelto will be placed on hold. Vital signs are reviewed and stable with temperature of 98.1, pulse 64, respi ration 20, blood pressure 100/48 Continue bronchodilators and steroids Scheduled for cardiac catheterization tomorrow Continue nicotine patch Objective - Vital Signs Vital signs: Vital Signs Temp 97.8 F 01/16/24 08:53 Pulse 61 01/16/24 08:53 Resp 22 01/16/24 08:53 BP 114/68 01/16/24 08:53 Pulse Ox 98 01/16/24 08:53 FiO2 Intake & Output 01/15/24 01/16/24 01/16/24 18:59 06:59 18:59 Intake Total 961 240 Output Total 0 Balance 961 0 240 Weight 73 kg Intake: IV 5 Invasive Line 2 5 Oral 956 240 Output: Urine 0 Other: Voiding Method Toilet Toilet Toilet External Catheter External Catheter External Catheter # Voids 1 # Bowel Movements 1 - Exam GENERAL: The patient is alert and oriented x3, not in any acute distress. Well developed, well nourished. HEENT: Pupils are round and equally reacting to light. EOMI. No scleral icterus. No conjunctival pallor. Normocephalic, atraumatic. No pharyngeal erythema. No thyromegaly. CARDIOVASCULAR: S1 and S2 present. No murmurs, rubs, or gallops. PULMONARY: Coarse breath sounds bilaterally, expiratory wheeze audible ABDOMEN: Soft, nontender, nondistended, normoactive bowel sounds. No palpable organomegaly. MUSCULOSKELETAL: No joint swelling or deformity. EXTREMITIES: No cyanosis, clubbing, or pedal edema. NEUROLOGICAL: Gross neurological examination did not reveal any focal deficits. SKIN: No rashes. - Labs CBC & Chem 7: 01/14/24 08:03 01/14/24 08:03 Labs: Abnormal Lab Results - Last 24 Hours (Table) 01/15/24 01/15/24 01/15/24 Range/Units 11:57 16:26 20:25 POC Glucose (mg/dL) 216 H 181 H 141 H (70-110) mg/dL 01/16/24 Range/Units 06:19 POC Glucose (mg/dL) 129 H (70-110) mg/dL Assessment and Plan Assessment: Acute respiratory distress Acute COPD exacerbation Acute PE Multiple PVCs History of coronary artery disease status post mid LAD stenting Chronic systolic CHF with EF 40%/ischemic cardiomyopathy History of right lower extremity ischemia secondary to occlusion at the level of superficial femoral artery. Tobacco addiction Monitor vital signs Monitor CBC Monitor CMP Continue telemetry monitoring Continue with DuoNebs, Symbicort and IV Solu-Medrol. Ordered pharmacy dose heparin. Changed to oral anticoagulation. 2 days ago was ordered. Follow-up serial troponin Resume home meds Pulmonary and cardiology is on board. Labs and medication were reviewed... Monitor labs and vitals. DVT and GI prophylaxis. Further recommendations as per clinical course of the patient
[2024-01-16 16:32] LABS: Basophils % (A) 0 %; Eosinophils % (A) 0 %; HCT 34.6 % (34.0-46.0); Hypochromasia Moderate; Lymphocytes # (A) 0.4 k/uL (1.0-4.8); Lymphocytes % (A) 6 %; MCH 28.9 pg (25.0-35.0); MCHC 31.8 g/dL (31.0-37.0); MCV 90.7 fL (80.0-100.0); Mean Platelet Volume 11.7; Monocytes # (A) 0.2 k/uL (0-1.0); Monocytes % (A) 2 %; Neutrophils # (A) 6.7 k/uL (1.3-7.7); Neutrophils % (A) 91 %; Platelet Count 178 k/uL (150-450); RBC 3.82 m/uL (3.80-5.40); RDW 15.7 % (11.5-15.5); WBC 7.4 k/uL (3.8-10.6)
[2024-01-16 16:33] LABS: African American GFR (CKD) 77 (>60 ml/min/1.73 sqM); Anion Gap 5 mmol/L; Blood Urea Nitrogen 43 mg/dL (7-17); Calcium 7.8 mg/dL (8.4-10.2); Carbon Dioxide 21 mmol/L (22-30); Chloride 113 mmol/L (98-107); Glucose 137 mg/dL (74-99); Non-African American GFR(CKD) 67 (>60 ml/min/1.73 sqM); Potassium 5.1 mmol/L (3.5-5.1); Sodium 139 mmol/L (137-145)
[2024-01-16 16:53] LABS: Glucose,Whole Blood 290 mg/dL (70-110)
[2024-01-16 20:55] LABS: Glucose,Whole Blood 138 mg/dL (70-110)
[2024-01-17] MEDS: ATORVASTATIN 80 MG TAB PO ONE (06:04)
[2024-01-17] MEDS: ASPIRIN 325 MG TAB PO ONE (06:04)
[2024-01-17 06:14] LABS: Glucose,Whole Blood 126 mg/dL (70-110)
[2024-01-17] MEDS ORDERED: HEPARIN SODIUM,PORCINE (1 ML) 2,500 UNIT in SODIUM CHLORIDE 0.9% 250 ML IRRIGATION PRN (07:00)
[2024-01-17] MEDS ORDERED: HEPARIN SODIUM,PORCINE 10,000 UNIT in SODIUM CHLORIDE 0.9% 1,000 ML IRRIGATION PRN (07:00)
[2024-01-17 08:16] LABS: African American GFR (CKD) 80 (>60 ml/min/1.73 sqM); Anion Gap 5 mmol/L; Blood Urea Nitrogen 41 mg/dL (7-17); Carbon Dioxide 26 mmol/L (22-30); Chloride 111 mmol/L (98-107); Glucose 114 mg/dL (74-99); Non-African American GFR(CKD) 69 (>60 ml/min/1.73 sqM); Potassium 5.4 mmol/L (3.5-5.1); Sodium 142 mmol/L (137-145)
[2024-01-17 08:26] LABS: Basophils % (A) 0 %; Eosinophils % (A) 0 %; HCT 35.8 % (34.0-46.0); HGB 11.2 gm/dL (11.4-16.0); Hypochromasia Moderate; Lymphocytes # (A) 0.4 k/uL (1.0-4.8); Lymphocytes % (A) 5 %; MCH 28.4 pg (25.0-35.0); MCHC 31.2 g/dL (31.0-37.0); MCV 90.8 fL (80.0-100.0); Mean Platelet Volume 11.8; Monocytes # (A) 0.2 k/uL (0-1.0); Monocytes % (A) 3 %; Neutrophils # (A) 6.5 k/uL (1.3-7.7); Neutrophils % (A) 91 %; Platelet Count 179 k/uL (150-450); RBC 3.94 m/uL (3.80-5.40); RDW 15.8 % (11.5-15.5); WBC 7.1 k/uL (3.8-10.6)
[2024-01-17 09:12] LABS: Large Platelets Present
--- NOTE | 2024-01-17 10:02 | P.PN ---
Subjective 74-year-old lady with past medical history significant for coronary artery disease, tobacco addiction, COPD who presented to the ER for shortness of breath. Patient initially presented to the [facility]. Patient had complaint of shortness of breath for the last few days. There was no complaint of fever or chills. There was no complaint of chest pain. There was no complaint of cough. There was no complaint of orthopnea or PND. Patient was worked up at [facility] with a CT PE protocol and was found to have a PE and was started on pharmacy dose heparin. Patient was transferred to [facility] for further evaluation and treatment Patient admitted to medicine service 24-hour interval change 01/15/2024 Patient is seen and evaluated in follow-up on the selective care unit. She is currently resting in bed. Awake and alert in no acute distress. She denies any worsening shortness of breath, cough or congestion. -- Currently maintaining O2 saturations in the mid 90s on 2 L/min per nasal cannula. She is afebrile. Hemodynamically stable. Blood culture revealed no growth. Glucose 216. - She is continued on DuoNeb inhalations, Symbicort, Solu-Medrol. Anticoagulated with Xarelto. NicoDerm patch in place. 01/16/2024, --patient is doing better less cough less wheezing shortness of breath, her echocardiogram showed LV dysfunction and moderate pulmonary hypertension as well as significant valvular heart disease patient is scheduled to have cardiac catheterization tomorrow by cardiology. Her Xarelto will be placed on hold. Vital signs are reviewed and stable with temperature of 98.1, pulse 64, respiration 20, blood pressure 100/48 Continue bronchodilators and steroids Scheduled for cardiac catheterization tomorrow Continue nicotine patch 01/16 Patient looks tired She is complaining from some dyspnea but no chest pain Patient states that she was not on oxygen at home Patient was counseled to quit smoking with risk and benefits explained, patient is not sure for now Patient is going for left heart cath today Her Xarelto on hold and she is currently on heparin drip Will order for PT/OT evaluation as well Objective - Vital Signs Vital signs: Vital Signs Temp 97.8 F 01/17/24 08:00 Pulse 58 L 01/17/24 08:10 Resp 20 01/17/24 08:00 BP 126/79 01/17/24 08:00 Pulse Ox 98 01/17/24 08:00 FiO2 Intake & Output 01/16/24 01/17/24 01/17/24 18:59 06:59 18:59 Intake Total 486 250 Balance 486 250 Weight 75 kg Intake: IV 10 10 Invasive Line 2 10 10 Oral 476 240 Other: Voiding Method Toilet Toilet Toilet External Catheter External Catheter External Catheter # Voids 2 1 # Bowel Movements 1 - Exam GENERAL: The patient is alert and oriented x3, not in any acute distress. Well developed, well nourished. HEENT: Pupils are round and equally reacting to light. EOMI. No scleral icterus. No conjunctival pallor. Normocephalic, atraumatic. No pharyngeal erythema. No thyromegaly. CARDIOVASCULAR: S1 and S2 present. No murmurs, rubs, or gallops. PULMONARY: Chest is clear to auscultation, no wheezing , no crackles. ABDOMEN: Soft, nontender, nondistended, normoactive bowel sounds. No palpable organomegaly. MUSCULOSKELETAL: No joint swelling or deformity. EXTREMITIES: No cyanosis, clubbing, or pedal edema. NEUROLOGICAL: Gross neurological examination did not reveal any focal deficits. SKIN: No rashes. no petechiae. - Labs CBC & Chem 7: 01/17/24 07:53 01/17/24 07:53 Labs: Abnormal Lab Results - Last 24 Hours (Table) 01/16/24 01/16/24 01/16/24 Range/Units 11:45 15:57 15:57 Hgb 11.0 L (11.4-16.0) gm/dL RDW 15.7 H (11.5-15.5) % Lymphocytes # 0.4 L (1.0-4.8) k/uL Potassium (3.5-5.1) mmol/L Chloride 113 H (98-107) mmol/L Carbon Dioxide 21 L (22-30) mmol/L BUN 43 H (7-17) mg/dL Glucose 137 H (74-99) mg/dL POC Glucose (mg/dL) 171 H (70-110) mg/dL Calcium 7.8 L (8.4-10.2) mg/dL 01/16/24 01/16/24 01/17/24 Range/Units 16:51 20:54 06:13 Hgb (11.4-16.0) gm/dL RDW (11.5-15.5) % Lymphocytes # (1.0-4.8) k/uL Potassium (3.5-5.1) mmol/L Chloride (98-107) mmol/L Carbon Dioxide (22-30) mmol/L BUN (7-17) mg/dL Glucose (74-99) mg/dL POC Glucose (mg/dL) 290 H 138 H 126 H (70-110) mg/dL Calcium (8.4-10.2) mg/dL 01/17/24 01/17/24 Range/Units 07:53 07:53 Hgb 11.2 L (11.4-16.0) gm/dL RDW 15.8 H (11.5-15.5) % Lymphocytes # 0.4 L (1.0-4.8) k/uL Potassium 5.4 H (3.5-5.1) mmol/L Chloride 111 H (98-107) mmol/L Carbon Dioxide (22-30) mmol/L BUN 41 H (7-17) mg/dL Glucose 114 H (74-99) mg/dL POC Glucose (mg/dL) (70-110) mg/dL Calcium 8.0 L (8.4-10.2) mg/dL Assessment and Plan Assessment: Acute hypoxic respiratory failure Acute COPD exacerbation Possible acute PE, patient already on Xarelto Multiple PVCs. With elevated troponin, rule out non-STEMI History of coronary artery disease status post mid LAD stenting on 10/2023 Chronic systolic CHF with EF 40%/ischemic cardiomyopathy History of right lower extremity ischemia secondary to occlusion at the level of superficial femoral artery. Tobacco addiction Plan: Plan for patient to go with cardiac cath on 01/16 with cardiology team Continue with Xarelto, switch to heparin drip for cardiac cath Continue with DuoNebs, Symbicort and IV Solu-Medrol. Pulmonary and cardiology consult Labs and medication were reviewed.. Continue same treatment. Continue with symptomatic treatment. Resume home medication. Monitor labs and vitals. DVT and GI prophylaxis. Further recommendations as per clinical course of the patient DVT prophylaxis: Subcuta continue with anticoagulation as above GI Prophylaxis: Pepcid PT/OT: Pending Prognosis is guarded
[2024-01-17 11:25] LABS: Glucose,Whole Blood 133 mg/dL (70-110)
[2024-01-17] MEDS: FAMOTIDINE 20 MG/2 ML VIAL IV SCH (12:14)
[2024-01-17] MEDS: MIDAZOLAM 2 MG/2 ML VIAL IVP ONE (14:55)
[2024-01-17] MEDS: fentaNYL (PF) 50 MCG/ML 2 ML AMP IVP ONE (14:55)
[2024-01-17] MEDS: LIDOCAINE 1% INJ 10MG/ML (20 ML MDV) SQ ONE ×2 (14:56→15:16)
[2024-01-17] MEDS: SODIUM CHLORIDE 0.9% 1,000 ML IV ONE (15:13)
[2024-01-17] MEDS: HEPARIN SODIUM,PORCINE (1 ML) 2,500 UNIT in SODIUM CHLORIDE 0.9% 250 ML IRRIGATION ONE (15:24)
[2024-01-17] MEDS: HEPARIN SODIUM,PORCINE 10,000 UNIT in SODIUM CHLORIDE 0.9% 1,000 ML IRRIGATION ONE (15:24)
[2024-01-17 15:57] LABS: O2 Sat Blood Gas 65.7 %
[2024-01-17] MEDS: IOPAMIDOL-370 100ML BTL INJ ONE (15:57)
[2024-01-17 15:58] LABS: O2 Sat Blood Gas 66.1 %
[2024-01-17 16:00] LABS: O2 Sat Blood Gas 97.7 %
--- NOTE | 2024-01-17 16:16 | P.PN ---
Subjective Progress Note Date: 01/17/24 This is a 75-year-old female patient was transferred to us from [facility] for shortness of breath. The patient has been having increased dyspnea for the past few days. No cough. No sputum production. No orthopnea. The patient was worked up at the hospital and she was given a CT angiogram of the chest that was reported to be abnormal and for that reason, the patient was started on IV heparin and the patient was transferred to us for further care. She is currently on room air oxygen with a pulse ox of 96%. I reviewed the report of the CT angiogram that was forwarded from [facility]. This was a CT angiogram that was done on 01/09/2024. It was reported that the patient has a subsegmental filling defect in the right lower lobe pulmonary artery branch image 69 series 2. There was also mucous plugging within the tracheobronchial tree. Atelectatic changes in lung bases and some groundglass density in her lungs. Based on all this, the patient was given diagnosis of pul monary embolism and the patient was transferred to us. Noted the patient has been receiving Xarelto as an anticoagulant on outpatient basis. The RV to LV ratio was 0.9. There was also lymphadenopathy in the paratracheal region and and supraclavicular region. No suspicious abnormality in the liver. Degenerative changes in her spine. Her D-dimer was at 1.7. Magnesium was at 1.9. proBNP level was 639. Troponin was negative. Coagulation profile was normal. Lactic acid level was at 2.2. Sodium is at 146, potassium is at 3.2, bicarbonate 18, LFTs are normal, calcium is 11.8, bilirubin is at 0.3, white cell count 7.2 with a hemoglobin 10.4 and a platelet count of 131. Noted the patient has been still smoking around half pack of cigarettes on a daily basis. She is currently living with her daughter out of a motel in the [facility]. She is currently on room air oxygen. The patient is known to have coronary disease and the patient has undergone a cardiac catheterization and stenting of the LAD on 10/28/2023. The procedure was uncomplicated. The patient was discharged home. Admitted for the above- mentioned ischemic changes in the right foot. The patient was seen by vascular surgery and the patient was taken to the lab and she underwent an ultrasound- guided left common femoral artery access with right femoral angiography and the patient was found to have no filling of the SFA at the bifurcation and there was increased collateral. The patient was given thrombolytic therapy. Subsequently, the catheter was removed and the patient underwent repeat angiography and there was no clear patency achieved in the involved vessel and attempts were made to pass the wire and this was met with the dissection at the level of the popliteal artery but no luminal gain. The peroneal artery was patent at the distal calf. This was treated conservatively and the patient was ultimately discharged home. The patient is seen today January 10, 2024 in follow-up on the selective care unit. She is currently resting comfortably in bed. Awake and alert in no acute distress. She still has a loose congested cough. She is maintaining O2 saturations in the 90s on 2 L/min per nasal cannula. Glucose 301. She remains on DuoNeb inhalations, IV Solu-Medrol. NicoDerm patch in place. Antibiotics in the form of azithromycin. Tessalon Perles for cough. Anticoagulated with Xarelto. The patient is seen today January 12, 2024 in follow-up on the selective care unit. She is awake and alert in no acute distress. Breathing a bit easier today compared to yesterday. She is maintaining O2 saturations in the 90s on 2 L/min per nasal cannula. She remains on DuoNeb inhalations, Symbicort, Solu- Medrol. NicoDerm patch in place. Tessalon Perles for cough. Anticoagulated with Xarelto. White count 7.3. Hemoglobin 9.7. Platelets 145. Sodium 140. Potassium 4.5. Bicarb 19. BUN 32. Creatinine 0.94. Glucose 137. Seen today on 01/13/2024, patient continues to have intermittent cough and wheezing, we are seeing her mostly for acute exacerbation of COPD. In addition to her COPD, patient has coronary artery disease and severe peripheral artery occlusive disease and she has chronic systolic congestive heart failure with a EF of 25 to 30%. Patient is improving but not back to baseline, continues to have intermittent cough wheezing and shortness of breath The patient is seen today January 14, 2024 in follow-up on the selective care unit. She is awake and alert in no acute distress. She is maintaining good O2 saturations in the upper 90s on 2 L/min per nasal cannula. She has been afebrile. Hemodynamically stable. Breathing a bit easier today compared to yesterday. Blood culture revealed no growth. White count 7.6. Hemoglobin 10.7. Platelets 157. Sodium 143. Potassium 4.8. Bicarb 24. BUN 41. Creatinine 0.98. Glucose 176. She remains on DuoNeb inhalations, Symbicort, Solu-Medrol. NicoDerm patch in place. Anticoagulated with Xarelto. The patient is seen today January 15, 2024 in follow-up on the selective care unit. She is currently resting in bed. Awake and alert in no acute distress. She denies any worsening shortness of breath, cough or congestion. She is maintaining O2 saturations in the mid 90s on 2 L/min per nasal cannula. She is afebrile. Hemodynamically stable. Blood culture revealed no growth. Glucose 216. She is continued on DuoNeb inhalations, Symbicort, Solu-Medrol. Anticoagulated with Xarelto. NicoDerm patch in place. Seen today on 01/16/2024, patient is doing better less cough less wheezing shortness of breath, her echocardiogram showed LV dysfunction and moderate pulmonary hypertension as well as significant valvular heart disease patient is scheduled to have cardiac catheterization tomorrow by cardiology. Her Xarelto will be placed on hold. The patient is seen today January 17, 2024 in follow-up on the selective care unit. She is currently resting fairly comfortably in bed. Awake and alert in no acute distress. Denies any worsening shortness of breath, cough or congestion. No chest pain. Plan is for cardiac catheterization today. Xarelto remains on hold. Cultures revealed no growth. White count 7.1. Hemoglobin 11.2. Platelets 179. Sodium 142. Potassium 5.4. Bicarb 26. BUN 41. Creatinine 0.85. Glucose 114. She is continued on DuoNeb and elations, Symbicort, Solu-Medrol. NicoDerm patch in place. Bernarda العلي for her cough. Objective - Vital Signs Vital signs: Vital Signs Temp 98.3 F 01/17/24 12:53 Pulse 58 L 01/17/24 12:53 Resp 20 01/17/24 12:53 BP 124/72 01/17/24 12:53 Pulse Ox 99 01/17/24 12:53 FiO2 Intake & Output 01/16/24 01/17/24 01/17/24 18:59 06:59 18:59 Intake Total 486 250 300 Balance 486 250 300 Weight 75 kg Intake: IV 10 10 300 Invasive Line 2 10 10 Oral 476 240 Other: Voiding Method Toilet Toilet Toilet External Catheter External Catheter External Catheter # Voids 2 1 # Bowel Movements 1 - Exam General: A 74-year-old female, resting in bed, on 2 L nasal cannula, comfortable in no acute distress. Derm: Multiple bruises on left and right arm Head: atraumatic, normocephalic, symmetric Eyes: EOMI, no lid lag, anicteric sclera, pupils equal round reactive to light ENT: Nose and ears atraumatic Neck: No cervical lymphadenopathy, supple Mouth: no lip lesion, mucus membranes moist Cardiovascular: Cardiac exam revealed the PMI to be normally situated and sized. There were no murmurs, rubs, clicks, or gallops. Lungs: End expiratory wheezing, no rhonchi, no rales, no accessory muscle use Abdominal: soft, nontender to palpation, no guarding Ext: Right foot warm to touch with cap refill less than 2 seconds, no gross muscle atrophy, no contractures Neuro: Normal range of motion found throughout upper and lower extremities Psych: Alert, oriented, appropriate affect - Labs CBC & Chem 7: 01/17/24 07:53 01/17/24 07:53 Labs: Abnormal Lab Results - Last 24 Hours (Table) 01/16/24 01/16/24 01/16/24 Range/Units 15:57 15:57 16:51 Hgb 11.0 L (11.4-16.0) gm/dL RDW 15.7 H (11.5-15.5) % Lymphocytes # 0.4 L (1.0-4.8) k/uL Potassium (3.5-5.1) mmol/L Chloride 113 H (98-107) mmol/L Carbon Dioxide 21 L (22-30) mmol/L BUN 43 H (7-17) mg/dL Glucose 137 H (74-99) mg/dL POC Glucose (mg/dL) 290 H (70-110) mg/dL Calcium 7.8 L (8.4-10.2) mg/dL 01/16/24 01/17/24 01/17/24 Range/Units 20:54 06:13 07:53 Hgb 11.2 L (11.4-16.0) gm/dL RDW 15.8 H (11.5-15.5) % Lymphocytes # 0.4 L (1.0-4.8) k/uL Potassium (3.5-5.1) mmol/L Chloride (98-107) mmol/L Carbon Dioxide (22-30) mmol/L BUN (7-17) mg/dL Glucose (74-99) mg/dL POC Glucose (mg/dL) 138 H 126 H (70-110) mg/dL Calcium (8.4-10.2) mg/dL 01/17/24 01/17/24 Range/Units 07:53 11:22 Hgb (11.4-16.0) gm/dL RDW (11.5-15.5) % Lymphocytes # (1.0-4.8) k/uL Potassium 5.4 H (3.5-5.1) mmol/L Chloride 111 H (98-107) mmol/L Carbon Dioxide (22-30) mmol/L BUN 41 H (7-17) mg/dL Glucose 114 H (74-99) mg/dL POC Glucose (mg/dL) 133 H (70-110) mg/dL Calcium 8.0 L (8.4-10.2) mg/dL Assessment and Plan Assessment: Acute on chronic shortness of breath, secondary to an 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 The possibility of pulmonary embolism is felt to be less likely specially the patient has been taking Xarelto on an outpatient basis. Question her compliancy with ongoing medication intake. CT scan of the chest and not able to appreciate a significant clot of concern in the right upper lobe. Nevertheless, this has been reported by the radiologist and it may still be a possibility. The clinical presentation is most consistent with COPD exacerbation. She also has underlying cardiomyopathy with impaired LV function. Coronary artery disease with previous stenting of the LAD Severe PAD with occlusive disease on the right. The patient has a history of a acute right lower extremity ischemia The patient is status post angiography and findings are consistent with SFA occlusion and the patient underwent tPA thrombolysis with limited improvement. COPD, maintained on Trelegy Ellipta on outpatient basis History of smoking CHF with systolic heart failure a impaired ejection fraction of 25 to 30% on 10/26/2023 chronic anemia Hyperlipidemia Plan: The patient was seen and evaluated Labs and medications reviewed Continue bronchodilators, steroids Titrate down the FiO2 as tolerated Plan is for possible cardiac catheterization today I have personally seen and examined the patient, performed the documentation and the assessment and plan as written. Number of minutes spent on the visit: 10 Dictation was produced using [employer] dictation software. Please excuse any grammatical, word or spelling errors.
[2024-01-17] MEDS ORDERED: RX INFO: IV CONTRAST WAS GIVEN 1 EACH MISC MISCELLANE PRN (16:37)
[2024-01-17 17:02] LABS: Glucose,Whole Blood 132 mg/dL (70-110)
[2024-01-17] MEDS: SODIUM CHLORIDE 0.9% 1,000 ML IV SCH (17:14)
--- NOTE | 2024-01-17 19:19 | P.PN ---
Subjective Patient is resting comfortably in bed Anode chest discomfort at rest no shortness of breath On examination Blood pressure 114/77 mmHg pulse rate in the 70s Heart sounds are normal and regular Breath sounds are clear Impression History of CAD and ischemic cardiomyopathy Plan continue aspirin and atorvastatin Farxiga Toprol and Brilinta Hold Xarelto Cardiac catheterization later today with Dr. Funes and further management based upon the results Continue medical treatment Objective - Vital Signs Vital signs: Vital Signs Temp 97.8 F 01/17/24 16:50 Pulse 60 01/17/24 18:35 Resp 20 01/17/24 18:35 BP 124/71 01/17/24 18:35 Pulse Ox 100 01/17/24 17:05 FiO2 Intake & Output 01/17/24 01/17/24 01/18/24 06:59 18:59 06:59 Intake Total 250 570 Balance 250 570 Weight 75 kg Intake: IV 10 300 Invasive Line 2 10 Intake, IV Titration 150 Amount Sodium Chloride 0.9% 1, 150 000 ml @ 75 mls/hr IV . [id number] [facility] Rx#:[id number] Oral 240 120 Other: Voiding Method Toilet Toilet External Catheter External Catheter # Voids 1 - Labs CBC & Chem 7: 01/17/24 07:53 01/17/24 07:53 Labs: Abnormal Lab Results - Last 24 Hours (Table) 01/16/24 01/17/24 01/17/24 Range/Units 20:54 06:13 07:53 Hgb 11.2 L (11.4-16.0) gm/dL RDW 15.8 H (11.5-15.5) % Lymphocytes # 0.4 L (1.0-4.8) k/uL Potassium (3.5-5.1) mmol/L Chloride (98-107) mmol/L BUN (7-17) mg/dL Glucose (74-99) mg/dL POC Glucose (mg/dL) 138 H 126 H (70-110) mg/dL Calcium (8.4-10.2) mg/dL 01/17/24 01/17/24 01/17/24 Range/Units 07:53 11:22 17:02 Hgb (11.4-16.0) gm/dL RDW (11.5-15.5) % Lymphocytes # (1.0-4.8) k/uL Potassium 5.4 H (3.5-5.1) mmol/L Chloride 111 H (98-107) mmol/L BUN 41 H (7-17) mg/dL Glucose 114 H (74-99) mg/dL POC Glucose (mg/dL) 133 H 132 H (70-110) mg/dL Calcium 8.0 L (8.4-10.2) mg/dL
[2024-01-17 20:08] LABS: Glucose,Whole Blood 171 mg/dL (70-110)
[2024-01-17] MEDS: SACUBITRIL/VALSARTAN 24 MG-26 MG TABLET PO SCH (20:17)
[2024-01-18 06:06] LABS: Glucose,Whole Blood 357 mg/dL (70-110)
[2024-01-18 07:36] LABS: HCT 36.7 % (34.0-46.0); HGB 11.3 gm/dL (11.4-16.0); Hypochromasia Marked; MCH 28.7 pg (25.0-35.0); MCHC 30.7 g/dL (31.0-37.0); MCV 93.7 fL (80.0-100.0); Mean Platelet Volume 10.8; Platelet Count 167 k/uL (150-450); RBC 3.91 m/uL (3.80-5.40); RDW 15.3 % (11.5-15.5); WBC 7.5 k/uL (3.8-10.6)
[2024-01-18 08:02] LABS: African American GFR (CKD) >90 (>60 ml/min/1.73 sqM); Anion Gap 7 mmol/L; Blood Urea Nitrogen 36 mg/dL (7-17); Calcium 7.6 mg/dL (8.4-10.2); Carbon Dioxide 19 mmol/L (22-30); Chloride 113 mmol/L (98-107); Glucose 174 mg/dL (74-99); Non-African American GFR(CKD) 82 (>60 ml/min/1.73 sqM); Potassium 4.7 mmol/L (3.5-5.1); Sodium 139 mmol/L (137-145)
[2024-01-18 08:10] VITALS: TEMP 98.2
[2024-01-18 08:10] LABS: NT-Pro-B-Type Natriuretic Pept 13000 pg/mL
[2024-01-18] MEDS: TORSEMIDE 20 MG TAB PO SCH (08:13)
--- NOTE | 2024-01-18 09:34 | P.CARDCATH ---
Date of Procedure: 01/17/24 Description of Procedure: DIAGNOSTIC CORONARY ANGIOGRAPHY and, RIGHT HEART CATH and, LEFT HEART CATH REPORT PROCEDURES PERFORMED: Left heart catheterization Right heart catheterization Selective coronary angiography Moderate conscious sedation 65 mins Ultrasound assisted right common femoral arterial access Right common femoral arteriogram Ultrasound assisted right common femoral vein access INDICATION: NSTEMI, pulmonary hypertension 74-year-old female with past medical history of CAD status post PCI to proximal LAD in October 2023, prior history of smoking, COPD, hypertension and dyslipidemia. She also has ischemic cardiomyopathy with a EF of 20 to 25% with recovered LVEF to 40% on recent echocardiogram. She presented to the hospital because of worsening shortness of breath at rest. She was treated empirically for CHF and COPD exacerbation. On admission she had evidence of elevated troponin. CONSENT: I have discussed the risks, benefits and alternative therapies for the above-mentioned procedure, sedation/analgesia and necessary blood product administration (if indicated, as they pertain to this patient). The patient has indicated understanding and acceptance of the risks and procedures discussed. Conscious Sedation: Patient's ECG, heart rate, blood pressure, pulse oximetry was monitored throughout the duration of procedure under the direct supervision. 1 mg Versed and 50 mg Fentanyl were used for induction of moderate conscious sedation. Total duration of 65 minutes. PROCEDURE: After the risks, benefits and alternatives of the above mentioned procedure explained in detail with the patient, informed consent was obtained. Patient was taken to the catheterization lab and prepped and draped in usual sterile fashion. Ultrasound was used to identify the right common femoral artery. 1% lidocaine was infiltrated over the right common femoral artery. Using ultrasound arterial access was obtained using micropuncture needle. A 6-Rwandan sheath was placed in the right coomon femoral artery using modified Seldinger technique. Ultrasound was used to identify the right common femoral vein. 1% lidocaine was infiltrated over the femoral vein. Using ultrasound, venous access was obtained using a micropuncture needle. A 6 Rwandan sheath was placed in the right femoral vein using modified Seldinger technique. The sheath was flushed. A 6 [place]an Springfield-Mohinder catheter system was advanced through the sheath and right heart catheterization was performed. Sequential pressures were obtained at different positions ranging from pulmonary capillary wedge to right atrium. And sequential blood samples were collected for Wilma study. The Springfield-Mohinder catheter was removed from the venous sheath and the sheath was flushed. J tipped wire was advanced under fluoroscopic guidance. Over the wire 6F JL4 diagnostic catheter was advanced. Wire was removed, catheter was flushed and manipulated under fluoroscopy to selectively engaged the left coronary ostium. Left coronary angioplasty was performed in different angiographic projections. This catheter was exchanged for a 6F pigtail diagnostic catheter over the wire. The catheter was flushed and manipulated to cross the aortic valve. LV pressures were obtained. Pullback was performed across aortic valve. Catheter was removed over the wire. Femoral sheath was flushed. Angio-Seal was not used because of PAD. Manual hold was applied for arterial sheath removal in the ESC holding area. Venous sheath will be removed on the medical telemetry floor. Complications: None Total radiation: 181 mGy Total fluoroscopy time: 8.3 minutes Total contrast: Isovue 60 mL HEMODYNAMICS: Aortic Pressure: 120/80 mmHg. LV pressure: 129/10 mmHg. LVEDP 25 mmHg. Right sided pressures Mean RA pressure 12 mmHg RV pressure 42/12 mmHg, RVEDP 16 mmHg PA pressure 42/24 mmHg, mean PA 30 mmHg PCW pressure A-wave 28 mmHg, V wave 24 mmHg, mean PCW 25 mmHg Hb 11, BSA 1.8, heart rate 58, RA sat 36%, RV sat 36%, PA sat 40%, arterial sat 90% Wilma cardiac output 2.97 L/min, Wilma cardiac index 1.65 L/min/m, SELECTIVE CORONARY ARTERIOGRAPHY: LEFT MAIN: The left main is a large caliber vessel which bifurcates into the LAD and circumflex. Mid segment has 20 to 30% disease. Distal left main has 30 to 40% disease which is stable. LEFT ANTERIOR DESCENDING CORONARY ARTERY: LAD is a large caliber vessel which wraps around to the apex. Proximal LAD has mild luminal irregularities. Mid LAD has a patent stent. It gives rise to a small diagonal branch which is orlando led. There is progression of disease in diagonal branch. It appears to have 80% diffuse disease involving the ostium and the proximal segment. There is a 2.5 mm vessel. Distal LAD is patent with mild luminal irregularities. LEFT CIRCUMFLEX CORONARY ARTERY: It is nondominant vessel. Left circumflex is a moderate caliber vessel. Proximal LCx has mild luminal irregularities. It gives rise to a small OM1 branch which has severe ostial disease. Mid LCx gives rise to a medium size OM 2 branch which is 30 to 40% disease in mid segment. After giving OM 2 branch LCx becomes AV groove branch which is small and is angiographically patent. RIGHT CORONARY ARTERY: Dominant vessel. 100% occluded in mid segment. Robust [id number] collaterals filling PDA and PL branches. IMPRESSION: 80% ostial and proximal diagonal, progressed from prior cath Patent stent mid LAD 30-40% distal LM disease, unchanged from prior cath 100% occluded RAYON TESTER mid RCA, with [id number] collaterals, unchanged from prior cath Mild LCx disease. Severe ostial OM1 disease, small vessel. Unchanged from prior cath. Ischemic cardiomyopathy with low cardiac output and cardiac index Mild Group 2 pulmonary hypertension, with elevated PCWP and LVEDP Mild Right sided elevated pressures PLAN: Optimize diuretics. Start Torsemide 10mg daily. Optimize max tolerated GDMT. Start Entresto 24/26 mg twice daily. Continue metoprolol succinate 25 mg daily. Cannot go up on dosing because of low resting heart rate. Continue Farxiga 10 mg daily. Continue aspirin, Brilinta and Lipitor. Heart failure education and see if patient will comply with HFMS device for fluids management Low Mixed venous O2 likely from COPD, would recommend further titration of Home O2 prior to discharge Pulmonary stress test (6 min wlak test) and outpatient PFT Performing Physician Khoa Funes MD [facility]
--- NOTE | 2024-01-18 10:14 | P.PN ---
Subjective 74-year-old lady with past medical history significant for coronary artery disease, tobacco addiction, COPD who presented to the ER for shortness of breath. Patient initially presented to the [facility]. Patient had complaint of shortness of breath for the last few days. There was no complaint of fever or chills. There was no complaint of chest pain. There was no complaint of cough. There was no complaint of orthopnea or PND. Patient was worked up at [facility] with a CT PE protocol and was found to have a PE and was started on pharmacy dose heparin. Patient was transferred to [facility] for further evaluation and treatment Patient admitted to medicine service 24-hour interval change 01/15/2024 Patient is seen and evaluated in follow-up on the selective care unit. She is currently resting in bed. Awake and alert in no acute distress. She denies any worsening shortness of breath, cough or congestion. -- Currently maintaining O2 saturations in the mid 90s on 2 L/min per nasal cannula. She is afebrile. Hemodynamically stable. Blood culture revealed no growth. Glucose 216. - She is continued on DuoNeb inhalations, Symbicort, Solu-Medrol. Anticoagulated with Xarelto. NicoDerm patch in place. 01/16/2024, --patient is doing better less cough less wheezing shortness of breath, her echocardiogram showed LV dysfunction and moderate pulmonary hypertension as well as significant valvular heart disease patient is scheduled to have cardiac catheterization tomorrow by cardiology. Her Xarelto will be placed on hold. Vital signs are reviewed and stable with temperature of 98.1, pulse 64, respiration 20, blood pressure 100/48 Continue bronchodilators and steroids Scheduled for cardiac catheterization tomorrow Continue nicotine patch 01/16 Patient looks tired She is complaining from some dyspnea but no chest pain Patient states that she was not on oxygen at home Patient was counseled to quit smoking with risk and benefits explained, patient is not sure for now Patient is going for left heart cath today Her Xarelto on hold and she is currently on heparin drip Will order for PT/OT evaluation as well 01/17 Patient is status post cardiac cath yesterday showing progressed ostial and proximal diagonal branches up to 80% compared to previous cath. Other vessels look with the same lesion including LAD, left circumflex and 100% occluded RCA. With evidence of ischemic cardiomyopathy channel director added torsemide 10 mg daily and Entresto Patient states her breathing is better although she still wheezing, wheezing is slightly better compared to yesterday. Patient remains on 2 to 3 L oxygen. Patient asking to be discharged home today. She is complaining from chronic low back pain and knee pain, lidocaine patch added. Patient currently on aspirin and Brilinta. Heparin drip was discontinued. Xarelto home dose for her history of PE remains on hold for now. Will discuss with cardiology and pulmonary team to resume it. Discussed with the staff. We will start Xa Lovenox for DVT prophylaxis Also patient continued on IV Solu-Medrol 60 mg Labs from [place] [id number] Objective - Vital Signs Vital signs: Vital Signs Temp 98.2 F 01/18/24 08:00 Pulse 52 L 01/18/24 08:00 Resp 14 01/18/24 08:00 BP 107/67 01/18/24 08:00 Pulse Ox 98 01/18/24 08:00 FiO2 Intake & Output 01/17/24 01/18/24 01/18/24 18:59 06:59 18:59 Intake Total 570 480 Output Total 450 Balance 570 -450 480 Weight 70.1 kg Intake: IV 300 Intake, IV Titration 150 Amount Sodium Chloride 0.9% 1, 150 000 ml @ 75 mls/hr IV . [id number] [facility] Rx#:[id number] Oral 120 480 Output: Urine 450 Other: Voiding Method Toilet Toilet External Catheter External Catheter - Exam GENERAL: The patient is alert and oriented x3, not in any acute distress. Well developed, well nourished. HEENT: Pupils are round and equally reacting to light. EOMI. No scleral icterus. No conjunctival pallor. Normocephalic, atraumatic. No pharyngeal erythema. No thyromegaly. CARDIOVASCULAR: S1 and S2 present. No murmurs, rubs, or gallops. PULMONARY: Chest is clear to auscultation, no wheezing , no crackles. ABDOMEN: Soft, nontender, nondistended, normoactive bowel sounds. No palpable organomegaly. MUSCULOSKELETAL: No joint swelling or deformity. EXTREMITIES: No cyanosis, clubbing, or pedal edema. NEUROLOGICAL: Gross neurological examination did not reveal any focal deficits. SKIN: No rashes. no petechiae. - Labs CBC & Chem 7: 12/10/24 06:55 01/18/24 06:55 Labs: Abnormal Lab Results - Last 24 Hours (Table) 01/17/24 01/17/24 01/17/24 Range/Units 11:22 17:02 20:07 Hgb (11.4-16.0) gm/dL MCHC (31.0-37.0) g/dL Chloride (98-107) mmol/L Carbon Dioxide (22-30) mmol/L BUN (7-17) mg/dL Glucose (74-99) mg/dL POC Glucose (mg/dL) 133 H 132 H 171 H (70-110) mg/dL Calcium (8.4-10.2) mg/dL 01/18/24 01/18/24 01/18/24 Range/Units 06:04 06:55 06:55 Hgb 11.3 L (11.4-16.0) gm/dL MCHC 30.7 L (31.0-37.0) g/dL Chloride 113 H (98-107) mmol/L Carbon Dioxide 19 L (22-30) mmol/L BUN 36 H (7-17) mg/dL Glucose 174 H (74-99) mg/dL POC Glucose (mg/dL) 357 H (70-110) mg/dL Calcium 7.6 L (8.4-10.2) mg/dL Assessment and Plan Assessment: Acute hypoxic respiratory failure Acute COPD exacerbation Possible acute PE, patient already on Xarelto Multiple PVCs. With elevated troponin, rule out non-STEMI History of coronary artery disease status post mid LAD stenting on 10/2023 Chronic systolic CHF with EF 40%/ischemic cardiomyopathy History of right lower extremity ischemia secondary to occlusion at the level of superficial femoral artery. Tobacco addiction Plan: s/p cardiac cath on 01/16 with cardiology team. Showing progressed proximal Diagonal and ostial disease 80%, this is the same Currently kept on Brilinta and aspirin per channel director. Torsemide 10 mg and Entresto added Continue with Xarelto (currently on hold), heparin drip discontinued Continue with DuoNebs, Symbicort and IV Solu-Medrol. Pulmonary and cardiology consult Labs and medication were reviewed.. Continue same treatment. Continue with symptomatic treatment. Resume home medication. Monitor labs and vitals. DVT and GI prophylaxis. Further recommendations as per clinical course of the patient DVT prophylaxis: Subcuta continue with anticoagulation as above GI Prophylaxis: Pepcid PT/OT: Pending Prognosis is guarded
[2024-01-18] MEDS ORDERED: LIDOCAINE 4% PATCH TOPICAL SCH (10:30)
[2024-01-18 10:48] VITALS: BP 97/62; RESP 16
[2024-01-18 11:19] VITALS: PULSE 64
[2024-01-18 11:21] LABS: Glucose,Whole Blood 128 mg/dL (70-110)
--- NOTE | 2024-01-18 11:59 | P.PN ---
Subjective HISTORY OF PRESENT ILLNESS: This is a 74-year-old female patient of Dr. Funes with past medical history of coronary artery disease status post PCI, ischemic cardiomyopathy with EF 2530 %, NYHA class III, tobacco use and dependence, history of right lower extremity ischemia with SFA occlusion status post tPA thrombolysis. We have been asked to evaluate the patient for abnormal EKG, shortness of breath with history of cardiac stent. Patient presented to the hospital on 01/08 with complaints of shortness of breath. Patient states that she could not catch her breath at all. She has been treated by pulmonary medicine for acute exacerbation of COPD. Patient denies having any chest pain. Patient has history of hospitalization in October of this year for generalized weakness and falls and was found to have elevated troponin, EF was 2530 % at that time. She underwent cardiac catheterization that showed a 90% mid LAD stenosis, 70% ostial diagonal stenosis and high percent FAMILY SERVICE ASSISTANT of the RCA with [id number] collaterals filling PDA and PL branches, mild disease in the circumflex. She underwent PCI of the LAD with Dr. Lewis with [facility]. She apparently was offered a LifeVest at that time but she denied. -EKG: Current EKG was compared to 1 in October. EKG today showing sinus rhythm with LVH, PVCs -Laboratory studies: WBC 7.3, hemoglobin 9.7, platelet count 145. Sodium 140, potassium 4.5, BUN 32 creatinine 0.94. -Home cardiac medications: Aspirin 81 mg daily, atorvastatin 40 mg at bedtime, Farxiga 10 mg daily, losartan 12.5 mg daily, Toprol XL 25 mg daily, potassium chloride 10 mill equivalents daily, Xarelto 2.5 mg twice daily, Brilinta 90 mg twice daily. -Echocardiogram performed 11/05/2023 revealed EF of 40%, inferior wall akinetic, mild mitral regurgitation. Echocardiogram performed on 10/26/2023 revealed EF of 25 to 30% 01/13/24 Patient seen and examined. Patient is having more PVCs on telemetry and ST changes. Repeat EKG supports the same. Troponins ordered. Blood pressure 121/74, heart rate 75, pulse ox 97% on 2 L nasal cannula. Repeat blood work reveals TSH 0.115 and free T4 abnormal at 0.76. Troponin 0.044. BUN 35 creatinine 0.96. 01/14/24 Patient seen and examined. Patient states her breathing is about the same. Her lung sounds however do sound improved. Blood pressure 116/68, heart rate in the 70s, pulse ox 98% on 2 L nasal cannula. Patient does have EKG changes and contemplating workup but will wait until respiratory status is more stable. Repeat blood work reveals hemoglobin 10.7, BUN 41 creatinine 0.98. Troponin 0.044 and 0.041. 01/15/24 Patient seen and examined. Blood pressure 109/57, heart rate in the 60s, pulse ox 100% on 2 L nasal cannula. Patient states she is still having some shortness of breath. No chest pain. No palpitations. Repeat echocardiogram is pending. 01/16/24 Patient seen and examined. No complaints of chest pain. Breathing status is slowly improving. Echocardiogram reveals EF of 30 to 40%, moderate pulmonary hypertension, mild to moderate mitral regurgitation, moderate to severe tricuspid regurgitation. Blood pressure 114/68, heart rate in the 60s, pulse ox 98% on 3 L nasal cannula. Lab work today is pending at the time of this dictation. 01/18/2024 Patient examined this morning at the bedside. Patient underwent cardiac catheterization yesterday revealing 80% ostial and proximal diagonal, progressed from previous cath, patent stent mid LAD, 30 to 40% distal left main disease, 100% occluded FAMILY SERVICE ASSISTANT mid RCA with [id number] collaterals unchanged from prior cath, and mild circumflex disease, severe ostial OM1 disease, small vessel. Medical management was recommended. Patient currently denies chest pain or pressure. She denies shortness of breath. Vital signs are stable. PHYSICAL EXAM: VITAL SIGNS: Reviewed. GENERAL: Well-developed in no acute distress. NECK: Supple. No JVD or thyromegaly LUNGS: Respirations even and unlabored. Lungs essentially clear to auscultation bilaterally. HEART: Regular rate and rhythm. S1 and S2 heard. EXTREMITIES: Normal range of motion. No clubbing or cyanosis. Peripheral pulses intact. No lower extremity edema ASSESSMENT: COPD exacerbation PVCs Nonspecific ST changes on EKG History of coronary artery disease with PCI on 10/28/2023 Ischemic cardiomyopathy with EF 3040% Tobacco use and dependence History of right lower extremity ischemia with SFA occlusion status post tPA thrombolysis Hx of pulmonary embolism PLAN: Resume home dose of Xarelto Continue aspirin and brilinta Continue additional cardiac medications Discontinue IV fluids Further recommendations pending patient course Nurse practitioner note has been reviewed by physician. Signing provider agrees with the documented findings, assessment, and plan of care documented by REWINDER OPERATOR as a scribe. Objective - Vital Signs Vital signs: Vital Signs Temp 98.2 F 01/18/24 08:00 Pulse 64 01/18/24 11:18 Resp 16 01/18/24 10:44 BP 97/62 01/18/24 10:44 Pulse Ox 89 L 01/18/24 10:48 FiO2 Intake & Output 01/17/24 01/18/24 01/18/24 18:59 06:59 18:59 Intake Total 570 480 Output Total 450 Balance 570 -450 480 Weight 70.1 kg Intake: IV 300 Intake, IV Titration 150 Amount Sodium Chloride 0.9% 1, 150 000 ml @ 75 mls/hr IV . [id number] [facility] Rx#:[id number] Oral 120 480 Output: Urine 450 Other: Voiding Method Toilet Toilet Toilet External Catheter External Catheter - Labs CBC & Chem 7: 01/18/24 06:55 01/18/24 06:55 Labs: Abnormal Lab Results - Last 24 Hours (Table) 01/17/24 01/17/24 01/18/24 Range/Units 17:02 20:07 06:04 Hgb (11.4-16.0) gm/dL MCHC (31.0-37.0) g/dL Chloride (98-107) mmol/L Carbon Dioxide (22-30) mmol/L BUN (7-17) mg/dL Glucose (74-99) mg/dL POC Glucose (mg/dL) 132 H 171 H 357 H (70-110) mg/dL Calcium (8.4-10.2) mg/dL 01/18/24 01/18/24 01/18/24 Range/Units 06:55 06:55 11:20 Hgb 11.3 L (11.4-16.0) gm/dL MCHC 30.7 L (31.0-37.0) g/dL Chloride 113 H (98-107) mmol/L Carbon Dioxide 19 L (22-30) mmol/L BUN 36 H (7-17) mg/dL Glucose 174 H (74-99) mg/dL POC Glucose (mg/dL) 128 H (70-110) mg/dL Calcium 7.6 L (8.4-10.2) mg/dL
[2024-01-18] MEDS ORDERED: RIVAROXABAN 2.5 MG TABLET PO SCH (21:00)
[2024-01-18] MEDS ORDERED: ENOXAPARIN 40 MG/0.4 ML SYRINGE SQ SCH (21:00)
--- NOTE | 2024-01-18 22:08 | PN ---
PROGRESS NOTE DATE OF SERVICE: 01/18/2024 SUBJECTIVE: This is a 74-year-old female who was seen in room 375. The patient was on room air. She was not receiving any IV fluids. The patient's Solu-Medrol was converted to prednisone 30 mg a day. The patient's examination was essentially normal and she was in normal sinus rhythm. She had a few scattered expiratory rhonchi. Clinically, the patient appears to be doing relatively well. PHYSICAL EXAMINATION: VITAL SIGNS: Current vital signs include a normal temperature, heart rate 64, blood pressure 112/72, and room air saturations which are in the low 90s. She appears in no acute distress. No respiratory distress. HEENT: Grossly unremarkable. NECK: Supple, full range of motion. No adenopathy or thyromegaly. CARDIOVASCULAR: Reveals regular rhythm and rate. S1, S2 normal. No murmurs. LUNGS: Reveal some very minimal expiratory rhonchi. Breath sounds are equal. No wheezes or crackles. ABDOMEN: Soft. Bowel sounds are heard. EXTREMITIES: Intact. No cyanosis, clubbing, or edema. SKIN: Without rash. LABORATORY DATA: Includes a white count 7.5, hemoglobin 11.3, hematocrit 36.7, platelet count is normal. Sodium 139, potassium 4.7, chloride is 113, CO2 of 19, BUN 36, and creatinine 0.74. Glucose 128. N-terminal proBNP was 13,000. Calcium 7.6. ASSESSMENT: 1. Acute on chronic shortness of breath, secondary to acute exacerbation of chronic obstructive pulmonary disease, improved. 2. Coronary artery disease with previous stenting of the LAD. 3. Severe peripheral artery disease with occlusive disease on the right. 4. Chronic obstructive pulmonary disease, maintained on Trelegy. 5. History of smoking. 6. History of systolic congestive heart failure with ejection fraction of 25% to 30%. 7. Chronic anemia. 8. Hyperlipidemia. PLAN: The patient is doing well. She is currently on room air. No IV fluids. Labs, x-rays, medications are reviewed. The patient's Solu-Medrol was converted to prednisone. Additional recommendations and suggestions are forthcoming. MMODL / IJN: [id number] /
[2024-01-18 23:33] LABS: Chol/HDL Ratio 3.08 Ratio
[2024-01-18 23:34] LABS: LDL Cholesterol,Calculated 65.1 mg/dL (0.0-131.0)
--- NOTE | 2024-01-19 00:10 | P.DS ---
Providers Date of admission: 01/09/24 13:09 Attending physician: Salvatore Ceron MD Consults: 01/09/24 13:54 Consult Physician Routine Consulting Provider: Patricio Gonzalez Consult Reason/Comments: COPD exacerbation, PE Do you want consulting provider notified?: Yes 01/12/24 10:23 Consult Physician Routine Consulting Provider: Frank De La Torre Consult Reason/Comments: Abnormal EKG; Shortness of breath with history of cardiac stent Do you want consulting provider notified?: Already Contacted Primary care physician: [facility] Course: Addendum: Patient wanted to go home today I discussed with the bedside nurse Jess who contacted pulmonary and cardiology teams and both of them cleared her for discharge. As per Jess patient is to be discharged on aspirin, Brilinta and Xarelto per cardiology and pulmonary team. Patient was on IV Solu-Medrol switched to prednisone 30 mg today by Lalita from pulmonary team. Patient will be discharged on tapered prednisone pills Patient requested prescription for her home medication which is provided as hardcopy Problems and management plan were discussed with the patient and he verbalized understanding and acceptance Patient was found stable and can be discharged home in guarded prognosis however he needs follow-up as an outpatient. Patient was instructed to follow up with PCP within one week and patient agrees patient was instructed to follow-up with cotton factor Dr. Wasserman in 1 to [address] Ortez in 1 to 2 weeks And she agrees to call and make appointment Time spent more than 35 minutes (Please refer to the progress note from the same day on 12/18 for more details) Plan - Discharge Summary Discharge Rx Participant: No New Discharge Prescriptions: New Sacubitril/Valsartan [Entresto 24 mg-26 mg Tablet] 1 each PO BID #60 tab Lidocaine 4% Patch 1 patch TOPICAL DAILY #7 patch Torsemide [Demadex] 10 mg PO DAILY #30 tab Nicotine 7Mg/24Hr Patch [Habitrol] 1 patch TRANSDERM DAILY #3 patch Omeprazole 20 mg PO DAILY #30 cap predniSONE 10 mg PO DIRECTED #24 tab Continue Potassium Chloride ER [K-Dur 10] 10 meq PO DAILY Montelukast [Singulair] 10 mg PO HS Albuterol Sulfate [Albuterol Sulfate Hfa] 2 puff PO RT-Q4H PRN PRN Reason: Wheezing Ondansetron [Zofran] 8 mg PO Q12HR PRN PRN Reason: Nausea And Vomiting oxyCODONE-APAP 10-325MG [Percocet 10-325 mg] 1 tab PO Q6H PRN #10 tab PRN Reason: Severe Breakthrough Pain Pregabalin [Lyrica] 150 mg PO TID #7 cap Acetaminophen [Tylenol Arthritis] 1,300 mg PO Q12H PRN PRN Reason: Fever And/ Or Pain oxyBUTYnin chloride [Ditropan] 5 mg PO BID Aspirin 81 mg PO DAILY #30 tab Rivaroxaban [Xarelto] 2.5 mg PO BID #60 tab Ergocalciferol (Vitamin D2) [Drisdol (50,000 Iu)] 1,250 mcg PO Q7D Fluticasone/Umeclidin/Vilanter [Trelegy Ellipta 100-62.5-25] 1 puff INHALATION RT-DAILY Ipratropium-Albuterol Nebulize [Duoneb 0.5 mg-3 mg/3 ml Soln] 3 ml INHALATION RT-QID PRN PRN Reason: Shortness Of Breath Ticagrelor [Brilinta] 90 mg PO BID #60 tab Dapagliflozin Propanediol [Farxiga] 10 mg PO DAILY #30 tab Atorvastatin [Lipitor] 40 mg PO HS #30 tab Metoprolol Succinate (ER) [Toprol XL] 25 mg PO DAILY #30 tab Discontinued Losartan [Cozaar] 12.5 mg PO DAILY Discharge Medication List Albuterol Sulfate [Albuterol Sulfate Hfa] 2 puff PO RT-Q4H PRN 10/26/23 [History] Ergocalciferol (Vitamin D2) [Drisdol (50,000 Iu)] 1,250 mcg PO Q7D 10/26/23 [History] Fluticasone/Umeclidin/Vilanter [Trelegy Ellipta 100-62.5-25] 1 puff INHALATION RT-DAILY 10/26/23 [History] Montelukast [Singulair] 10 mg PO HS 10/26/23 [History] Potassium Chloride ER [K-Dur 10] 10 meq PO DAILY 10/26/23 [History] Ondansetron [Zofran] 8 mg PO Q12HR PRN 09/25/24 [History] Pregabalin [Lyrica] 150 mg PO TID #7 cap 11/09/23 [Rx] oxyCODONE-APAP 10-325MG [Percocet 10-325 mg] 1 tab PO Q6H PRN #10 tab 11/09/23 [Rx] Acetaminophen [Tylenol Arthritis] 1,300 mg PO Q12H PRN 01/10/24 [History] Ipratropium-Albuterol Nebulize [Duoneb 0.5 mg-3 mg/3 ml Soln] 3 ml INHALATION RT-QID PRN 01/10/24 [History] oxyBUTYnin chloride [Ditropan] 5 mg PO BID 01/10/24 [History] Aspirin 81 mg PO DAILY #30 tab 01/18/24 [Rx] Atorvastatin [Lipitor] 40 mg PO HS #30 tab 01/18/24 [Rx] Dapagliflozin Propanediol [Farxiga] 10 mg PO DAILY #30 tab 01/18/24 [Rx] Lidocaine 4% Patch 1 patch TOPICAL DAILY #7 patch 01/18/24 [Rx] Metoprolol Succinate (ER) [Toprol XL] 25 mg PO DAILY #30 tab 01/18/24 [Rx] Nicotine 7Mg/24Hr Patch [Habitrol] 1 patch TRANSDERM DAILY #3 patch 01/18/24 [Rx] Omeprazole 20 mg PO DAILY #30 cap 01/18/24 [Rx] Rivaroxaban [Xarelto] 2.5 mg PO BID #60 tab 01/18/24 [Rx] Sacubitril/Valsartan [Entresto 24 mg-26 mg Tablet] 1 each PO BID #60 tab 01/18/24 [Rx] Ticagrelor [Brilinta] 90 mg PO BID #60 tab 01/18/24 [Rx] Torsemide [Demadex] 10 mg PO DAILY #30 tab 01/18/24 [Rx] predniSONE 10 mg PO DIRECTED #24 tab 01/18/24 [Rx] Follow up Appointment(s)/Referral(s): None,Stated [REFERRING] - 1-2 days (Patient to make based on schedule) Frank De La Torre MD [STAFF PHYSICIAN] - 1 Week (Patient to make based on schedule) Patricio Gonzalez MD [STAFF PHYSICIAN] - 1 Week (Patient to make based on schedule) Patient Instructions/Handouts: COPD (Chronic Obstructive Pulmonary Disease) (GEN), Fall Prevention (GEN) Activity/Diet/Wound Care/Special Instructions: herat healthy diet activity is restricted till you see your doctor Discharge Disposition: HOME WITH HOME HEALTH SERVICES
[2024-01-19] MEDS ORDERED: predniSONE 10 MG TAB PO SCH (09:00)
== END 2024-01-18 14:59 | disposition home health service (06) | DRG 175 ==
LOC: SUPCPDRO 12:37 → EC 12:37 → 3SCARD 13:09
PROVIDERS: ADMIT Internal Medicine; ATTEND Internal Medicine
PROC: B41F1ZZ Fluoroscopy of Right Lower Extremity Arteries using Low Osmolar Contrast (ICD-10-PCS; 2024-01-17)
PROC: B2111ZZ Fluoroscopy of Multiple Coronary Arteries using Low Osmolar Contrast (ICD-10-PCS; 2024-01-17)
PROC: 4A023N8 Measurement of Cardiac Sampling and Pressure, Bilateral, Percutaneous Approach (ICD-10-PCS; principal; 2024-01-17 14:00)
DX: I26.93 Single subsegmental thrombotic pulmonary embolism without acute cor pulmonale (principal); J96.21 Acute and chronic respiratory failure with hypoxia; J44.1 Chronic obstructive pulmonary disease with (acute) exacerbation; I50.22 Chronic systolic (congestive) heart failure; I25.10 Atherosclerotic heart disease of native coronary artery without angina pectoris; Z95.5 Presence of coronary angioplasty implant and graft; I99.8 Other disorder of circulatory system; F17.210 Nicotine dependence, cigarettes, uncomplicated; I49.3 Ventricular premature depolarization; I25.2 Old myocardial infarction; I25.5 Ischemic cardiomyopathy; Z71.6 Tobacco abuse counseling; D64.9 Anemia, unspecified; E78.5 Hyperlipidemia, unspecified; G89.29 Other chronic pain; I08.1 Rheumatic disorders of both mitral and tricuspid valves; I11.0 Hypertensive heart disease with heart failure; I73.9 Peripheral vascular disease, unspecified; I27.22 Pulmonary hypertension due to left heart disease; I74.10 Embolism and thrombosis of unspecified parts of aorta; Z79.01 Long term (current) use of anticoagulants; Z79.02 Long term (current) use of antithrombotics/antiplatelets; Z79.51 Long term (current) use of inhaled steroids; Z79.82 Long term (current) use of aspirin; Z79.84 Long term (current) use of oral hypoglycemic drugs; Z79.899 Other long term (current) drug therapy; Z86.711 Personal history of pulmonary embolism
CPT/HCPCS: 80048; 80061; 82810; 83735; 83880; 84439; 84443; 84484; 85018; 85025; 85027; 87040; 93308; 93460; 94640; 94760; 96374; 96375; 96376; 99285

== ENCOUNTER 2024-02-03 20:46 | Inpatient (IN) | payer MEDICARE, OTHER ==
[2024-02-03] MEDS: SODIUM CHLORIDE 0.9% 1,000 ML IV STA (21:04)
[2024-02-03] MEDS: ALBUTEROL NEBULIZED 2.5 MG/3 ML INHALATION STA (21:04)
[2024-02-03] MEDS: IPRATROPIUM 0.5 MG/2.5 ML NEBU INHALATION STA (21:05)
[2024-02-03] MEDS: methylPREDNISolone SOD SUCCI 125 MG/2 ML VIAL IV STA (21:05)
[2024-02-03] MEDS: ALBUTEROL NEBULIZED 2.5 MG/3 ML INHALATION SCH (21:05)
[2024-02-03] MEDS: AZITHROMYCIN 500 MG in SODIUM CHLORIDE 0.9% 250 ML IVPB STA (21:06)
--- NOTE | 2024-02-03 21:08 | ED ---
General Adult HPI - General Chief complaint: Shortness of Breath Stated complaint: SOB Time Seen by Provider: 02/03/24 20:56 Source: EMS Mode of arrival: EMS - History of Present Illness Initial comments: History is limited by patient's current mental status. She is a 74-year-old female presenting today for shortness of breath x 2 days, per EMS report. They were called to the patient's home by patient's family for persistent shortness of breath. Temperature at home was 101.5 degrees. EMS was concern for ST elevation on EKG so patient was given 324 mg aspirin and 2 DuoNebs prior to arrival. Patient was on 4 L ox nasal cannula on their arrival so they are unsure if she was hypoxic on room air. The patient has not complained of any chest pain and currently denies any. She is oriented to self, the month and place. - Related Data Home Medications Medication Instructions Recorded Confirmed Albuterol Sulfate [Albuterol 2 puff INHALATION RT-Q4H PRN 10/26/23 02/04/24 Sulfate Hfa] Ergocalciferol (Vitamin D2) 1,250 mcg PO Q7D 10/26/23 02/04/24 [Drisdol (50,000 Iu)] Fluticasone/Umeclidin/Vilanter 1 puff INHALATION RT-DAILY 10/26/23 02/04/24 [Trelegy Ellipta 100-62.5-25] Montelukast [Singulair] 10 mg PO HS 10/26/23 02/04/24 Potassium Chloride ER [K-Dur 10] 10 meq PO DAILY 10/26/23 02/04/24 Ondansetron [Zofran] 8 mg PO Q12HR PRN 11/03/23 02/04/24 Acetaminophen [Tylenol Arthritis] 1,300 mg PO Q12H PRN 01/10/24 02/04/24 Ipratropium-Albuterol Nebulize 3 ml INHALATION RT-QID PRN 01/10/24 02/04/24 [Duoneb 0.5 mg-3 mg/3 ml Soln] oxyBUTYnin chloride [Ditropan] 5 mg PO BID 01/10/24 02/04/24 Previous Rx's Medication Instructions Recorded Pregabalin [Lyrica] 150 mg PO TID #7 cap 11/09/23 oxyCODONE-APAP 10-325MG [Percocet 1 tab PO Q6H PRN #10 tab 11/09/23 10-325 mg] Aspirin 81 mg PO DAILY #30 tab 01/18/24 Atorvastatin [Lipitor] 40 mg PO HS #30 tab 01/18/24 Dapagliflozin Propanediol [Farxiga] 10 mg PO DAILY #30 tab 01/18/24 Lidocaine 4% Patch 1 patch TOPICAL DAILY #7 patch 01/18/24 Metoprolol Succinate (ER) [Toprol 25 mg PO DAILY #30 tab 01/18/24 XL] Nicotine 7Mg/24Hr Patch [Habitrol] 1 patch TRANSDERM DAILY #3 patch 01/18/24 Omeprazole 20 mg PO DAILY #30 cap 01/18/24 Rivaroxaban [Xarelto] 2.5 mg PO BID #60 tab 01/18/24 Sacubitril/Valsartan [Entresto 24 1 each PO BID #60 tab 01/18/24 mg-26 mg Tablet] Ticagrelor [Brilinta] 90 mg PO BID #60 tab 01/18/24 Torsemide [Demadex] 10 mg PO DAILY #30 tab 01/18/24 Allergies Allergy/AdvReac Type Severity Reaction Status Date / Time No Known Allergies Allergy Verified 02/04/24 07:55 Review of Systems ROS Statement: Those systems with pertinent positive or pertinent negative responses have been documented in the HPI. ROS Other: All systems not noted in ROS Statement are negative. Limitations: ROS unobtainable due to patients medical condition Past Medical History Past Medical History: Asthma, Coronary Artery Disease (CAD), Heart Failure, COPD, Myocardial Infarction (MA), Vascular Disorder Last Myocardial Infarction Date:: 10/28/2023 History of Any Multi-Drug Resistant Organisms: None Reported Past Surgical History: Heart Catheterization With Stent Date of Last Stent Placement:: 10/28/23 Past Psychological History: No Psychological Hx Reported Smoking Status: Current every day smoker Past Alcohol Use History: None Reported Past Drug Use History: None Reported General Exam - General Exam Comments Initial Comments: PE: CONSTITUTIONAL: In mild distress, ill-appearing, nontoxic SKIN: Warm, dry, no jaundice, hives or petechiae EYES: Pupils are equally round, extraocular movements intact without nystagmus, clear conjunctiva, non-icteric sclera HENT: Normocephalic, atraumatic, moist mucus membranes, oropharynx clear without exudates NECK: , Full range of motion, normal appearance PULMONARY: Wheezes throughout all lung enrique, rhonchi in the lower lung enrique, mild tachypnea, normal excursion, no forensic document examiner muscle use, no stridor CARDIOVASCULAR: Regular rate, rhythm, normal S1 and S2. No appreciated murmurs, rubs or gallops. Strong radial pulses with intact distal perfusion. Scant 1+ bilateral lower extremity pitting edema GASTROINTESTINAL: Soft, active bowel sounds throughout, non-tender, non- distended, no palpable masses, no rebound or guarding. No hepatosplenomegaly MUSCULOSKELETAL: Extremities have no gross deformity, no edema, redness, or swelling. NEUROLOGIC:_a/o x 2-3, GCS 15, normal speech, irritable when asked questions, making history gathering limited, though does seem mildly confused, no focal motor deficits. Moves all extremities x 4 without motor or sensory deficit PSYCHIATRIC: Irritable mood and affect, thought process is overall clear and linear, though patient brief w/ answering questions Course Vital Signs 02/03/24 02/03/24 02/03/24 20:50 21:05 21:20 Temperature 99.9 F H Pulse Rate 93 82 81 Respiratory 24 Rate Blood Pressure 141/87 O2 Sat by Pulse 95 Oximetry 02/03/24 02/03/24 02/03/24 21:34 21:35 21:52 Temperature Pulse Rate 88 86 87 Respiratory Rate Blood Pressure O2 Sat by Pulse Oximetry 02/03/24 02/03/24 02/04/24 22:00 23:05 00:00 Temperature Pulse Rate 91 80 Respiratory 24 20 Rate Blood Pressure 130/83 136/89 O2 Sat by Pulse 96 91 L 92 L Oximetry 02/04/24 02/04/24 02/04/24 01:00 02:23 05:54 Temperature 98.7 F 98.1 F Pulse Rate 75 77 84 Respiratory 20 18 22 Rate Blood Pressure 111/60 122/81 114/92 O2 Sat by Pulse 92 L 95 98 Oximetry 02/04/24 02/04/24 02/04/24 06:10 08:16 08:27 Temperature Pulse Rate 84 86 Respiratory 22 Rate Blood Pressure O2 Sat by Pulse Oximetry 02/04/24 02/04/24 02/04/24 09:03 10:58 11:20 Temperature Pulse Rate 84 75 70 Respiratory 18 20 Rate Blood Pressure 141/90 106/81 O2 Sat by Pulse 96 96 Oximetry 02/04/24 11:30 Temperature Pulse Rate 69 Respiratory Rate Blood Pressure O2 Sat by Pulse Oximetry EKG Findings - EKG Comments: EKG Findings:: EKG interpretation, EKG #1 performed at 2050, showed sinus rhythm with ventricular PVC, rate 92 bpm VT interval 171 ms QT/QTc 348/397 ms, normal axis, interpretation is limited by artifact, large R wave in lead V4, V5, V6, questionable [address] elevation in lead III, EKG was repeated at at 2052 due to artifact on initial EKG, again showed sinus rhythm, again limited by artifact due to patient's breathing, rate 94 bpm, VT interval 171 ms QRS duration 88 ms QT/QTc 371/422 ms, normal axis, [address] elevation in lead III, questionable [address] depression lead V3. Repeat EKG was performed at 2151 due to artifact on initial EKG, no new ST elevations or depressions when compared to EKG from earlier, Q waves noted in V1 V2 were present on EKG performed on 01/17/2024, artifact present V3 so a fourth EKG was repeated to ensure no ST depression. Fourth EKG obtained at 22:01-sinus rhythm with PVCs, rate 91 bpm, no ST depression in lead V3 or significant ST depressions in other leads, [address] elevation in lead III unchanged from prior no STEMI Medical Decision Making - Medical Decision Making Was pt. sent in by a medical professional or institution (, PA, BRIDGE RIGGER, urgent care, hospital, or fci...) When possible be specific @ -No Did you speak to anyone other than the patient for history (EMS, parent, family, police, friend...)? What history was obtained from this source @ -Spoke with EMS personnel, later spoke with patient's sister, Rhonda who states that they called for patient shortness of breath, when asked what patient's confusion states that patient has been more confused over the last 2 days but when asked about her baseline mental status unable to provide a clear answer stating that patient "usually relaxes and is able to answer questions", thinks that she is AO x 3 at baseline though seems unsure Did you review nursing and triage notes (agree or disagree)? Why? @ -I reviewed and agree with nursing and triage notes Were old charts reviewed (outside hosp., previous admission, EMS record, old EKG, old radiological studies, urgent care reports/EKG's, fci records)? Report findings @Medical records reviewed-Reviewed cardiac cath report performed during patient's most recent admission reviewed cardiac cath report performed during patient's most recent admission on 01/09/2024/10/28 cath performed on 01/17/2024, 80% ostial and proximal diagonal with a patent mid LAD stent, 30 to 40% distal LM disease, 100% occluded mid RCA with collaterals, mild left circumflex disease, ischemic cardiomyopathy with low cardiac output, pulmonary hypertension it appears patient was recently Admitted on01/09/2024 for shortness of breath and discharged on 01/19/2024, was diagnosed with a PE during that admission and started on Xarelto plus Brilinta and aspirin Differential Diagnosis (chest pain, altered mental status, abdominal pain women, abdominal pain men, vaginal bleeding, weakness, fever, dyspnea, syncope, headache, dizziness, GI bleed, back pain, seizure, CVA, palpatations, mental health, musculoskeletal)? Differential Dyspnea: Coronary syndrome, arrhythmia, tamponade, asthma, COPD, pulmonary embolism, pneumonia, pneumothorax, pulmonary effusion, anemia, neuromuscular, this is not meant to be an all-inclusive list. Differential diagnosis remains broad however top considerations include pneumonia, ACS, CHF exacerbation, hypercapnia, COPD, PE, pneumothorax, pleural effusion, anemia, hypoglycemia, overdose, medication side effect, infection, dementia, psychosis this is not an all-inclusive list EKG interpreted by me (3pts min.). @ -As above X-rays interpreted by me (1pt min.). @ -Right-sided pneumonia, appears worsened from prior CT interpreted by me (1pt min.). CT brain shows no hemorrhage or mass effect U/S interpreted by me (1pt. min.). @ -None done What testing was considered but not performed or refused? (CT, X-rays, U/S, labs)? Why? @Considered CT PE study however patient has previously diagnosed PE, currently appropriately anticoagulated with stable blood pressure What meds were considered but not given or refused? Why? @ -None Did you discuss the management of the patient with other professionals (professionals i.e. , PA, BRIDGE RIGGER, lab, RT, psych nurse, medical social worker, civil lawyer, teacher, real estate utilization officer, manager provider relations)? Give summary @ -No Was smoking cessation discussed for >3mins.? @ -No Was critical care preformed (if so, how long)? Yes, 35 minutes Were there social determinants of health that impacted care today? How? (Homelessness, low income, unemployed, alcoholism, drug addiction, transportation, low edu. Level, literacy, decrease access to med. care, assisted, rehab)? @ -No Was there de-escalation of care discussed even if they declined (Discuss DNR or withdrawal of care, Hospice)? @ -No What co-morbidities impacted this encounter? (DM, HTN, Smoking, COPD, CAD, Cancer, CVA, ARF, Chemo, Hep., AIDS, mental health diagnosis, sleep apnea, morbid obesity)? COPD, CAD, chronic pain Was patient admitted / discharged? Hospital course, mention meds given and route, prescriptions, significant lab abnormalities, going to OR and other pertinent info. @Admission-patient is a 74-year-old female history of CAD, COPD, CHF/ischemic cardiomyopathy presenting today for fever and shortness of breath x 2 days. Patient seen and assessed on arrival, awake and alert though irritable and brief with answering questions, loudly stating " C'mon!" every time she is moved or monitor leads are placed, she is tachypneic, and ill appearing, oriented to self, place, and month. EKG reviewed on arrival and showed questionable ST elevation lead III however significant artifact due to work of breathing. Repeat EKGs were obtained that did not appear to show evolving MA or findings concerning for STEMI. Diffuse wheezes and rhonchi in the bilateral lung enrique were noted, scant bilateral pitting edema. EMS personnel unsure of patient's [facility] mental status. Chart review shows that patient's discharge. Summary from earlier this month states that patient was AO x 3 at that time. Differential diagnoses above. For now we will obtain chest x-ray, comprehensive labs, administer IV antibiotics, [id number] nebulizers and steroids. Patient has no focal neurologic deficits, will contact family regarding patient's baseline mental status. Workup shows elevated BNP of 15,000, previously 13,000, troponin is elevated at 0.055 was 0.041 during most recent admission, I suspect elevation in troponins due to demand ischemia at this point. Chest x-ray concerning for pneumonia, combined with patient's fever I suspect this is the reason for patient's difficulty breathing and altered mental status. I did contact patient's sister with whom she has been living who was not able to provide a clear explanation of patient's baseline mental status however it is seems patient is usually AO x [address] brain, Tylenol and salicylate levels and TSH were added; CT brain remarkable, Tylenol and salicylate levels below toxic levels TSH pending at admission. On reassessment breath sounds have improved bilaterally patient is sleeping comfortably. Pulse ox on room air is 90% with history of COPD is acceptable. Plan for admission for pneumonia. Case was discussed with MEHRAN Long, kindly except patient for admission Undiagnosed new problem with uncertain prognosis? @ -No Drug Therapy requiring intensive monitoring for toxicity (Heparin, Nitro, Insulin, Cardizem)? @ -No Were any procedures done? @ -No Diagnosis/symptom? @Healthcare acquired pneumonia, altered mental status Acute, or Chronic, or Acute on Chronic? @Acute Uncomplicated (without systemic symptoms) or Complicated (systemic symptoms)? Complicated Side effects of treatment? @ -No Exacerbation, Progression, or Severe Exacerbation? @ -No Poses a threat to life or bodily function? How? (Chest pain, USA, MA, pneumonia, PE, COPD, DKA, ARF, appy, cholecystitis, CVA, Diverticulitis, Homicidal, Suicidal, threat to staff... and all critical care pts) Yes - Lab Data Result diagrams: 02/03/24 21:02 02/03/24 21:02 Lab Results 02/03/24 02/03/24 02/03/24 Range/Units 21:02 21:02 21:02 WBC 7.7 (3.8-10.6) k/uL RBC 3.89 (3.80-5.40) m/uL Hgb 11.0 L (11.4-16.0) gm/dL Hct 34.6 (34.0-46.0) % MCV 89.0 (80.0-100.0) fL MCH 28.4 (25.0-35.0) pg MCHC 31.9 (31.0-37.0) g/dL RDW 16.5 H (11.5-15.5) % Plt Count 160 (150-450) k/uL MPV 11.1 Neutrophils % 85 % Lymphocytes % 9 % Monocytes % 4 % Eosinophils % 2 % Basophils % 0 % Neutrophils # 6.6 (1.3-7.7) k/uL Lymphocytes # 0.7 L (1.0-4.8) k/uL Monocytes # 0.3 (0-1.0) k/uL Eosinophils # 0.1 (0-0.7) k/uL Basophils # 0.0 (0-0.2) k/uL Hypochromasia Slight Anisocytosis Slight PT 10.7 (10.0-12.5) sec INR 1.0 (<1.2) APTT 20.8 L (22.0-30.0) sec Sodium 137 (137-145) mmol/L Potassium 3.6 (3.5-5.1) mmol/L Chloride 109 H (98-107) mmol/L Carbon Dioxide 23 (22-30) mmol/L Anion Gap 5 mmol/L BUN 16 (7-17) mg/dL Creatinine 0.59 (0.52-1.04) mg/dL Est GFR (CKD-EPI)AfAm >90 (>60 ml/min/1.73 sqM) Est GFR (CKD-EPI)NonAf >90 (>60 ml/min/1.73 sqM) Glucose 128 H (74-99) mg/dL Calcium 9.1 (8.4-10.2) mg/dL Total Bilirubin 1.0 (0.2-1.3) mg/dL AST 16 (14-36) U/L ALT 18 (4-34) U/L Alkaline Phosphatase 94 (38-126) U/L Troponin I (0.000-0.034) ng/mL NT-Pro-B Natriuret Pep 76653 pg/mL Total Protein 6.4 (6.3-8.2) g/dL Albumin 3.7 (3.5-5.0) g/dL Procalcitonin (0.02-0.50) ng/mL TSH (0.465-4.680) mIU/L Salicylates mg/dL Acetaminophen ug/mL Influenza Type A (PCR) (Not Detectd) Influenza Type B (PCR) (Not Detectd) RSV (PCR) (Not Detectd) SARS-CoV-2 (PCR) (Not Detectd) 02/03/24 02/03/24 02/03/24 Range/Units 21:02 21:02 21:02 WBC (3.8-10.6) k/uL RBC (3.80-5.40) m/uL Hgb (11.4-16.0) gm/dL Hct (34.0-46.0) % MCV (80.0-100.0) fL MCH (25.0-35.0) pg MCHC (31.0-37.0) g/dL RDW (11.5-15.5) % Plt Count (150-450) k/uL MPV Neutrophils % % Lymphocytes % % Monocytes % % Eosinophils % % Basophils % % Neutrophils # (1.3-7.7) k/uL Lymphocytes # (1.0-4.8) k/uL Monocytes # (0-1.0) k/uL Eosinophils # (0-0.7) k/uL Basophils # (0-0.2) k/uL Hypochromasia Anisocytosis PT (10.0-12.5) sec INR (<1.2) APTT (22.0-30.0) sec Sodium (137-145) mmol/L Potassium (3.5-5.1) mmol/L Chloride (98-107) mmol/L Carbon Dioxide (22-30) mmol/L Anion Gap mmol/L BUN (7-17) mg/dL Creatinine (0.52-1.04) mg/dL Est GFR (CKD-EPI)AfAm (>60 ml/min/1.73 sqM) Est GFR (CKD-EPI)NonAf (>60 ml/min/1.73 sqM) Glucose (74-99) mg/dL Calcium (8.4-10.2) mg/dL Total Bilirubin (0.2-1.3) mg/dL AST (14-36) U/L ALT (4-34) U/L Alkaline Phosphatase (38-126) U/L Troponin I 0.055 H* (0.000-0.034) ng/mL NT-Pro-B Natriuret Pep pg/mL Total Protein (6.3-8.2) g/dL Albumin (3.5-5.0) g/dL Procalcitonin 0.09 (0.02-0.50) ng/mL TSH 0.254 L (0.465-4.680) mIU/L Salicylates 2.6 mg/dL Acetaminophen <10.0 ug/mL Influenza Type A (PCR) (Not Detectd) Influenza Type B (PCR) (Not Detectd) RSV (PCR) (Not Detectd) SARS-CoV-2 (PCR) (Not Detectd) 02/03/24 Range/Units 21:10 WBC (3.8-10.6) k/uL RBC (3.80-5.40) m/uL Hgb (11.4-16.0) gm/dL Hct (34.0-46.0) % MCV (80.0-100.0) fL MCH (25.0-35.0) pg MCHC (31.0-37.0) g/dL RDW (11.5-15.5) % Plt Count (150-450) k/uL MPV Neutrophils % % Lymphocytes % % Monocytes % % Eosinophils % % Basophils % % Neutrophils # (1.3-7.7) k/uL Lymphocytes # (1.0-4.8) k/uL Monocytes # (0-1.0) k/uL Eosinophils # (0-0.7) k/uL Basophils # (0-0.2) k/uL Hypochromasia Anisocytosis PT (10.0-12.5) sec INR (<1.2) APTT (22.0-30.0) sec Sodium (137-145) mmol/L Potassium (3.5-5.1) mmol/L Chloride (98-107) mmol/L Carbon Dioxide (22-30) mmol/L Anion Gap mmol/L BUN (7-17) mg/dL Creatinine (0.52-1.04) mg/dL Est GFR (CKD-EPI)AfAm (>60 ml/min/1.73 sqM) Est GFR (CKD-EPI)NonAf (>60 ml/min/1.73 sqM) Glucose (74-99) mg/dL Calcium (8.4-10.2) mg/dL Total Bilirubin (0.2-1.3) mg/dL AST (14-36) U/L ALT (4-34) U/L Alkaline Phosphatase (38-126) U/L Troponin I (0.000-0.034) ng/mL NT-Pro-B Natriuret Pep pg/mL Total Protein (6.3-8.2) g/dL Albumin (3.5-5.0) g/dL Procalcitonin (0.02-0.50) ng/mL TSH (0.465-4.680) mIU/L Salicylates mg/dL Acetaminophen ug/mL Influenza Type A (PCR) Not Detected (Not Detectd) Influenza Type B (PCR) Not Detected (Not Detectd) RSV (PCR) Not Detected (Not Detectd) SARS-CoV-2 (PCR) Not Detected (Not Detectd) Disposition Clinical Impression: Healthcare-associated pneumonia Disposition: ADMITTED IP TO THIS HOSP Condition: Good
--- NOTE | 2024-02-03 21:18 | XR ---
EXAMINATION TYPE: XR chest 1V portable DATE OF EXAM: 02/03/2024 9:10 PM CLINICAL INDICATION:Female, 74 years old with history of shortness of breath, wheezes, fever; [facility] COMPARISON: None TECHNIQUE: XR chest 1V portable Frontal view of the chest. FINDINGS: Lungs/Pleura: Hazy right lower lung airspace opacities are identified. No pneumothorax. Pulmonary vascularity: Unremarkable. Heart/mediastinum: Cardiomediastinal silhouette is unremarkable. Musculoskeletal: No acute osseous pathology. IMPRESSION: Findings concerning for right lung pneumonia. [facility], , 02/03/2024 9:16 PM
[2024-02-03 21:29] LABS: ALT 18 U/L (4-34); AST 16 U/L (14-36); African American GFR (CKD) >90 (>60 ml/min/1.73 sqM); Albumin 3.7 g/dL (3.5-5.0); Alkaline Phosphatase 94 U/L (38-126); Anion Gap 5 mmol/L; Blood Urea Nitrogen 16 mg/dL (7-17); Calcium 9.1 mg/dL (8.4-10.2); Carbon Dioxide 23 mmol/L (22-30); Chloride 109 mmol/L (98-107); Glucose 128 mg/dL (74-99); Non-African American GFR(CKD) >90 (>60 ml/min/1.73 sqM); Potassium 3.6 mmol/L (3.5-5.1); Sodium 137 mmol/L (137-145); Total Protein 6.4 g/dL (6.3-8.2)
[2024-02-03 21:36] LABS: Partial Thromboplastin Time 20.8 sec (22.0-30.0); Prothrombin Time 10.7 sec (10.0-12.5)
[2024-02-03 21:38] LABS: NT-Pro-B-Type Natriuretic Pept 15300 pg/mL
[2024-02-03] MEDS: ACETAMINOPHEN TAB 500 MG TAB PO STA (21:51)
[2024-02-03 21:58] LABS: Anisocytosis Slight; Basophils % (A) 0 %; Eosinophils # (A) 0.1 k/uL (0-0.7); Eosinophils % (A) 2 %; HCT 34.6 % (34.0-46.0); Hypochromasia Slight; Lymphocytes # (A) 0.7 k/uL (1.0-4.8); Lymphocytes % (A) 9 %; MCH 28.4 pg (25.0-35.0); MCHC 31.9 g/dL (31.0-37.0); Mean Platelet Volume 11.1; Monocytes # (A) 0.3 k/uL (0-1.0); Monocytes % (A) 4 %; Neutrophils # (A) 6.6 k/uL (1.3-7.7); Neutrophils % (A) 85 %; Platelet Count 160 k/uL (150-450); RBC 3.89 m/uL (3.80-5.40); RDW 16.5 % (11.5-15.5); WBC 7.7 k/uL (3.8-10.6)
[2024-02-03 22:52] LABS: Acetaminophen <10.0 ug/mL; Salicylate 2.6 mg/dL
--- NOTE | 2024-02-03 22:53 | CT ---
EXAM: CT Head Without Intravenous Contrast CLINICAL HISTORY: ITS.REASON CT Reason: AMS TECHNIQUE: Axial computed tomography images of the head/brain without intravenous contrast. CTDI is 49.2 mGy and DLP is 1096.4 mGy-cm. This CT exam was performed using one or more of the following dose reduction techniques: automated exposure control, adjustment of the mA and/or kV according to patient size, and/or use of iterative reconstruction technique. COMPARISON: 10/25/2023. FINDINGS: Brain: No hemorrhage, extra-axial fluid collection, mass effect, or edema. Ventricles: Unremarkable. Bones/joints: Unremarkable. No fracture. Soft tissues: Unremarkable. Sinuses: No acute sinusitis. Mastoid air cells: Unremarkable as visualized. IMPRESSION: No acute intracranial abnormality.
[2024-02-03] MEDS ORDERED: ACETAMINOPHEN TAB 325 MG TAB PO PRN (22:59)
[2024-02-03] MEDS ORDERED: PNEUMONIA PROTOCOL UTILIZED 1 EACH MISC PO PRN (22:59)
[2024-02-03] MEDS ORDERED: ONDANSETRON 4 MG TAB PO PRN (23:24)
[2024-02-04] MEDS: MONTELUKAST 10 MG TAB PO SCH (01:43)
[2024-02-04 06:39] LABS: Appearance,Urine Clear (Clear); Bilirubin,Urine Negative (Negative); Blood,Urine Negative (Negative); Color,Urine Colorless; Glucose,Urine (UA) Negative (Negative); Ketones,Urine Negative (Negative); Leukocyte Esterase,Urine Negative (Negative); Nitrite,Urine Negative (Negative); Protein,Urine Negative (Negative); Urobilinogen,Urine <2.0 mg/dL (<2.0)
[2024-02-04] MEDS: ALBUTEROL NEBULIZED 2.5 MG/3 ML INHALATION SCH (08:15)
[2024-02-04] MEDS: SYMBICORT 80-4.5 MCG INHALER INHALATION SCH (08:15)
[2024-02-04] MEDS: IPRATROPIUM-ALBUTEROL 3 ML NEB INHALATION SCH (08:15)
[2024-02-04] MEDS: PREGABALIN 75 MG CAP PO SCH (08:49)
[2024-02-04] MEDS: AZITHROMYCIN 500 MG TAB PO SCH (08:49)
[2024-02-04] MEDS: ASPIRIN 81 MG PO SCH (08:49)
[2024-02-04] MEDS: SACUBITRIL/VALSARTAN 24 MG-26 MG TABLET PO SCH (08:50)
[2024-02-04] MEDS: DAPAGLIFLOZIN PROPANEDIOL 10 MG TABLET PO SCH (08:51)
[2024-02-04] MEDS: oxyBUTYnin chloride 5 MG TAB PO SCH (08:51)
[2024-02-04] MEDS: METOPROLOL SUCCINATE (ER) 25 MG TAB.ER.24H PO SCH (08:51)
[2024-02-04] MEDS: NICOTINE 7MG/24HR PATCH TRANSDERM SCH (08:55)
[2024-02-04] MEDS: TICAGRELOR 90 MG TAB PO SCH (08:55)
[2024-02-04] MEDS ORDERED: RX INFO: IV CONTRAST WAS GIVEN 1 EACH MISC MISCELLANE PRN (09:13)
[2024-02-04] MEDS: RIVAROXABAN 2.5 MG TABLET PO SCH (10:49)
[2024-02-04] MEDS: TORSEMIDE 20 MG TAB PO SCH (10:50)
[2024-02-04] MEDS: oxyCODONE-APAP 10-325MG 1 EACH TAB PO PRN (10:57)
[2024-02-04 12:59] LABS: T4, Free (Free Thyroxine) 1.81 ng/dL (0.78-2.19)
--- NOTE | 2024-02-04 14:01 | P.CRDCN ---
History of Present Illness History of present illness: HISTORY OF PRESENT ILLNESS: This is a 74-year-old female with a past medical history significant for coronary artery disease with previous PCI, ischemic cardiomyopathy, hyperlipidemia, and nicotine dependence. Patient follows in the office with Dr. Funes. We have been asked to see the patient in consultation for elevated troponin. Patient examined at the bedside emergency room. Patient presented to the hospital for chief complaint of shortness of breath. Patient was also febrile. Patient was found to have pneumonia and was started on IV antibiotics. Patient denies having any chest pain or pressure. She denies any dizziness or lightheadedness. Denies any palpitations. DIAGNOSTICS: - EKG reveals sinus mechanism with nonspecific ST-T wave changes. PVCs. - Chest xray findings concerning for right lung pneumonia. - Laboratory data: WBC 7.7. Hemoglobin 11.0. Platelet count 160. Sodium 137. Potassium 3.6. BUN 16. Creatinine 0.59. Troponin 0.055. 0.070. proBNP 15,3 00. TSH 0.254. Free T4 1.81. - Current home cardiac medications include aspirin 81 mg daily, Lipitor 40 mg at night, Farxiga 10 mg daily, metoprolol succinate 25 mg daily, Xarelto 2.5 mg twice a day, Brilinta 90 mg twice a day, Entresto 24-26 mg twice a day, Demadex 10 mg daily - Most recent echocardiogram obtained in January 2024 revealed ejection fraction 35 to 40%, mild to moderate mitral regurgitation, moderate to severe tricuspid regurgitation, moderate pulmonary hypertension - Cardiac catheterization history: 01/17/2024 revealing 80% ostial and proximal diagonal, progressed from prior cath. Patent stent mid LAD. 30 to 40% distal left main disease unchanged from prior cath. 100% occluded ACCOUNTANT ASSISTANT mid RCA with [id number] collaterals unchanged from previous cath. Mild left circumflex disease. Severe ostial OM1 disease, small vessel. Unchanged from prior cath. REVIEW OF SYSTEMS: At the time of my exam: CONSTITUTIONAL: Denies fever or chills. HEENT: Denies blurred vision, vision changes, or eye pain. Denies hemoptysis CARDIOVASCULAR: Denies chest pain. Denies orthopnea. Denies PND. Denies palpitations RESPIRATORY: Denies shortness of breath. GASTROINTESTINAL: Denies abdominal pain. Denies nausea or vomiting. HEMATOLOGIC: Denies bleeding disorders. GENITOURINARY: Denies any blood in urine. SKIN: Denies pruitis. Denies rash. PHYSICAL EXAM: VITAL SIGNS: Reviewed. GENERAL: Well-developed in no acute distress. HEENT: Head is normocephalic. Pupils are equal, round. Sclerae anicteric. Mucous membranes of the mouth are moist. Neck supple. No JVD or thyromegaly LUNGS: Respirations even and unlabored. Lungs essentially clear to auscultation bilaterally. HEART: Regular rate and rhythm. S1 and S2 heard. ABDOMEN: Soft. Nondistended. Nontender. EXTREMITIES: Normal range of motion. No clubbing or cyanosis. Peripheral pulses intact. No lower extremity edema NEUROLOGIC: Awake and alert. Oriented x 3. ASSESSMENT: Shortness of breath Febrile illness, fever 101.5 at home Pneumonia Acute hypoxic respiratory failure requiring supplemental oxygen Elevated troponins, likely type II PA secondary to oxygen supply/demand mismatch Coronary artery disease with previous stenting to the mid LAD, 10/2023 Known 100% ACCOUNTANT ASSISTANT of the RCA Ischemic cardiomyopathy, 35 to 40% Valvular heart disease including mild to moderate MR, moderate to severe TR Moderate pulmonary hypertension Hyperlipidemia Nicotine dependence PLAN: Obtain limited echo to assess LV function Resume home cardiac medications Continue dual antiplatelet therapy with aspirin and Brilinta due to recent sten ting. Discontinue low-dose Xarelto Pulmonary has been consulted. Await evaluation Has been started on IV Lasix per primary medicine Continue telemetry monitoring Further recommendations pending patient course Nurse practitioner note has been reviewed by physician. Signing provider agrees with the documented findings, assessment, and plan of care documented by WALL WORKER as a scribe. Past Medical History Past Medical History: Asthma, Coronary Artery Disease (CAD), Heart Failure, COPD, Myocardial Infarction (PA), Vascular Disorder Last Myocardial Infarction Date:: 10/28/2023 History of Any Multi-Drug Resistant Organisms: None Reported Past Surgical History: Heart Catheterization With Stent Date of Last Stent Placement:: 10/28/23 Past Psychological History: No Psychological Hx Reported Smoking Status: Current every day smoker Past Alcohol Use History: None Reported Past Drug Use History: None Reported Medications and Allergies Home Medications Medication Instructions Recorded Confirmed Type Albuterol Sulfate [Albuterol 2 puff INHALATION RT-Q4H PRN 10/26/23 02/04/24 History Sulfate Hfa] Ergocalciferol (Vitamin D2) 1,250 mcg PO Q7D 10/26/23 02/04/24 History [Drisdol (50,000 Iu)] Fluticasone/Umeclidin/Vilanter 1 puff INHALATION RT-DAILY 10/26/23 02/04/24 History [Cassie Ellipta 100-62.5-25] Montelukast [Singulair] 10 mg PO HS 10/26/23 02/04/24 History Potassium Chloride ER [K-Dur 10] 10 meq PO DAILY 10/26/23 02/04/24 History Ondansetron [Zofran] 8 mg PO Q12HR PRN 11/03/23 02/04/24 History Pregabalin [Lyrica] 150 mg PO TID #7 cap 11/09/23 02/04/24 Rx oxyCODONE-APAP 10-325MG [Percocet 1 tab PO Q6H PRN #10 tab 11/09/23 02/04/24 Rx 10-325 mg] Acetaminophen [Tylenol Arthritis] 1,300 mg PO Q12H PRN 01/10/24 02/04/24 History Ipratropium-Albuterol Nebulize 3 ml INHALATION RT-QID PRN 01/10/24 02/04/24 History [Duoneb 0.5 mg-3 mg/3 ml Soln] oxyBUTYnin chloride [Ditropan] 5 mg PO BID 01/10/24 02/04/24 History Aspirin 81 mg PO DAILY #30 tab 01/18/24 02/04/24 Rx Atorvastatin [Lipitor] 40 mg PO HS #30 tab 01/18/24 02/04/24 Rx Dapagliflozin Propanediol [Farxiga] 10 mg PO DAILY #30 tab 01/18/24 02/04/24 Rx Lidocaine 4% Patch 1 patch TOPICAL DAILY #7 patch 01/18/24 02/04/24 Rx Metoprolol Succinate (ER) [Toprol 25 mg PO DAILY #30 tab 01/18/24 02/04/24 Rx XL] Nicotine 7Mg/24Hr Patch [Habitrol] 1 patch TRANSDERM DAILY #3 patch 01/18/24 02/04/24 Rx Omeprazole 20 mg PO DAILY #30 cap 01/18/24 02/04/24 Rx Rivaroxaban [Xarelto] 2.5 mg PO BID #60 tab 01/18/24 02/04/24 Rx Sacubitril/Valsartan [Entresto 24 1 each PO BID #60 tab 01/18/24 02/04/24 Rx mg-26 mg Tablet] Ticagrelor [Brilinta] 90 mg PO BID #60 tab 01/18/24 02/04/24 Rx Torsemide [Demadex] 10 mg PO DAILY #30 tab 01/18/24 02/04/24 Rx Allergies Allergy/AdvReac Type Severity Reaction Status Date / Time No Known Allergies Allergy Verified 02/04/24 07:55 Physical Exam Vitals: Vital Signs Temp Pulse Resp BP Pulse Ox 02/04/24 06:10 22 02/04/24 05:54 98.1 F 84 22 114/92 98 02/04/24 02:23 98.7 F 77 18 122/81 95 02/04/24 01:00 75 20 111/60 92 L 02/04/24 00:00 80 20 136/89 92 L 02/03/24 23:05 91 L 02/03/24 22:00 91 24 130/83 96 02/03/24 21:52 87 02/03/24 21:35 86 02/03/24 21:34 88 02/03/24 21:20 81 02/03/24 21:05 82 02/03/24 20:50 99.9 F H 93 24 141/87 95 Intake and Output 02/03/24 02/04/24 02/04/24 22:59 06:59 14:59 Output Total 450 Balance -450 Output: Urine 450 Other: Weight 73.936 kg Results 02/03/24 21:02 02/03/24 21:02 Cardiac Enzymes 02/03/24 02/03/24 02/04/24 Range/Units 21:02 21:02 04:15 AST 16 (14-36) U/L Troponin I 0.055 H* 0.070 H* (0.000-0.034) ng/mL Coagulation 02/03/24 Range/Units 21:02 PT 10.7 (10.0-12.5) sec APTT 20.8 L (22.0-30.0) sec CBC 02/03/24 Range/Units 21:02 WBC 7.7 (3.8-10.6) k/uL RBC 3.89 (3.80-5.40) m/uL Hgb 11.0 L (11.4-16.0) gm/dL Hct 34.6 (34.0-46.0) % Plt Count 160 (150-450) k/uL Comprehensive Metabolic Panel 02/03/24 Range/Units 21:02 Sodium 137 (137-145) mmol/L Potassium 3.6 (3.5-5.1) mmol/L Chloride 109 H (98-107) mmol/L Carbon Dioxide 23 (22-30) mmol/L BUN 16 (7-17) mg/dL Creatinine 0.59 (0.52-1.04) mg/dL Glucose 128 H (74-99) mg/dL Calcium 9.1 (8.4-10.2) mg/dL AST 16 (14-36) U/L ALT 18 (4-34) U/L Alkaline Phosphatase 94 (38-126) U/L Total Protein 6.4 (6.3-8.2) g/dL Albumin 3.7 (3.5-5.0) g/dL Current Medications Generic Name Dose Route Start Last Admin Trade Name Freq PRN Reason Stop Dose Admin Acetaminophen 650 mg 02/03/24 22:59 Acetaminophen Tab 325 Mg Tab PO Q4HR PRN Fever and/ or Pain Albuterol Sulfate 2.5 mg 02/04/24 08:00 Albuterol Nebulized 2.5 Mg/3 Ml INHALATION RT-QID [facility] Albuterol/Ipratropium 3 ml 02/04/24 08:00 Ipratropium-Albuterol 3 Ml Neb INHALATION RT-QID [facility] Aspirin 81 mg 02/04/24 09:00 Aspirin 81 Mg PO DAILY [facility] Atorvastatin Calcium 40 mg 02/04/24 21:00 Atorvastatin 40 Mg Tab PO HS [facility] Azithromycin 500 mg 02/04/24 09:00 Azithromycin 500 Mg Tab PO 02/05/24 09:01 DAILY [facility] Protocol Budesonide/Formoterol Fumarate 2 puff 02/04/24 08:00 Symbicort 80-4.5 Mcg Inhaler INHALATION RT-BID [facility] Dapagliflozin 10 mg 02/04/24 09:00 Dapagliflozin Propanediol 10 Mg Tablet PO DAILY [facility] Ceftriaxone Sodium 2 gm/ 50 mls @ 100 mls/hr 02/04/24 09:00 Sodium Chloride IVPB 02/07/24 09:29 Q24HR [facility] Protocol Metoprolol Succinate 25 mg 02/04/24 09:00 Metoprolol Succinate (Er) 25 Mg Tab.Er.24h PO DAILY [facility] Miscellaneous Information 1 each 02/03/24 22:59 Pneumonia Protocol Utilized 1 Each Misc PO ONCE PRN Per Protocol Montelukast Sodium 10 mg 02/03/24 23:30 02/04/24 01:43 Montelukast 10 Mg Tab PO Not Given HS [facility] Nicotine 1 patch 02/04/24 09:00 Nicotine 7mg/24hr Patch TRANSDERM DAILY [facility] Ondansetron HCl 8 mg 02/03/24 23:24 Ondansetron 4 Mg Tab PO Q12HR PRN Nausea And Vomiting Oxybutynin Chloride 5 mg 02/04/24 09:00 Oxybutynin Chloride 5 Mg Tab PO BID [facility] Oxycodone/Acetaminophen 1 each 02/03/24 23:24 Oxycodone-Apap 10-325mg 1 Each Tab PO Q6H PRN Severe Breakthrough Pain Pregabalin 150 mg 02/04/24 09:00 Pregabalin 75 Mg Cap PO TID [facility] Rivaroxaban 2.5 mg 02/04/24 09:00 Rivaroxaban 2.5 Mg Tablet PO BID [facility] Protocol Sacubitril/Valsartan 1 each 02/04/24 09:00 Sacubitril/Valsartan 24 Mg-26 Mg Tablet PO BID [facility] Ticagrelor 90 mg 02/04/24 09:00 Ticagrelor 90 Mg Tab PO BID [facility] Torsemide 10 mg 02/04/24 09:00 Torsemide 20 Mg Tab PO DAILY [facility] Intake and Output 02/03/24 02/04/24 02/04/24 22:59 06:59 14:59 Output Total 450 Balance -450 Output: Urine 450 Other: Weight 73.936 kg 02/03/24 21:02 02/03/24 21:02
--- NOTE | 2024-02-04 14:10 | CT ---
EXAMINATION TYPE: CT chest w con CT DLP: 428.4 mGycm, Automated exposure control for dose reduction was used. DATE OF EXAM: 02/04/2024 1:59 PM COMPARISON: Chest radiograph 02/03/2024 outside institution CTA chest 01/09/2024, CTA abdominal aorta with runoff 11/02/2023 CLINICAL INDICATION:Female, 74 years old with history of Right hilar fullness; PHH, Right hilar fulln ess TECHNIQUE: Multiple axial images were obtained through the chest following the administration of 100 cc of Isovue 300. . Coronal and sagittal reformats reviewed. FINDINGS: LUNGS/ PLEURA: No pleural effusion or pneumothorax. Patchy consolidative opacities within the right lower lobe. Linear atelectasis within the lingula. Additional patchy consolidative opacities within t he left lower lobe. AIRWAY: Patent and unremarkable.. HEART: The heart is mildly increased in size..No pericardial effusion. Moderate coronary arterial vikash cification of the LAD. MEDIASTINUM: No evidence of adenopathy. VASCULATURE: No aortic aneurysm. Dilated main pulmonary artery which measures up to 3.5 cm in diamet er. MUSCULOSKELETAL: Mild disc degeneration changes are present throughout the thoracolumbar spine. No ac luma osseous abnormality SOFT TISSUES/LYMPH NODES: Unremarkable. LOWER NECK: No significant findings. UPPER ABDOMEN: Intra and extra hepatic biliary ductal dilatation redemonstrated with the visualized p ortion of the common bile duct measuring up to 1.2 cm at the pancreatic head. IMPRESSION: 1. Bilateral lower lobe patchy consolidative opacities in the right greater than left concerning for pneumonia. This corresponds to chest radiograph finding. 2. Cardiomegaly. 3. Dilated main pulmonary artery which can be seen with pulmonary hypertension. 4. Similar intra and extraperitoneal ductal dilatation likely related to postcholecystectomy physiolo gic changes. [facility], , 02/04/2024 2:07 PM
[2024-02-04] MEDS: FUROSEMIDE 10 MG/ML 4 ML VIAL IV SCH (14:45)
--- NOTE | 2024-02-04 15:29 | P.CNPUL ---
History of Present Illness Consult date: 02/04/24 Requesting physician: Huber E Da Reason for consult: dyspnea, abnormal CXR/CT Chief complaint: Shortness of breath History of present illness: This is a 74-year-old female patient with a known history of chronic obstructive pulmonary disease, chronic tobacco dependence, congestive heart failure, coronary artery disease with previous stent placement to the LAD, ischemic cardiomyopathy with ejection fraction 25 to 30%, severe peripheral arterial disease with occlusive disease on the right who presented here to the emergency room last evening with complaints of shortness of breath. He was also found to be with altered mental status. X-ray shows right hilar fullness, right lower lung airspace opacities. CT scan of the brain revealed no acute intracranial abnormalities. White count 7.7. Hemoglobin 11.0. Platelets 160. Sodium 137. Potassium 3.6. Bicarb 23. BUN 16. Creatinine 0.59. Glucose 128. Troponin 0.055, 0.070. proBNP 15,300. Procalcitonin negative at 0.09. Urinalysis clean. Viral screen negative. She is seen today in consultation in the emergency department. She is currently awake and alert in no acute distress. Maintaining O2 saturations in the 90s on 2 L/min per nasal cannula. Tmax 99.9. She denies any worsening shortness of breath, cough or congestion. No hemoptysis. She does have home oxygen. She continues to smoke. She was recently discharged from here on January 19, 2024 following a COPD exacerbation. Review of Systems REVIEW OF SYSTEMS: CONSTITUTIONAL: Altered mental status. Denies any recent significant weight loss or weight gain. EYES: Denies change in vision. EARS, NOSE, MOUTH, THROAT: Denies headaches, denies sore throat. CARDIOVASCULAR: Denies chest pain, palpitations or syncopal episodes. RESPIRATORY: Positive for shortness of breath, cough, congestion no hemoptysis. GASTROINTESTINAL: Denies change in appetite, denies abdominal pain GENITOURINARY: Denies hematuria, denies infections. MUSKULOSKELETAL: Denies pain, denies swelling. INTEGUMENTARY: Denies rash, denies eczema. NEUROLOGICAL: Denies recent memory loss, no recent seizure activity. PSYCHIATRIC: Denies anxiety, denies depression. HEMATOLOGIC/LYMPHATIC: Denies anemia, denies enlarged lymph nodes. Past Medical History Past Medical History: Asthma, Coronary Artery Disease (CAD), Heart Failure, COPD, Myocardial Infarction (DC), Vascular Disorder Last Myocardial Infarction Date:: 10/28/2023 History of Any Multi-Drug Resistant Organisms: None Reported Past Surgical History: Heart Catheterization With Stent Date of Last Stent Placement:: 10/28/23 Past Psychological History: No Psychological Hx Reported Smoking Status: Current every day smoker Past Alcohol Use History: None Reported Past Drug Use History: None Reported Medications and Allergies Home Medications Medication Instructions Recorded Confirmed Type Albuterol Sulfate [Albuterol 2 puff INHALATION RT-Q4H PRN 10/26/23 02/04/24 History Sulfate Hfa] Ergocalciferol (Vitamin D2) 1,250 mcg PO Q7D 10/26/23 02/04/24 History [Drisdol (50,000 Iu)] Fluticasone/Umeclidin/Vilanter 1 puff INHALATION RT-DAILY 10/26/23 02/04/24 History [Trelealem Ellipta 100-62.5-25] Montelukast [Singulair] 10 mg PO HS 10/26/23 02/04/24 History Potassium Chloride ER [K-Dur 10] 10 meq PO DAILY 10/26/23 02/04/24 History Ondansetron [Zofran] 8 mg PO Q12HR PRN 11/03/23 02/04/24 History Pregabalin [Lyrica] 150 mg PO TID #7 cap 11/09/23 02/04/24 Rx oxyCODONE-APAP 10-325MG [Percocet 1 tab PO Q6H PRN #10 tab 11/09/23 02/04/24 Rx 10-325 mg] Acetaminophen [Tylenol Arthritis] 1,300 mg PO Q12H PRN 01/10/24 02/04/24 History Ipratropium-Albuterol Nebulize 3 ml INHALATION RT-QID PRN 01/10/24 02/04/24 History [Duoneb 0.5 mg-3 mg/3 ml Soln] oxyBUTYnin chloride [Ditropan] 5 mg PO BID 01/10/24 02/04/24 History Aspirin 81 mg PO DAILY #30 tab 01/18/24 02/04/24 Rx Atorvastatin [Lipitor] 40 mg PO HS #30 tab 01/18/24 02/04/24 Rx Dapagliflozin Propanediol [Farxiga] 10 mg PO DAILY #30 tab 01/18/24 02/04/24 Rx Lidocaine 4% Patch 1 patch TOPICAL DAILY #7 patch 01/18/24 02/04/24 Rx Metoprolol Succinate (ER) [Toprol 25 mg PO DAILY #30 tab 01/18/24 02/04/24 Rx XL] Nicotine 7Mg/24Hr Patch [Habitrol] 1 patch TRANSDERM DAILY #3 patch 01/18/24 02/04/24 Rx Omeprazole 20 mg PO DAILY #30 cap 01/18/24 02/04/24 Rx Rivaroxaban [Xarelto] 2.5 mg PO BID #60 tab 01/18/24 02/04/24 Rx Sacubitril/Valsartan [Entresto 24 1 each PO BID #60 tab 01/18/24 02/04/24 Rx mg-26 mg Tablet] Ticagrelor [Brilinta] 90 mg PO BID #60 tab 01/18/24 02/04/24 Rx Torsemide [Demadex] 10 mg PO DAILY #30 tab 01/18/24 02/04/24 Rx Allergies Allergy/AdvReac Type Severity Reaction Status Date / Time No Known Allergies Allergy Verified 02/04/24 07:55 Physical Exam Vitals: Vital Signs Temp Pulse Resp BP Pulse Ox 02/04/24 15:05 97.8 F 78 22 97/61 95 02/04/24 14:43 76 20 86/58 95 02/04/24 14:34 75 02/04/24 14:22 69 02/04/24 14:10 71 22 94/52 98 02/04/24 11:30 69 02/04/24 11:20 70 02/04/24 10:58 75 20 106/81 96 02/04/24 09:03 84 18 141/90 96 02/04/24 08:27 86 02/04/24 08:16 84 02/04/24 06:10 22 02/04/24 05:54 98.1 F 84 22 114/92 98 02/04/24 02:23 98.7 F 77 18 122/81 95 02/04/24 01:00 75 20 111/60 92 L 02/04/24 00:00 80 20 136/89 92 L 12/26/24 23:05 91 L 02/03/24 22:00 91 24 130/83 96 02/03/24 21:52 87 02/03/24 21:35 86 02/03/24 21:34 88 02/03/24 21:20 81 02/03/24 21:05 82 02/03/24 20:50 99.9 F H 93 24 141/87 95 Intake and Output 02/04/24 02/04/24 02/04/24 06:59 14:59 22:59 Output Total 450 750 Balance -450 -750 Output: Urine 450 750 GENERAL EXAM: Alert, somewhat confused 74-year-old female, on 2 L nasal cannula, fairly comfortable in no apparent distress. HEAD: Normocephalic. EYES: Normal reaction of pupils, equal size. NOSE: Clear with pink turbinates. THROAT: No erythema or exudates. NECK: No masses, no JVD. CHEST: No chest wall deformity. LUNGS: Equal air entry with few bilateral scattered rhonchi. CVS: S1 and S2 normal with no audible murmur, regular rhythm. ABDOMEN: No hepatosplenomegaly, normal bowel sounds, no guarding or rigidity. SPINE: No scoliosis or deformity SKIN: No rashes CENTRAL NERVOUS SYSTEM: No focal deficits, tone is normal in all 4 extremities. EXTREMITIES: There is no peripheral edema. No clubbing, no cyanosis. Peripheral pulses are intact. Results - Laboratory Findings CBC and BMP: 02/03/24 21:02 02/03/24 21:02 PT/INR, D-dimer PT 10.7 sec (10.0-12.5) 02/03/24 21:02 INR 1.0 (<1.2) 02/03/24 21:02 Abnormal lab findings: Abnormal Labs 02/03/24 02/03/24 02/03/24 21:02 21:02 21:02 Hgb 11.0 L RDW 16.5 H Lymphocytes # 0.7 L APTT 20.8 L Chloride 109 H Glucose 128 H Troponin I TSH 02/03/24 02/03/24 02/04/24 21:02 21:02 04:15 Hgb RDW Lymphocytes # APTT Chloride Glucose Troponin I 0.055 H* 0.070 H* TSH 0.254 L - Diagnostic Findings Chest x-ray: image reviewed Assessment and Plan Assessment: Acute on chronic hypoxemic respiratory failure secondary to exacerbation of COPD and suspected bilateral lower lobe pneumonia right greater than left with patchy consolidative opacities patient to an acute exacerbation of systolic congestive heart failure. Procalcitonin negative. proBNP 15,300. Ischemic cardiomyopathy with previous echocardiogram revealed impaired left ventricular systolic function with ejection fraction 25 to 30% Severe oxygen dependent chronic obstructive pulmonary disease Chronic and ongoing tobacco dependence Coronary disease with previous stent placement to the LAD Peripheral vascular disease Chronic anemia Hyperlipidemia Plan: The patient was seen and evaluated Chest x-ray, labs and medications reviewed Obtain a CT scan of the chest Continue antibiotics Continue IV diuretics Continue bronchodilators NicoDerm patch in place Educated regarding smoking cessation Cardiology consulted We will continue to follow and make further recommendations based on her clinical status I have personally seen and examined the patient, performed the documentation and the assessment and plan as written. Number of minutes spent on the visit: 20 Dictation was produced using [employer] dictation software. Please excuse any grammatical, word or spelling errors.
[2024-02-04] MEDS: methylPREDNISolone SOD SUCCI 125 MG/2 ML VIAL IV SCH (18:15)
[2024-02-04 20:35] LABS: Chol/HDL Ratio 2.76 Ratio; LDL Cholesterol,Calculated 63.1 mg/dL (0.0-131.0)
[2024-02-04] MEDS: ATORVASTATIN 40 MG TAB PO SCH (21:05)
--- NOTE | 2024-02-05 00:28 | HP ---
HISTORY AND PHYSICAL CHIEF COMPLAINT: Shortness of breath. HISTORY OF PRESENT ILLNESS: A 74-year-old woman with a past medical history of multiple medical problems, was recently admitted with COPD acute exacerbation. The patient also has CAD and multiple other medical problems also. The patient also had a history of CHF, ejection fraction 25% to 30%. The patient was complaining of shortness of breath. The patient came to [facility]. Chest x-ray showed increasing opacities and features of COPD and CHF acute exacerbation, admitted for further evaluation. There is no history of any fever, rigors, or chills at this time. The BNP is not available. TSH is low, but free T4 is normal. COVID-19 is negative. PAST MEDICAL HISTORY: Reviewed include COPD and CHF. Rest of the history and rest of the chart is also reviewed. HOME MEDICATIONS: Reviewed include oxybutynin. Rest of medications are noted. ALLERGIES: None. FAMILY HISTORY: No history of heart disease or strokes in the family. SOCIAL HISTORY: Continued smoking. REVIEW OF SYSTEMS: A 14-point review of systems is negative except as mentioned earlier. PHYSICAL EXAMINATION: VITAL SIGNS: Pulse is 75, blood pressure 106/81, and respirations 20. HEENT: Conjunctivae normal. NECK: No JVD. CARDIOVASCULAR: S1, S2. RESPIRATIONS: Breath sounds diminished at the bases. Breathing efforts are markedly increased. Bilateral scattered rhonchi and crackles. ABDOMEN: Soft. LEGS: No edema. NERVOUS SYSTEM: Nonfocal. SKIN: No ulcer, rash, bleeding. JOINTS: No active deforming arthropathy. LABORATORY DATA: Noted. ASSESSMENT: 1. Shortness of breath, multifactorial, chronic obstructive pulmonary disease acute exacerbation, and congestive heart failure acute exacerbation. 2. Troponin 0.07. Rule out acute [id number]-elevation myocardial infarction. 3. History of asthma. 4. History of congestive heart failure. 5. History of myocardial infarction. 6. History of chronic systolic dysfunction, ejection fraction 2%% to 30%. 7. History of coronary artery disease stent. RECOMMENDATIONS AND DISCUSSION: This 74-year-old woman, presented with multiple complex medical issues. We will monitor the patient closely. I would recommend to continue current medications. I would recommend bronchodilators. I would also recommend Cardiology and Pulmonology consultations. I would also recommend a D-dimer and if D-dimer is negative, I would recommend a CT angio of chest for completion of the workup. Small dose of diuretics also will be given. Guarded prognosis. Further recommendations to follow. MMODL / IJN: [id number] /
[2024-02-05 10:53] LABS: Anisocytosis Slight; Basophils % (A) 0 %; Eosinophils % (A) 0 %; HCT 37.2 % (34.0-46.0); HGB 11.4 gm/dL (11.4-16.0); Hypochromasia Moderate; Lymphocytes # (A) 0.6 k/uL (1.0-4.8); Lymphocytes % (A) 7 %; MCH 28.2 pg (25.0-35.0); MCHC 30.7 g/dL (31.0-37.0); Mean Platelet Volume 11.9; Monocytes # (A) 0.1 k/uL (0-1.0); Monocytes % (A) 1 %; Neutrophils # (A) 7.9 k/uL (1.3-7.7); Neutrophils % (A) 91 %; Platelet Count 279 k/uL (150-450); RBC 4.04 m/uL (3.80-5.40); RDW 16.8 % (11.5-15.5); WBC 8.7 k/uL (3.8-10.6)
[2024-02-05 11:07] LABS: African American GFR (CKD) 35 (>60 ml/min/1.73 sqM); Anion Gap 13 mmol/L; Blood Urea Nitrogen 39 mg/dL (7-17); Calcium 8.4 mg/dL (8.4-10.2); Carbon Dioxide 25 mmol/L (22-30); Chloride 104 mmol/L (98-107); Glucose 201 mg/dL (74-99); Non-African American GFR(CKD) 30 (>60 ml/min/1.73 sqM); Potassium 4.5 mmol/L (3.5-5.1); Sodium 142 mmol/L (137-145)
--- NOTE | 2024-02-05 13:02 | P.PN ---
Subjective HISTORY OF PRESENT ILLNESS: This is a 74-year-old female with a past medical history significant for coronary artery disease with previous PCI, ischemic cardiomyopathy, hyperlipidemia, and nicotine dependence. Patient follows in the office with Dr. uFnes. We have been asked to see the patient in consultation for elevated troponin. Patient examined at the bedside emergency room. Patient presented to the hospital for chief complaint of shortness of breath. Patient was also febrile. Patient was found to have pneumonia and was started on IV antibiotics. Patient denies having any chest pain or pressure. She denies any dizziness or lightheadedness. Denies any palpitations. DIAGNOSTICS: - EKG reveals sinus mechanism with nonspecific ST-T wave changes. PVCs. - Chest xray findings concerning for right lung pneumonia. - Laboratory data: WBC 7.7. Hemoglobin 11.0. Platelet count 160. Sodium 137. Potassium 3.6. BUN 16. Creatinine 0.59. Troponin 0.055. 0.070. proBNP 15,300. TSH 0.254. Free T4 1.81. - Current home cardiac medications include aspirin 81 mg daily, Lipitor 40 mg at night, Farxiga 10 mg daily, metoprolol succinate 25 mg daily, Xarelto 2.5 mg twice a day, Brilinta 90 mg twice a day, Entresto 24-26 mg twice a day, Demadex 10 mg daily - Most recent echocardiogram obtained in January 2024 revealed ejection frac tion 35 to 40%, mild to moderate mitral regurgitation, moderate to severe tricuspid regurgitation, moderate pulmonary hypertension - Cardiac catheterization history: 01/17/2024 revealing 80% ostial and proximal diagonal, progressed from prior cath. Patent stent mid LAD. 30 to 40% distal left main disease unchanged from prior cath. 100% occluded MEDICAL PHYSIOLOGIST mid RCA with [id number] collaterals unchanged from previous cath. Mild left circumflex disease. Severe ostial OM1 disease, small vessel. Unchanged from prior cath. 02/05/2024 Patient examined this morning at bedside. Patient currently denies chest pain or pressure. She continues to report shortness of breath. She is maintained on antibiotics. Blood pressures are low with a systolic in the 80s. Her Entresto has been held. Patient was started on IV Lasix yesterday per primary medicine. Creatinine today increased to 1.68, from 0.59 yesterday. PHYSICAL EXAM: VITAL SIGNS: Reviewed. GENERAL: Well-developed in no acute distress. HEENT: Head is normocephalic. Pupils are equal, round. Sclerae anicteric. Mucous membranes of the mouth are moist. Neck supple. No JVD or thyromegaly LUNGS: Respirations even and unlabored. Lungs with expiratory wheezing noted HEART: Regular rate and rhythm. S1 and S2 heard. ABDOMEN: Soft. Nondistended. Nontender. EXTREMITIES: Normal range of motion. No clubbing or cyanosis. Peripheral pulses intact. No lower extremity edema NEUROLOGIC: Awake and alert. Oriented x 3. ASSESSMENT: Shortness of breath Febrile illness, fever 101.5 at home Pneumonia Acute kidney injury Acute hypoxic respiratory failure requiring supplemental oxygen Elevated troponins, likely type II CT secondary to oxygen supply/demand mismatch Coronary artery disease with previous stenting to the mid LAD, 10/2023 Known 100% MEDICAL PHYSIOLOGIST of the RCA Ischemic cardiomyopathy, 35 to 40% Valvular heart disease including mild to moderate MR, moderate to severe TR Moderate pulmonary hypertension Hyperlipidemia Nicotine dependence PLAN: Limited echo has been ordered. Await results. Discontinue Entresto secondary to hypotension with systolics in the 80s. Discontinue IV Lasix as creatinine has increased today to 1.68. Repeat kidney function in a.m. Continue dual antiplatelet therapy with aspirin and Brilinta due to recent sten ting. Continue telemetry monitoring Further recommendations pending patient course Nurse practitioner note has been reviewed by physician. Signing provider agrees with the documented findings, assessment, and plan of care documented by YARD OPERATOR as a scribe. Objective - Vital Signs Vital signs: Vital Signs Temp 98.0 F 02/05/24 08:30 Pulse 83 02/05/24 08:30 Resp 18 02/05/24 08:30 BP 95/63 02/05/24 08:30 Pulse Ox 96 02/05/24 08:30 FiO2 Intake & Output 02/04/24 02/05/24 02/05/24 18:59 06:59 18:59 Intake Total 240 222 Output Total 1050 Balance -810 222 Weight 73.936 kg 70.2 kg Intake: Oral 240 222 Output: Urine 1050 Other: Voiding Method External Catheter External Catheter External Catheter - Labs CBC & Chem 7: 02/05/24 09:00 02/05/24 09:00 Labs: Abnormal Lab Results - Last 24 Hours (Table) 12/02/04/24 02/05/24 Range/Units 11:50 14:40 09:00 MCHC 30.7 L (31.0-37.0) g/dL RDW 16.8 H (11.5-15.5) % Neutrophils # 7.9 H (1.3-7.7) k/uL Lymphocytes # 0.6 L (1.0-4.8) k/uL D-Dimer 2.85 H (<0.60) mg/L FEU BUN (7-17) mg/dL Creatinine (0.52-1.04) mg/dL Glucose (74-99) mg/dL Free T3 pg/mL 2.00 L (2.30-4.20) pg/mL 02/05/24 Range/Units 09:00 MCHC (31.0-37.0) g/dL RDW (11.5-15.5) % Neutrophils # (1.3-7.7) k/uL Lymphocytes # (1.0-4.8) k/uL D-Dimer (<0.60) mg/L FEU BUN 39 H (7-17) mg/dL Creatinine 1.68 H (0.52-1.04) mg/dL Glucose 201 H (74-99) mg/dL Free T3 pg/mL (2.30-4.20) pg/mL Microbiology - Last 24 Hours (Table) 02/03/24 21:02 Blood Culture - Preliminary Blood
--- NOTE | 2024-02-05 14:09 | XR ---
EXAMINATION TYPE: XR chest 1V portable DATE OF EXAM: 02/05/2024 1:44 PM COMPARISON: Chest radiographs from 01/04/2024 CLINICAL INDICATION: Female, 74 years old with history of cough; TECHNIQUE: XR chest 1V portable Frontal view of the chest. FINDINGS: Lungs/Pleura: Improved aeration of lungs on today's exam with persistent airspace opacities within th e right lung base. No evidence of pneumothorax or large pleural effusion. Pulmonary vascularity: Unremarkable. Heart/mediastinum: Cardiomediastinal silhouette is enlarged. Musculoskeletal: No acute osseous pathology. IMPRESSION: 1. Improved aeration of the right lung base. 2. Cardiomegaly with some interstitial prominence correlate with serum BNP. [facility], , 02/05/2024 2:06 PM
--- NOTE | 2024-02-05 15:09 | CA ---
Transthoracic Echo Report Name: Cary Poole Age: 74 Gender: F : 1950 Exam Date: 02/05/2024 11:22 Exam Location: [facility] Ht (in): 63 Wt (lb): 163 Ordering Physician: Tata Theodore Attending/Referring Phys: [id number], Ewelina Septic Technician Dominique Qureshi RDCS Procedure CPT: Indications: LV function, recent PCI Cardiac Hx: Technical Quality: Good Contrast 1: Total Dose (mL): Contrast 2: Total Dose (mL): MEASUREMENTS (Male / Female) Normal Values 2D ECHO LV Diastolic Volume MOD 4C 134.1 cm??? LV Systolic Volume MOD 4C 79.2 cm??? LV Ejection Fraction MOD 4C 40.9 % LV Cardiac Index MOD 4C 2183.3 cm???/min???m??? LV Diastolic Length 4C 7.5 cm LV Systolic Length 4C 6.1 cm LV Diastolic Volume MOD 2C 121.5 cm??? LV Systolic Volume MOD 2C 73.5 cm??? LV Ejection Fraction MOD 2C 39.5 % LV Cardiac Index MOD 2C 1908.2 cm???/min???m??? LV Diastolic Length 2C 7.4 cm LV Systolic Length 2C 6.3 cm DOPPLER TR Peak Velocity 242.3 cm/s TR Peak Gradient 23.5 mmHg Right Ventricular Systolic Press 28.5 mmHg FINDINGS Left Ventricle Left ventricular ejection fraction is estimated at 40 %. Inferior wall hypokinesis Right Ventricle Right Atrium Left Atrium Mitral Valve Aortic Valve Tricuspid Valve Pulmonic Valve Pericardium No pericardial effusion. Aorta CONCLUSIONS Moderate LV dysfunction with an ejection fraction of 40% Inferior wall hypokinesis Previewed by: Dr. Frank De La Torre MD (Electronically Signed) Final Date: 05 February 2024 15:08
--- NOTE | 2024-02-05 16:16 | CT ---
EXAMINATION TYPE: CT angio chest DATE OF EXAM: 02/05/2024 3:58 PM COMPARISON: Chest radiograph from same day. Multiple CTs of the chest with most recent on . CLINICAL INDICATION: Female, 74 years old with history of pe; R/O PE. TECHNIQUE/CONTRAST: CTA scan of the thorax is performed with IV Contrast, patient injected with 65 ml mL of Isovue 370, M IP images are created and reviewed these are created on a separate workstation.. CT DLP: 262.4 mGycm, Automated exposure control for dose reduction was used. FINDINGS: Lungs/Pleura: Airspace opacities in the posterior aspect of the right lower lobe. Mild to moderate ce ntrilobular emphysema changes. Airway: A few opacified large airways in the lower lobes. Heart: The heart is mildly enlarged for size. Atherosclerosis of the arterial vasculature. Lipomatous hypertrophy changes of the interatrial septum. Vasculature: There is no evidence for a filling defect within the pulmonary vasculature to suggest ac mohegan pulmonary embolism. The pulmonary artery is of normal size. Mediastinum: No gross evidence of adenopathy. Musculoskeletal: No acute osseous abnormalities layering debris within the esophagus. Soft Tissues/lymph nodes: Unremarkable. Lower neck: No significant findings. Upper Abdomen: No significant findings. IMPRESSION: 1. No evidence of pulmonary embolism. 2. Bilateral lower lobe airspace opacities correlate for pneumonia. A few opacified lower lobe large airways correlate for aspiration given layering debris in the esophagus. 3. Mild cardiomegaly with coronary artery atherosclerosis. [facility], , 02/05/2024 4:13 PM
--- NOTE | 2024-02-05 16:18 | P.PN ---
Subjective Progress Note Date: 02/05/24 Principal diagnosis: Acute on chronic hypoxic respiratory failure secondary to acute exacerbation of COPD and bilateral basilar pneumonia and acute systolic congestive heart failure This is a 74-year-old female patient with a known history of chronic obstructive pulmonary disease, chronic tobacco dependence, congestive heart failure, coronary artery disease with previous stent placement to the LAD, ischemic cardiomyopathy with ejection fraction 25 to 30%, severe peripheral arterial disease with occlusive disease on the right who presented here to the emergency room last evening with complaints of shortness of breath. He was also found to be with altered mental status. X-ray shows right hilar fullness, right lower lung airspace opacities. CT scan of the brain revealed no acute intracranial abnormalities. White count 7.7. Hemoglobin 11.0. Platelets 160. Sodium 137. Potassium 3.6. Bicarb 23. BUN 16. Creatinine 0.59. Glucose 128. Troponin 0.055, 0.070. proBNP 15,300. Procalcitonin negative at 0.09. Urinalysis clean. Viral screen negative. She is seen today in consultation in the emergency department. She is currently awake and alert in no acute distress. Maintaining O2 saturations in the 90s on 2 L/min per nasal cannula. Tmax 99.9. She denies any worsening shortness of breath, cough or congestion. No hemoptysis. She does have home oxygen. She continues to smoke. She was recently discharged from here on January 19, 2024 following a COPD exacerbation. Seen today on 02/05/2024, patient is doing great. Not in any distress, on 2 L n charlie cannula with O2 saturation ranging between 95 up to 98%. Remains on bronchodilators, she is also on antibiotics in the form of Rocephin, improving steadily. WBC count is 8.7 hemoglobin 11.4 D-dimer is 2.85 basic metabolic profile is normal BUN is 39 creatinine 1.68 Objective - Vital Signs Vital signs: Vital Signs Temp 98.0 F 02/05/24 08:30 Pulse 71 02/05/24 14:00 Resp 19 02/05/24 14:00 BP 128/69 02/05/24 12:00 Pulse Ox 95 02/05/24 12:00 FiO2 Intake & Output 02/04/24 02/05/24 02/05/24 18:59 06:59 18:59 Intake Total 240 222 Output Total 1050 Balance -810 222 Weight 73.936 kg 70.2 kg Intake: Oral 240 222 Output: Urine 1050 Other: Voiding Method External Catheter External Catheter External Catheter # Voids 1 - Exam GENERAL EXAM: revealed 74-year-old female in no distress on 2 L nasal cannula HEAD: Normocephalic. EYES: Normal reaction of pupils, equal size. NOSE: Clear with pink turbinates. THROAT: No erythema or exudates. NECK: No masses, no JVD. CHEST: No chest wall deformity. LUNGS: Equal air entry with few bilateral scattered rhonchi. CVS: S1 and S2 normal with no audible murmur, regular rhythm. ABDOMEN: No hepatosplenomegaly, normal bowel sounds, no guarding or rigidity. SKIN: No rashes CENTRAL NERVOUS SYSTEM: Alert and oriented x 3 no gross focal deficit EXTREMITIES: No clubbing edema or cyanosis - Labs CBC & Chem 7: 02/05/24 09:00 02/05/24 09:00 Labs: Abnormal Lab Results - Last 24 Hours (Table) 02/04/24 02/05/24 02/05/24 Range/Units 11:50 09:00 09:00 MCHC 30.7 L (31.0-37.0) g/dL RDW 16.8 H (11.5-15.5) % Neutrophils # 7.9 H (1.3-7.7) k/uL Lymphocytes # 0.6 L (1.0-4.8) k/uL BUN 39 H (7-17) mg/dL Creatinine 1.68 H (0.52-1.04) mg/dL Glucose 201 H (74-99) mg/dL Free T3 pg/mL 2.00 L (2.30-4.20) pg/mL Microbiology - Last 24 Hours (Table) 02/03/24 21:02 Blood Culture - Preliminary Blood Assessment and Plan Assessment: Impression: Acute on chronic hypoxemic respiratory failure secondary to exacerbation of COPD and suspected bilateral lower lobe pneumonia right greater than left with patchy consolidative opacities patient to an acute exacerbation of systolic congestive heart failure. Procalcitonin negative. proBNP 15,300. Ischemic cardiomyopathy with previous echocardiogram revealed impaired left ventricular systolic function with ejection fraction 25 to 30% Severe oxygen dependent chronic obstructive pulmonary disease Chronic and ongoing tobacco dependence Coronary disease with previous stent placement to the LAD Peripheral vascular disease Chronic anemia Hyperlipidemia Plan: Continue antibiotics Continue bronchodilators NicoDerm patch in place Educated regarding smoking cessation Cardiology consulted Consider discharge planning once cleared by other consultants/cardiology We will continue to follow Time with Patient: Less than 30
[2024-02-06] MEDS: guaiFENesin SYRUP 100MG/5ML 200 MG/10 ML CUP PO PRN (08:18)
--- NOTE | 2024-02-06 09:13 | XR ---
EXAMINATION TYPE: XR chest 1V portable DATE OF EXAM: 02/06/2024 9:08 AM COMPARISON: Chest radiograph from one day prior. CLINICAL INDICATION: Female, 74 years old with history of aspirating on food/drinks; [facility] TECHNIQUE: XR chest 1V portable Frontal view of the chest. FINDINGS: Lungs/Pleura: Bibasilar lower lobe interstitial opacities. No evidence for pneumothorax, pleural effu bere or focal consolidation. Pulmonary vascularity: Unremarkable. Heart/mediastinum: Cardiomediastinal silhouette is unremarkable. Musculoskeletal: No acute osseous pathology. IMPRESSION: Stable exam with bilateral lower interstitial opacities. Findings could represent atelectasis versus sequela of chronic aspiration. Correlate with speech pathology evaluation. [facility], , 02/06/2024 9:11 AM
[2024-02-06 10:15] LABS: Anisocytosis Slight; Basophils % (A) 0 %; Eosinophils % (A) 0 %; HCT 37.1 % (34.0-46.0); HGB 11.1 gm/dL (11.4-16.0); Hypochromasia Marked; Lymphocytes # (A) 0.6 k/uL (1.0-4.8); Lymphocytes % (A) 6 %; MCH 27.8 pg (25.0-35.0); MCV 92.6 fL (80.0-100.0); Mean Platelet Volume 10.5; Monocytes # (A) 0.3 k/uL (0-1.0); Monocytes % (A) 3 %; Neutrophils # (A) 8.9 k/uL (1.3-7.7); Neutrophils % (A) 90 %; Platelet Count 256 k/uL (150-450); RBC 4.01 m/uL (3.80-5.40); RDW 16.3 % (11.5-15.5); WBC 9.9 k/uL (3.8-10.6)
[2024-02-06 10:28] LABS: African American GFR (CKD) 38 (>60 ml/min/1.73 sqM); Anion Gap 16 mmol/L; Blood Urea Nitrogen 50 mg/dL (7-17); Calcium 8.5 mg/dL (8.4-10.2); Carbon Dioxide 21 mmol/L (22-30); Chloride 104 mmol/L (98-107); Glucose 130 mg/dL (74-99); Non-African American GFR(CKD) 33 (>60 ml/min/1.73 sqM); Sodium 141 mmol/L (137-145)
--- NOTE | 2024-02-06 13:33 | P.PN ---
Subjective HISTORY OF PRESENT ILLNESS: This is a 74-year-old female with a past medical history significant for coronary artery disease with previous PCI, ischemic cardiomyopathy, hyperlipidemia, and nicotine dependence. Patient follows in the office with Dr. Funes. We have been asked to see the patient in consultation for elevated troponin. Patient examined at the bedside emergency room. Patient presented to the hospital for chief complaint of shortness of breath. Patient was also febrile. Patient was found to have pneumonia and was started on IV antibiotics. Patient denies having any chest pain or pressure. She denies any dizziness or lightheadedness. Denies any palpitations. DIAGNOSTICS: - EKG reveals sinus mechanism with nonspecific ST-T wave changes. PVCs. - Chest xray findings concerning for right lung pneumonia. - Laboratory data: WBC 7.7. Hemoglobin 11.0. Platelet count 160. Sodium 137. Potassium 3.6. BUN 16. Creatinine 0.59. Troponin 0.055. 0.070. proBNP 15,300. TSH 0.254. Free T4 1.81. - Current home cardiac medications include aspirin 81 mg daily, Lipitor 40 mg at night, Farxiga 10 mg daily, metoprolol succinate 25 mg daily, Xarelto 2.5 mg twice a day, Brilinta 90 mg twice a day, Entresto 24-26 mg twice a day, Demadex 10 mg daily - Most recent echocardiogram obtained in January 2024 revealed ejection frac tion 35 to 40%, mild to moderate mitral regurgitation, moderate to severe tricuspid regurgitation, moderate pulmonary hypertension - Cardiac catheterization history: 01/17/2024 revealing 80% ostial and proximal diagonal, progressed from prior cath. Patent stent mid LAD. 30 to 40% distal left main disease unchanged from prior cath. 100% occluded CHARGE MANAGER mid RCA with [id number] collaterals unchanged from previous cath. Mild left circumflex disease. Severe ostial OM1 disease, small vessel. Unchanged from prior cath. 02/05/2024 Patient examined this morning at bedside. Patient currently denies chest pain or pressure. She continues to report shortness of breath. She is maintained on antibiotics. Blood pressures are low with a systolic in the 80s. Her Entresto has been held. Patient was started on IV Lasix yesterday per primary medicine. Creatinine today increased to 1.68, from 0.59 yesterday. 02/06/2024 Patient examined this morning at the bedside. Patient apparently has not slept all night. Patient currently denies chest pain or pressure. She reports her shortness of breath is improving. Patient currently is n.p.o. and unable to take any medications as she is choking. She was made n.p.o. and speech is supposed to see the patient tomorrow. Echo completed revealing ejection fraction 40% with inferior wall hypokinesis. PHYSICAL EXAM: VITAL SIGNS: Reviewed. GENERAL: Well-developed in no acute distress. HEENT: Head is normocephalic. Pupils are equal, round. Sclerae anicteric. Mucous membranes of the mouth are moist. Neck supple. No JVD or thyromegaly LUNGS: Respirations even and unlabored. Lungs with expiratory wheezing noted HEART: Regular rate and rhythm. S1 and S2 heard. ABDOMEN: Soft. Nondistended. Nontender. EXTREMITIES: Normal range of motion. No clubbing or cyanosis. Peripheral pulses intact. No lower extremity edema NEUROLOGIC: Awake and alert. Oriented x 3. ASSESSMENT: Shortness of breath Febrile illness, fever 101.5 at home Pneumonia Acute kidney injury Acute hypoxic respiratory failure requiring supplemental oxygen Elevated troponins, likely type II [place] secondary to oxygen supply/demand mismatch Coronary artery disease with previous stenting to the mid LAD, 10/2023 Known 100% CHARGE MANAGER of the RCA Ischemic cardiomyopathy, 35 to 40% Valvular heart disease including mild to moderate MR, moderate to severe TR Moderate pulmonary hypertension Hyperlipidemia Nicotine dependence PLAN: Entresto discontinued yesterday secondary to hypotension IV Lasix discontinued yesterday secondary to worsening kidney function Repeat kidney function in a.m. Continue dual antiplatelet therapy with aspirin and Brilinta due to recent stenting. However patient is currently awaiting speech evaluation due to choking with medications. Continue telemetry monitoring Further recommendations pending patient course Nurse practitioner note has been reviewed by physician. Signing provider agrees with the documented findings, assessment, and plan of care documented by RIVER TRANSPORTATION WORKER as a scribe. Objective - Vital Signs Vital signs: Vital Signs Temp 98.0 F 02/06/24 03:58 Pulse 58 L 02/06/24 12:53 Resp 18 02/06/24 08:30 BP 144/74 02/06/24 08:30 Pulse Ox 92 L 02/06/24 09:36 FiO2 Intake & Output 02/05/24 02/06/24 02/06/24 18:59 06:59 18:59 Intake Total 240 360 Balance 240 360 Weight 70.3 kg Intake: Oral 240 360 Other: Voiding Method External Catheter External Catheter External Catheter # Voids 2 1 - Labs CBC & Chem 7: 02/06/24 09:51 02/06/24 09:51 Labs: Abnormal Lab Results - Last 24 Hours (Table) 02/06/24 02/06/24 Range/Units 09:51 09:51 Hgb 11.1 L (11.4-16.0) gm/dL MCHC 30.0 L (31.0-37.0) g/dL RDW 16.3 H (11.5-15.5) % Neutrophils # 8.9 H (1.3-7.7) k/uL Lymphocytes # 0.6 L (1.0-4.8) k/uL Carbon Dioxide 21 L (22-30) mmol/L BUN 50 H (7-17) mg/dL Creatinine 1.57 H (0.52-1.04) mg/dL Glucose 130 H (74-99) mg/dL Microbiology - Last 24 Hours (Table) 02/03/24 21:02 Blood Culture - Preliminary Blood
--- NOTE | 2024-02-06 15:03 | P.PN ---
Subjective Progress Note Date: 02/06/24 This is a 74-year-old female patient with a known history of chronic obstructive pulmonary disease, chronic tobacco dependence, congestive heart failure, coronary artery disease with previous stent placement to the LAD, ischemic cardiomyopathy with ejection fraction 25 to 30%, severe peripheral arterial d isease with occlusive disease on the right who presented here to the emergency room last evening with complaints of shortness of breath. He was also found to be with altered mental status. X-ray shows right hilar fullness, right lower lung airspace opacities. CT scan of the brain revealed no acute intracranial abnormalities. White count 7.7. Hemoglobin 11.0. Platelets 160. Sodium 137. Potassium 3.6. Bicarb 23. BUN 16. Creatinine 0.59. Glucose 128. Troponin 0.055, 0.070. proBNP 15,300. Procalcitonin negative at 0.09. Urinalysis clean. Viral screen negative. She is seen today in consultation in the emergency department. She is currently awake and alert in no acute distress. Maintaining O2 saturations in the 90s on 2 L/min per nasal cannula. Tmax 99.9. She denies any worsening shortness of breath, cough or congestion. No hemoptysis. She does have home oxygen. She continues to smoke. She was recently discharged from here on January 19, 2024 following a COPD exace rbation. Seen today on 02/05/2024, patient is doing great. Not in any distress, on 2 L nasal cannula with O2 saturation ranging between 95 up to 98%. Remains on bronchodilators, she is also on antibiotics in the form of Rocephin, improving steadily. WBC count is 8.7 hemoglobin 11.4 D-dimer is 2.85 basic metabolic profile is normal BUN is 39 creatinine 1.68 The patient is seen today February 06, 2024 in follow-up on the selective care unit. She is currently sitting up in bed. Awake and alert in no acute distress. She has had a bit of confusion and restlessness. White count 9.9. Hemoglobin 11.1. Platelets 256. Sodium 141. Potassium 5.0. Bicarb 21. BUN 50. Creatinine 1.57. Glucose 130. Is continued on DuoNeb inhalations, Symbicort, Singulair, Solu-Medrol. NicoDerm patch in place. Remains on ceftriaxone. Objective - Vital Signs Vital signs: Vital Signs Temp 98.0 F 02/06/24 03:58 Pulse 58 L 02/06/24 12:53 Resp 18 02/06/24 08:30 BP 144/74 02/06/24 08:30 Pulse Ox 92 L 02/06/24 09:36 FiO2 Intake & Output 02/05/24 02/06/24 02/06/24 18:59 06:59 18:59 Intake Total 240 360 118 Balance 240 360 118 Weight 70.3 kg Intake: Oral 240 360 118 Other: Voiding Method External Catheter External Catheter External Catheter # Voids 2 1 - Exam GENERAL EXAM: Alert, active, 74-year-old female, on room air, comfortable in no apparent distress. HEAD: Normocephalic. EYES: Normal reaction of pupils, equal size. NOSE: Clear with pink turbinates. THROAT: No erythema or exudates. NECK: No masses, no JVD. CHEST: No chest wall deformity. LUNGS: Equal air entry with no crackles, wheeze, rhonchi or dullness. CVS: S1 and S2 normal with no audible murmur, regular rhythm. ABDOMEN: No hepatosplenomegaly, normal bowel sounds, no guarding or rigidity. SPINE: No scoliosis or deformity SKIN: No rashes CENTRAL NERVOUS SYSTEM: No focal deficits, tone is normal in all 4 extremities. EXTREMITIES: There is no peripheral edema. No clubbing, no cyanosis. Peripheral pulses are intact. - Labs CBC & Chem 7: 02/06/24 09:51 02/06/24 09:51 Labs: Abnormal Lab Results - Last 24 Hours (Table) 02/06/24 02/06/24 Range/Units 09:51 09:51 Hgb 11.1 L (11.4-16.0) gm/dL MCHC 30.0 L (31.0-37.0) g/dL RDW 16.3 H (11.5-15.5) % Neutrophils # 8.9 H (1.3-7.7) k/uL Lymphocytes # 0.6 L (1.0-4.8) k/uL Carbon Dioxide 21 L (22-30) mmol/L BUN 50 H (7-17) mg/dL Creatinine 1.57 H (0.52-1.04) mg/dL Glucose 130 H (74-99) mg/dL Microbiology - Last 24 Hours (Table) 02/03/24 21:02 Blood Culture - Preliminary Blood Assessment and Plan Assessment: Acute on chronic hypoxemic respiratory failure secondary to exacerbation of COPD and suspected bilateral lower lobe pneumonia right greater than left with patchy consolidative opacities patient to an acute exacerbation of systolic congestive heart failure. Procalcitonin negative. proBNP 15,300. Improved and on room air Dysphagia with choking episode Acute kidney injury, diuretics on hold Ischemic cardiomyopathy with previous echocardiogram revealed impaired left ventricular systolic function with ejection fraction 25 to 30% Severe oxygen dependent chronic obstructive pulmonary disease Chronic and ongoing tobacco dependence Coronary disease with previous stent placement to the LAD Peripheral vascular disease Chronic anemia Hyperlipidemia Plan: The patient was seen and evaluated Chest x-ray, labs and medications reviewed Discontinue steroids Continue bronchodilators Stable and on room air Swallow evaluation We will continue to follow I have personally seen and examined the patient, performed the documentation and the assessment and plan as written. Number of minutes spent on the visit: 10 Dictation was produced using [employer] dictation software. Please excuse any grammatical, word or spelling errors.
[2024-02-06] MEDS: LORazepam 1 MG TAB PO PRN (17:09)
--- NOTE | 2024-02-07 09:08 | PN ---
PROGRESS NOTE DATE OF SERVICE: 02/05/2024 SUBJECTIVE: This 74-year-old woman was admitted with shortness of breath, possibly combination of COPD and CHF, is being closely monitored. Patient is short of breath. The most recent chest x-ray done today, which I reviewed personally showed some possibly atelectasis on the right lower lobe lung base. The patient is closely monitored. D-dimer is also elevated. I also recommended CT angio chest also. PAST MEDICAL HISTORY: Reviewed. REVIEW OF SYSTEMS: A 14-point review of systems is negative except as mentioned earlier. CURRENT MEDICATIONS: Reviewed. PHYSICAL EXAMINATION: VITAL SIGNS: Pulse is 83, blood pressure 95/60, respirations 18. HEENT: Conjunctivae normal. NECK: No carotid bruit. CARDIOVASCULAR: S1, S2. RESPIRATIONS: Breath sounds diminished at the bases. Few scattered rhonchi. ABDOMEN: Soft. LABORATORY DATA: Reviewed. ASSESSMENT: 1. Shortness of breath, multifactorial, chronic obstructive pulmonary disease and congestive heart failure acute exacerbation. 2. Troponin 0.07. Rule out acute rov-RE-fvsafsb-elevation myocardial infarction. 3. Elevated D-dimer, rule out pulmonary embolism. 4. History of asthma. 5. Possible bilateral pneumonia, acute, possibly gram-negative. 6. History of congestive heart failure, ejection fraction 25% to 30%. 7. History of myocardial infarction. 8. History of coronary artery disease, stent. RECOMMENDATIONS AND DISCUSSION: I recommend to continue current management and treatment. Otherwise, the patient is on empiric antibiotics at this time. IV steroids will be continued. CT angio of the chest, intensive bronchodilator treatment. Otherwise, repeat labs. We will closely follow with Cardiology and Pulmonology. If the renal functions worsened, we will stop the diuretics and continue to monitor. Repeat labs will be ordered tomorrow. Guarded prognosis. Further recommendations to follow. MMODL / IJN: [id number] /
--- NOTE | 2024-02-07 09:10 | PN ---
PROGRESS NOTE DATE OF SERVICE: 02/06/2024 SUBJECTIVE: This is a 74-year-old woman, who was admitted with shortness of breath and bilateral pneumonia, also had a significant cough while eating, but the patient insists to eat and the chest x-ray showed bilateral lesions. PAST MEDICAL HISTORY: Reviewed. REVIEW OF SYSTEMS: A 14-point review of systems is negative. CURRENT MEDICATIONS: Reviewed. PHYSICAL EXAMINATION: VITAL SIGNS: Pulse is 54, blood pressure is 140/74, and respirations 18. HEENT: Conjunctivae normal. CARDIOVASCULAR: S1 and S2. RESPIRATIONS: Breath sounds bases. Scattered rhonchi and crackles. ABDOMEN: Soft. NERVOUS SYSTEM: Nonfocal. LABORATORY DATA: A D-dimer is 2.85. ASSESSMENT: 1. Shortness of breath, multifactorial, COPD exacerbation versus CHF acute exacerbation with possibly versus pneumonia and aspiration. 2. Troponin 0.07. Rule out acute ree-PD-kimgkmj-elevation myocardial infarction. 3. History of asthma. 4. History of CHF. 5. Myocardial infarction. 6. Chronic systolic dysfunction, ejection fraction 25% to 30%. RECOMMENDATIONS: Continue current management and symptomatic treatment. Otherwise, speech pathology and modified barium swallow. Repeat labs. As mentioned earlier, the patient has noncompliance with recommendations and please refer to the staff notes for further information. The most recent chest x-ray was reviewed. The chest CTA also was reviewed, showed no evidence of pulmonary embolism, bilateral lower lobe infiltrates, and history of pneumonia. MMODL / IJN: [id number] / MTDD
[2024-02-07 09:19] LABS: Anisocytosis Slight; Basophils % (A) 0 %; Eosinophils % (A) 0 %; HCT 33.7 % (34.0-46.0); HGB 10.2 gm/dL (11.4-16.0); Hypochromasia Marked; Lymphocytes # (A) 1.1 k/uL (1.0-4.8); Lymphocytes % (A) 19 %; MCHC 30.3 g/dL (31.0-37.0); MCV 92.6 fL (80.0-100.0); Mean Platelet Volume 11.2; Monocytes # (A) 0.4 k/uL (0-1.0); Monocytes % (A) 7 %; Neutrophils # (A) 4.3 k/uL (1.3-7.7); Neutrophils % (A) 72 %; Platelet Count 195 k/uL (150-450); RBC 3.64 m/uL (3.80-5.40); RDW 16.1 % (11.5-15.5)
[2024-02-07 09:37] LABS: African American GFR (CKD) 61 (>60 ml/min/1.73 sqM); Anion Gap 5 mmol/L; Blood Urea Nitrogen 40 mg/dL (7-17); Calcium 8.4 mg/dL (8.4-10.2); Carbon Dioxide 29 mmol/L (22-30); Chloride 108 mmol/L (98-107); Glucose 85 mg/dL (74-99); Non-African American GFR(CKD) 53 (>60 ml/min/1.73 sqM); Potassium 4.8 mmol/L (3.5-5.1); Sodium 142 mmol/L (137-145)
[2024-02-07 10:01] LABS: Anisocytosis (M) Present; Large Platelets Present
--- NOTE | 2024-02-07 12:52 | P.PN ---
Subjective Progress Note Date: 02/07/24 This is a 74-year-old female with a past medical history significant for coronary artery disease with previous PCI, ischemic cardiomyopathy, hyperlipidemia, and nicotine dependence. Patient follows in the office with Dr. Funes. We have been asked to see the patient in consultation for elevated troponin. Patient examined at the bedside emergency room. Patient presented to the hospital for chief complaint of shortness of breath. Patient was also febrile. Patient was found to have pneumonia and was started on IV antibiotics. Patient denies having any chest pain or pressure. She denies any dizziness or lightheadedness. Denies any palpitations. DIAGNOSTICS: - EKG reveals sinus mechanism with nonspecific ST-T wave changes. PVCs. - Chest xray findings concerning for right lung pneumonia. - Laboratory data: WBC 7.7. Hemoglobin 11.0. Platelet count 160. Sodium 137. Potassium 3.6. BUN 16. Creatinine 0.59. Troponin 0.055. 0.070. proBNP 15,300. TSH 0.254. Free T4 1.81. - Current home cardiac medications include aspirin 81 mg daily, Lipitor 40 mg at night, Farxiga 10 mg daily, metoprolol succinate 25 mg daily, Xarelto 2.5 mg twice a day, Brilinta 90 mg twice a day, Entresto 24-26 mg twice a day, Demadex 10 mg daily - Echocardiogram revealing ejection fraction 40% with inferior wall hypokinesis - Cardiac catheterization history: 01/17/2024 revealing 80% ostial and proximal diagonal, progressed from prior cath. Patent stent mid LAD. 30 to 40% distal left main disease unchanged from prior cath. 100% occluded [employer]LOBAL [employer]OR mid RCA with [id number]-vu-guieq collaterals unchanged from previous cath. Mild left circumflex disease. Severe ostial OM1 disease, small vessel. Unchanged from prior cath. 02/07/2024 Patient was seen and examined resting in bed. She is overall feeling fairly well. She denies any chest discomfor. Her breathing continues to improve. She is currently n.p.o. and scheduled for swallow study this morning. PHYSICAL EXAM: VITAL SIGNS: Reviewed. GENERAL: Well-developed in no acute distress. HEENT: Head is normocephalic. Pupils are equal, round. Sclerae anicteric. Mucous membranes of the mouth are moist. Neck supple. No JVD or thyromegaly LUNGS: Respirations even and unlabored. Lungs with expiratory wheezing noted HEART: Regular rate and rhythm. S1 and S2 heard. ABDOMEN: Soft. Nondistended. Nontender. EXTREMITIES: Normal range of motion. No clubbing or cyanosis. Peripheral pulses intact. No lower extremity edema NEUROLOGIC: Awake and alert. Oriented x 3. 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 Continue to follow renal function, electrolytes, vital signs Await results of swallow study We will continue to follow the patient and provide further recommendations accordingly. [employer] HANG[employer] HELPER note has been reviewed, I agree with a documented findings and plan of care. Patient was seen and examined. Objective - Vital Signs Vital signs: Vital Signs Temp 98.2 F 02/07/24 08:00 Pulse 68 02/07/24 12:24 Resp 16 02/07/24 08:00 BP 107/71 02/07/24 12:00 Pulse Ox 96 02/07/24 12:00 FiO2 Intake & Output 02/06/24 02/07/24 02/07/24 18:59 06:59 18:59 Intake Total 358 Balance 358 Weight 69.6 kg Intake: Oral 358 Other: Voiding Method External Catheter External Catheter External Catheter # Voids 1 - Labs CBC & Chem 7: 02/07/24 08:00 02/07/24 08:00 Labs: Abnormal Lab Results - Last 24 Hours (Table) 02/07/24 02/07/24 Range/Units 08:00 08:00 RBC 3.64 L (3.80-5.40) m/uL Hgb 10.2 L (11.4-16.0) gm/dL Hct 33.7 L (34.0-46.0) % MCHC 30.3 L (31.0-37.0) g/dL RDW 16.1 H (11.5-15.5) % Chloride 108 H (98-107) mmol/L BUN 40 H (7-17) mg/dL Creatinine 1.05 H (0.52-1.04) mg/dL Microbiology - Last 24 Hours (Table) 02/03/24 21:02 Blood Culture - Preliminary Blood
--- NOTE | 2024-02-07 14:47 | FL ---
EXAMINATION TYPE: FL barium swallow w video DATE OF EXAM: 02/07/2024 COMPARISON: NONE HISTORY: Choking on food TECHNIQUE: Fluoroscopy. FINDINGS: Fluoroscopic guidance was provided for the procedure performed in conjunction with the [facility] pathology department. Please see complete report forthcoming from the Speech Pathology departmen t. Various consistencies from thin liquid to remain thick consistency were administered. The procedu re was terminated as the patient refused further barium Fluoroscopy time 2 minutes 6 seconds. Number of images: 7 Aspiration was evident. There was transient penetration with thin liquids and during 1 episode of nec tar thick liquids. Mild pooling was observed in the vallecula. There was hesitancy in propulsion of the bolus. IMPRESSION: 1. Transient penetration with thin liquids and possibly nectar thick liquids [facility], , 02/07/2024 2:44 PM
--- NOTE | 2024-02-07 15:39 | P.PN ---
Subjective Progress Note Date: 02/07/24 This is a 74-year-old female patient with a known history of chronic obstructive pulmonary disease, chronic tobacco dependence, congestive heart failure, coronary artery disease with previous stent placement to the LAD, ischemic cardiomyopathy with ejection fraction 25 to 30%, severe peripheral arterial d isease with occlusive disease on the right who presented here to the emergency room last evening with complaints of shortness of breath. He was also found to be with altered mental status. X-ray shows right hilar fullness, right lower lung airspace opacities. CT scan of the brain revealed no acute intracranial abnormalities. White count 7.7. Hemoglobin 11.0. Platelets 160. Sodium 137. Potassium 3.6. Bicarb 23. BUN 16. Creatinine 0.59. Glucose 128. Troponin 0.055, 0.070. proBNP 15,300. Procalcitonin negative at 0.09. Urinalysis clean. Viral screen negative. She is seen today in consultation in the emergency department. She is currently awake and alert in no acute distress. Maintaining O2 saturations in the 90s on 2 L/min per nasal cannula. Tmax 99.9. She denies any worsening shortness of breath, cough or congestion. No hemoptysis. She does have home oxygen. She continues to smoke. She was recently discharged from here on January 19, 2024 following a COPD exace rbation. Seen today on 02/05/2024, patient is doing great. Not in any distress, on 2 L nasal cannula with O2 saturation ranging between 95 up to 98%. Remains on bronchodilators, she is also on antibiotics in the form of Rocephin, improving steadily. WBC count is 8.7 hemoglobin 11.4 D-dimer is 2.85 basic metabolic profile is normal BUN is 39 creatinine 1.68 The patient is seen today February 06, 2024 in follow-up on the selective care unit. She is currently sitting up in bed. Awake and alert in no acute distress. She has had a bit of confusion and restlessness. White count 9.9. Hemoglobin 11.1. Platelets 256. Sodium 141. Potassium 5.0. Bicarb 21. BUN 50. Creatinine 1.57. Glucose 130. Is continued on DuoNeb inhalations, Symbicort, Singulair, Solu-Medrol. NicoDerm patch in place. Remains on ceftriaxone. The patient is seen today February 07, 2024 in follow-up on the selective care unit. She is currently sitting up in bed. Awake and alert in no acute distress. Maintaining O2 saturations in the 90s on 2 L/min per nasal cannula. She remains on Symbicort, DuoNeb inhalations, Singulair. NicoDerm patch in place. She did pass her swallow evaluation. White count 6.0. Hemoglobin 10.2. Platelets 195. Sodium 142. Potassium 4.8. Bicarb 29. BUN 40. Creatinine 1 .05. Glucose 85. Objective - Vital Signs Vital signs: Vital Signs Temp 98.2 F 02/07/24 08:00 Pulse 68 02/07/24 12:24 Resp 16 02/07/24 08:00 BP 107/71 02/07/24 12:00 Pulse Ox 96 02/07/24 12:00 FiO2 Intake & Output 02/06/24 02/07/24 02/07/24 18:59 06:59 18:59 Intake Total 358 Balance 358 Weight 69.6 kg Intake: Oral 358 Other: Voiding Method External Catheter External Catheter External Catheter # Voids 1 - Exam GENERAL EXAM: Alert, 74-year-old female, on room air, in no apparent distress. HEAD: Normocephalic. EYES: Normal reaction of pupils, equal size. NOSE: Clear with pink turbinates. THROAT: No erythema or exudates. NECK: No masses, no JVD. CHEST: No chest wall deformity. LUNGS: Equal air entry with few scattered rhonchi. CVS: S1 and S2 normal with no audible murmur, regular rhythm. ABDOMEN: No hepatosplenomegaly, normal bowel sounds, no guarding or rigidity. SPINE: No scoliosis or deformity SKIN: No rashes CENTRAL NERVOUS SYSTEM: No focal deficits, tone is normal in all 4 extremities. EXTREMITIES: There is no peripheral edema. No clubbing, no cyanosis. Peripheral pulses are intact. - Labs CBC & Chem 7: 02/07/24 08:00 02/07/24 08:00 Labs: Abnormal Lab Results - Last 24 Hours (Table) 02/07/24 02/07/24 Range/Units 08:00 08:00 RBC 3.64 L (3.80-5.40) m/uL Hgb 10.2 L (11.4-16.0) gm/dL Hct 33.7 L (34.0-46.0) % MCHC 30.3 L (31.0-37.0) g/dL RDW 16.1 H (11.5-15.5) % Chloride 108 H (98-107) mmol/L BUN 40 H (7-17) mg/dL Creatinine 1.05 H (0.52-1.04) mg/dL Microbiology - Last 24 Hours (Table) 02/03/24 21:02 Blood Culture - Preliminary Blood Assessment and Plan Assessment: Acute on chronic hypoxemic respiratory failure secondary to exacerbation of COPD and suspected bilateral lower lobe pneumonia right greater than left with patchy consolidative opacities patient to an acute exacerbation of systolic congestive heart failure. Procalcitonin negative. proBNP 15,300. Improved and on room air Dysphagia with choking episode. She did pass her swallow evaluation today Acute kidney injury, diuretics on hold Ischemic cardiomyopathy with previous echocardiogram revealed impaired left ventricular systolic function with ejection fraction 25 to 30% Severe oxygen dependent chronic obstructive pulmonary disease Chronic and ongoing tobacco dependence Coronary disease with previous stent placement to the LAD Peripheral vascular disease Chronic anemia Hyperlipidemia Plan: The patient was seen and evaluated Labs and medications reviewed Barium swallow test reviewed Continue bronchodilators Cleared for discharge from the pulmonary standpoint I have personally seen and examined the patient, performed the documentation and the assessment and plan as written. Number of minutes spent on the visit: 10 Dictation was produced using [employer] dictation software. Please excuse any grammatical, word or spelling errors.
--- NOTE | 2024-02-07 23:39 | PN ---
PROGRESS NOTE DATE OF SERVICE: 02/07/2024 SUBJECTIVE: This is a 74-year-old woman, who was admitted with COPD acute exacerbation, possible pneumonia, is being closely monitored. No chest pain. No palpitation. OBJECTIVE: VITAL SIGNS: Pulse 61, blood pressure 106/71, respirations 18. CHEST: A few scattered rhonchi and crackles. ABDOMEN: Soft. NERVOUS SYSTEM: Nonfocal. LABORATORY DATA: Reviewed. Hemoglobin 10.2. Creatinine improved. ASSESSMENT: 1. Shortness of breath, multifactorial, chronic obstructive pulmonary disease exacerbation as well as congestive heart failure acute exacerbation with possible pneumonia and aspiration. 2. Troponin 0.07. Rule out acute rhc-GE-mgtcslt-elevation myocardial infarction. 3. History of asthma. 4. History of congestive heart failure. 5. History of myocardial infarction. 6. Congestive heart failure with chronic systolic dysfunction, ejection fraction 25% to 30% with possible cardiomyopathy. RECOMMENDATIONS AND DISCUSSION: Recommend to continue current medications, continue symptomatic treatment. Otherwise, continue with bronchodilators. Repeat labs. Closely follow with Cardiology and Pulmonology. Guarded prognosis. Further recommendations to follow. MMODL / IJN: [id number] /
--- NOTE | 2024-02-08 11:36 | P.PN ---
Subjective HISTORY OF PRESENT ILLNESS: This is a 74-year-old female with a past medical history significant for coronary artery disease with previous PCI, ischemic cardiomyopathy, hyperlipidemia, and nicotine dependence. Patient follows in the office with Dr. Funes. We have been asked to see the patient in consultation for elevated troponin. Patient examined at the bedside emergency room. Patient presented to the hospital for chief complaint of shortness of breath. Patient was also febrile. Patient was found to have pneumonia and was started on IV antibiotics. Patient denies having any chest pain or pressure. She denies any dizziness or lightheadedness. Denies any palpitations. DIAGNOSTICS: - EKG reveals sinus mechanism with nonspecific ST-T wave changes. PVCs. - Chest xray findings concerning for right lung pneumonia. - Laboratory data: WBC 7.7. Hemoglobin 11.0. Platelet count 160. Sodium 137. Potassium 3.6. BUN 16. Creatinine 0.59. Troponin 0.055. 0.070. proBNP 15,300. TSH 0.254. Free T4 1.81. - Current home cardiac medications include aspirin 81 mg daily, Lipitor 40 mg at night, Farxiga 10 mg daily, metoprolol succinate 25 mg daily, Xarelto 2.5 mg twice a day, Brilinta 90 mg twice a day, Entresto 24-26 mg twice a day, Demadex 10 mg daily - Most recent echocardiogram obtained in January 2024 revealed ejection frac tion 35 to 40%, mild to moderate mitral regurgitation, moderate to severe tricuspid regurgitation, moderate pulmonary hypertension - Cardiac catheterization history: 01/17/2024 revealing 80% ostial and proximal diagonal, progressed from prior cath. Patent stent mid LAD. 30 to 40% distal left main disease unchanged from prior cath. 100% occluded CHILDREN COUNSELOR mid RCA with [id number] collaterals unchanged from previous cath. Mild left circumflex disease. Severe ostial OM1 disease, small vessel. Unchanged from prior cath. 02/05/2024 Patient examined this morning at bedside. Patient currently denies chest pain or pressure. She continues to report shortness of breath. She is maintained on antibiotics. Blood pressures are low with a systolic in the 80s. Her Entresto has been held. Patient was started on IV Lasix yesterday per primary medicine. Creatinine today increased to 1.68, from 0.59 yesterday. 02/06/2024 Patient examined this morning at the bedside. Patient apparently has not slept all night. Patient currently denies chest pain or pressure. She reports her shortness of breath is improving. Patient currently is n.p.o. and unable to take any medications as she is choking. She was made n.p.o. and speech is supposed to see the patient tomorrow. Echo completed revealing ejection fraction 40% with inferior wall hypokinesis. 02/08/2024 Patient examined this morning at the bedside. Patient is sleepy this morning. She denies chest pain or pressure. Vital signs are stable. PHYSICAL EXAM: VITAL SIGNS: Reviewed. GENERAL: Well-developed in no acute distress. HEENT: Head is normocephalic. Pupils are equal, round. Sclerae anicteric. Mucous membranes of the mouth are moist. Neck supple. No JVD or thyromegaly LUNGS: Respirations even and unlabored. Lungs with expiratory wheezing noted HEART: Regular rate and rhythm. S1 and S2 heard. ABDOMEN: Soft. Nondistended. Nontender. EXTREMITIES: Normal range of motion. No clubbing or cyanosis. Peripheral pulses intact. No lower extremity edema NEUROLOGIC: Awake and alert. Oriented x 3. ASSESSMENT: Shortness of breath Febrile illness, fever 101.5 at home Pneumonia Acute kidney injury Acute hypoxic respiratory failure requiring supplemental oxygen Elevated troponins, likely type II [place] secondary to oxygen supply/demand mismatch Coronary artery disease with previous stenting to the mid LAD, 10/2023 Known 100% CHILDREN COUNSELOR of the RCA Ischemic cardiomyopathy, 35 to 40% Valvular heart disease including mild to moderate MR, moderate to severe TR Moderate pulmonary hypertension Hyperlipidemia Nicotine dependence PLAN: Entresto discontinued during hospitalization secondary to hypotension IV Lasix discontinued during hospitalization secondary to worsening kidney function Continue dual antiplatelet therapy with aspirin and Brilinta due to recent stenting. No further inpatient recommendations from a cardiac standpoint We will sign off. Please reconsult if needed. Nurse practitioner note has been reviewed by physician. Signing provider agrees with the documented findings, assessment, and plan of care documented by STRAW HAT BRUSHER as a scribe. Objective - Vital Signs Vital signs: Vital Signs Temp 98.4 F 02/08/24 08:00 Pulse 66 02/08/24 11:32 Resp 17 02/08/24 08:00 BP 127/84 02/08/24 08:00 Pulse Ox 99 02/08/24 08:00 FiO2 Intake & Output 02/07/24 02/08/24 02/08/24 18:59 06:59 18:59 Intake Total 408 270 Balance 408 270 Intake: Intake, IV Titration 50 Amount cefTRIAXone 2 gm In 50 Sodium Chloride 0.9% 50 ml @ 100 mls/hr IVPB Q24HR [facility] Rx#:[id number] Oral 358 270 Other: Voiding Method External Catheter External Catheter # Voids 2 - Labs CBC & Chem 7: 02/07/24 08:00 02/07/24 08:00
--- NOTE | 2024-02-08 14:47 | P.PN ---
Subjective Progress Note Date: 02/08/24 This is a 74-year-old female patient with a known history of chronic obstructive pulmonary disease, chronic tobacco dependence, congestive heart failure, coronary artery disease with previous stent placement to the LAD, ischemic cardiomyopathy with ejection fraction 25 to 30%, severe peripheral arterial d isease with occlusive disease on the right who presented here to the emergency room last evening with complaints of shortness of breath. He was also found to be with altered mental status. X-ray shows right hilar fullness, right lower lung airspace opacities. CT scan of the brain revealed no acute intracranial abnormalities. White count 7.7. Hemoglobin 11.0. Platelets 160. Sodium 137. Potassium 3.6. Bicarb 23. BUN 16. Creatinine 0.59. Glucose 128. Troponin 0.055, 0.070. proBNP 15,300. Procalcitonin negative at 0.09. Urinalysis clean. Viral screen negative. She is seen today in consultation in the emergency department. She is currently awake and alert in no acute distress. Maintaining O2 saturations in the 90s on 2 L/min per nasal cannula. Tmax 99.9. She denies any worsening shortness of breath, cough or congestion. No hemoptysis. She does have home oxygen. She continues to smoke. She was recently discharged from here on January 19, 2024 following a COPD exace rbation. Seen today on 02/05/2024, patient is doing great. Not in any distress, on 2 L nasal cannula with O2 saturation ranging between 95 up to 98%. Remains on bronchodilators, she is also on antibiotics in the form of Rocephin, improving steadily. WBC count is 8.7 hemoglobin 11.4 D-dimer is 2.85 basic metabolic profile is normal BUN is 39 creatinine 1.68 The patient is seen today February 06, 2024 in follow-up on the selective care unit. She is currently sitting up in bed. Awake and alert in no acute distress. She has had a bit of confusion and restlessness. White count 9.9. Hemoglobin 11.1. Platelets 256. Sodium 141. Potassium 5.0. Bicarb 21. BUN 50. Creatinine 1.57. Glucose 130. Is continued on DuoNeb inhalations, Symbicort, Singulair, Solu-Medrol. NicoDerm patch in place. Remains on ceftriaxone. The patient is seen today February 07, 2024 in follow-up on the selective care unit. She is currently sitting up in bed. Awake and alert in no acute distress. Maintaining O2 saturations in the 90s on 2 L/min per nasal cannula. She remains on Symbicort, DuoNeb inhalations, Singulair. NicoDerm patch in place. She did pass her swallow evaluation. White count 6.0. Hemoglobin 10.2. Platelets 195. Sodium 142. Potassium 4.8. Bicarb 29. BUN 40. Creatinine 1 .05. Glucose 85. The patient is seen today February 08, 2024 in follow-up on the regular medical floor. She was transferred off the selective care unit yesterday. She is currently resting comfortably in bed. Awake and alert in no acute distress. Maintaining good O2 saturations in the 90s on 2 L/min per nasal cannula. She is afebrile. Hemodynamically stable. She remains on DuoNeb inhalations, Symbicort, Singulair. NicoDerm patch in place. Blood culture revealed no growth. No new labs today. Objective - Vital Signs Vital signs: Vital Signs Temp 98.4 F 02/08/24 08:00 Pulse 66 02/08/24 11:32 Resp 17 02/08/24 08:00 BP 127/84 02/08/24 08:00 Pulse Ox 99 02/08/24 08:00 FiO2 Intake & Output 02/07/24 02/08/24 02/08/24 18:59 06:59 18:59 Intake Total 408 270 118 Balance 408 270 118 Intake: Intake, IV Titration 50 Amount cefTRIAXone 2 gm In 50 Sodium Chloride 0.9% 50 ml @ 100 mls/hr IVPB Q24HR [facility] Rx#:[id number] Oral 358 270 118 Other: Voiding Method External Catheter External Catheter External Catheter # Voids 2 - Exam GENERAL EXAM: Alert, 74-year-old female, resting comfortably in bed, on 2 L nasal cannula, in no apparent distress. HEAD: Normocephalic. EYES: Normal reaction of pupils, equal size. NOSE: Clear with pink turbinates. THROAT: No erythema or exudates. NECK: No masses, no JVD. CHEST: No chest wall deformity. LUNGS: Equal air entry with few scattered rhonchi. CVS: S1 and S2 normal with no audible murmur, regular rhythm. ABDOMEN: No hepatosplenomegaly, normal bowel sounds, no guarding or rigidity. SPINE: No scoliosis or deformity SKIN: No rashes CENTRAL NERVOUS SYSTEM: No focal deficits, tone is normal in all 4 extremities. EXTREMITIES: There is no peripheral edema. No clubbing, no cyanosis. Peripheral pulses are intact. - Labs CBC & Chem 7: 02/07/24 08:00 02/07/24 08:00 Assessment and Plan Assessment: Acute on chronic hypoxemic respiratory failure secondary to exacerbation of COPD and micro aspiration suspected bilateral lower lobe pneumonia right greater than left with patchy consolidative opacities patient to an acute exacerbation of systolic congestive heart failure. Procalcitonin negative. proBNP 15,300. Improved and on 2 L nasal cannula Dysphagia with choking episode. She did pass her swallow evaluation Acute kidney injury, diuretics on hold Ischemic cardiomyopathy with previous echocardiogram revealed impaired left ventricular systolic function with ejection fraction 25 to 30% Severe oxygen dependent chronic obstructive pulmonary disease Chronic and ongoing tobacco dependence Coronary disease with previous stent placement to the LAD Peripheral vascular disease Chronic anemia Hyperlipidemia Plan: The patient was seen and evaluated Labs and medications reviewed Barium swallow test reviewed Continue bronchodilators Cleared for discharge Plan is to return home with her sister I have personally seen and examined the patient, performed the documentation and the assessment and plan as written. Number of minutes spent on the visit: 10 Dictation was produced using [employer] dictation software. Please excuse any grammatical, word or spelling errors. This patient was seen in coordination with the pulmonary/critical care physician, Dr. Gonzales. He did spend greater than 50% of the time evaluating, examining and developing the plan of care. He agrees to the above HPI, physical exam, assessment and plan of care as dictated by the nurse practitioner.
--- NOTE | 2024-02-08 16:16 | P.PN ---
Subjective This is a pleasant 74 years old female who presents because of increasing shortness of breath Found to have bilateral basal infiltrates secondary to suspected aspiration pneumonitis. Patient evaluated by cardiology and pulmonary service. Patient was treated with steroids. Patient showed interval improvement. Pulmonary team cleared him for discharge since yesterday and again saw her today and cleared her again for discharge. Cardiology team were following her for her heart failure and severe pulmonary hypertension and both ears are cleared her for discharge today Patient underwent 6 swallow evaluation test, there was no overt aspiration but still patient at risk and recommended GI consult however there is no GI service in this facility, patient resumed diet and she was tolerating that well over the last 2 days. Patient and sister at bedside they do not want the patient to wait till next week to see GI and they want to follow-up outpatient with Dr. Wasserman. today patient was sitting at the bedside, fully awake and oriented denying chest pain or dyspnea. No abdominal pain. No other GI/ symptoms. No headache weakness or numbness. Patient was cleared for discharge however patient require home oxygen which is pending once that is delivered patient can be discharged home tomorrow and follow-up outpatient Objective - Vital Signs Vital signs: Vital Signs Temp 98.4 F 02/08/24 08:00 Pulse 66 02/08/24 11:32 Resp 17 02/08/24 08:00 BP 127/84 02/08/24 08:00 Pulse Ox 99 02/08/24 08:00 FiO2 Intake & Output 02/07/24 02/08/24 02/08/24 18:59 06:59 18:59 Intake Total 408 270 118 Balance 408 270 118 Intake: Intake, IV Titration 50 Amount cefTRIAXone 2 gm In 50 Sodium Chloride 0.9% 50 ml @ 100 mls/hr IVPB Q24HR [facility] Rx#:[id number] Oral 358 270 118 Other: Voiding Method External Catheter External Catheter External Catheter # Voids 2 - Exam GENERAL: The patient is alert and oriented x3, not in any acute distress. Well developed, well nourished. HEENT: Pupils are round and equally reacting to light. EOMI. No scleral icterus. No conjunctival pallor. Normocephalic, atraumatic. No pharyngeal erythema. No thyromegaly. CARDIOVASCULAR: S1 and S2 present. No murmurs, rubs, or gallops. PULMONARY: Chest is clear to auscultation, no wheezing , no crackles. ABDOMEN: Soft, nontender, nondistended, normoactive bowel sounds. No palpable organomegaly. MUSCULOSKELETAL: No joint swelling or deformity. EXTREMITIES: No cyanosis, clubbing, or pedal edema. NEUROLOGICAL: Gross neurological examination did not reveal any focal deficits. SKIN: No rashes. no petechiae. - Labs CBC & Chem 7: 02/07/24 08:00 02/07/24 08:00 Assessment and Plan Assessment: Bilateral aspiration pneumonitis Acute kidney injury resolved Elevated troponin most likely type II demand/supply mismatch Coronary artery disease status post stent History of cardiomyopathy with ejection fraction 35 to 40% Moderate mitral regurgitation and moderate to severe tricuspid regurgitation Moderate pulmonary hypertension Plan: Continue with aspirin and Brilinta Swallow evaluation test was noted Patient tolerates diet well. Patient still at risk of aspiration therefore patient will be referred to GI service as an outpatient I talked to the patient and her sister at bedside and both agree they do not want to wait for this and follow-up outpatient. Instruction is provided for the patient and family about safer eating habits to decrease the risk of aspiration Patient will require oxygen upon discharge which is pending Other than that patient is getting medically stable Continue with GI and DVT prophylaxis Overall prognosis remains guarded Possible discharge 24 to 48 hours once oxygen is delivered
[2024-02-09 07:50] VITALS: RESP 16
[2024-02-09] MEDS: methylPREDNISolone 4 MG TAB TAPER PO SCH (08:37)
[2024-02-09 11:55] VITALS: TEMP 98.9
[2024-02-09 11:56] VITALS: BP 101/64
[2024-02-09 12:17] VITALS: PULSE 90
--- NOTE | 2024-02-09 13:14 | P.PN ---
Subjective Progress Note Date: 02/09/24 This is a 74-year-old female patient with a known history of chronic obstructive pulmonary disease, chronic tobacco dependence, congestive heart failure, coronary artery disease with previous stent placement to the LAD, ischemic cardiomyopathy with ejection fraction 25 to 30%, severe peripheral arterial d isease with occlusive disease on the right who presented here to the emergency room last evening with complaints of shortness of breath. He was also found to be with altered mental status. X-ray shows right hilar fullness, right lower lung airspace opacities. CT scan of the brain revealed no acute intracranial abnormalities. White count 7.7. Hemoglobin 11.0. Platelets 160. Sodium 137. Potassium 3.6. Bicarb 23. BUN 16. Creatinine 0.59. Glucose 128. Troponin 0.055, 0.070. proBNP 15,300. Procalcitonin negative at 0.09. Urinalysis clean. Viral screen negative. She is seen today in consultation in the emergency department. She is currently awake and alert in no acute distress. Maintaining O2 saturations in the 90s on 2 L/min per nasal cannula. Tmax 99.9. She denies any worsening shortness of breath, cough or congestion. No hemoptysis. She does have home oxygen. She continues to smoke. She was recently discharged from here on January 19, 2024 following a COPD exace rbation. Seen today on 02/05/2024, patient is doing great. Not in any distress, on 2 L nasal cannula with O2 saturation ranging between 95 up to 98%. Remains on bronchodilators, she is also on antibiotics in the form of Rocephin, improving steadily. WBC count is 8.7 hemoglobin 11.4 D-dimer is 2.85 basic metabolic profile is normal BUN is 39 creatinine 1.68 The patient is seen today February 06, 2024 in follow-up on the selective care unit. She is currently sitting up in bed. Awake and alert in no acute distress. She has had a bit of confusion and restlessness. White count 9.9. Hemoglobin 11.1. Platelets 256. Sodium 141. Potassium 5.0. Bicarb 21. BUN 50. Creatinine 1.57. Glucose 130. Is continued on DuoNeb inhalations, Symbicort, Singulair, Solu-Medrol. NicoDerm patch in place. Remains on ceftriaxone. The patient is seen today February 07, 2024 in follow-up on the selective care unit. She is currently sitting up in bed. Awake and alert in no acute distress. Maintaining O2 saturations in the 90s on 2 L/min per nasal cannula. She remains on Symbicort, DuoNeb inhalations, Singulair. NicoDerm patch in place. She did pass her swallow evaluation. White count 6.0. Hemoglobin 10.2. Platelets 195. Sodium 142. Potassium 4.8. Bicarb 29. BUN 40. Creatinine 1 .05. Glucose 85. The patient is seen today February 08, 2024 in follow-up on the regular medical floor. She was transferred off the selective care unit yesterday. She is currently resting comfortably in bed. Awake and alert in no acute distress. Maintaining good O2 saturations in the 90s on 2 L/min per nasal cannula. She is afebrile. Hemodynamically stable. She remains on DuoNeb inhalations, Symbicort, Singulair. NicoDerm patch in place. Blood culture revealed no growth. No new labs today. The patient is seen today February 09, 2024 in follow-up on the regular medical floor. She is currently sitting up in bed having breakfast. Awake and alert in no acute distress. Maintaining O2 saturations in the mid 90s on 2 L/min per nasal cannula. She is continued on Symbicort, DuoNeb inhalations, Singulair. NicoDerm patch in place. No new labs today. Objective - Vital Signs Vital signs: Vital Signs Temp 98.9 F 02/09/24 11:54 Pulse 90 02/09/24 12:26 Resp 16 02/09/24 11:54 BP 101/64 02/09/24 11:54 Pulse Ox 96 02/09/24 12:01 FiO2 Intake & Output 02/08/24 02/09/24 02/09/24 18:59 06:59 18:59 Intake Total 118 222 240 Balance 118 222 240 Intake: Oral 118 222 240 Other: Voiding Method External Catheter External Catheter # Voids 1 1 - Exam GENERAL EXAM: Alert, 74-year-old female, sitting up in bed having breakfast, on 2 L nasal cannula, in no apparent distress. HEAD: Normocephalic. EYES: Normal reaction of pupils, equal size. NOSE: Clear with pink turbinates. THROAT: No erythema or exudates. NECK: No masses, no JVD. CHEST: No chest wall deformity. LUNGS: Equal air entry with few scattered rhonchi. CVS: S1 and S2 normal with no audible murmur, regular rhythm. ABDOMEN: No hepatosplenomegaly, normal bowel sounds, no guarding or rigidity. SPINE: No scoliosis or deformity SKIN: No rashes CENTRAL NERVOUS SYSTEM: No focal deficits, tone is normal in all 4 extremities. EXTREMITIES: There is no peripheral edema. No clubbing, no cyanosis. Peripheral pulses are intact. - Labs CBC & Chem 7: 02/07/24 08:00 02/07/24 08:00 Labs: Microbiology - Last 24 Hours (Table) 02/03/24 21:02 Blood Culture - Final Blood Assessment and Plan Assessment: Acute on chronic hypoxemic respiratory failure secondary to exacerbation of COPD and micro aspiration suspected bilateral lower lobe pneumonia right greater than left with patchy consolidative opacities patient to an acute exacerbation of systolic congestive heart failure. Procalcitonin negative. proBNP 15,300. Improved and on 2 L nasal cannula Dysphagia with choking episode. She did pass her swallow evaluation Acute kidney injury, diuretics on hold Ischemic cardiomyopathy with previous echocardiogram revealed impaired left ventricular systolic function with ejection fraction 25 to 30% Severe oxygen dependent chronic obstructive pulmonary disease Chronic and ongoing tobacco dependence Coronary disease with previous stent placement to the LAD Peripheral vascular disease Chronic anemia Hyperlipidemia Plan: The patient was seen and evaluated Medications reviewed Cleared for discharge Continue her home Trelegy and DuoNeb inhalations Continue her home oxygen NicoDerm patch in place Complete a Medrol Dosepak Educated regarding smoking cessation Educated regarding no smoking while wearing oxygen I have personally seen and examined the patient, performed the documentation and the assessment and plan as written. Number of minutes spent on the visit: 10 Dictation was produced using [employer] dictation software. Please excuse any grammatical, word or spelling errors. This patient was seen in coordination with the pulmonary/critical care physician, Dr. Gonzales. He did spend greater than 50% of the time evaluating, examining and developing the plan of care. He agrees to the above HPI, physical exam, assessment and plan of care as dictated by the nurse practitioner.
--- NOTE | 2024-02-10 23:52 | P.DS ---
Providers Date of admission: 02/03/24 23:02 Attending physician: Benjamin Marquis Consults: 02/03/24 22:59 Consult Physician Routine Consulting Provider: Jie Rojas Consult Reason/Comments: Pneumonia Do you want consulting provider notified?: Yes, Notify in am Primary care physician: [facility] Course: Diagnoses: Bilateral aspiration pneumonitis Acute kidney injury resolved Elevated troponin most likely type II demand/supply mismatch Coronary artery disease status post stent History of cardiomyopathy with ejection fraction 35 to 40% Moderate mitral regurgitation and moderate to severe tricuspid regurgitation Moderate pulmonary hypertension Hospital course: This is a pleasant 74 years old female who presents because of increasing shortness of breath Found to have bilateral basal infiltrates secondary to suspected aspiration pneumonitis. Patient evaluated by cardiology and pulmonary service. Patient was treated with steroids. Patient showed interval improvement. Pulmonary team cleared him for discharge since yesterday and again saw her today and cleared her again for discharge. Cardiology team were following her for her heart failure and severe pulmonary hypertension and both teams are cleared her for discharge today Patient underwent a swallow evaluation test, there was no overt aspiration but still patient at risk and recommended GI consult however there is no GI service in this facility, patient resumed diet and she was tolerating that well over the last 2 days. Patient and sister at bedside they do not want the patient to wait till next week to see GI physician in the hospital and they want to follow-up outpatient with Dr. De La Torre. today patient was sitting at the bedside, fully awake and oriented denying chest pain or dyspnea. No abdominal pain. No other GI/ symptoms. No headache weakness or numbness. Patient was cleared for discharge however patient require home oxygen for which she qualify, oxygen tank delivered at bedside prior to discharge Pulmonary team also placed the patient on Medrol Dosepak upon discharge to help her with her pneumonitis. Patient remains afebrile, WBC count remains normal. And clinically she remains stable and improving therefore the suspicion of infection is very low and patient does not need antibiotics at this time. Also the inflammatory marker pro- Calcitonin was checked and it was normal at 0.09 which goes against infection. Again we do not think patient will need antibiotics upon discharge Patient was eager to go home today. Yesterday sister was at bedside and I talked to her and she told me she will follow-up with the sister and she make sure she sees all her doctor as an outpatient basis Patient was cleared for discharge by cardiology and pulmonary team Problems and management plan were discussed with the patient and he verbalized understanding and acceptance Patient was found stable and can be discharged home in guarded prognosis however he needs follow-up as an outpatient. Patient was instructed to follow up with PCP within one week and patient agrees Patient was instructed to follow-up with reporting specialist Dr. Winters in 2 [address]. Wasserman in 1 week after discharge and she agrees Physical exam Gen: patient is a AAOx3, no distress CVS: S1-S2, RRR, no murmur Lungs: B/L CTA, no wheezing Abdomen: soft, no distention, no tenderness, positive bowel sounds Extremity: no leg edema or induration Time spent more than 35 minutes Patient Condition at Discharge: Good Plan - Discharge Summary Discharge Rx Participant: No New Discharge Prescriptions: New methylPREDNISolone Dose Pack [Medrol Dose Pack] 4 mg PO DIRECTED #21 tab Continue Montelukast [Singulair] 10 mg PO HS Albuterol Sulfate [Albuterol Sulfate Hfa] 2 puff INHALATION RT-Q4H PRN PRN Reason: Wheezing Ondansetron [Zofran] 8 mg PO Q12HR PRN PRN Reason: Nausea And Vomiting oxyCODONE-APAP 10-325MG [Percocet 10-325 mg] 1 tab PO Q6H PRN #10 tab PRN Reason: Severe Breakthrough Pain Pregabalin [Lyrica] 150 mg PO TID #7 cap Acetaminophen [Tylenol Arthritis] 1,300 mg PO Q12H PRN PRN Reason: Fever And/ Or Pain oxyBUTYnin chloride [Ditropan] 5 mg PO BID Lidocaine 4% Patch 1 patch TOPICAL DAILY #7 patch Aspirin 81 mg PO DAILY #30 tab Ergocalciferol (Vitamin D2) [Drisdol (50,000 Iu)] 1,250 mcg PO Q7D Fluticasone/Umeclidin/Vilanter [Trelegy Ellipta 100-62.5-25] 1 puff INHALATION RT-DAILY Ipratropium-Albuterol Nebulize [Duoneb 0.5 mg-3 mg/3 ml Soln] 3 ml INHALATION RT-QID PRN PRN Reason: Shortness Of Breath Nicotine 7Mg/24Hr Patch [Habitrol] 1 patch TRANSDERM DAILY #3 patch Omeprazole 20 mg PO DAILY #30 cap Ticagrelor [Brilinta] 90 mg PO BID #60 tab Dapagliflozin Propanediol [Farxiga] 10 mg PO DAILY #30 tab Atorvastatin [Lipitor] 40 mg PO HS #30 tab Metoprolol Succinate (ER) [Toprol XL] 25 mg PO DAILY #30 tab Discontinued Potassium Chloride ER [K-Dur 10] 10 meq PO DAILY Sacubitril/Valsartan [Entresto 24 mg-26 mg Tablet] 1 each PO BID #60 tab Rivaroxaban [Xarelto] 2.5 mg PO BID #60 tab Torsemide [Demadex] 10 mg PO DAILY #30 tab Discharge Medication List Albuterol Sulfate [Albuterol Sulfate Hfa] 2 puff INHALATION RT-Q4H PRN 10/26/23 [History] Ergocalciferol (Vitamin D2) [Drisdol (50,000 Iu)] 1,250 mcg PO Q7D 10/26/23 [History] Fluticasone/Umeclidin/Vilanter [Trelegy Ellipta 100-62.5-25] 1 puff INHALATION RT-DAILY 10/26/23 [History] Montelukast [Singulair] 10 mg PO HS 10/26/23 [History] Ondansetron [Zofran] 8 mg PO Q12HR PRN 11/03/23 [History] Pregabalin [Lyrica] 150 mg PO TID #7 cap 11/09/23 [Rx] oxyCODONE-APAP 10-325MG [Percocet 10-325 mg] 1 tab PO Q6H PRN #10 tab 11/09/23 [Rx] Acetaminophen [Tylenol Arthritis] 1,300 mg PO Q12H PRN 01/10/24 [History] Ipratropium-Albuterol Nebulize [Duoneb 0.5 mg-3 mg/3 ml Soln] 3 ml INHALATION RT-QID PRN 01/10/24 [History] oxyBUTYnin chloride [Ditropan] 5 mg PO BID 01/10/24 [History] Aspirin 81 mg PO DAILY #30 tab 01/18/24 [Rx] Atorvastatin [Lipitor] 40 mg PO HS #30 tab 01/18/24 [Rx] Dapagliflozin Propanediol [Farxiga] 10 mg PO DAILY #30 tab 01/18/24 [Rx] Lidocaine 4% Patch 1 patch TOPICAL DAILY #7 patch 01/18/24 [Rx] Metoprolol Succinate (ER) [Toprol XL] 25 mg PO DAILY #30 tab 01/18/24 [Rx] Nicotine 7Mg/24Hr Patch [Habitrol] 1 patch TRANSDERM DAILY #3 patch 01/18/24 [Rx] Omeprazole 20 mg PO DAILY #30 cap 01/18/24 [Rx] Ticagrelor [Brilinta] 90 mg PO BID #60 tab 01/18/24 [Rx] methylPREDNISolone Dose Pack [Medrol Dose Pack] 4 mg PO DIRECTED #21 tab 02/09/24 [Rx] Follow up Appointment(s)/Referral(s): Jie Rojas MD [STAFF PHYSICIAN] - 2 Weeks (lung doctor Please call and schedule follow-up appointments Happy New Year) Rosalinda De La Torre MD [STAFF PHYSICIAN] - 1 Week (Please call and schedule follow-up appointment) Berry Chi DO [Primary Care Provider] - 1-2 days (Please call and schedule follow-up appointment) Activity/Diet/Wound Care/Special Instructions: Heart healthy diet Aspiration precaution is recommended for example sitting up during meal, monitored during meal Activity is restricted till you see your doctor Discharge Disposition: HOME SELF-CARE
== END 2024-02-09 18:22 | disposition home or self-care (01) | DRG 280 ==
LOC: EC 20:46 → 3SCARD 23:02 → 5NMEDONC 02-08 00:22
PROVIDERS: ADMIT Hospitalist; ATTEND Hospitalist
DX: I50.23 Acute on chronic systolic (congestive) heart failure (principal); J69.0 Pneumonitis due to inhalation of food and vomit; I21.A1 Myocardial infarction type 2; J96.21 Acute and chronic respiratory failure with hypoxia; J44.1 Chronic obstructive pulmonary disease with (acute) exacerbation; N17.9 Acute kidney failure, unspecified; J98.11 Atelectasis; I73.9 Peripheral vascular disease, unspecified; D64.9 Anemia, unspecified; I08.1 Rheumatic disorders of both mitral and tricuspid valves; I27.20 Pulmonary hypertension, unspecified; R13.10 Dysphagia, unspecified; I95.2 Hypotension due to drugs; T46.4X5A Adverse effect of angiotensin-converting-enzyme inhibitors, initial encounter; I25.10 Atherosclerotic heart disease of native coronary artery without angina pectoris; I25.5 Ischemic cardiomyopathy; E78.5 Hyperlipidemia, unspecified; Z71.6 Tobacco abuse counseling; F17.200 Nicotine dependence, unspecified, uncomplicated; I25.2 Old myocardial infarction; I49.3 Ventricular premature depolarization; Z99.81 Dependence on supplemental oxygen; Z79.82 Long term (current) use of aspirin; Z79.84 Long term (current) use of oral hypoglycemic drugs; Z79.51 Long term (current) use of inhaled steroids; Z79.899 Other long term (current) drug therapy; Z79.02 Long term (current) use of antithrombotics/antiplatelets; Z79.01 Long term (current) use of anticoagulants; Z95.5 Presence of coronary angioplasty implant and graft; Z91.119 Patient's noncompliance with dietary regimen due to unspecified reason
CPT/HCPCS: 36415; 70450; 71045; 71260; 71275; 74230; 80048; 80053; 80061; 80143; 80179; 81003; 83036; 83880; 84145; 84439; 84443; 84481; 84484; 85025; 85379; 85610; 85730; 87040; 87449; 87636; 93005; 93308; 94640; 94760; 96361; 96365; 96366; 96368; 96375; 99291

== ENCOUNTER 2024-04-26 18:50 | Emergency (ER) | payer MEDICARE, OTHER ==
[2024-04-26 18:59] VITALS: TEMP 98.2
--- NOTE | 2024-04-26 18:59 | ED ---
General Adult HPI - General Source: patient, RN notes reviewed, old records reviewed <Loy Elkins - Last Filed: 04/26/24 21:19> <Darian Fisher - Last Filed: 04/27/24 01:08> - General Stated complaint: abdominal pain Time Seen by Provider: 04/26/24 18:52 - History of Present Illness Initial comments: Patient is a 74-year-old female who presents emergency department complaining of abdominal pain. States she is having lower abdominal pain for a few days. Denies any current chest pain but states she did have an episode of chest pain 3 days ago that resolved after a few moments. Has no chest pain for at least 3 days. Endorses some nausea, vomiting, diarrhea with the lower abdominal pain. Denies shortness of breath. Is chronically on oxygen but has been without her oxygen. Has a history of a DVT but has been without her blood thinners and other medications including pain medications as she has no current prescriptions with her. Has a history of asthma, CAD with a stent, heart failure, COPD. Presents for further evaluation at this time. EMS was concerned due to some mild ST segment elevation in lead III prior to arrival. This does appear to be chronic when compared with old EKGs here. Presents for further evaluation for the abdominal pain. (Loy Elkins) - Related Data Home Medications Medication Instructions Recorded Confirmed Albuterol Sulfate [Albuterol 2 puff INHALATION RT-Q4H PRN 10/26/23 04/26/24 Sulfate Hfa] Albuterol Nebulized [Ventolin 2.5 mg INHALATION RT-QID 04/26/24 04/26/24 Nebulized] Losartan [Cozaar] 12.5 mg PO DAILY 04/26/24 04/26/24 Meloxicam [Mobic] 7.5 mg PO DAILY 04/26/24 04/26/24 Pregabalin [Lyrica] 150 mg PO Q6HR PRN 04/26/24 04/26/24 Spironolactone [Aldactone] 12.5 mg PO DAILY 04/26/24 04/26/24 Previous Rx's Medication Instructions Recorded oxyCODONE-APAP 10-325MG [Percocet 1 tab PO Q6H PRN #10 tab 11/09/23 10-325 mg] oxyCODONE-APAP 10-325MG [Percocet 1 tab PO Q6HR PRN 3 Days #12 tab 04/27/24 10-325 mg] Allergies Allergy/AdvReac Type Severity Reaction Status Date / Time No Known Allergies Allergy Verified 04/26/24 20:44 Review of Systems ROS Other: All systems not noted in ROS Statement are negative. <SeveroLoy - Last Filed: 04/26/24 21:19> ROS Other: All systems not noted in ROS Statement are negative. <Darian Fisher - Last Filed: 04/27/24 01:08> ROS Statement: Those systems with pertinent positive or pertinent negative responses have been documented in the HPI. Review of Systems: CONST: Denies fever EYES: Denies blurry vision ENT: Denies nasal congestion C/V: Denies Chest pain RESP: Denies shortness of breath GI: Endorses abdominal pain : Denies dysuria SKIN: Denies rash. MSK: Denies joint pain. NEURO: Denies headache (Loy Elkins) Past Medical History Past Medical History: Asthma, Coronary Artery Disease (CAD), Heart Failure, COPD, Myocardial Infarction ([place]), Vascular Disorder Last Myocardial Infarction Date:: 10/28/2023 History of Any Multi-Drug Resistant Organisms: None Reported Past Surgical History: Heart Catheterization With Stent Date of Last Stent Placement:: 10/28/23 Past Psychological History: No Psychological Hx Reported Smoking Status: Current every day smoker Past Alcohol Use History: None Reported Additional Past Alcohol Use History / Comment(s): pt. states she smokes 6 cigs a day Past Drug Use History: None Reported <Loy Elkins - Last Filed: 04/26/24 21:19> General Exam <Loy Elkins - Last Filed: 04/26/24 21:19> - General Exam Comments Initial Comments: General: Appears in mild distress secondary to abdominal pain. HEAD: Normal with no signs of head trauma. EYES: PERRLA, EOMI, conjunctiva normal, no discharge. ENT: Hard of hearing. Normal oropharynx RESPIRATORY: Clear breath sounds bilaterally. No wheezes, rales, or rhonchi. C/V: Regular rate and rhythm. S1 and S2 auscultated, no edema, peripheral pulses 2+ and intact throughout ABD: Abdomen is soft, nondistended. Tender palpation in the suprapubic and bilateral lower quadrants. No guarding or rebound tenderness. No peritoneal signs. EXT: Normal range of motion, no obvious deformity SKIN: No rashes or lesions observed on exposed skin. NEURO: Alert and oriented x 4. (Loy Elkins) Course Vital Signs 04/26/24 04/26/24 04/26/24 18:55 18:59 20:13 Temperature 98.2 F Pulse Rate 82 70 84 Respiratory 18 18 20 Rate Blood Pressure 145/115 175/99 134/99 O2 Sat by Pulse 99 98 97 Oximetry 04/26/24 04/26/24 04/27/24 21:34 22:37 00:55 Temperature Pulse Rate 80 75 89 Respiratory 20 18 18 Rate Blood Pressure 166/100 130/74 140/40 O2 Sat by Pulse 99 99 97 Oximetry Medical Decision Making - Lab Data Result diagrams: 04/26/24 18:59 04/26/24 18:59 - EKG Data -: EKG Interpreted by Me <Loy Elkins - Last Filed: 04/26/24 21:19> - Lab Data Result diagrams: 04/26/24 18:59 04/26/24 18:59 <Darian Fisher - Last Filed: 04/27/24 01:08> - Medical Decision Making Was pt. sent in by a medical professional or institution (, PA, DIRECTOR OF REVENUE, urgent care, hospital, or longterm...) When possible be specific @ -No Did you speak to anyone other than the patient for history (EMS, parent, family, police, friend...)? What history was obtained from this source @ -No Did you review nursing and triage notes (agree or disagree)? Why? @ -I reviewed and agree with nursing and triage notes Were old charts reviewed (outside hosp., previous admission, EMS record, old EKG, old radiological studies, urgent care reports/EKG's, longterm records)? Report findings @ -Reviewed old EKGs from January and October 2023 which redemonstrated the slight ST segment elevation in leads III and aVF. No obvious dynamic change when compared with those EKGs Differential Diagnosis (chest pain, altered mental status, abdominal pain women, abdominal pain men, vaginal bleeding, weakness, fever, dyspnea, syncope, headache, dizziness, GI bleed, back pain, seizure, CVA, palpatations, mental health, musculoskeletal)? @ -Differential Abdominal Pain Women: Appendicitis, Cholecystitis, diverticulosis, ischemic bowel, pancreatitis, hepatitis, UTI, gastroenteritis, AAA, incarcerated hernia, bowel obstruction, constipation, inflammatory bowel, hepatitis, peptic ulcer disease, splenic infarction, perforated viscus, vulvitis, ovarian torsion, PID, kidney stone, placenta abruption, this is not meant to be an all-inclusive list EKG interpreted by me (3pts min.). @ -As above X-rays interpreted by me (1pt min.). @ -None done CT interpreted by me (1pt min.). @ -Pending U/S interpreted by me (1pt. min.). @ -None done What testing was considered but not performed or refused? (CT, X-rays, U/S, labs)? Why? @ -None What meds were considered but not given or refused? Why? @ -None Did you discuss the management of the patient with other professionals (professionals i.e. , PA, DIRECTOR OF REVENUE, lab, RT, psych nurse, family welfare social work professor, glass ribbon machine operator, teacher, tactical intelligence officer, transplant case manager)? Give summary @ -No Was smoking cessation discussed for >3mins.? @ -No Was critical care preformed (if so, how long)? @ -No Were there social determinants of health that impacted care today? How? (Homelessness, low income, unemployed, alcoholism, drug addiction, transportation, low edu. Level, literacy, decrease access to med. care, nursing home, rehab)? @ -No Was there de-escalation of care discussed even if they declined (Discuss DNR or withdrawal of care, Hospice)? DNR status @ -No What co-morbidities impacted this encounter? (DM, HTN, Smoking, COPD, CAD, Cancer, CVA, ARF, Chemo, Hep., AIDS, mental health diagnosis, sleep apnea, morbid obesity)? @ -None Was patient admitted / discharged? Hospital course, mention meds given and route, prescriptions, significant lab abnormalities, going to OR and other pertinent info. @ -Patient presents with lower abdominal pain. EMS was concerned regarding EKG findings but they do appear to be chronic based on prior EKGs from 2023. Exam unremarkable other than lower abdominal pain. Nausea vomiting diarrhea also present. No upper abdominal pain. No chest pain. We obtain abdominal laboratory studies as well as screening EKG. We will obtain IV fluids, IV Zofran and morphine will be administered. Patient was in agreement this plan. Vitals are within acceptable limits. EKGs x 2 showed no dynamic changes. Chronic ST segment changes in lead aVF and III. Laboratory studies are remarkable for an indeterminate troponin 0.015 as well as a mild hypokalemia 3.4. Viral swabs negative. Urine is still pending. Patient's CT imaging is also pending at this time. Patient was signed out to Dr. Fisher pending results of workup. Patient did receive a second dose of morphine, and she states that the initial dose did help with her abdominal pain but it did return. Continues to be chest pain-free. Undiagnosed new problem with uncertain prognosis? @ -No Drug Therapy requiring intensive monitoring for toxicity (Heparin, Nitro, Insulin, Cardizem)? @ -No Were any procedures done? @ -No (Loy Elkins) I received this patient pending some of the studies. I reviewed the labs and CT scan. I reevaluated the patient. She has no abdominal tenderness. She does request one of her usual doses of Percocet that she states she is out of. Patient feeling better and at this point stable for discharge, I did provide a small number of Percocet for her to use at home until she can arrange to have her prescription refilled. Discussed appropriate further care and follow-up as well as return parameters. (Darian Fisher) - Lab Data Lab Results 04/26/24 04/26/24 04/26/24 Range/Units 18:59 18:59 18:59 WBC 7.4 (3.8-10.6) k/uL RBC 4.49 (3.80-5.40) m/uL Hgb 12.1 (11.4-16.0) gm/dL Hct 37.0 (34.0-46.0) % MCV 82.4 (80.0-100.0) fL MCH 27.0 (25.0-35.0) pg MCHC 32.8 (31.0-37.0) g/dL RDW 15.8 H (11.5-15.5) % Plt Count 181 (150-450) k/uL MPV 12.0 Neutrophils % 72 % Lymphocytes % 18 % Monocytes % 5 % Eosinophils % 3 % Basophils % 0 % Neutrophils # 5.3 (1.3-7.7) k/uL Lymphocytes # 1.3 (1.0-4.8) k/uL Monocytes # 0.4 (0-1.0) k/uL Eosinophils # 0.2 (0-0.7) k/uL Basophils # 0.0 (0-0.2) k/uL Manual Slide Review Performed Large Platelets Present Hypochromasia Slight PT 10.9 (10.0-12.5) sec INR 1.0 (<1.2) APTT 21.3 L (22.0-30.0) sec Sodium 141 (137-145) mmol/L Potassium 3.4 L (3.5-5.1) mmol/L Chloride 107 (98-107) mmol/L Carbon Dioxide 21 L (22-30) mmol/L Anion Gap 13 mmol/L BUN 14 (7-17) mg/dL Creatinine 0.63 (0.52-1.04) mg/dL Est GFR (CKD-EPI)AfAm >90 (>60 ml/min/1.73 sqM) Est GFR (CKD-EPI)NonAf 90 (>60 ml/min/1.73 sqM) Glucose 112 H (74-99) mg/dL Plasma Lactic Acid [place] (0.7-2.0) mmol/L Calcium 9.2 (8.4-10.2) mg/dL Total Bilirubin 0.8 (0.2-1.3) mg/dL AST 16 (14-36) U/L ALT 10 (4-34) U/L Alkaline Phosphatase 63 (38-126) U/L Troponin I (0.000-0.034) ng/mL Total Protein 6.9 (6.3-8.2) g/dL Albumin 4.1 (3.5-5.0) g/dL Amylase 57 (30-110) U/L Lipase 212 (23-300) U/L Influenza Type A (PCR) (Not Detectd) Influenza Type B (PCR) (Not Detectd) RSV (PCR) (Not Detectd) SARS-CoV-2 (PCR) (Not Detectd) 04/26/24 04/26/24 04/26/24 Range/Units 18:59 18:59 19:19 WBC (3.8-10.6) k/uL RBC (3.80-5.40) m/uL Hgb (11.4-16.0) gm/dL Hct (34.0-46.0) % MCV (80.0-100.0) fL MCH (25.0-35.0) pg MCHC (31.0-37.0) g/dL RDW (11.5-15.5) % Plt Count (150-450) k/uL MPV Neutrophils % % Lymphocytes % % Monocytes % % Eosinophils % % Basophils % % Neutrophils # (1.3-7.7) k/uL Lymphocytes # (1.0-4.8) k/uL Monocytes # (0-1.0) k/uL Eosinophils # (0-0.7) k/uL Basophils # (0-0.2) k/uL Manual Slide Review Large Platelets Hypochromasia PT (10.0-12.5) sec INR (<1.2) APTT (22.0-30.0) sec Sodium (137-145) mmol/L Potassium (3.5-5.1) mmol/L Chloride (98-107) mmol/L Carbon Dioxide (22-30) mmol/L Anion Gap mmol/L BUN (7-17) mg/dL Creatinine (0.52-1.04) mg/dL Est GFR (CKD-EPI)AfAm (>60 ml/min/1.73 sqM) Est GFR (CKD-EPI)NonAf (>60 ml/min/1.73 sqM) Glucose (74-99) mg/dL Plasma Lactic Acid [place] 1.0 (0.7-2.0) mmol/L Calcium (8.4-10.2) mg/dL Total Bilirubin (0.2-1.3) mg/dL AST (14-36) U/L ALT (4-34) U/L Alkaline Phosphatase (38-126) U/L Troponin I 0.015 (0.000-0.034) ng/mL Total Protein (6.3-8.2) g/dL Albumin (3.5-5.0) g/dL Amylase (30-110) U/L Lipase (23-300) U/L Influenza Type A (PCR) Not Detected (Not Detectd) Influenza Type B (PCR) Not Detected (Not Detectd) RSV (PCR) Not Detected (Not Detectd) SARS-CoV-2 (PCR) Not Detected (Not Detectd) - EKG Data EKG Comments: 12-lead Electrocardiogram Interpretation Note EKG was reviewed and interpreted by myself. 12-lead ECG performed at 1856 is interpreted by me as revealing normal sinus rhythm at a rate of 83 beats per minute. [place] is normal. IA interval is 200 ms, QRS duration is 89 ms, QTc is 424. Patient has ST segment elevation very minimal in lead III. No reciprocal changes or concordant elevation. This does seem to be chronic as it is seen on EKG from January 2024.. R wave progression across the precordium was satisfactory. By my interpretation this EKG is non-diagnostic for acute ischemia. 12-lead Electrocardiogram Interpretation Note EKG was reviewed and interpreted by myself. 12-lead ECG performed at 1942 is interpreted by me as revealing normal sinus rhythm at a rate of 68 beats per minute. [place] is normal. IA interval is 196 ms, QRS duration is 90 ms, QTc is [address] segment elevations in III and aVF which are seen on multiple prior EKGs, most recent from January 2024 but also from October 2023.. R wave progression across the precordium was satisfactory. By my interpretation this EKG is non-diagnostic for acute ischemia. (Loy Elkins) Disposition <Loy Elkins - Last Filed: 04/26/24 21:19> Is patient prescribed a controlled substance at d/c from ED?: No <Darian Fisher - Last Filed: 04/27/24 01:08> Clinical Impression: Abdominal pain Disposition: HOME SELF-CARE Condition: Good Instructions (If sedation given, give patient instructions): Abdominal Pain (ED), Opioid Withdrawal (ED) Prescriptions: oxyCODONE-APAP 10-325MG [Percocet 10-325 mg] 1 tab PO Q6HR PRN 3 Days #12 tab PRN Reason: Pain Referrals: None,Stated [REFERRING] - 1-2 days
[2024-04-26] MEDS: SODIUM CHLORIDE 0.9% 1,000 ML IV ONE (19:05)
[2024-04-26] MEDS: PANTOPRAZOLE 40 MG/10 ML VIAL IVP STA (19:06)
[2024-04-26] MEDS: ONDANSETRON 4 MG/2 ML VIAL IVP STA (19:06)
[2024-04-26] MEDS: MORPHINE SULFATE 4 MG/ML SYRINGE IVP STA ×2 (19:06→21:30)
[2024-04-26 19:41] LABS: Basophils % (A) 0 %; Eosinophils # (A) 0.2 k/uL (0-0.7); Eosinophils % (A) 3 %; HGB 12.1 gm/dL (11.4-16.0); Hypochromasia Slight; Lymphocytes # (A) 1.3 k/uL (1.0-4.8); Lymphocytes % (A) 18 %; MCHC 32.8 g/dL (31.0-37.0); MCV 82.4 fL (80.0-100.0); Monocytes # (A) 0.4 k/uL (0-1.0); Monocytes % (A) 5 %; Neutrophils # (A) 5.3 k/uL (1.3-7.7); Neutrophils % (A) 72 %; Platelet Count 181 k/uL (150-450); RBC 4.49 m/uL (3.80-5.40); RDW 15.8 % (11.5-15.5); WBC 7.4 k/uL (3.8-10.6)
[2024-04-26 19:47] LABS: ALT 10 U/L (4-34); AST 16 U/L (14-36); African American GFR (CKD) >90 (>60 ml/min/1.73 sqM); Albumin 4.1 g/dL (3.5-5.0); Alkaline Phosphatase 63 U/L (38-126); Amylase 57 U/L (30-110); Anion Gap 13 mmol/L; Blood Urea Nitrogen 14 mg/dL (7-17); Calcium 9.2 mg/dL (8.4-10.2); Carbon Dioxide 21 mmol/L (22-30); Chloride 107 mmol/L (98-107); Glucose 112 mg/dL (74-99); Lipase 212 U/L (23-300); Non-African American GFR(CKD) 90 (>60 ml/min/1.73 sqM); Potassium 3.4 mmol/L (3.5-5.1); Sodium 141 mmol/L (137-145); Total Bilirubin 0.8 mg/dL (0.2-1.3); Total Protein 6.9 g/dL (6.3-8.2)
[2024-04-26 19:57] LABS: Prothrombin Time 10.9 sec (10.0-12.5)
[2024-04-26 19:58] LABS: Partial Thromboplastin Time 21.3 sec (22.0-30.0)
[2024-04-26 20:20] LABS: Large Platelets Present
[2024-04-26 20:20] LABS: Influenza A Not Detected (Not Detectd); Influenza B Not Detected (Not Detectd); RSV Not Detected (Not Detectd)
--- NOTE | 2024-04-26 21:26 | CT ---
EXAMINATION TYPE: CT abdomen pelvis w con DATE OF EXAM: 04/26/2024 9:08 PM COMPARISON: Previous CT study 11/02/2023. CLINICAL INDICATION: Female, 74 years old with history of abdominal pain. bilateral lower quadrants; abdominal pain. bilateral lower quadrants TECHNIQUE: Axial CT abdomen pelvis w con;Sagittal and coronal reformats were created on a separate w orkstation. Contrast used:100 mL of Isovue 300 with IV Contrast, (none if empty) Oral contrast used: without Oral Contrast CT DLP: 759.6 mGycm, Automated exposure control for dose reduction was used. FINDINGS: LOWER CHEST: Unremarkable ABDOMEN LIVER: Unremarkable GALLBLADDER AND BILE DUCTS: Gallbladder is surgically absent with mild intrahepatic and extra hepatic biliary dilatation likely physiologic and a postcholecystectomy change. No evidence of choledocholit hiasis. PANCREAS: Unremarkable. SPLEEN: Unremarkable. ADRENAL GLANDS: Unremarkable. KIDNEYS AND URETERS: No evidence of hydronephrosis or renal calculus. The ureters are unremarkable. Stable indeterminate hypodense lesion in the left kidney measuring 13 mm, consider further evaluation with dedicated outpatient ultrasound study. Simple cyst in the right kidney is also stable. PELVIS BLADDER: No evidence for wall thickening or mass given limitations of exam. REPRODUCTIVE: The uterus is surgically absent. ABDOMEN & PELVIS STOMACH AND BOWEL: Stomach and duodenum are unremarkable. Scattered diverticula are noted throughout the colon. No evidence of bowel obstruction. Questionable wall thickening of the cecum (series 111 im age 51/111), possibly related to underdistention, consider correlation with outpatient colonoscopy if not recently performed or as clinically indicated. No acute mesenteric inflammation. PERITONEUM/RETROPERITONEUM: No evidence of pneumoperitoneum or free fluid. VASCULATURE: No evidence of aortic aneurysm. Severe narrowing of the proximal SMA, similar to prior s tudy 11/02/2023. 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 MUSCULOSKELETAL: No acute osseous abnormalities. Multilevel lumbosacral spinal degenerative changes. Osseous structures demineralized. LYMPH NODES: No gross evidence for lymphadenopathy. SOFT TISSUE/ABDOMINAL WALL: Unremarkable IMPRESSION: 1. No acute abnormality in the abdomen/pelvis. 2. Colonic diverticulosis without convincing CT evidence of acute diverticulitis. 3. 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 4. 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 5. Additional nonacute findings as above. [facility], , 04/26/2024 9:24 PM
[2024-04-26] MEDS: POTASSIUM CHLORIDE ER 20 MEQ TAB.ER PO STA (21:32)
[2024-04-26 22:38] VITALS: RESP 18
[2024-04-27] MEDS: oxyCODONE-APAP 10-325MG 1 EACH TAB PO STA (00:45)
[2024-04-27 00:56] VITALS: BP 140/40; PULSE 89
== END 2024-04-27 01:19 | disposition home or self-care (01) ==
LOC: EC 18:50
DX: R10.30 Lower abdominal pain, unspecified (principal); F17.200 Nicotine dependence, unspecified, uncomplicated
CPT/HCPCS: 36415; 93005; 80053; 82150; 83605; 83690; 84484; 85025; 85610; 85730; 87636; 74177; 99285; 96374; 96375 ×2; 96376; 96361; J2270; J2405; Q9967; J2470